=== PATIENT | male | born 1955 | race African-American/Black ===

== ENCOUNTER → 2020-09-12 19:54 | Outpatient (REF) | payer MEDICAID, SELFPAY | LOC: HO.SL 19:54 | PROVIDERS: PCP Hospitalist; Visit Provider Hospitalist | DX: Z13.89 Encounter for screening for other disorder (principal) ==

== ENCOUNTER → 2021-06-21 10:36 | Outpatient (BNVA) | payer MEDICAID, SELFPAY | PROVIDERS: PCP Hospitalist; Visit Provider Hospitalist | DX: J43.2 Centrilobular emphysema (principal); G47.33 Obstructive sleep apnea (adult) (pediatric); G47.34 Idiopathic sleep related nonobstructive alveolar hypoventilation; J84.10 Pulmonary fibrosis, unspecified | CPT/HCPCS: 99212 ==

== ENCOUNTER 2021-08-23 08:37 | Outpatient (REF) | payer MEDICARE, MEDICAID, SELFPAY ==
--- NOTE | 2021-08-23 | PFT_ITS ---
FLOWS: FEV1 112% of predicted at 2.53 L. FVC 103% of predicted at 3.04 L. FEV1/FVC ratio of 0.83. No bronchodilator response except in small to medium airways. LUNG VOLUMES: Total lung capacity 99% of predicted at 5.40 L. Residual volume 126% of predicted at 2.36 L. Slow vital capacity 72% of predicted at 3.05 L. Expiratory reserve volume 72% of predicted at 0.82 L. Diffusion capacity is moderately decreased, diffusion capacity adjusts to being mildly decreased after correction for alveolar ventilation. IMPRESSION: No obstructive or restrictive ventilatory defect. Increased residual volume suggests air trapping. Decreased diffusion capacity suggests emphysema. Alo Cain MD AP/MODL / [id number]
== END 2021-08-23 08:38 | disposition home or self-care (01) ==
LOC: HO.RESP 08:37
PROVIDERS: PCP Hospitalist; Visit Provider Hospitalist
DX: J44.9 Chronic obstructive pulmonary disease, unspecified (principal)
CPT/HCPCS: 94060; 94727; 94729; 99212

== ENCOUNTER → 2021-09-04 10:40 | Outpatient (REF) | payer MEDICARE, MEDICAID, SELFPAY | LOC: HO.SL 10:40 | PROVIDERS: PCP Hospitalist; Visit Provider Hospitalist | DX: G47.33 Obstructive sleep apnea (adult) (pediatric) (principal) | CPT/HCPCS: 95806 ==

== ENCOUNTER 2021-09-13 15:41 | Emergency (ER) | payer MEDICARE, MEDICAID, SELFPAY ==
--- NOTE | ~2021-09-13 | XR_ITS ---
EXAMINATION: XR CHEST CLINICAL INFORMATION: Fever with history of COPD COMPARISON: July 05, 2020 and studies dating back to June 20, 2015 TECHNIQUE: PA view of the chest was obtained. FINDINGS: There are again noted to be regions of groundglass opacity bilaterally most prominent within the right upper lobe and left lower lung. There appears be slight increase in discoid density at the left base compared to previous study which may be related to atelectasis or pneumonitis. Heart normal size. No evidence of pulmonary edema. No pneumothorax or pleural effusion. XR/XR chest 1V IMPRESSION: Chronic interstitial lung disease with question region of superimposed acute disease within the left lung base.
[2021-09-13 15:55] VITALS: BP 115/55; BP 128/60; PULSE 108; PULSE 110; RESP 16; TEMP 37.3; O2SAT 95; BMI 41.5
--- NOTE | 2021-09-13 16:15 | ECG_ITS ---
Test Reason : nausea/vomitting Blood Pressure : / mmHG Vent. Rate : 102 BPM Atrial Rate : 102 BPM P-R Int : 162 ms QRS Dur : 104 ms QT Int : 356 ms P-R-T Axes : 047 020 032 degrees QTc Int : 463 ms Sinus tachycardia Possible Left atrial enlargement Incomplete right bundle branch block Nonspecific T wave abnormality Abnormal ECG T wave amplitude has decreased in Lateral leads Referred By: Marleni Francisco Electronically Signed By:VIANNEY MCCAIN MD
--- NOTE | 2021-09-13 16:19 | ED_ITS ---
HPI - General Adult General Chief complaint: General Medical Stated complaint: Vomiting, Fever Time Seen by Provider: 09/13/21 16:08 Source: patient and EMS Mode of arrival: EMS Limitations: no limitations History of Present Illness HPI narrative: Patient is brought to the emergency room by ambulance from [facility]. 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 Patient states the sensation lasted for about an hour then self resolved. Patient denies chest pain or shortness of breath. According to [facility] staff, they took the patient's temperature, he had a temperature 102 degrees, he was given Tylenol. Patient denies chest pain, no shortness of breath, no diarrhea. At this time, patient states that he feels small to normal. Related Data Home Medications Medication Instructions Recorded Confirmed acetaminophen 325 mg capsule 325 mg PO QID PRN 06/21/21 (Tylenol) ascorbate calcium (vitamin C) 500 500 mg PO DAILY 06/21/21 mg tablet atorvastatin 10 mg tablet 10 mg PO DAILY 06/21/21 bisacodyl 10 mg rectal suppository 10 mg MO DAILY PRN 06/21/21 cholecalciferol (vitamin D3) 25 25 mcg PO DAILY 06/21/21 mcg (1,000 unit) capsule clozapine 100 mg tablet (Clozaril) 100 mg PO TID 06/21/21 clozapine 200 mg tablet 200 mg PO BID 06/21/21 diphenhydramine HCl 25 mg tablet 25 mg PO Q6H PRN 06/21/21 (Benadryl Allergy) furosemide 20 mg tablet 20 mg PO DAILY 06/21/21 lithium carbonate 450 mg 450 mg PO BID 06/21/21 tablet,extended release metformin 1,000 mg tablet 1,000 mg PO BID 06/21/21 metoprolol succinate 100 mg 100 mg PO DAILY 06/21/21 tablet,extended release 24 hr metoprolol succinate 50 mg 50 mg PO DAILY 06/21/21 tablet,extended release 24 hr omeprazole 20 mg capsule,delayed 20 mg PO DAILY 06/21/21 release oxybutynin chloride 5 mg tablet 5 mg PO DAILY 06/21/21 qpxhscxwcvpsh-OX-jzokcghlitc 5 5 ml PO Q4H PRN 06/21/21 mg-15 mg-100 mg/5 mL oral liquid polyvinyl alcohol-povidone 1.4 p OPHTHALMIC (EYE) 06/21/21 %-0.6 % eye drops sennosides 8.6 mg tablet (senna) 8.6 mg PO DAILY 06/21/21 trazodone 100 mg tablet 100 mg PO BEDTIME 06/21/21 fluticasone propionate 50 spray INTRANASAL 08/23/21 mcg/actuation nasal spray,suspension Previous Rx's Medication Instructions Recorded azithromycin 250 mg tablet 250 mg PO DAILY 4 Days #4 tab 09/13/21 Allergies Allergy/AdvReac Type Severity Reaction Status Date / Time divalproex sodium [Depakote] Allergy Severe Rash/Hives Verified 08/23/21 10:14 gabapentin [Neurontin] Allergy Severe Rash/Hives Verified 08/23/21 10:14 haloperidol [From HALDOL] Allergy Severe Rash/Hives Verified 08/23/21 10:14 Haldol Allergy Severe Rash/Hives Uncoded 08/23/21 10:14 Review of Systems Review of Systems: Constitutional : No Weight loss, No Fever the patient's knowledge, No Chills, No Night Sweats, No Fatigue, No Malaise ENT/Mouth : No Hearing loss, No Ear Pain, No Nasal Congestion, No Sinus Pain, No Hoarseness, No sore throat, No Rhinorrhea, No Swallowing Difficulty Eyes: No Eye Pain, No Swelling, No Redness, No Foreign Body, No Discharge, No Vision Changes Cardiovascular : No Chest Pain, No SOB, No Dyspnea on Exertion, No Orthopnea, No Edema, No Palpitations, complaining of lightheadedness Respiratory : No Cough, No Sputum, No Wheezing, No Smoke Exposure, No Dyspnea Gastrointestinal : Complaining of nausea and vomiting, No Diarrhea, No Constipation, No abdominal Pain, No Hematochezia, No Melena Genitourinary : no irregular bleeding, No Dysuria, No Urinary Frequency, No Hematuria, No Urinary Incontinence, No Urgency, No Flank Pain, No Urinary Flow Changes, No Hesitancy Musculoskeletal : No joint pain, No Myalgias, No Joint Swelling Skin : No Skin Lesions, No rash Neuro : No Weakness, No Numbness, No Paresthesias, No Loss of Consciousness, No Dizziness, No Headache Psych : No Anxiety/Panic, No Depression, No SI/HI/AH/VH, No Social Issues, Heme/Lymph: No Bruising, No Bleeding,No Lymphadenopathy Endocrine : No Polyuria, No Polydipsia, No Temperature Intolerance [facility] Past Medical History Medical History COPD (chronic obstructive pulmonary disease) COVID-19 Nocturnal hypoxia BRITT (obstructive sleep apnea) Pulmonary fibrosis Social History Social History (Updated 06/21/21 @ 10:54 by ALTAGRACIA Westbrook) Alcohol intake: never Patient Tobacco Use Status: Current everyday Tobacco user Tobacco use type: Cigarette Cigarette Packs Per Day: 1 Cigarettes Per Day: 5 Use of substances other than those prescribed or required for medical reasons: No Advance Directives: No Advance Directives Information Provided: No Physical Exam Vital Signs: Vital Signs: Last Vital Signs Temp 100.5 F H 09/13/21 19:32 Pulse 111 H 09/13/21 19:32 Resp 16 09/13/21 19:32 BP 117/67 09/13/21 19:32 Pulse Ox 95 09/13/21 19:32 Body Mass Index 41.5 Const: Other: Appearance: Alert. Oriented X3. No acute distress. Eyes: Pupils equal, round and reactive to light. ENT: Pharynx normal. Neck: Normal inspection. Neck supple. No lymph nodes noted. No crepitus CVS: Normal heart rate and rhythm. Pulses normal. Normal S1 and S2 Respiratory: No respiratory distress. Breath sounds normal. No Wheezing. No rales Abdomen: Soft and nontender. No rigidity. No distention. good BS x4 Skin: Skin warm and dry. Normal skin color. Normal skin turgor. Extremities: Bilateral lower chronic venous stasis, nonpitting edema, No Lace rations. No Rash Neuro: Oriented X 3. No motor deficit. No sensory deficit. Moving all extermities. No slurred speech. Course Course Course Narrative: Patient's troponin 1. Is 9.9. It will be repeated at 19:20. Patient remains asymptomatic, no dizziness. Chest x-ray shows question also a region of superimposed acute disease within the left lung base. Patient has no respiratory symptoms, white blood cell count within normal limits. Since the staff at [facility] reports fevers, patient has history of COPD, we will go ahead and treat with oral antibiotic. First dose given in the emergency room, azithromycin. Medical Decision Making Lab Data Result diagrams: 09/13/21 16:24 09/13/21 17:26 Labs: Lab Results 09/13/21 09/13/21 09/13/21 Range/Units 16:24 16:24 16:24 WBC 10.4 (4.8-10.8) X10*3/uL RBC 3.98 L (4.60-5.80) X10*6/uL Hgb 12.5 L (14.0-18.0) g/dl Hct 37.7 L (42-52) % MCV 94.7 (80-98) fL MCH 31.4 (27.0-33.0) pg MCHC 33.2 (31.0-36.0) g/dl RDW 14.6 (11.0-16.0) % Plt Count 185 (160-400) X10*3/uL MPV 9.4 (9.4-12.4) fL Immature Gran % (Auto) 0.6 H (0.0-0.4) % Neut % (Auto) 87.5 H (45-73) % Lymph % (Auto) 7.6 L (20-40) % [place] % (Auto) 4.1 (2-11) % Eos % (Auto) 0.0 (0-4) % Baso % (Auto) 0.2 (0-2) % Lymph # (Auto) 0.8 L (1.2-4.9) X10*3/uL [place] # (Auto) 0.4 (0.1-1.2) X10*3/uL Eos # (Auto) 0.0 (0.0-0.4) X10*3/uL Baso # (Auto) 0.0 (0.0-0.2) X10*3/uL Abs Immat Gran (auto) 0.06 H (0.00-0.03) X10*3/uL Absolute Neuts (auto) 9.1 H (2.0-8.3) X10*3/uL Absolute Nucleated RBC 0.000 (0.0-0.012) X10*3/uL Nucleated RBC % (auto) 0.0 (0.0-0.2) /100WBC PT 13.7 H (9.9-13.0) SEC INR 1.2 H (0.9-1.1) Sodium (135-145) mmol/L Potassium (3.3-5.1) mmol/L Chloride (96-108) mmol/L Carbon Dioxide (22-29) mmol/L Anion Gap (12-20) BUN (9-16) mg/dL Creatinine (0.5-1.4) mg/dL Estim Creat Clear Calc Estimated GFR Random Glucose (60-115) mg/dL Lactic Acid 1.9 (0.5-2.0) mmol/L Calcium (8.4-10.2) mg/dL Total Bilirubin (0.0-1.0) mg/dL Direct Bilirubin (0.0-0.5) mg/dL AST (5-37) U/L ALT (0-40) U/L Alkaline Phosphatase (39-117) U/L Troponin I High Sens (<3.5-35.0) ng/L B-Natriuretic Peptide (<100) pg/mL Total Protein (6.5-8.0) g/dL Albumin (3.5-5.0) g/dL Urine Color Urine Appearance Urine pH (5.0-8.0) Ur Specific [place] (1.005-1.025) Urine Protein (NEG-TRACE) MG/DL Urine Glucose (UA) (NEG) MG/DL Urine Ketones (NEG) MG/DL Urine Blood (NEG) Urine Nitrite (NEG) Ur Leukocyte Esterase (NEG) COVID-19 (MARINE) (Negative) COVID-19 Clin Com 09/13/21 09/13/21 09/13/21 Range/Units 16:24 17:26 17:56 WBC (4.8-10.8) X10*3/uL RBC (4.60-5.80) X10*6/uL Hgb (14.0-18.0) g/dl Hct (42-52) % MCV (80-98) fL MCH (27.0-33.0) pg MCHC (31.0-36.0) g/dl RDW (11.0-16.0) % Plt Count (160-400) X10*3/uL MPV (9.4-12.4) fL Immature Gran % (Auto) (0.0-0.4) % Neut % (Auto) (45-73) % Lymph % (Auto) (20-40) % [place] % (Auto) (2-11) % Eos % (Auto) (0-4) % Baso % (Auto) (0-2) % Lymph # (Auto) (1.2-4.9) X10*3/uL [place] # (Auto) (0.1-1.2) X10*3/uL Eos # (Auto) (0.0-0.4) X10*3/uL Baso # (Auto) (0.0-0.2) X10*3/uL Abs Immat Gran (auto) (0.00-0.03) X10*3/uL Absolute Neuts (auto) (2.0-8.3) X10*3/uL Absolute Nucleated RBC (0.0-0.012) X10*3/uL Nucleated RBC % (auto) (0.0-0.2) /100WBC PT (9.9-13.0) SEC INR (0.9-1.1) Sodium 136 (135-145) mmol/L Potassium 3.9 (3.3-5.1) mmol/L Chloride 101 (96-108) mmol/L Carbon Dioxide 27 (22-29) mmol/L Anion Gap 12 (12-20) BUN 11 (9-16) mg/dL Creatinine 1.36 (0.5-1.4) mg/dL Estim Creat Clear Calc 67.2 Estimated GFR 53 Random Glucose 132 H (60-115) mg/dL Lactic Acid (0.5-2.0) mmol/L Calcium 9.4 (8.4-10.2) mg/dL Total Bilirubin 0.2 (0.0-1.0) mg/dL Direct Bilirubin 0.2 (0.0-0.5) mg/dL AST 26 (5-37) U/L ALT 20 (0-40) U/L Alkaline Phosphatase 91 (39-117) U/L Troponin I High Sens 9.9 (<3.5-35.0) ng/L B-Natriuretic Peptide 14 (<100) pg/mL Total Protein 7.5 (6.5-8.0) g/dL Albumin 4.3 (3.5-5.0) g/dL Urine Color YELLOW Urine Appearance CLEAR Urine pH 6.5 (5.0-8.0) Ur Specific [place] <= 1.005 (1.005-1.025) Urine Protein NEG (NEG-TRACE) MG/DL Urine Glucose (UA) NEG (NEG) MG/DL Urine Ketones NEG (NEG) MG/DL Urine Blood NEG (NEG) Urine Nitrite NEG (NEG) Ur Leukocyte Esterase NEG (NEG) COVID-19 (MARNIE) (Negative) COVID-19 Clin Com 09/13/21 Range/Units 19:42 WBC (4.8-10.8) X10*3/uL RBC (4.60-5.80) X10*6/uL Hgb (14.0-18.0) g/dl Hct (42-52) % MCV (80-98) fL MCH (27.0-33.0) pg MCHC (31.0-36.0) g/dl RDW (11.0-16.0) % Plt Count (160-400) X10*3/uL MPV (9.4-12.4) fL Immature Gran % (Auto) (0.0-0.4) % Neut % (Auto) (45-73) % Lymph % (Auto) (20-40) % [place] % (Auto) (2-11) % Eos % (Auto) (0-4) % Baso % (Auto) (0-2) % Lymph # (Auto) (1.2-4.9) X10*3/uL [place] # (Auto) (0.1-1.2) X10*3/uL Eos # (Auto) (0.0-0.4) X10*3/uL Baso # (Auto) (0.0-0.2) X10*3/uL Abs Immat Gran (auto) (0.00-0.03) X10*3/uL Absolute Neuts (auto) (2.0-8.3) X10*3/uL Absolute Nucleated RBC (0.0-0.012) X10*3/uL Nucleated RBC % (auto) (0.0-0.2) /100WBC PT (9.9-13.0) SEC INR (0.9-1.1) Sodium (135-145) mmol/L Potassium (3.3-5.1) mmol/L Chloride (96-108) mmol/L Carbon Dioxide (22-29) mmol/L Anion Gap (12-20) BUN (9-16) mg/dL Creatinine (0.5-1.4) mg/dL Estim Creat Clear Calc Estimated GFR Random Glucose (60-115) mg/dL Lactic Acid (0.5-2.0) mmol/L Calcium (8.4-10.2) mg/dL Total Bilirubin (0.0-1.0) mg/dL Direct Bilirubin (0.0-0.5) mg/dL AST (5-37) U/L ALT (0-40) U/L Alkaline Phosphatase (39-117) U/L Troponin I High Sens (<3.5-35.0) ng/L B-Natriuretic Peptide (<100) pg/mL Total Protein (6.5-8.0) g/dL Albumin (3.5-5.0) g/dL Urine Color Urine Appearance Urine pH (5.0-8.0) Ur Specific [place] (1.005-1.025) Urine Protein (NEG-TRACE) MG/DL Urine Glucose (UA) (NEG) MG/DL Urine Ketones (NEG) MG/DL Urine Blood (NEG) Urine Nitrite (NEG) Ur Leukocyte Esterase (NEG) COVID-19 (MARNIE) Negative (Negative) COVID-19 Clin Com See Note Discharge Plan Discharge Clinical Impression: Fever, Near syncope Patient Disposition: Home, Self-Care Instructions: Near Syncope (ED) Additional Instructions: Please follow-up with your primary care physician tomorrow. If you have any worsening or new symptoms, please return to the emergency room or call 911 Prescriptions: New azithromycin 250 mg tablet 250 mg PO DAILY 4 Days Qty: 4 RF: 0 No Action oxybutynin chloride 5 mg tablet 5 mg PO DAILY RF: 0 furosemide 20 mg tablet 20 mg PO DAILY RF: 0 metformin 1,000 mg tablet 1,000 mg PO BID RF: 0 trazodone 100 mg tablet 100 mg PO BEDTIME RF: 0 lithium carbonate 450 mg tablet extended release 450 mg PO BID RF: 0 metoprolol succinate 50 mg tablet extended release 24 hr 50 mg PO DAILY RF: 0 atorvastatin 10 mg tablet 10 mg PO DAILY RF: 0 metoprolol succinate 100 mg tablet extended release 24 hr 100 mg PO DAILY RF: 0 acetaminophen [Tylenol] 325 mg capsule 325 mg PO QID PRNRF: 0 ascorbate calcium (vitamin C) 500 mg tablet 500 mg PO DAILY RF: 0 cholecalciferol (vitamin D3) 25 mcg (1,000 unit) capsule 25 mcg PO DAILY RF: 0 omeprazole 20 mg capsule,delayed release(DR/EC) 20 mg PO DAILY RF: 0 nlbuuqvmeemex-HE-flxllaevjxt 5-15-100 mg/5 mL liquid 5 ml PO Q4H PRNRF: 0 sennosides [senna] 8.6 mg tablet 8.6 mg PO DAILY RF: 0 clozapine 200 mg tablet 200 mg PO BID RF: 0 clozapine [Clozaril] 100 mg tablet 100 mg PO TID RF: 0 diphenhydramine HCl [Benadryl Allergy] 25 mg tablet 25 mg PO Q6H PRNRF: 0 bisacodyl 10 mg suppository 10 mg MO DAILY PRNRF: 0 polyvinyl alcohol-povidone 1.4-0.6 % drops ophthalmic (eye) RF: 0 fluticasone propionate 50 mcg/actuation spray,suspension intranasal RF: 0
[2021-09-13 17:02] LABS: MANUAL DIFF FLAG NO
[2021-09-13 17:08] LABS: INTERNATIONAL NORM RATIO 1.2 (0.9-1.1); Prothrombin Time 13.7 SEC (9.9-13.0)
[2021-09-13 17:11] LABS: Basophils Percent Auto 0.2 % (0-2); Hematocrit 37.7 % (42-52); Hemoglobin 12.5 g/dl (14.0-18.0); Imm Gran Abs Auto 0.06 X10*3/uL (0.00-0.03); Imm Gran Pct Auto 0.6 % (0.0-0.4); Lymphocytes Absolute Auto 0.8 X10*3/uL (1.2-4.9); Lymphocytes Percent Auto 7.6 % (20-40); Mean Corpuscular HGB Conc 33.2 g/dl (31.0-36.0); Mean Corpuscular Hemoglobin 31.4 pg (27.0-33.0); Mean Corpuscular Volume 94.7 fL (80-98); Mean Platelet Volume 9.4 fL (9.4-12.4); Monocytes Absolute Auto 0.4 X10*3/uL (0.1-1.2); Monocytes Percent Auto 4.1 % (2-11); Neutrophils Absolute Auto 9.1 X10*3/uL (2.0-8.3); Neutrophils Percent Auto 87.5 % (45-73); Platelet Count 185 X10*3/uL (160-400); Red Blood Count 3.98 X10*6/uL (4.60-5.80); Red Cell Distribution Width 14.6 % (11.0-16.0); White Blood Count 10.4 X10*3/uL (4.8-10.8)
[2021-09-13 17:16] LABS: Lactic Acid 1.9 mmol/L (0.5-2.0)
[2021-09-13 17:26] LABS: B Type Natriuretic Peptide 14 pg/mL (<100); Troponin-I High Sensitivity 9.9 ng/L (<3.5-35.0)
[2021-09-13] MEDS: 0.9 % Sodium Chloride 1,000 ML 999 ML IVCONT (17:33)
[2021-09-13] MEDS: ondansetron HCL 4 MG/2 ML VIAL IVPUSH (17:38)
[2021-09-13 17:55] LABS: Alanine Aminotransferase 20 U/L (0-40); Albumin Level 4.3 g/dL (3.5-5.0); Alkaline Phosphatase 91 U/L (39-117); Anion Gap 12 (12-20); Aspartate Amino Transferase 26 U/L (5-37); Bilirubin Direct 0.2 mg/dL (0.0-0.5); Bilirubin Total 0.2 mg/dL (0.0-1.0); Blood Urea Nitrogen 11 mg/dL (9-16); Calcium 9.4 mg/dL (8.4-10.2); Carbon Dioxide 27 mmol/L (22-29); Chloride 101 mmol/L (96-108); Creatinine Clr Calc Pharmacy 67.2; Estimated Glomerular Filt Rate 53; Glucose Random 132 mg/dL (60-115); Potassium 3.9 mmol/L (3.3-5.1); Sodium 136 mmol/L (135-145); Total Protein 7.5 g/dL (6.5-8.0)
[2021-09-13 18:44] LABS: Appearance Urine CLEAR; Color Urine YELLOW; Glucose Urine UA NEG (NEG); Leukocyte Esterase Urine NEG (NEG); Nitrite Urine NEG (NEG); PH 6.5 (5.0-8.0); Specific Gravity - Urine <= 1.005 (1.005-1.025); Urine Blood NEG (NEG); Urine Ketones NEG (NEG); Urine Protein NEG (NEG-TRACE)
[2021-09-13 19:32] VITALS: BP 117/67; PULSE 111; RESP 16; TEMP 38.1; O2SAT 95
--- NOTE | 2021-09-13 19:45 | PC.NURSE ---
This RN to bedside. Pt aaox4, reports NGUYEN for 20 minutes denies abd pain, n/v. Pt IVF not infusing. L AC PIV placed, repeat trop obtained and sent to lab for processing as well as richter covid swab. Pt fluids now infusing appropriately. Dr Francisco made aware of pt's temp and c/o NGUYEN, per Dr Francisco OK for tylenol. Pt remains seated on stretcher in NAD, breathing with ease on RA, VSS. Pt awaiting lab results and dispo, is agreeable to plan.
[2021-09-13] MEDS: Acetaminophen 325 MG TABLET 650 MG PO (19:48)
[2021-09-13 20:23] LABS: COVID-19 Test Negative (Negative); IDNOW Serial# 9DD0AD1C
[2021-09-13 20:31] LABS: Troponin-I High Sensitivity 8.1 ng/L (<3.5-35.0)
[2021-09-13] MEDS: Azithromycin 500 MG TABLET PO (20:45)
[2021-09-13 20:47] VITALS: BP 115/77; PULSE 111; RESP 16; TEMP 37.8; O2SAT 95
--- NOTE | 2021-09-13 20:55 | PC.NURSE ---
This RN [facility] and gave nurse to nurse report to Vivian who is receiving pt. Vivian informs this RN that pt rec'd his covid booster yesterday and questions that these sx are related to this booster. No additional questions/concerns.
== END 2021-09-13 21:29 | disposition home or self-care (01) ==
PROVIDERS: Emergency Provider Emergency Medicine
DX: R55 Syncope and collapse (principal); R50.9 Fever, unspecified; F17.210 Nicotine dependence, cigarettes, uncomplicated; Z71.6 Tobacco abuse counseling; Z20.822 Contact with and (suspected) exposure to COVID-19; Z79.899 Other long term (current) drug therapy
CPT/HCPCS: 36415; 71045; 80048; 80076; 81003; 83605; 83880; 84484; 85025; 85610; 87040; 87635; 93005; 96361; 96374; 99284; 99285; J2405

== ENCOUNTER → 2021-10-25 10:18 | Outpatient (REF) | payer MEDICARE, MEDICAID, SELFPAY ==
--- NOTE | 2021-10-25 10:30 | CA_ITS ---
Transthoracic Echocardiogram Patient (Last, First, Middle): Jourdan Johnson, Gender: Male Date of : 1955 Age: 66 Procedure Date: 10/25/2021 Procedure Type: Transthoracic Echocardiogram Location: OP Height: 170.18 cm Weight: 73.48 kg BSA: 1.85 m2 Heart Rate: bpm BP: 110 / 70 mmHg [place] Marker: BRENNA/RAHEEM Referring MD: Miles Lamb MD Symptoms: R55 SYNCOPE Study Quality: Fair ECG Rhythm: Sinus Conclusions: - The left ventricular systolic function is normal. The calculated ejection fraction is 60% by biplane method. - No obvious valvular pathology seen on this study. - There is mild dilatation of the sinuses of Valsalva measuring 4.20 cm. Findings Left Ventricle Normal left ventricular cavity size. There is normal left ventricular wall thickness. The left ventricular systolic function is normal. The calculated ejection fraction is 60% by biplane method. There is no evidence of regional wall motion abnormalities. E/E prime ratio is between 8 and 15 consistent with indeterminate filling pressures. Evidence suggests grade I (mild) diastolic dysfunction. Right Ventricle Normal right ventricular cavity size and systolic function. Atria Both atria are normal in size. Aortic Valve There is a normal trileaflet aortic valve. There is no aortic valve stenosis. There is no aortic valve regurgitation. Mitral Valve The mitral valve appears normal. There is trace mitral valve regurgitation. There is no mitral valve stenosis. Pulmonic Valve The pulmonic valve was not well visualized. Tricuspid Valve Normal tricuspid valve structure. There is trace tricuspid valve regurgitation. The pulmonary artery systolic pressure is normal. Great Vessels The asc aorta is normal in size. There is mild dilatation of the sinuses of Valsalva measuring 4.20 cm. Venous The inferior vena cava is normal in size and collapses greater than 50% with inspiration. Pericardium/Pleural There is no evidence of pericardial effusion. Prior Study Comparison No prior study available for comparison. Recommendations, Care & Conclusions No obvious valvular pathology seen on this study. Measurements 2D Linear Measurements IVSd: 1.04 0.6-0.9/0.6-1.0 cm LVIDd: 4.41 3.9-5.3/4.2-5.9 cm LVIDd Index: 2.38 2.4-3.2/2.2-3.1 cm/m2 LVIDs: 3.02 2.0-3.6 cm LVPWd: 0.96 0.7-1.1 cm Ao Root: 4.20 2.1-3.5 cm LA Diam: 3.50 2.7-3.8/3.0-4.0 cm LAIDs Index: 1.89 1.5-2.3 cm/m2 LV Mass: 185.10 67-162/88-224 g LV Mass Index: 100.05 43-95/49-115 g/m2 LVOT Diam: 2.30 3.0+(-)1.3 cm 2D Systolic Function EF 4C: 56.00 >55% EF 2C: 60.00 >55% EF BiP: 59.70 >55% Mitral Valve MV Pk E: 0.84 MV PK A: 0.91 MV Decel Time: 175.00 E/A: 0.90 E'Lateral: 8.70 E'Medial: 6.31 E/E' Med: 13.20 E/E' Lat: 9.60 PHT: 51.00 MVA PHT: 4.31 Decel [place]: 4.77 Aortic Valve AoV Pk Blu: 1.10 AoV Mn Blu: 0.81 AoV VTI: 0.22 AoV Pk Grad: 5.00 Aov Mn Grad: 3.00 COLLEEN Cont.VTI: 3.37 LVOT LVOT Pk Blu: 0.97 LVOT Mn Blu: 0.61 LVOT VTI: 0.18 LVOT Pk Grad: 4.00 LVOT Mn Grad: 2.00 LVOT Diam: 2.30 LVOT Area: 4.15 Diastolic Function MV Pk E: 0.84 MV Pk A: 0.91 E/A: 0.90 E'Medial: 6.31 E/E' Med: 13.20 E' Laterial: 8.70 E/E' Lat: 9.60 Right Ventricle TAPSE (mm): 2.04 TVS' Blu: 9.90 Tricuspid Valve TR Pk Blu: 2.28 TR Pk Grad: 21.00 RA Press: 3.00 RVSP: 24.00 Great Vessels Aorta Ao Root-2D: 4.20 2.0-3.7 cm Sinus of Valsalva: 4.20 2.0-3.5 cm Ao Asc: 2.90 2.1-3.4 cm Updated in Other Vendor System with Status of Final Perry Hobson MD electronically signed on 10/26/2021 11:36:46 AM with status of Final
== END ==
LOC: HO.CARD 10:18
PROVIDERS: Visit Provider Psychiatry & Neurology Neurology
DX: R55 Syncope and collapse (principal)
CPT/HCPCS: 93306

== ENCOUNTER → 2021-11-13 09:56 | Outpatient (BNVA) | payer MEDICAID, SELFPAY | PROVIDERS: PCP Hospitalist; Visit Provider Hospitalist | DX: J43.2 Centrilobular emphysema (principal); G47.33 Obstructive sleep apnea (adult) (pediatric); G47.34 Idiopathic sleep related nonobstructive alveolar hypoventilation; J84.10 Pulmonary fibrosis, unspecified | CPT/HCPCS: 99212 ==

== ENCOUNTER 2021-12-26 08:08 | Day surgery (SDC) | payer MEDICARE, SELFPAY ==
[2021-12-21 09:32] VITALS: BMI 38.5
--- NOTE | 2021-12-21 13:21 | P.CONAN_ITS ---
Documented by User: Lynsey Treviño NP 12/21/21 13:36 HPI - Anesthesia Eval Consult details Narrative: 66yo M for Colonoscopy SNF resident O2 @ [facility] bc couldn't tolerate CPAP PMFSH Active Problems Active Problems: All Active Problems (Updated 12/21/21 @ 09:11 by Seda Ribera RN) Pulmonary fibrosis (Acute) Nocturnal hypoxia (Acute) BRITT (obstructive sleep apnea) (Acute) COPD (chronic obstructive pulmonary disease) (Acute) Past Medical History Medical History CAD (coronary artery disease) Cardiomyopathy COPD (chronic obstructive pulmonary disease) COVID-19 COVID-19 vaccine series completed Diabetes Epilepsy GERD (gastroesophageal reflux disease) HTN (hypertension) Myocardial infarction Nocturnal hypoxia BRITT (obstructive sleep apnea) Pulmonary fibrosis Resides in supervisor long goods care facility Schizo affective schizophrenia Sleep apnea Supraventricular tachycardia Thoracic aortic aneurysm Surgical History Surgical History Surgical history unknown Social History Social History Household Members Other:: resides at [facility] Are you a primary wild animal caretaker to a significant other at home: No Do you presently have visiting nurse or other home services: No Alcohol intake: never Patient Tobacco Use Status: Current everyday Tobacco user Tobacco use type: Cigarette Cigarette Packs Per Day: 5 Cigarettes Per Day: 100.0 Are you DNR?: No Advance Directives: Yes ([facility] staff [facility] has HCP-info to be faxed) Advance Directives Information Provided: Yes (HCP form faxed 12/21/21) Advance Directives on File: Yes Advance Directives Date on File: 12/21/21 Recently lost weight without trying: No Eating poorly because of decreased appetite: No Nutrition Risks: No Nutritional Risk Meds Allergies Allergy/AdvReac Type Severity Reaction Status Date / Time divalproex sodium Allergy Severe Rash/Hives Verified 11/13/21 10:42 [Depakote] gabapentin [Neurontin] Allergy Severe Rash/Hives Verified 11/13/21 10:42 haloperidol [From Allergy Severe Rash/Hives Verified 11/13/21 10:42 HALDOL] Home Medications Medication Instructions Recorded Confirmed Last Taken Type acetaminophen 325 325 mg PO QID 07/29/21 01/28/22 Unknown History mg capsule PRN (Tylenol) ascorbate calcium 500 mg PO DAILY 06/21/21 12/21/21 Unknown History (vitamin C) 500 mg tablet atorvastatin 10 10 mg PO DAILY 06/21/21 12/21/21 Unknown History mg tablet bisacodyl 10 mg 10 mg IA DAILY 06/21/21 12/21/21 Unknown History rectal PRN suppository cholecalciferol 25 mcg PO DAILY 06/21/21 12/21/21 Unknown History (vitamin D3) 25 mcg (1,000 unit) capsule clozapine 100 mg 100 mg PO QAM 06/21/21 12/21/21 Unknown History tablet (Clozaril) clozapine 200 mg 200 mg PO 06/21/21 12/21/21 Unknown History tablet BEDTIME diphenhydramine 25 mg PO Q6H PRN 06/21/21 12/21/21 Unknown History HCl 25 mg tablet (Benadryl Allergy) furosemide 20 mg 20 mg PO DAILY 06/21/21 12/21/21 Unknown History tablet lithium carbonate 450 mg PO BID 06/21/21 12/21/21 Unknown History 450 mg tablet,extended release metformin 1,000 1,000 mg PO BID 06/21/21 12/21/21 Unknown History mg tablet metoprolol 100 mg PO QAM 06/21/21 12/21/21 Unknown History succinate 100 mg tablet,extended release 24 hr metoprolol 50 mg PO BEDTIME 06/21/21 12/21/21 Unknown History succinate 50 mg tablet,extended release 24 hr omeprazole 20 mg 20 mg PO DAILY 06/21/21 12/21/21 Unknown History capsule,delayed release oxybutynin 5 mg PO DAILY 06/21/21 12/21/21 Unknown History chloride 5 mg tablet phenylephrine-DM- 5 ml PO Q4H PRN 06/21/21 12/21/21 Unknown History guaifenesin 5 mg-15 mg-100 mg/5 mL oral liquid polyvinyl drp OPHTHALMIC 06/21/21 Unknown History alcohol-povidone (EYE) 1.4 %-0.6 % eye drops sennosides 8.6 mg 8.6 mg PO DAILY 06/21/21 12/21/21 Unknown History tablet (senna) trazodone 100 mg 100 mg PO 06/21/21 12/21/21 Unknown History tablet BEDTIME fluticasone 2 spray 08/23/21 12/21/21 Unknown History propionate 50 INTRANASAL DAILY mcg/actuation nasal spray,suspension nicotine 10 mg 0 inh INHALATION 11/13/21 Unknown History inhalation cartridge (Nicotrol) Exam Exam Date and Time: December 21, 2021 1321 Height,Weight and Vital Signs: Height 5 ft 7 in Weight 111.584 kg Narrative Narrative: EKG 08/2021 Vent. Rate : 102 BPM ? ? Atrial Rate : 102 BPM ?? P-R Int : 162 ms? QRS Dur : 104 ms ? ? QT Int : 356 ms ? ? ? P-R-T Axes : 047 020 032 degrees ?? QTc Int : 463 ms ? Sinus tachycardia Possible Left atrial enlargement Incomplete right bundle branch block Nonspecific T wave abnormality Abnormal ECG ? T wave amplitude has decreased in Lateral leads ECHO 10/2021 Conclusions: - The left ventricular systolic function is normal.? The ? calculated ejection fraction is 60% by biplane method. ? - No obvious valvular pathology seen on this study.? - There is mild dilatation of the sinuses of Valsalva measuring? 4.20 cm. ? Carotid Duplex 08/2021 Right: <50% stenosis Left: <50% stenosis Assessment and Plan Assessment Anesthesia Assessment: Chart Reviewed Documented by User: Fouzia Marcelo MD 12/26/21 09:54 [facility] Past Medical History Medical History CAD (coronary artery disease) Cardiomyopathy COPD (chronic obstructive pulmonary disease) COVID-19 COVID-19 vaccine series completed Diabetes Epilepsy GERD (gastroesophageal reflux disease) HTN (hypertension) Myocardial infarction Nocturnal hypoxia BRITT (obstructive sleep apnea) Pulmonary fibrosis Resides in supervisor long goods care facility Schizo affective schizophrenia Sleep apnea Supraventricular tachycardia Thoracic aortic aneurysm Functional capacity: independent ambulation Family History Family history of problems with anesthesia: No Surgical History Surgical History Surgical history unknown Social History Social History Household Members Other:: resides at [facility] Are you a primary wild animal caretaker to a significant other at home: No Do you presently have visiting nurse or other home services: No Alcohol intake: never Patient Tobacco Use Status: Current everyday Tobacco user Tobacco use type: Cigarette Cigarette Packs Per Day: 5 Cigarettes Per Day: 100.0 Are you DNR?: No Advance Directives: Yes ([facility] staff states has HCP-info to be faxed) Advance Directives Information Provided: Yes (HCP form faxed 12/21/21) Advance Directives on File: Yes Advance Directives Date on File: 12/21/21 Recently lost weight without trying: No Eating poorly because of decreased appetite: No Nutrition Risks: No Nutritional Risk Meds Allergies Allergy/AdvReac Type Severity Reaction Status Date / Time divalproex sodium Allergy Severe Rash/Hives Verified 11/13/21 10:42 [Depakote] gabapentin [Neurontin] Allergy Severe Rash/Hives Verified 11/13/21 10:42 haloperidol [From Allergy Severe Rash/Hives Verified 11/13/21 10:42 HALDOL] Home Medications Medication Instructions Recorded Confirmed Last Taken Type acetaminophen 325 325 mg PO QID 06/21/21 12/21/21 Unknown History mg capsule PRN (Tylenol) ascorbate calcium 500 mg PO DAILY 06/21/21 12/21/21 Unknown History (vitamin C) 500 mg tablet atorvastatin 10 10 mg PO DAILY 06/21/21 12/21/21 Unknown History mg tablet bisacodyl 10 mg 10 mg IA DAILY 06/21/21 12/21/21 Unknown History rectal PRN suppository cholecalciferol 25 mcg PO DAILY 06/21/21 12/21/21 Unknown History (vitamin D3) 25 mcg (1,000 unit) capsule clozapine 100 mg 100 mg PO QAM 06/21/21 12/21/21 Unknown History tablet (Clozaril) clozapine 200 mg 200 mg PO 06/21/21 12/21/21 Unknown History tablet BEDTIME diphenhydramine 25 mg PO Q6H PRN 06/21/21 12/21/21 Unknown History HCl 25 mg tablet (Benadryl Allergy) furosemide 20 mg 20 mg PO DAILY 06/21/21 12/21/21 Unknown History tablet lithium carbonate 450 mg PO BID 06/21/21 12/21/21 Unknown History 450 mg tablet,extended release metformin 1,000 1,000 mg PO BID 06/21/21 12/21/21 Unknown History mg tablet metoprolol 100 mg PO QAM 06/21/21 12/21/21 Unknown History succinate 100 mg tablet,extended release 24 hr metoprolol 50 mg PO BEDTIME 06/21/21 12/21/21 Unknown History succinate 50 mg tablet,extended release 24 hr omeprazole 20 mg 20 mg PO DAILY 06/21/21 12/21/21 Unknown History capsule,delayed release oxybutynin 5 mg PO DAILY 06/21/21 12/21/21 Unknown History chloride 5 mg tablet phenylephrine-DM- 5 ml PO Q4H PRN 06/21/21 12/21/21 Unknown History guaifenesin 5 mg-15 mg-100 mg/5 mL oral liquid polyvinyl drp OPHTHALMIC 06/21/21 Unknown History alcohol-povidone (EYE) 1.4 %-0.6 % eye drops sennosides 8.6 mg 8.6 mg PO DAILY 06/21/21 12/21/21 Unknown History tablet (senna) trazodone 100 mg 100 mg PO 06/21/21 12/21/21 Unknown History tablet BEDTIME fluticasone 2 spray 08/23/21 12/21/21 Unknown History propionate 50 INTRANASAL DAILY mcg/actuation nasal spray,suspension nicotine 10 mg 0 inh INHALATION 11/13/21 Unknown History inhalation cartridge (Nicotrol) Exam Airway Mallampati Class: II TM Dist: >3cm Neck ROM: Full Heart: RRR Lungs: CTA Assessment and Plan Final Anesthetic Review Family History of Problems with Anesthesia: No NPO: Yes ASA Class: III Final Preanesthetic Review: No Changes in Pt Med Stat, Meds/Allgs Chart Reviewed and Consent Obtained/Reviewed Patient Risk: Intermediate Procedure Risk: Low Anesthetic Plan Anesthetic Plan: MAC: Disposition: Standard PACU and Inp. Admit - IMC
--- NOTE | 2021-12-21 13:21 | HO.ANESPROP2 ---
Documented by User: Lynsey Treviño NP 12/21/21 13:36 HPI - Anesthesia Eval Consult details Narrative: 66yo M for Colonoscopy SNF resident O2 @ [facility] bc couldn't tolerate CPAP PMFSH Active Problems Active Problems: All Active Problems (Updated 12/21/21 @ 09:11 by Seda Ribera RN) Pulmonary fibrosis (Acute) Nocturnal hypoxia (Acute) BRITT (obstructive sleep apnea) (Acute) COPD (chronic obstructive pulmonary disease) (Acute) Past Medical History Medical History CAD (coronary artery disease) Cardiomyopathy COPD (chronic obstructive pulmonary disease) COVID-19 COVID-19 vaccine series completed Diabetes Epilepsy GERD (gastroesophageal reflux disease) HTN (hypertension) Myocardial infarction Nocturnal hypoxia BRITT (obstructive sleep apnea) Pulmonary fibrosis Resides in [facility] care facility Schizo affective schizophrenia Sleep apnea Supraventricular tachycardia Thoracic aortic aneurysm Surgical History Surgical History Surgical history unknown Social History Social History Household Members Other:: resides at [facility] Are you a primary director day care center to a significant other at home: No Do you presently have visiting nurse or other home services: No Alcohol intake: never Patient Tobacco Use Status: Current everyday Tobacco user Tobacco use type: Cigarette Cigarette Packs Per Day: 5 Cigarettes Per Day: 100.0 Are you DNR?: No Advance Directives: Yes ([facility] staff [facility] has HCP-info to be faxed) Advance Directives Information Provided: Yes (HCP form faxed 12/21/21) Advance Directives on File: Yes Advance Directives Date on File: 12/21/21 Recently lost weight without trying: No Eating poorly because of decreased appetite: No Nutrition Risks: No Nutritional Risk Meds Allergies Allergy/AdvReac Type Severity Reaction Status Date / Time divalproex sodium [Depakote] Allergy Severe Rash/Hives Verified 11/13/21 10:42 gabapentin [Neurontin] Allergy Severe Rash/Hives Verified 11/13/21 10:42 haloperidol [From HALDOL] Allergy Severe Rash/Hives Verified 11/13/21 10:42 Home Medications Medication Instructions Recorded Confirmed Last Taken Type acetaminophen 325 mg capsule 325 mg PO QID PRN 06/21/21 12/21/21 Unknown History (Tylenol) ascorbate calcium (vitamin C) 500 500 mg PO DAILY 06/21/21 12/21/21 Unknown History mg tablet atorvastatin 10 mg tablet 10 mg PO DAILY 06/21/21 12/21/21 Unknown History bisacodyl 10 mg rectal suppository 10 mg OK DAILY PRN 06/21/21 12/21/21 Unknown History cholecalciferol (vitamin D3) 25 25 mcg PO DAILY 06/21/21 12/21/21 Unknown History mcg (1,000 unit) capsule clozapine 100 mg tablet (Clozaril) 100 mg PO QAM 06/21/21 12/21/21 Unknown History clozapine 200 mg tablet 200 mg PO BEDTIME 06/21/21 12/21/21 Unknown History diphenhydramine HCl 25 mg tablet 25 mg PO Q6H PRN 06/21/21 12/21/21 Unknown History (Benadryl Allergy) furosemide 20 mg tablet 20 mg PO DAILY 06/21/21 12/21/21 Unknown History lithium carbonate 450 mg 450 mg PO BID 06/21/21 12/21/21 Unknown History tablet,extended release metformin 1,000 mg tablet 1,000 mg PO BID 06/21/21 12/21/21 Unknown History metoprolol succinate 100 mg 100 mg PO QAM 06/21/21 12/21/21 Unknown History tablet,extended release 24 hr metoprolol succinate 50 mg 50 mg PO BEDTIME 06/21/21 12/21/21 Unknown History tablet,extended release 24 hr omeprazole 20 mg capsule,delayed 20 mg PO DAILY 06/21/21 12/21/21 Unknown History release oxybutynin chloride 5 mg tablet 5 mg PO DAILY 06/21/21 12/21/21 Unknown History [id number]-RL-qnzsgogupnk 5 5 ml PO Q4H PRN 06/21/21 12/21/21 Unknown History mg-15 mg-100 mg/5 mL oral liquid polyvinyl alcohol-povidone 1.4 drp OPHTHALMIC (EYE) 06/21/21 Unknown History %-0.6 % eye drops sennosides 8.6 mg tablet (senna) 8.6 mg PO DAILY 06/21/21 12/21/21 Unknown History trazodone 100 mg tablet 100 mg PO BEDTIME 06/21/21 12/21/21 Unknown History fluticasone propionate 50 2 spray INTRANASAL DAILY 08/23/21 12/21/21 Unknown History mcg/actuation nasal spray,suspension nicotine 10 mg inhalation 0 inh INHALATION 11/13/21 Unknown History cartridge (Nicotrol) Exam Exam Date and Time: December 21, 2021 1321 Height,Weight and Vital Signs: Height 5 ft 7 in Weight 111.584 kg Narrative Narrative: EKG 08/2021 Vent. Rate : 102 BPM ? ? Atrial Rate : 102 BPM ?? P-R Int : 162 ms? QRS Dur : 104 ms ? ? QT Int : 356 ms ? ? ? P-R-T Axes : 047 020 032 degrees ?? QTc Int : 463 ms ? Sinus tachycardia Possible Left atrial enlargement Incomplete right bundle branch block Nonspecific T wave abnormality Abnormal ECG ? T wave amplitude has decreased in Lateral leads ECHO 10/2021 Conclusions: - The left ventricular systolic function is normal.? The ? calculated ejection fraction is 60% by biplane method. ? - No obvious valvular pathology seen on this study.? - There is mild dilatation of the sinuses of Valsalva measuring? 4.20 cm. ? Carotid Duplex 08/2021 Right: <50% stenosis Left: <50% stenosis Assessment and Plan Assessment Anesthesia Assessment: Chart Reviewed Documented by User: Fouzia Marcelo MD 12/26/21 09:54 [facility] Past Medical History Medical History CAD (coronary artery disease) Cardiomyopathy COPD (chronic obstructive pulmonary disease) COVID-19 COVID-19 vaccine series completed Diabetes Epilepsy GERD (gastroesophageal reflux disease) HTN (hypertension) Myocardial infarction Nocturnal hypoxia BRITT (obstructive sleep apnea) Pulmonary fibrosis Resides in senior living care facility Schizo affective schizophrenia Sleep apnea Supraventricular tachycardia Thoracic aortic aneurysm Functional capacity: independent ambulation Family History Family history of problems with anesthesia: No Surgical History Surgical History Surgical history unknown Social History Social History Household Members Other:: resides at [facility] Are you a primary director day care center to a significant other at home: No Do you presently have visiting nurse or other home services: No Alcohol intake: never Patient Tobacco Use Status: Current everyday Tobacco user Tobacco use type: Cigarette Cigarette Packs Per Day: 5 Cigarettes Per Day: 100.0 Are you DNR?: No Advance Directives: Yes ([facility] staff states has HCP-info to be faxed) Advance Directives Information Provided: Yes (HCP form faxed 12/21/21) Advance Directives on File: Yes Advance Directives Date on File: 12/21/21 Recently lost weight without trying: No Eating poorly because of decreased appetite: No Nutrition Risks: No Nutritional Risk Meds Allergies Allergy/AdvReac Type Severity Reaction Status Date / Time divalproex sodium [Depakote] Allergy Severe Rash/Hives Verified 11/13/21 10:42 gabapentin [Neurontin] Allergy Severe Rash/Hives Verified 11/13/21 10:42 haloperidol [From HALDOL] Allergy Severe Rash/Hives Verified 11/13/21 10:42 Home Medications Medication Instructions Recorded Confirmed Last Taken Type acetaminophen 325 mg capsule 325 mg PO QID PRN 06/21/21 12/21/21 Unknown History (Tylenol) ascorbate calcium (vitamin C) 500 500 mg PO DAILY 06/21/21 12/21/21 Unknown History mg tablet atorvastatin 10 mg tablet 10 mg PO DAILY 06/21/21 12/21/21 Unknown History bisacodyl 10 mg rectal suppository 10 mg OK DAILY PRN 06/21/21 12/21/21 Unknown History cholecalciferol (vitamin D3) 25 25 mcg PO DAILY 06/21/21 12/21/21 Unknown History mcg (1,000 unit) capsule clozapine 100 mg tablet (Clozaril) 100 mg PO QAM 06/21/21 12/21/21 Unknown History clozapine 200 mg tablet 200 mg PO BEDTIME 06/21/21 12/21/21 Unknown History diphenhydramine HCl 25 mg tablet 25 mg PO Q6H PRN 06/21/21 12/21/21 Unknown History (Benadryl Allergy) furosemide 20 mg tablet 20 mg PO DAILY 06/21/21 12/21/21 Unknown History lithium carbonate 450 mg 450 mg PO BID 06/21/21 12/21/21 Unknown History tablet,extended release metformin 1,000 mg tablet 1,000 mg PO BID 06/21/21 12/21/21 Unknown History metoprolol succinate 100 mg 100 mg PO QAM 06/21/21 12/21/21 Unknown History tablet,extended release 24 hr metoprolol succinate 50 mg 50 mg PO BEDTIME 06/21/21 12/21/21 Unknown History tablet,extended release 24 hr omeprazole 20 mg capsule,delayed 20 mg PO DAILY 06/21/21 12/21/21 Unknown History release oxybutynin chloride 5 mg tablet 5 mg PO DAILY 06/21/21 12/21/21 Unknown History [id number]-[id number] 5 5 ml PO Q4H PRN 06/21/21 12/21/21 Unknown History mg-15 mg-100 mg/5 mL oral liquid polyvinyl alcohol-povidone 1.4 drp OPHTHALMIC (EYE) 06/21/21 Unknown History %-0.6 % eye drops sennosides 8.6 mg tablet (senna) 8.6 mg PO DAILY 06/21/21 12/21/21 Unknown History trazodone 100 mg tablet 100 mg PO BEDTIME 06/21/21 12/21/21 Unknown History fluticasone propionate 50 2 spray INTRANASAL DAILY 08/23/21 12/21/21 Unknown History mcg/actuation nasal spray,suspension nicotine 10 mg inhalation 0 inh INHALATION 11/13/21 Unknown History cartridge (Nicotrol) Exam Airway Mallampati Class: II TM Dist: >3cm Neck ROM: Full Heart: RRR Lungs: CTA Assessment and Plan Final Anesthetic Review Family History of Problems with Anesthesia: No NPO: Yes ASA Class: III Final Preanesthetic Review: No Changes in Pt Med Stat, Meds/Allgs Chart Reviewed and Consent Obtained/Reviewed Patient Risk: Intermediate Procedure Risk: Low Anesthetic Plan Anesthetic Plan: MAC: Disposition: Standard PACU and Inp. Admit - IMC
[2021-12-26 08:51] VITALS: BP 130/87; PULSE 99; RESP 19; TEMP 36.1; O2SAT 100
[2021-12-26 09:09] LABS: Glucose, Whole Blood 92 mg/dL (60-115)
[2021-12-26] MEDS: Lactated Ringers 1,000 ML 50 ML IVCONT (09:14)
[2021-12-26 11:27] VITALS: BP 94/58; PULSE 73; RESP 12; TEMP 36.3; O2SAT 98
--- NOTE | 2021-12-26 11:27 | P.BOP_ITS ---
Brief Operative Note Date of Service: 12/26/21 Pre-op diagnosis: Screening Post-op diagnosis: other (Diverticulosis) Procedure: Colonoscopy to the cecum Surgeon: Mansoor Montero Anesthesia: MAC Was an Cushion Spring Assembler used for this Procedure?: No Estimated blood loss (mL): 0 Pathology: none sent Condition: stable Disposition: PACU
[2021-12-26 11:42] VITALS: BP 97/64; PULSE 80; RESP 16; TEMP 36.9; O2SAT 96
[2021-12-26 11:57] VITALS: BP 114/71; PULSE 78; RESP 16; O2SAT 97
--- NOTE | 2021-12-26 14:34 | OP_ITS ---
SURGEON: Mansoor Montero MD INDICATIONS: The patient presents for evaluation of colorectal cancer screening. Full consent was obtained from the patient's sister, Ros, who is his legal guardian and healthcare proxy. PREOPERATIVE DIAGNOSIS: Colorectal cancer screening. POSTOPERATIVE DIAGNOSIS: PROCEDURE PERFORMED: Colonoscopy to the cecum. ESTIMATED BLOOD LOSS: COMPLICATIONS: ANESTHESIA: Monitored anesthesia care. ASSISTANTS: SPECIMENS: POSTOPERATIVE DIAGNOSES: Colorectal cancer screening, diverticulosis and internal hemorrhoids. DESCRIPTION OF PROCEDURE: The patient was placed in the left lateral decubitus position. The digital rectal exam revealed no abnormalities. The Olympus video pediatric colonoscope was entered into the rectum and advanced to the cecum. Advancement to the cecum was difficult and required abdominal pressure. However, I was able to reach the cecum. Once in the cecum I did identify normal-appearing cecal pouch with appendiceal orifice and a normal-appearing ileocecal valve. There was some residual stool in the cecum, which limited the view somewhat. The scope was then slowly withdrawn assessing all mucosal surfaces carefully. Preparation throughout the colon was fair with some thick areas of stool. This was all irrigated and suctioned away as best as possible. I did not visualize any polyps, colitis, nor angiodysplasia. There was a mild amount of sigmoid diverticulosis. In the rectum, scope was retroflexed visualizing internal hemorrhoids, but no other pathology. The rectal mucosa appeared normal. The scope was straightened and withdrawn from the patient. He tolerated the procedure well and was returned to recovery area in stable condition. IMPRESSION: 1. Diverticulosis. 2. Internal hemorrhoids. PLAN: Given the somewhat limited prep, I would recommend a repeat colonoscopy in 5 years for further screening rather than 10. He will otherwise see me on a p.r.n. basis. INDICATIONS: The patient presents for evaluation of colorectal cancer screening. MD VALENCIA Bagley/LEANNA / [phone]
== END 2021-12-26 12:15 | disposition home or self-care (01) ==
PROVIDERS: Visit Provider Internal Medicine
PROC: 0DJD8ZZ Inspection of Lower Intestinal Tract, Via Natural or Artificial Opening Endoscopic (ICD-10-PCS; CPT 45378; principal; 2021-12-26 09:50)
DX: Z12.11 Encounter for screening for malignant neoplasm of colon (principal); K57.30 Diverticulosis of large intestine without perforation or abscess without bleeding; K64.8 Other hemorrhoids; K21.9 Gastro-esophageal reflux disease without esophagitis; F25.9 Schizoaffective disorder, unspecified; G40.909 Epilepsy, unspecified, not intractable, without status epilepticus; G47.33 Obstructive sleep apnea (adult) (pediatric); I25.10 Atherosclerotic heart disease of native coronary artery without angina pectoris; I25.2 Old myocardial infarction; I10 Essential (primary) hypertension; E11.9 Type 2 diabetes mellitus without complications; Z79.84 Long term (current) use of oral hypoglycemic drugs; Z79.899 Other long term (current) drug therapy; F17.210 Nicotine dependence, cigarettes, uncomplicated
CPT/HCPCS: G0121; 82947

== ENCOUNTER → 2022-05-13 09:46 | Outpatient (BNVA) | payer MEDICARE, SELFPAY | PROVIDERS: PCP Hospitalist; Visit Provider Hospitalist | DX: J44.9 Chronic obstructive pulmonary disease, unspecified (principal); G47.33 Obstructive sleep apnea (adult) (pediatric); G47.34 Idiopathic sleep related nonobstructive alveolar hypoventilation; J43.2 Centrilobular emphysema; J84.10 Pulmonary fibrosis, unspecified | CPT/HCPCS: 99212 ==

== ENCOUNTER 2022-08-13 09:20 | Outpatient (REF) | payer MEDICARE, SELFPAY ==
--- NOTE | ~2022-08-13 | XR_ITS ---
EXAMINATION: XR CHEST CLINICAL INFORMATION: J84.10 - Pulmonary fibrosis, unspecified COMPARISON: Chest radiographs 09/13/2021, 07/05/2020 TECHNIQUE: 2 views of the chest were obtained. FINDINGS: There is again coarsening of the interstitial markings, involvement greater right upper lobe as before. There is no superimposed lobar segmental airspace solid lesion or definite groundglass opacity. No pleural reaction or effusion. The heart is normal in size. Vascularity normal. There is a cardiac loop monitor or a Micra pacemaker overlying the left thorax. The hilar and mediastinal contours and bony structures are stable. XR/XR chest 2V IMPRESSION: Coarsening interstitial markings, distribution and severity similar to 09/13/2021.
== END 2022-08-13 09:21 | disposition home or self-care (01) ==
LOC: HO.XRAY 09:20
PROVIDERS: PCP Hospitalist; Visit Provider Hospitalist
DX: J84.10 Pulmonary fibrosis, unspecified (principal); J43.2 Centrilobular emphysema; G47.33 Obstructive sleep apnea (adult) (pediatric); F17.210 Nicotine dependence, cigarettes, uncomplicated
CPT/HCPCS: 71046; 94618; 99212

== ENCOUNTER 2022-08-25 01:50 | Emergency (ER) | payer MEDICARE, MEDICAID, SELFPAY ==
--- NOTE | ~2022-08-25 | CT_ITS ---
EXAMINATION: CT HEAD WITHOUT CONTRAST CLINICAL INFORMATION: Lethargy COMPARISON: None TECHNIQUE: Contiguous axial imaging was performed from the skull base to vertex without intravenous administration of contrast. This CT examination was performed using dose optimization techniques as appropriate, variously including the following: *Automated exposure control *Adjustment of mA and/or kV according to patient size (this includes techniques or standardized protocols for targeted exams where dose is matched to indication/reason for exam; i.e. extremities or head) *Use of iterative reconstruction technique DLP: 1105 mGy-cm FINDINGS: There is no evidence of acute intracranial hemorrhage or territorial infarction. No abnormal mass effect or midline shift is seen. Davidson to white matter differentiation is well preserved. No extra-axial fluid collections are identified. No hydrocephalus. No significant volume loss. Patchy periventricular and deep white matter hypoattenuation is consistent with mild small vessel ischemic changes. No acute osseous or soft tissue abnormality. The mastoid air cells and visualized portions of the paranasal sinuses are well aerated. CT/CT head/brain wo IV con IMPRESSION: No acute intracranial pathology.
[2022-08-25 02:05] VITALS: BP 145/73; PULSE 110; TEMP 36.9; O2SAT 93
[2022-08-25 02:09] VITALS: BP 135/82; PULSE 78; O2SAT 97; BMI 35.0
--- NOTE | 2022-08-25 04:11 | ED_ITS ---
HPI - General Adult General Chief complaint: General Medical Stated complaint: increase lethargy Time Seen by Provider: 08/25/22 04:10 Source: patient and EMS Mode of arrival: EMS History of Present Illness HPI narrative: 67-year-old male comes in from care [facility] with concerns for possible lithium toxicity. Patient had a fall last night without loss of consciousness and staff says he has been very somnolent. On my investigation patient responds well knows where he is and denies any current discomfort, shortness of breath. Related Data Home Medications Medication Instructions Recorded Confirmed acetaminophen 325 mg capsule 325 mg PO QID PRN Pain 06/21/21 12/21/21 (Tylenol) ascorbate calcium (vitamin C) 500 500 mg PO DAILY 06/21/21 12/21/21 mg tablet atorvastatin 10 mg tablet 10 mg PO DAILY 06/21/21 12/21/21 bisacodyl 10 mg rectal suppository 10 mg WI DAILY PRN Constipation 06/21/21 12/21/21 cholecalciferol (vitamin D3) 25 25 mcg PO DAILY 06/21/21 12/21/21 mcg (1,000 unit) capsule clozapine 100 mg tablet (Clozaril) 100 mg PO QAM 06/21/21 12/21/21 clozapine 200 mg tablet 200 mg PO BEDTIME 06/21/21 12/21/21 diphenhydramine HCl 25 mg tablet 25 mg PO Q6H PRN Insomnia 06/21/21 12/21/21 (Benadryl Allergy) furosemide 20 mg tablet 20 mg PO DAILY 06/21/21 12/21/21 lithium carbonate 450 mg 450 mg PO BID 06/21/21 12/21/21 tablet,extended release metformin 1,000 mg tablet 1,000 mg PO BID 06/21/21 12/21/21 metoprolol succinate 100 mg 100 mg PO QAM 06/21/21 12/21/21 tablet,extended release 24 hr metoprolol succinate 50 mg 50 mg PO BEDTIME 06/21/21 12/21/21 tablet,extended release 24 hr omeprazole 20 mg capsule,delayed 20 mg PO DAILY 06/21/21 12/21/21 release oxybutynin chloride 5 mg tablet 5 mg PO DAILY 06/21/21 12/21/21 ppisigjrzylqz-ZY-pwzckafbeuf 5 5 ml PO Q4H PRN Cough 06/21/21 12/21/21 mg-15 mg-100 mg/5 mL oral liquid polyvinyl alcohol-povidone 1.4 drp ophthalmic (eye) 06/21/21 %-0.6 % eye drops sennosides 8.6 mg tablet (senna) 8.6 mg PO DAILY 06/21/21 12/21/21 trazodone 100 mg tablet 100 mg PO BEDTIME 06/21/21 12/21/21 fluticasone propionate 50 2 spray intranasal DAILY 08/23/21 12/21/21 mcg/actuation nasal spray,suspension nicotine 10 mg inhalation 0 inh inhalation 11/13/21 cartridge (Nicotrol) aluminum-mag hydroxide-simethicone 5 ml PO Q3H PRN 08/13/22 200 mg-200 mg-20 mg/5 mL oral susp multivitamin 1 tab PO DAILY 08/13/22 Allergies Allergy/AdvReac Type Severity Reaction Status Date / Time divalproex sodium [Depakote] Allergy Severe Rash/Hives Verified 08/13/22 10:09 gabapentin [Neurontin] Allergy Severe Rash/Hives Verified 08/13/22 10:09 haloperidol [From HALDOL] Allergy Severe Rash/Hives Verified 08/13/22 10:09 Review of Systems Review of Systems: Pertinent positives and negatives as stated in HPI 10 point review of systems is otherwise negative. ON LICENSE OF [facility] Past Medical History Source: nursing notes reviewed Medical History CAD (coronary artery disease) Cardiomyopathy COPD (chronic obstructive pulmonary disease) COVID-19 COVID-19 vaccine series completed Diabetes Epilepsy GERD (gastroesophageal reflux disease) HTN (hypertension) Myocardial infarction Nocturnal hypoxia BRITT (obstructive sleep apnea) Pulmonary fibrosis Resides in residential care facility Schizo affective schizophrenia Sleep apnea Supraventricular tachycardia Thoracic aortic aneurysm Surgical History Surgical history unknown Social History Social History Household Members Other:: resides at [facility] Are you a primary personal care attendant to a significant other at home: No Do you presently have visiting nurse or other home services: No Alcohol intake: never Patient Tobacco Use Status: Never used Tobacco Tobacco use type: Cigarette Cigarette Packs Per Day: 5 Cigarettes Per Day: 100.0 Use of substances other than those prescribed or required for medical reasons: No Advance Directives: Yes Advance Directives on File: Yes Advance Directives Date on File: 12/21/21 Physical Exam ED Vital Signs: Vital Signs - 24 hr 08/25/22 02:05 08/25/22 06:19 08/25/22 07:48 Temperature 98.5 F 97.5 F Pulse Rate 110 H 108 H 97 Respiratory Rate 18 20 Blood Pressure 145/73 H 123/75 110/67 Pulse Oximetry 93 94 96 Oxygen Delivery Method Room Air Room Air Room Air BMI result Body Mass Index 35.0 VITAL SIGNS: Reviewed. GENERAL: Well developed, well nourished, in no acute distress. HEAD: Normocephalic/atraumatic EYES: PERRLA, EOMI EARS: Ext canals without abnormality OROPHARYNX: no oral lesions noted, posterior pharynx clear LUNGS: Normal breath sounds. No adventitious sounds or accessory muscle use. SpO2<94> CARDIOVASCULAR: Regular rate and rhythm without noted murmurs, no JVD or lower extremity edema. ABDOMEN: Soft, non-tender, non-distended with bowel sounds. MUSCULOSKELETAL: No tenderness, deformities, or effusions noted on gross inspection. EXTREMITIES: No cyanosis, clubbing or edema. SKIN: Inspection of the skin reveals no rashes NEUROLOGIC: Alert and oriented x 4. Strength and sensation to light touch were grossly intact x 4. Course Course Course Narrative: 67-year-old male with history and clinical presentation consistent with TBI and on review of all investigations there are no acute findings to better explain patient's somnolence. CT of the head is without acute abnormality. Patient transported back to the facility in stable condition. Medical Decision Making Lab Data Result diagrams: 08/25/22 04:22 08/25/22 04:22 Labs: Lab Results 08/25/22 08/25/22 08/25/22 Range/Units 04:22 04:22 04:22 WBC 5.7 (4.8-10.8) X10*3/uL RBC 3.74 L (4.60-5.80) X10*6/uL Hgb 11.7 L (14.0-18.0) g/dl Hct 35.3 L (42.0-52.0) % MCV 94.4 (80.0-98.0) fL MCH 31.3 (27.0-33.0) pg MCHC 33.1 (31.0-36.0) g/dl RDW 14.8 (11.0-16.0) % Plt Count 145 L (160-400) X10*3/uL MPV 8.9 L (9.4-12.4) fL Immature Gran % (Auto) 0.5 H (0.0-0.4) % Neut % (Auto) 57.6 (45-73) % Lymph % (Auto) 28.1 (20-40) % [place] % (Auto) 13.4 H (2-11) % Eos % (Auto) 0.0 (0-4) % Baso % (Auto) 0.4 (0-2) % Lymph # (Auto) 1.6 (1.2-4.9) X10*3/uL [place] # (Auto) 0.8 (0.1-1.2) X10*3/uL Eos # (Auto) 0.0 (0.0-0.4) X10*3/uL Baso # (Auto) 0.0 (0.0-0.2) X10*3/uL Abs Immat Gran (auto) 0.03 (0.00-0.03) X10*3/uL Absolute Neuts (auto) 3.3 (2.0-8.3) x10*3/uL Absolute Nucleated RBC 0.000 (0.0-0.012) X10*3/uL Nucleated RBC % (auto) 0.0 (0.0-0.2) /100WBC VBG pH (7.32-7.43) VBG pCO2 mmHg VBG pO2 mmHg VBG HCO3 (22-26) mmol/L VBG O2 Saturation % VBG Base Excess mmol/L Sodium 136 (135-145) mmol/L Potassium 3.7 (3.3-5.1) mmol/L Chloride 100 (96-108) mmol/L Carbon Dioxide 26 (22-29) mmol/L Anion Gap 14 (12-20) BUN 13 (9-16) mg/dL Creatinine 1.10 (0.5-1.4) mg/dL Estim Creat Clear Calc 75.0 Estimated GFR > 60 POC Glucose (60-115) mg/dL Random Glucose 138 H (60-115) mg/dL Lactic Acid (0.5-2.0) mmol/L Calcium 9.0 (8.4-10.2) mg/dL Total Bilirubin 0.3 (0.0-1.0) mg/dL Direct Bilirubin < 0.2 (0.0-0.5) mg/dL AST 33 (5-37) U/L ALT 22 (0-40) U/L Alkaline Phosphatase 67 D (39-117) U/L B-Natriuretic Peptide (<100) pg/mL Total Protein 6.6 (6.5-8.0) g/dL Albumin 3.7 (3.5-5.0) g/dL Urine Color Urine Appearance Urine pH (5.0-9.0) Ur Specific Aubrey (1.005-1.025) Urine Protein (Neg-Trace) mg/dL Urine Glucose (UA) (Negative) mg/dL Urine Ketones (Negative) mg/dL Urine Blood (Negative) Urine Nitrite (Negative) Ur Leukocyte Esterase (Negative) Sunman (0.60-1.20) mmol/L COVID-19 (MARNIE) Negative (Negative) COVID-19 Clin Com See Note 08/25/22 08/25/22 08/25/22 Range/Units 04:22 04:22 04:22 WBC (4.8-10.8) X10*3/uL RBC (4.60-5.80) X10*6/uL Hgb (14.0-18.0) g/dl Hct (42.0-52.0) % MCV (80.0-98.0) fL MCH (27.0-33.0) pg MCHC (31.0-36.0) g/dl RDW (11.0-16.0) % Plt Count (160-400) X10*3/uL MPV (9.4-12.4) fL Immature Gran % (Auto) (0.0-0.4) % Neut % (Auto) (45-73) % Lymph % (Auto) (20-40) % [place] % (Auto) (2-11) % Eos % (Auto) (0-4) % Baso % (Auto) (0-2) % Lymph # (Auto) (1.2-4.9) X10*3/uL [place] # (Auto) (0.1-1.2) X10*3/uL Eos # (Auto) (0.0-0.4) X10*3/uL Baso # (Auto) (0.0-0.2) X10*3/uL Abs Immat Gran (auto) (0.00-0.03) X10*3/uL Absolute Neuts (auto) (2.0-8.3) x10*3/uL Absolute Nucleated RBC (0.0-0.012) X10*3/uL Nucleated RBC % (auto) (0.0-0.2) /100WBC VBG pH (7.32-7.43) VBG pCO2 mmHg VBG pO2 mmHg VBG HCO3 (22-26) mmol/L VBG O2 Saturation % VBG Base Excess mmol/L Sodium (135-145) mmol/L Potassium (3.3-5.1) mmol/L Chloride (96-108) mmol/L Carbon Dioxide (22-29) mmol/L Anion Gap (12-20) BUN (9-16) mg/dL Creatinine (0.5-1.4) mg/dL Estim Creat Clear Calc Estimated GFR POC Glucose (60-115) mg/dL Random Glucose (60-115) mg/dL Lactic Acid (0.5-2.0) mmol/L Calcium (8.4-10.2) mg/dL Total Bilirubin (0.0-1.0) mg/dL Direct Bilirubin (0.0-0.5) mg/dL AST (5-37) U/L ALT (0-40) U/L Alkaline Phosphatase (39-117) U/L B-Natriuretic Peptide < 10 (<100) pg/mL Total Protein (6.5-8.0) g/dL Albumin (3.5-5.0) g/dL Urine Color Yellow Urine Appearance Clear Urine pH 6.5 (5.0-9.0) Ur Specific Aubrey <= 1.005 (1.005-1.025) Urine Protein Negative (Neg-Trace) mg/dL Urine Glucose (UA) Negative (Negative) mg/dL Urine Ketones Negative (Negative) mg/dL Urine Blood Negative (Negative) Urine Nitrite Negative (Negative) Ur Leukocyte Esterase Negative (Negative) Sunman 0.74 (0.60-1.20) mmol/L COVID-19 (MARNIE) (Negative) COVID-19 Clin Com 08/25/22 08/25/22 08/25/22 Range/Units 04:30 04:35 05:13 WBC (4.8-10.8) X10*3/uL RBC (4.60-5.80) X10*6/uL Hgb (14.0-18.0) g/dl Hct (42.0-52.0) % MCV (80.0-98.0) fL MCH (27.0-33.0) pg MCHC (31.0-36.0) g/dl RDW (11.0-16.0) % Plt Count (160-400) X10*3/uL MPV (9.4-12.4) fL Immature Gran % (Auto) (0.0-0.4) % Neut % (Auto) (45-73) % Lymph % (Auto) (20-40) % [place] % (Auto) (2-11) % Eos % (Auto) (0-4) % Baso % (Auto) (0-2) % Lymph # (Auto) (1.2-4.9) X10*3/uL [place] # (Auto) (0.1-1.2) X10*3/uL Eos # (Auto) (0.0-0.4) X10*3/uL Baso # (Auto) (0.0-0.2) X10*3/uL Abs Immat Gran (auto) (0.00-0.03) X10*3/uL Absolute Neuts (auto) (2.0-8.3) x10*3/uL Absolute Nucleated RBC (0.0-0.012) X10*3/uL Nucleated RBC % (auto) (0.0-0.2) /100WBC VBG pH 7.44 H (7.32-7.43) VBG pCO2 37 mmHg VBG pO2 67 mmHg VBG HCO3 25 (22-26) mmol/L VBG O2 Saturation 91.0 % VBG Base Excess 2.0 mmol/L Sodium (135-145) mmol/L Potassium (3.3-5.1) mmol/L Chloride (96-108) mmol/L Carbon Dioxide (22-29) mmol/L Anion Gap (12-20) BUN (9-16) mg/dL Creatinine (0.5-1.4) mg/dL Estim Creat Clear Calc Estimated GFR POC Glucose 136 H (60-115) mg/dL Random Glucose (60-115) mg/dL Lactic Acid 2.1 H* (0.5-2.0) mmol/L Calcium (8.4-10.2) mg/dL Total Bilirubin (0.0-1.0) mg/dL Direct Bilirubin (0.0-0.5) mg/dL AST (5-37) U/L ALT (0-40) U/L Alkaline Phosphatase (39-117) U/L B-Natriuretic Peptide (<100) pg/mL Total Protein (6.5-8.0) g/dL Albumin (3.5-5.0) g/dL Urine Color Urine Appearance Urine pH (5.0-9.0) Ur Specific Aubrey (1.005-1.025) Urine Protein (Neg-Trace) mg/dL Urine Glucose (UA) (Negative) mg/dL Urine Ketones (Negative) mg/dL Urine Blood (Negative) Urine Nitrite (Negative) Ur Leukocyte Esterase (Negative) Sunman (0.60-1.20) mmol/L COVID-19 (MARNIE) (Negative) COVID-19 Clin Com 08/25/22 Range/Units 07:28 WBC (4.8-10.8) X10*3/uL RBC (4.60-5.80) X10*6/uL Hgb (14.0-18.0) g/dl Hct (42.0-52.0) % MCV (80.0-98.0) fL MCH (27.0-33.0) pg MCHC (31.0-36.0) g/dl RDW (11.0-16.0) % Plt Count (160-400) X10*3/uL MPV (9.4-12.4) fL Immature Gran % (Auto) (0.0-0.4) % Neut % (Auto) (45-73) % Lymph % (Auto) (20-40) % [place] % (Auto) (2-11) % Eos % (Auto) (0-4) % Baso % (Auto) (0-2) % Lymph # (Auto) (1.2-4.9) X10*3/uL [place] # (Auto) (0.1-1.2) X10*3/uL Eos # (Auto) (0.0-0.4) X10*3/uL Baso # (Auto) (0.0-0.2) X10*3/uL Abs Immat Gran (auto) (0.00-0.03) X10*3/uL Absolute Neuts (auto) (2.0-8.3) x10*3/uL Absolute Nucleated RBC (0.0-0.012) X10*3/uL Nucleated RBC % (auto) (0.0-0.2) /100WBC VBG pH (7.32-7.43) VBG pCO2 mmHg VBG pO2 mmHg VBG HCO3 (22-26) mmol/L VBG O2 Saturation % VBG Base Excess mmol/L Sodium (135-145) mmol/L Potassium (3.3-5.1) mmol/L Chloride (96-108) mmol/L Carbon Dioxide (22-29) mmol/L Anion Gap (12-20) BUN (9-16) mg/dL Creatinine (0.5-1.4) mg/dL Estim Creat Clear Calc Estimated GFR POC Glucose 138 H (60-115) mg/dL Random Glucose (60-115) mg/dL Lactic Acid (0.5-2.0) mmol/L Calcium (8.4-10.2) mg/dL Total Bilirubin (0.0-1.0) mg/dL Direct Bilirubin (0.0-0.5) mg/dL AST (5-37) U/L ALT (0-40) U/L Alkaline Phosphatase (39-117) U/L B-Natriuretic Peptide (<100) pg/mL Total Protein (6.5-8.0) g/dL Albumin (3.5-5.0) g/dL Urine Color Urine Appearance Urine pH (5.0-9.0) Ur Specific Aubrey (1.005-1.025) Urine Protein (Neg-Trace) mg/dL Urine Glucose (UA) (Negative) mg/dL Urine Ketones (Negative) mg/dL Urine Blood (Negative) Urine Nitrite (Negative) Ur Leukocyte Esterase (Negative) Sunman (0.60-1.20) mmol/L COVID-19 (MARNIE) (Negative) COVID-19 Clin Com Discharge Plan Discharge Clinical Impression: BRITT (obstructive sleep apnea), Somnolence Patient Disposition: [facility] Instructions: Sleep Apnea (DC) Additional Instructions: 1. Resume all home medications. Return to the ER for worsening symptoms. Prescriptions: No Action oxybutynin chloride 5 mg tablet 5 mg PO DAILY furosemide 20 mg tablet 20 mg PO DAILY metformin 1,000 mg tablet 1,000 mg PO BID trazodone 100 mg tablet 100 mg PO BEDTIME lithium carbonate 450 mg tablet extended release 450 mg PO BID metoprolol succinate 50 mg tablet extended release 24 hr 50 mg PO BEDTIME atorvastatin 10 mg tablet 10 mg PO DAILY metoprolol succinate 100 mg tablet extended release 24 hr 100 mg PO QAM acetaminophen [Tylenol] 325 mg capsule 325 mg PO QID PRN (Reason: Pain) ascorbate calcium (vitamin C) 500 mg tablet 500 mg PO DAILY cholecalciferol (vitamin D3) 25 mcg (1,000 unit) capsule 25 mcg PO DAILY omeprazole 20 mg capsule,delayed release(DR/EC) 20 mg PO DAILY uswhouxhzgsny-XF-qxbtsapqibc 5-15-100 mg/5 mL liquid 5 ml PO Q4H PRN (Reason: Cough) sennosides [senna] 8.6 mg tablet 8.6 mg PO DAILY clozapine 200 mg tablet 200 mg PO BEDTIME clozapine [Clozaril] 100 mg tablet 100 mg PO QAM diphenhydramine HCl [Benadryl Allergy] 25 mg tablet 25 mg PO Q6H PRN (Reason: Insomnia) bisacodyl 10 mg suppository 10 mg WI DAILY PRN (Reason: Constipation) polyvinyl alcohol-povidone 1.4-0.6 % drops ophthalmic (eye) fluticasone propionate 50 mcg/actuation spray,suspension 2 spray intranasal DAILY Nicotrol 10 mg cartridge 0 inh inhalation multivitamin Tablet 1 tab PO DAILY alum-mag hydroxide-simeth 200-200-20 mg/5 mL suspension 5 ml PO Q3H PRN
[2022-08-25 04:27] LABS: MANUAL DIFF FLAG NO
[2022-08-25 04:28] LABS: Basophils Percent Auto 0.4 % (0-2); Hematocrit 35.3 % (42.0-52.0); Hemoglobin 11.7 g/dl (14.0-18.0); Imm Gran Abs Auto 0.03 X10*3/uL (0.00-0.03); Imm Gran Pct Auto 0.5 % (0.0-0.4); Lymphocytes Absolute Auto 1.6 X10*3/uL (1.2-4.9); Lymphocytes Percent Auto 28.1 % (20-40); Mean Corpuscular HGB Conc 33.1 g/dl (31.0-36.0); Mean Corpuscular Hemoglobin 31.3 pg (27.0-33.0); Mean Corpuscular Volume 94.4 fL (80.0-98.0); Mean Platelet Volume 8.9 fL (9.4-12.4); Monocytes Absolute Auto 0.8 X10*3/uL (0.1-1.2); Monocytes Percent Auto 13.4 % (2-11); Neutrophils Absolute Auto 3.3 x10*3/uL (2.0-8.3); Neutrophils Percent Auto 57.6 % (45-73); Platelet Count 145 X10*3/uL (160-400); Red Blood Count 3.74 X10*6/uL (4.60-5.80); Red Cell Distribution Width 14.8 % (11.0-16.0); White Blood Count 5.7 X10*3/uL (4.8-10.8)
[2022-08-25 04:29] LABS: Appearance Urine Clear; Color Urine Yellow; Glucose Urine UA Negative (Negative); Leukocyte Esterase Urine Negative (Negative); Nitrite Urine Negative (Negative); PH 6.5 (5.0-9.0); Specific Gravity - Urine <= 1.005 (1.005-1.025); Urine Blood Negative (Negative); Urine Ketones Negative (Negative); Urine Protein Negative (Neg-Trace)
[2022-08-25 04:39] LABS: Venous Blood Gas Refer to POC result
[2022-08-25 04:41] LABS: VBG HCO3 25 mmol/L (22-26); VBG pCO2 37 mmHg; VBG pH 7.44 (7.32-7.43); VBG pO2 67 mmHg
[2022-08-25 04:45] LABS: COVID-19 Test Negative (Negative); IDNOW Serial# 16C4AD1C
[2022-08-25 04:52] LABS: Lithium 0.74 mmol/L (0.60-1.20)
[2022-08-25 04:57] LABS: B Type Natriuretic Peptide < 10 pg/mL (<100)
[2022-08-25 05:00] LABS: Alanine Aminotransferase 22 U/L (0-40); Albumin Level 3.7 g/dL (3.5-5.0); Alkaline Phosphatase 67 U/L (39-117); Anion Gap 14 (12-20); Aspartate Amino Transferase 33 U/L (5-37); Bilirubin Direct < 0.2 mg/dL (0.0-0.5); Bilirubin Total 0.3 mg/dL (0.0-1.0); Blood Urea Nitrogen 13 mg/dL (9-16); Carbon Dioxide 26 mmol/L (22-29); Chloride 100 mmol/L (96-108); Estimated Glomerular Filt Rate > 60; Glucose Random 138 mg/dL (60-115); Potassium 3.7 mmol/L (3.3-5.1); Sodium 136 mmol/L (135-145); Total Protein 6.6 g/dL (6.5-8.0)
[2022-08-25 05:00] LABS: Lactic Acid 2.1 mmol/L (0.5-2.0)
[2022-08-25 05:19] LABS: Glucose, Whole Blood 136 mg/dL (60-115)
--- NOTE | 2022-08-25 05:49 | PC.NURSE ---
Doctor ordered an IV and fluids on the pt. Pt refused the IV but is drinking water PO. MD aware and no further interventions needed other than PO fluids.
[2022-08-25 06:19] VITALS: BP 123/75; PULSE 108; RESP 18; O2SAT 94
[2022-08-25 06:34] LABS: Reflex Lactate? Lactic Acid Added
[2022-08-25 07:32] LABS: Glucose, Whole Blood 138 mg/dL (60-115)
[2022-08-25 07:48] VITALS: BP 110/67; PULSE 97; RESP 20; TEMP 36.4; O2SAT 96
--- NOTE | 2022-08-25 09:34 | PC.NURSE ---
attempted to draw blood on patient but patient stated he already had his blood drawn 4 times and did not want anymore blood taken RN is aware
--- NOTE | 2022-08-25 09:48 | PC.NURSE ---
pt refusing repeat lab draw for lactic acid 2hr follow up. multiple attempts made to discuss with pt to allow blood draw. pt continues to refuse. aware. plan for d/c back to [facility]
== END 2022-08-25 10:05 | disposition skilled nursing facility (03) ==
PROVIDERS: Emergency Provider Student in an Organized Health Care Education/Training Program; PCP Hospitalist
DX: G47.33 Obstructive sleep apnea (adult) (pediatric) (principal); R53.83 Other fatigue; R40.0 Somnolence; R51.9 Headache, unspecified; R06.02 Shortness of breath; Z20.822 Contact with and (suspected) exposure to COVID-19; Z79.899 Other long term (current) drug therapy
CPT/HCPCS: 36415; 70450; 80048; 80076; 80178; 81003; 82803; 82947; 83605; 83880; 85025; 87040; 87635; 99284

== ENCOUNTER 2022-09-05 09:36 | Outpatient (REF) | payer MEDICARE, SELFPAY ==
--- NOTE | 2022-09-05 11:15 | PFT_ITS ---
INDICATION: SPIROMETRY: FEV1 to FVC of 85% with an FEV1 of 2.4 L, which is 107% predicted, FVC of 2.84 L which is 96% predicted. No significant response to bronchodilators noted. Maximum voluntary ventilation 58% predicted. LUNG VOLUMES: Total lung capacity 86% predicted. DIFFUSION CAPACITY: DLCO 60% predicted. COMPARISON: PFTs in 2020. INTERPRETATION: No obstructive nor restrictive ventilatory defects identified. No significant response to bronchodilators noted. There is a moderate decrease in maximum voluntary ventilation. Lung volumes are within normal limits. The patient does have a moderate diffusion impairment. When compared to 2020, there is a trend decrease in the FVC, trend decrease in the FEV1, trend decrease in the total lung capacity, and a significant improvement in diffusion capacity. Clinical correlation warranted. Wesley Aguilar MD MR/MODL / [id number]
== END 2022-09-05 09:37 | disposition home or self-care (01) ==
LOC: HO.RESP 09:36
PROVIDERS: PCP Hospitalist; Visit Provider Hospitalist
DX: J43.2 Centrilobular emphysema (principal)
CPT/HCPCS: 94060; 94727; 94729

== ENCOUNTER → 2022-10-02 09:16 | Outpatient (BNVA) | payer MEDICARE, SELFPAY | PROVIDERS: PCP Hospitalist; Visit Provider Hospitalist | DX: G47.33 Obstructive sleep apnea (adult) (pediatric) (principal); J43.2 Centrilobular emphysema; G47.34 Idiopathic sleep related nonobstructive alveolar hypoventilation; J84.10 Pulmonary fibrosis, unspecified; F17.210 Nicotine dependence, cigarettes, uncomplicated | CPT/HCPCS: 99212 ==

== ENCOUNTER 2022-12-13 14:39 | Outpatient (REF) | payer MEDICARE, SELFPAY ==
--- NOTE | ~2022-12-13 | CT_ITS ---
EXAMINATION: CT CHEST SCREENING CLINICAL INFORMATION: Nicotine dependence. Former smoker. COMPARISON: None. TECHNIQUE: Multidetector volumetric CT imaging of the chest is performed without contrast using low dose technique. Additional 2D coronal and sagittal reformatted images and axial 3D maximum intensity projection (MIP) images are generated on the CT workstation. This CT examination was performed using dose optimization techniques as appropriate, variously including the following: *Automated exposure control *Adjustment of mA and/or kV according to patient size (this includes techniques or standardized protocols for targeted exams where dose is matched to indication/reason for exam; i.e. extremities or head) *Use of iterative reconstruction technique DLP: 795 mGy-cm FINDINGS: LUNGS: There is paraseptal and centrilobular emphysema with prominent interstitial thickening and mild honeycombing appearance in the right upper lobe and both lower lobes. MEDIASTINUM: The thyroid lobes are symmetric and normal. The central trachea and bronchi are widely patent. Heart size and the great vessels are normal caliber. There is no pericardial effusion. No abnormal size mediastinal or hilar lymph nodes seen. CORONARY ARTERY CALCIFICATION: There is trace coronary artery calcifications present. PLEURA: There is no pleural effusion. No pleural mass or thickening. AXILLA: There are small shotty axillary lymph nodes seen. The chest wall is unremarkable. UPPER ABDOMEN: Visualized liver, spleen and pancreas is unremarkable. The gallbladder is contracted. OSSEOUS STRUCTURES: Unremarkable. CT/CT lung screening IMPRESSION: There is centrilobular and paraseptal emphysema with honeycombing in right upper and lower lobes likely chronic interstitial lung changes. No pulmonary nodules, mass or consolidation seen. No abnormal size mediastinal or hilar lymph nodes. ASSESSMENT: Lung-RADS category 2: Benign. RECOMMENDATION: Low-dose annual CT chest.
== END 2022-12-13 14:40 | disposition home or self-care (01) ==
LOC: HO.CT 14:39
PROVIDERS: PCP Hospitalist; Visit Provider Physician Assistant Medical
DX: Z12.2 Encounter for screening for malignant neoplasm of respiratory organs (principal); F17.210 Nicotine dependence, cigarettes, uncomplicated
CPT/HCPCS: 71271; G0296

== ENCOUNTER → 2023-04-03 14:05 | Outpatient (BNVA) | payer MEDICARE, SELFPAY | PROVIDERS: PCP Hospitalist; Visit Provider Hospitalist | DX: J43.2 Centrilobular emphysema (principal); J84.10 Pulmonary fibrosis, unspecified; G47.33 Obstructive sleep apnea (adult) (pediatric); G47.34 Idiopathic sleep related nonobstructive alveolar hypoventilation; F17.210 Nicotine dependence, cigarettes, uncomplicated | CPT/HCPCS: 99212 ==

== ENCOUNTER 2023-09-17 11:03 | Outpatient (REF) | payer MEDICARE, SELFPAY ==
--- NOTE | ~2023-09-17 | XR_ITS ---
EXAMINATION: XR CHEST CLINICAL INFORMATION: Bronchiectasis. COMPARISON: CT chest dated 12/13/2022; chest radiographs dated 08/13/2022. TECHNIQUE: Frontal and lateral views of the chest were obtained. FINDINGS: The heart, great vessels, pulmonary vasculature and mediastinum are stable. Again, there is increase in interstitial markings, left greater than right. There is bronchial wall thickening and bronchiectasis. No new superimposed infiltrate, effusion or pneumothorax is seen. There is no acute osseous abnormality. There is no acute osseous abnormalities. A monitoring analyst device is again seen. XR/XR chest 2V IMPRESSION: Stable abnormal examination, with findings suggesting chronic interstitial lung disease, chronic bronchitis and bronchiectasis. No new superimposed infiltrate or congestive heart failure is seen.
== END 2023-09-17 11:04 | disposition home or self-care (01) ==
LOC: HO.XRAY 11:03
PROVIDERS: PCP Hospitalist; Visit Provider Hospitalist
DX: J47.9 Bronchiectasis, uncomplicated (principal); J44.9 Chronic obstructive pulmonary disease, unspecified; J84.10 Pulmonary fibrosis, unspecified
CPT/HCPCS: 71046

== ENCOUNTER 2023-09-30 10:42 | Outpatient (AMB) | payer MEDICARE, SELFPAY ==
--- NOTE | 2023-09-30 10:43 | A.OFFVIS_ITS ---
Intake Vital Signs 09/30/23 10:44 Height 5 ft 7 in Weight 234 lb BMI 36.6 BP 110/66 Blood Pressure Location Lt brachial Position Sitting Respiration 12 Pulse 107 H Pulse Source Pulse Oximeter Pulse Oximetry (%) 93 Oxygen Delivery Method Room Air Intake Visit Reasons: britt/copd Allergies divalproex sodium [Depakote] Allergy (Severe, Verified 09/30/23 10:46) Rash/Hives gabapentin [Neurontin] Allergy (Severe, Verified 09/30/23 10:46) Rash/Hives haloperidol [From HALDOL] Allergy (Severe, Verified 09/30/23 10:46) Rash/Hives Medication List - Last Reconciled 09/30/23 by Karine Ornelas LPN acetaminophen (Tylenol) 325 mg PO QID PRN alum-mag hydroxide-simeth 200-200-20 mg/5 mL 5 mL PO Q3H PRN ascorbate calcium (vitamin C) 500 mg PO DAILY atorvastatin 10 mg PO DAILY bisacodyl 10 mg MN DAILY PRN cholecalciferol (vitamin D3) 25 mcg PO DAILY clozapine 200 mg PO BEDTIME clozapine (Clozaril) 100 mg PO QAM diphenhydramine HCl (Benadryl Allergy) 25 mg PO Q6H PRN fluticasone propionate 50 mcg/actuation 2 sprays intranasal DAILY furosemide 20 mg PO DAILY lithium carbonate ER 450 mg PO BID lithium carbonate ER 300 mg PO BID metformin 1,000 mg PO BID metoprolol succinate ER 100 mg PO QAM metoprolol succinate ER 50 mg PO BEDTIME multivitamin 1 tab PO DAILY nicotine (Nicotrol) 0 inhalations inhalation omeprazole 20 mg PO DAILY oxybutynin chloride 5 mg PO DAILY idsmemcwinxbz-ZD-urnvrbvkbyk 5-15-100 mg/5 mL 5 mL PO Q4H PRN polyvinyl alcohol-povidone 1.4-0.6 % drps ophthalmic (eye) sennosides (senna) 8.6 mg PO DAILY trazodone 100 mg PO BEDTIME HPI HPI Comments History of Present Illness Details The patient is a 68-year-old gentleman with a significant history of schizophrenia and bipolar disorder in addition to that had carries a history atrial fibrillation and aortic aneurysm. He was diagnosed with sleep apnea several years ago with a sleep study done at [place]. We did review it demonstrating moderate to severe obstructive sleep apnea with some degree of central apneas as well. Mainly REM related sleep disorder. He was seen by sleep medicine in he was placed on CPAP. The machine was adjusted several times in the masks were changed several times but the patient could not tolerated because it seemed to worsen his delusional states at nighttime. The family is with him the will be concerned if we consider repeating the evaluation as he had such a bad reaction to it. The patient also carries a diagnosis COPD and also some degree of interstitial lung disease. He had a CT scan of the chest back in 2014 demonstrating blebs and emphysematous changes as well as some minimal reticulonodular changes consistent with some degree of interstitial lung disease. More recently in October 2019 he had an x-ray that demonstrated no acute disease which is reassuring no obvious evidence of any progression of any interstitial lung disease. The patient continues smoking. We talked about to smoking habits. He had been on nebulized therapy per subsequently stopped specially likely because is cardiac history. At this point the family is looking for guidance from a pulmonary standpoint. ? 04/03/2023 The patient is here for a pulm onary follow up visit. The patient is doing well. The patient is using the oxygen at night at 2L via nasal cannula. The therapy has been effective and beneficial. Denies any shortness of breath at rest. Mild dyspnea on exertion. He does have an albuterol inhaler and tends to use it at night with good results. We will consider adding a longer acting inhaler for the next visit. We did review his last CT chest from 11/2022. RADS 2. He does have emphysema and pulmonary fibrosis. He is motivated in quiting smoking. Will start a nicotene patch and can also use nicorette gum as needed. 09/30/2023 the patient is here for pulmon emilia follow-up visit. He is complaining of worsening dyspnea on exertion also complaining worsening cough congested in nature. But he does not want to quit smoking. He smoking about 4 cigarettes a day. He also stopped using the oxygen at nighttime. Will go ahead and perform an overnight oximetry to make sure that he does not needed. If he still requires the based on the oximetry then will go ahead and we initiate the oxygen for him. In addition to that that will treated for a bout of bronchitis to see if there is any relief from the chest congestion but he knows the cigarettes are also contributing to that. We also looked at his CT scan that he had back in November 2023 with the combination of emphysema and pulmonary fibrosis. Will plan to repeat the CT scan and the PFTs sometime in November and if he has evidence of progression will consider Ofev as the potential agent to minimize th e degree of fibrosis. 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 Supraventricular tachycardia Cardiomyopathy CAD (coronary artery disease) HTN (hypertension) GERD (gastroesophageal reflux disease) Diabetes Epilepsy Schizo affective schizophrenia Pulmonary fibrosis Nocturnal hypoxia BRITT (obstructive sleep apnea) (~2017) COPD (chronic obstructive pulmonary disease) Surgical History (Updated 12/10/22 @ 12:37 by Kae Love PA-C) History of colonoscopy Social History (Updated 12/13/22 @ 14:39 by Kae Love PA-C) Household Members Other:: resides at [facility] Are you a primary care technician to a significant other at home: No Do you presently have visiting nurse or other home services: No Alcohol intake: never Patient Tobacco Use Status: Never used Tobacco Tobacco use type: Cigarette Cigarette Packs Per Day: 0.5 Years Smoked: (onset 16yo, 1/2ppd x 51yrs, 25pyh) Advance Directives Date on File: 12/21/21 Review of Systems Const Denies night sweats ENT Denies change in voice, Denies lip swelling, Denies mouth pain, Reports nasal congestion, Reports nasal discharge and Denies tongue swelling Card Denies chest pain, Reports leg edema and Reports dyspnea on exertion Resp Reports chest congestion, Reports cough and Reports dyspnea on exertion GI Denies abdominal pain Musc Denies no additional complaints Neuro Denies Neuro-related abnormal movements Psych Denies no additional complaints Ernesto/Lymph Denies easy bleeding and Denies lymphadenopathy Aller/Immun Denies lip swelling and Denies tongue swelling Physical Exam Vital Signs: Last Vital Signs Pulse 107 H 09/30/23 10:44 Resp 12 09/30/23 10:44 BP 110/66 09/30/23 10:44 Pulse Ox 93 09/30/23 10:44 Oxygen Delivery Method Room Air 09/30/23 10:44 BMI result Body Mass Index 36.6 Const General: alert Neck Neck: Yes normal visual inspection, Yes full ROM and Yes no lymphadenopathy Chest Chest palpation & inspection: normal inspection of the chest Resp Effort & Inspection: Actively coughing Quality: productive Auscultation: crackles on the right at the base and diminished lung sounds Cardio Rate: regular rate Rhythm: regular rhythm Heart sounds: S1 normal heart sound present and S2 normal heart sound present GI Palpation (GI): Soft to palpation and nontender Auscultation: normal bowel sounds Skin General skin exam: rashes and/or lesions noted Extrem General: Yes edema Assessment & Plan Assessment & Plan (1) COPD (chronic obstructive pulmonary disease): Code(s): J44.9 - Chronic obstructive pulmonary disease, unspecified Qualifiers: COPD type: emphysema Emphysema type: centrilobular Qualified Code(s): J43.2 - Centrilobular emphysema (2) Pulmonary fibrosis: Code(s): J84.10 - Pulmonary fibrosis, unspecified (3) Smoking: Code(s): F17.200 - Nicotine dependence, unspecified, uncomplicated (4) BRITT (obstructive sleep apnea): Onset Date: ~2016 Comment: (moderate BRITT - dx sleep test 10/08/2017 - on supplemental O2 -2L) Code(s): G47.33 - Obstructive sleep apnea (adult) (pediatric) (5) Nocturnal hypoxia: Code(s): G47.34 - Idiopathic sleep related nonobstructive alveolar hypoventilation Plan Short-acting beta agonist as needed consider LABA/LAMA repeat overnight oximetry start Doxycycline x 10 days start low dose prednisone 20mg x 5 days Diuresis as tolerated Tobacco cessation, the patient is not interested in cutting down LDCT 11/2023 PFTs Follow-up in 3-4 months Orders: Orders PFT pulmonary function test 2 Months J84.10 - Pulmonary fibrosis, unspecified CT chest wo IV con 2 Months J84.10 - Pulmonary fibrosis, unspecified Overnight Pulse Oximetry Today J44.9 - Chronic obstructive pulmonary disease, unspecified Coding Level of Care Code Est Pt Level 4 (32456) Diagnoses Centrilobular emphysema J43.2 COPD type: emphysema Emphysema type: centrilobular Pulmonary fibrosis J84.10 Smoking F17.200 BRITT (obstructive sleep apnea) G47.33 Nocturnal hypoxia G47.34 Time Spent (min) 17
[2023-09-30 10:44] VITALS: BP 110/66; PULSE 107; RESP 12; O2SAT 93; BMI 36.6
== END 2023-09-30 11:09 | disposition home or self-care (01) ==
PROVIDERS: PCP Hospitalist; Visit Provider Hospitalist
DX: J43.2 Centrilobular emphysema (principal); J84.10 Pulmonary fibrosis, unspecified; F17.200 Nicotine dependence, unspecified, uncomplicated; G47.33 Obstructive sleep apnea (adult) (pediatric); G47.34 Idiopathic sleep related nonobstructive alveolar hypoventilation
CPT/HCPCS: 99214

== ENCOUNTER → 2023-09-30 10:42 | Outpatient (BNVA) | payer MEDICARE, SELFPAY | PROVIDERS: Visit Provider Hospitalist | DX: J84.10 Pulmonary fibrosis, unspecified (principal); J43.2 Centrilobular emphysema; J44.9 Chronic obstructive pulmonary disease, unspecified; G47.33 Obstructive sleep apnea (adult) (pediatric); G47.34 Idiopathic sleep related nonobstructive alveolar hypoventilation; F17.210 Nicotine dependence, cigarettes, uncomplicated | CPT/HCPCS: 99212 ==

== ENCOUNTER 2023-12-05 09:42 | Outpatient (REF) | payer MEDICARE, MEDICAID, SELFPAY ==
--- NOTE | 2023-12-05 10:46 | PFT_ITS ---
Indication: COPD Spirometry [FEV1 to FVC 77%; FEV1 2.45 L which is 112% predicted; FVC 3.17 L which is 111% predicted. Was a significant response to bronchodilators noted. Maximum voluntary ventilation 70% predicted] Lung Volumes [Lung volumes could not be measured due to the patient's inability to perform the maneuvers] Diffusion Capacity [DLCO 38% predicted] Comparisons [none] Interpretation [No obstructive ventilatory defects. There was a significant response to bronchodilators noted. There is also mild decrease new maximum voluntary ventilation which could be secondary to deconditioning. Lung volumes could not be achieved due to the patient's inability to perform the maneuvers. The patient does have a severe decrease in the diffusing capacity. However, it was below ATS standards in it partially corrects when corrected for the alveolar volume. Clinical correlation warranted.] MTDD
== END 2023-12-05 09:43 | disposition home or self-care (01) ==
LOC: HO.RESP 09:42
PROVIDERS: PCP Hospitalist; Visit Provider Hospitalist
DX: J84.10 Pulmonary fibrosis, unspecified (principal)
CPT/HCPCS: 94010; 94727; 94729

== ENCOUNTER → 2023-12-05 10:46 | Outpatient (BNV) | payer MEDICARE, SELFPAY | PROVIDERS: PCP Hospitalist; Visit Provider Hospitalist | DX: J84.10 Pulmonary fibrosis, unspecified (principal) | CPT/HCPCS: 94060; 94729 ==

== ENCOUNTER 2023-12-18 09:52 | Outpatient (REF) | payer MEDICARE, MEDICAID, SELFPAY ==
--- NOTE | ~2023-12-18 | CT_ITS ---
EXAMINATION: CT CHEST WITHOUT CONTRAST CLINICAL INFORMATION: Pulmonary fibrosis COMPARISON: 12/13/2022 TECHNIQUE: Multidetector volumetric CT imaging of the chest was done. Axial MIP volume rendering provided. Sagittal and coronal reformatted images were obtained. This CT examination was performed using dose optimization techniques as appropriate, variously including the following: *Automated exposure control *Adjustment of mA and/or kV according to patient size (this includes techniques or standardized protocols for targeted exams where dose is matched to indication/reason for exam; i.e. extremities or head) *Use of iterative reconstruction technique DLP: 228.00 mGy-cm FINDINGS: CHARGE MANAGER: Unremarkable LUNGS: There is no significant interval change in appearance of paraseptal and centrilobular emphysema and interstitial thickening, with honeycombing in the subpleural region in the right lower lobe and more extensive in the right upper lobe, but less prominent in the left lower lobe and left upper lobe. Central airways are patent there are no lung nodules. MEDIASTINUM: There is no mediastinal or hilar lymphadenopathy seen. Thyroid gland is unremarkable. Aorta is not dilated. There is no pericardial effusion. CORONARY ARTERY CALCIFICATION: Coronary artery calcifications present. PLEURA: There is no pleural effusion. No pleural mass or thickening. AXILLA: No lymphadenopathy. UPPER ABDOMEN: Unremarkable. OSSEOUS STRUCTURES: Unremarkable. CT/CT chest wo IV con IMPRESSION: No significant interval change in appearance of interstitial lung disease with honeycombing and emphysema. Fleischner guidelines were followed.
== END 2023-12-18 09:53 | disposition home or self-care (01) ==
LOC: HO.CT 09:52
PROVIDERS: PCP Hospitalist; Visit Provider Hospitalist
DX: J84.10 Pulmonary fibrosis, unspecified (principal)
CPT/HCPCS: 71250

== ENCOUNTER 2023-12-29 14:17 | Outpatient (AMB) | payer MEDICARE, SELFPAY ==
--- NOTE | 2023-12-29 14:40 | A.OFFVIS_ITS ---
Intake Vital Signs 12/29/23 14:42 Height 5 ft 7 in Weight 233 lb 14.567 oz BMI 36.6 Pulse 90 Pulse Source Pulse Oximeter Pulse Oximetry (%) 91 L Oxygen Delivery Method Room Air Intake Visit Reasons: BRITT/COPD Information Technology Security Analyst Required: No Allergies divalproex sodium [Depakote] Allergy (Severe, Verified 12/29/23 14:44) Rash/Hives gabapentin [Neurontin] Allergy (Severe, Verified 12/29/23 14:44) Rash/Hives haloperidol [From HALDOL] Allergy (Severe, Verified 12/29/23 14:44) Rash/Hives HPI HPI Comments History of Present Illness Details The patient is a 68-year-old gentleman with a significant history of schizophrenia and bipolar disorder in addition to that had carries a history atrial fibrillation and aortic aneurysm. He was diagnosed with sleep apnea several years ago with a sleep study done at [place]. We did review it demo nstrating moderate to severe obstructive sleep apnea with some degree of central apneas as well. Mainly REM related sleep disorder. He was seen by sleep medicine in he was placed on CPAP. The machine was adjusted several times in the masks were changed several times but the patient could not tolerated because it seemed to worsen his delusional states at nighttime. The family is with him the will be concerned if we consider repeating the evaluation as he had such a bad reaction to it. The patient also carries a diagnosis COPD and also some degree of interstitial lung disease. He had a CT scan of the chest back in 2014 demonstrating blebs and emphysematous changes as well as some minimal reticulonodular changes consistent with some degree of interstitial lung disease. More recently in October 2019 he had an x-ray that demonstrated no acute disease which is reassuring no obvious evidence of any progression of any interstitial lung disease. The patient continues smoking. We talked about to smoking habits. He had been on nebulized therapy per subsequently stopped specially likely because is cardiac history. At this point the family is looking for guidance from a pulmonary standpoint. ? 04/03/2023 The patient is here for a pulm onary follow up visit. The patient is doing well. The patient is using the oxygen at night at 2L via nasal cannula. The therapy has been effective and beneficial. Denies any shortness of breath at rest. Mild dyspnea on exertion. He does have an albuterol inhaler and tends to use it at night with good results. We will consider adding a longer acting inhaler for the next visit. We did review his last CT chest from 11/2022. RADS 2. He does have emphysema and pulmonary fibrosis. He is motivated in quiting smoking. Will start a nicotene patch and can also use nicorette gum as needed. 09/30/2023 the patient is here for pulmon emilia follow-up visit. He is complaining of worsening dyspnea on exertion also complaining worsening cough congested in nature. But he does not want to quit smoking. He smoking about 4 cigarettes a day. He also stopped using the oxygen at nighttime. Will go ahead and perform an overnight oximetry to make sure that he does not needed. If he still requires the based on the oximetry then will go ahead and we initiate the oxygen for him. In addition to that that will treated for a bout of bronchitis to see if there is any relief from the chest congestion but he knows the cigarettes are also contributing to that. We also looked at his CT scan that he had back in November 2023 with the combination of emphysema and pulmonary fibrosis. Will plan to repeat the CT scan and the PFTs sometime in November and if he has evidence of progression will consider Ofev as the potential agent to minimize the degree of fibrosis. 12/29/2023 the patient is here for a pulmonary follow-up visit. He is describing worsening dyspnea on exertion. he does feel well when sitting or resting. Unfortunately continues to smoke cigarettes. The patient has a rescue inhaler but he does not require. He has not on maintenance inhalers. We did review his recent PFTs from November 2023 which actually demonstrated that he has not obstructed on spirometry. Although his diffusing capacity is down significantly. The patient also had a CT scan of the chest demonstrating extensive emphysema and also the evidence of interstitial lung disease. Although it does not appear to be worsened when compared to previous. Because of his symptoms we went ahead and did a 6 minute walk test. The patient did desaturate down to 88%. He was visibly dyspneic having to stop because of the shortness of breath and also burning sensation of the lower extremities. The patient also became tachycardic to about 115. after minute of resting he was not able to continue walking and then we sat down. He was placed on 2 L nasal cannula he did a lot better maintaining a pulse ox of 94% with activity which is reassuring. The patient needs to start oxygen with activity and sleep. In addition to that he understands that he can not smoke cigarettes while on the oxygen. He understands this can be catastrophic. I did give a pamphlet to his family to see about referral to a tobacco cessation program. This he may benefit from. His spirometry did not demonstrate any evidence of any obstruction so therefore hold off on maintenance inhalers. Regarding tachycardia and the burning sensation lower extremities he may indeed have a component of peripheral vascular disease and also should consider further evaluation for coronary artery disease. 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 Supraventricular tachycardia Cardiomyopathy CAD (coronary artery disease) HTN (hypertension) GERD (gastroesophageal reflux disease) Diabetes Epilepsy Schizo affective schizophrenia Pulmonary fibrosis Nocturnal hypoxia BRITT (obstructive sleep apnea) (~2017) COPD (chronic obstructive pulmonary disease) Surgical History (Updated 12/10/22 @ 12:37 by Kae Love PA-C) History of colonoscopy Social History (Updated 12/13/22 @ 14:39 by Kae Love PA-C) Household Members Other:: resides at [facility] Are you a primary early breastfeeding care specialist to a significant other at home: No Do you presently have visiting nurse or other home services: No Alcohol intake: never Patient Tobacco Use Status: Never used Tobacco Tobacco use type: Cigarette Cigarette Packs Per Day: 0.5 Years Smoked: (onset 16yo, 1/2ppd x 51yrs, 25pyh) Advance Directives Date on File: 12/21/21 Review of Systems Const Denies night sweats ENT Denies change in voice, Denies lip swelling, Denies mouth pain, Reports nasal congestion, Reports nasal discharge and Denies tongue swelling Card Denies chest pain, Denies chest pain with activity, Reports leg edema and Reports dyspnea on exertion Resp Reports chest congestion, Reports cough and Reports dyspnea on exertion GI Denies abdominal pain Musc Denies no additional complaints Neuro Denies Neuro-related abnormal movements and Reports paresthesias Psych Denies no additional complaints Ernesto/Lymph Denies easy bleeding and Denies lymphadenopathy Aller/Immun Denies lip swelling and Denies tongue swelling Physical Exam Vital Signs: Last Vital Signs Pulse 90 12/29/23 14:42 Pulse Ox 91 L 12/29/23 14:42 Oxygen Delivery Method Room Air 12/29/23 14:42 BMI result Body Mass Index 36.6 Const General: alert Neck Neck: Yes normal visual inspection, Yes full ROM and Yes no lymphadenopathy Chest Chest palpation & inspection: normal inspection of the chest Resp Effort & Inspection: Actively coughing Quality: productive Auscultation: crackles on the right at the base and diminished lung sounds Cardio Rate: regular rate Rhythm: regular rhythm Heart sounds: S1 normal heart sound present and S2 normal heart sound present GI Palpation (GI): Soft to palpation and nontender Auscultation: normal bowel sounds Skin General skin exam: rashes and/or lesions noted Extrem General: Yes edema Office Procedures 6 Minute Walk Time:: 18:51 SPO2 % at rest: 94 Pulse at rest: 89 SPO2 % during excercise: 88 Pulse during excercise: 115 Distance in yards walked: 200 John Score: 10 Supplemental Oxygen: the patient desaturated with activity to 88%. Also tachycardic and significantly dyspneic. He was placed on 2 L nasal cannula with activity pox 94% [id number] - 6 Minute Walk Results Reviewed Results Reviewed: [address] [address] [address] Scan Report Signed Patient: Jourdan Johnson MR#: [id number] : 1955 Acct:[id number] Age/Sex: 68 / M ADM Date: 12/18/23 Loc: HO.CT Attending Dr: Wesley Aguilar MD Ordering Physician: Wesley Aguilar MD Date of Service: 12/18/23 Procedure(s): CT chest wo IV con Accession Number(s): [id number] cc: Wesley Aguilar MD; Elvis Bedoya DO~ EXAMINATION: CT CHEST WITHOUT CONTRAST CLINICAL INFORMATION: Pulmonary fibrosis COMPARISON: 12/13/2022 TECHNIQUE: Multidetector volumetric CT imaging of the chest was done. Axial MIP volume rendering provided. Sagittal and coronal reformatted images were obtained. This CT examination was performed using dose optimization techniques as appropriate, variously including the following: *Automated exposure control *Adjustment of mA and/or kV according to patient size (this includes techniques or standardized protocols for targeted exams where dose is matched to indication/reason for exam; i.e. 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 Central airways are patent there are no lung nodules. MEDIASTINUM: There is no mediastinal or hilar lymphadenopathy seen. Thyroid gland is unremarkable. Aorta is not dilated. There is no pericardial effusion. CORONARY ARTERY CALCIFICATION: Coronary artery calcifications present. PLEURA: There is no pleural effusion. No pleural mass or thickening. AXILLA: No lymphadenopathy. UPPER ABDOMEN: Unremarkable. OSSEOUS STRUCTURES: Unremarkable. CT/CT chest wo IV con IMPRESSION: No significant interval change in appearance of interstitial lung disease with honeycombing and emphysema. Fleischner guidelines were followed. Dictated By: Kellen Macario MD Signed By: <Electronically signed by Kellen Macario MD in [place]> 12/19/23 1057 DD/ 1039 TD/TT: Sas Developer Analyst: Assessment & Plan Assessment & Plan (1) COPD (chronic obstructive pulmonary disease): Code(s): J44.9 - Chronic obstructive pulmonary disease, unspecified Qualifiers: COPD type: emphysema Emphysema type: centrilobular Qualified Code(s): J43.2 - Centrilobular emphysema (2) Pulmonary fibrosis: Code(s): J84.10 - Pulmonary fibrosis, unspecified (3) Smoking: Code(s): F17.200 - Nicotine dependence, unspecified, uncomplicated (4) BRITT (obstructive sleep apnea): Onset Date: ~2016 Comment: (moderate BRITT - dx sleep test 10/08/2017 - on supplemental O2 -2L) Code(s): G47.33 - Obstructive sleep apnea (adult) (pediatric) (5) Nocturnal hypoxia: Code(s): G47.34 - Idiopathic sleep related nonobstructive alveolar hypoventilation Plan Short-acting beta agonist as needed start Oxygen 2L/min with activity and with sleep Tobacco cessation, the patient needs to quit specially now on O2. Recommend smoking cessation program LDCT 11/2024 Not obstructed on PFTs, therefore,will hold off on maintenace inhaler DINESH as needed Follow-up in 4 months Coding Level of Care Code Est Pt Level 4 (41807) Diagnoses Centrilobular emphysema J43.2 COPD type: emphysema Emphysema type: centrilobular Pulmonary fibrosis J84.10 Smoking F17.200 BRITT (obstructive sleep apnea) G47.33 Nocturnal hypoxia G47.34 CPT Codes Coding ([id number]) Time Spent (min) 18
[2023-12-29 14:42] VITALS: PULSE 90; O2SAT 91; BMI 36.6
[2023-12-29 18:51] VITALS: PULSE 89; O2SAT 94
== END 2023-12-29 15:13 | disposition home or self-care (01) ==
PROVIDERS: PCP Hospitalist; Visit Provider Hospitalist
DX: J43.2 Centrilobular emphysema (principal); J84.10 Pulmonary fibrosis, unspecified; F17.200 Nicotine dependence, unspecified, uncomplicated; G47.33 Obstructive sleep apnea (adult) (pediatric); G47.34 Idiopathic sleep related nonobstructive alveolar hypoventilation
CPT/HCPCS: 94618; 99214

== ENCOUNTER → 2023-12-29 14:17 | Outpatient (BNVA) | payer MEDICARE, MEDICAID, SELFPAY | PROVIDERS: PCP Hospitalist; Visit Provider Hospitalist | DX: J43.2 Centrilobular emphysema (principal); J84.10 Pulmonary fibrosis, unspecified; G47.33 Obstructive sleep apnea (adult) (pediatric); G47.34 Idiopathic sleep related nonobstructive alveolar hypoventilation; F17.210 Nicotine dependence, cigarettes, uncomplicated | CPT/HCPCS: 94618; 99212 ==

== ENCOUNTER 2024-06-10 14:06 | Outpatient (AMB) | payer MEDICARE, MEDICAID, SELFPAY ==
--- NOTE | 2024-06-10 14:07 | MHC.OFFVIS ---
Vital Signs 06/10/24 14:15 Height 5 ft 7 in Weight 245 lb BMI 38.4 BP 104/60 Blood Pressure Location Lt brachial Position Sitting Pulse 91 Pulse Source Doppler Pulse Oximetry (%) 97 Oxygen Delivery Method Room Air Intake Visit Reasons: Pulmonary Fibrosis Allergies divalproex sodium [Depakote] Allergy (Severe, Verified 06/10/24 14:19) Rash/Hives gabapentin [Neurontin] Allergy (Severe, Verified 06/10/24 14:19) Rash/Hives haloperidol [From HALDOL] Allergy (Severe, Verified 06/10/24 14:19) Rash/Hives HPI Comments Details: The patient is a 69-year-old gentleman with a significant history of schizophrenia and bipolar disorder in addition to that had carries a history atrial fibrillation and aortic aneurysm. He was diagnosed with sleep apnea several years ago with a sleep study done at [place]. We did review it demonstrating moderate to severe obstructive sleep apnea with some degree of central apneas as well. Mainly REM related sleep disorder. He was seen by sleep medicine in he was placed on CPAP. The machine was adjusted several times in the masks were changed several times but the patient could not tolerated because it seemed to worsen his delusional states at nighttime. The family is with him the will be concerned if we consider repeating the evaluation as he had such a bad reaction to it. The patient also carries a diagnosis COPD and also some degree of interstitial lung disease. He had a CT scan of the chest back in 2014 demonstrating blebs and emphysematous changes as well as some minimal reticulonodular changes consistent with some degree of interstitial lung disease. More recently in October 2019 he had an x-ray that demonstrated no acute disease which is reassuring no obvious evidence of any progression of any interstitial lung disease. The patient continues smoking. We talked about to smoking habits. He had been on nebulized therapy per subsequently stopped specially likely because is cardiac history. At this point the family is looking for guidance from a pulmonary standpoint. ? 04/03/2023 The patient is here for a pulmonary follow up visit. The patient is doing well. The patient is using the oxygen at night at 2L via nasal cannula. The therapy has been effective and beneficial. Denies any shortness of breath at rest. Mild dyspnea on exertion. He does have an albuterol inhaler and tends to use it at night with good results. We will consider adding a longer acting inhaler for the next visit. We did review his last CT chest from 11/2022. RADS 2. He does have emphysema and pulmonary fibrosis. He is motivated in quiting smoking. Will start a nicotene patch and can also use nicorette gum as needed. 09/30/2023 the patient is here for pulmonary follow-up visit. He is complaining of worsening dyspnea on exertion also complaining worsening cough congested in nature. But he does not want to quit smoking. He smoking about 4 cigarettes a day. He also stopped using the oxygen at nighttime. Will go ahead and perform an overnight oximetry to make sure that he does not needed. If he still requires the based on the oximetry then will go ahead and we initiate the oxygen for him. In addition to that that will treated for a bout of bronchitis to see if there is any relief from the chest congestion but he knows the cigarettes are also contributing to that. We also looked at his CT scan that he had back in November 2023 with the combination of emphysema and pulmonary fibrosis. Will plan to repeat the CT scan and the PFTs sometime in November and if he has evidence of progression will consider Ofev as the potential agent to minimize the degree of fibrosis. 12/29/2023 the patient is here for a pulmonary follow-up visit. He is describing worsening dyspnea on exertion. he does feel well when sitting or resting. Unfortunately continues to smoke cigarettes. The patient has a rescue inhaler but he does not require. He has not on maintenance inhalers. We did review his recent PFTs from November 2023 which actually demonstrated that he has not obstructed on spirometry. Although his diffusing capacity is down significantly. The patient also had a CT scan of the chest demonstrating extensive emphysema and also the evidence of interstitial lung disease. Although it does not appear to be worsened when compared to previous. Because of his symptoms we went ahead and did a 6 minute walk test. The patient did desaturate down to 88%. He was visibly dyspneic having to stop because of the shortness of breath and also burning sensation of the lower extremities. The patient also became tachycardic to about 115. after minute of resting he was not able to continue walking and then we sat down. He was placed on 2 L nasal cannula he did a lot better maintaining a pulse ox of 94% with activity which is reassuring. The patient needs to start oxygen with activity and sleep. In addition to that he understands that he can not smoke cigarettes while on the oxygen. He understands this can be catastrophic. I did give a pamphlet to his family to see about referral to a tobacco cessation program. This he may benefit from. His spirometry did not demonstrate any evidence of any obstruction so therefore hold off on maintenance inhalers. Regarding tachycardia and the burning sensation lower extremities he may indeed have a component of peripheral vascular disease and also should consider further evaluation for coronary artery disease. 06/10/2024 the patient is here for a pulmonary follow-up visit. Overall he is doing well. He states that his breathing has gotten better. Unfortunately still smoking cigarettes. He is going to look into alternative treatments such as hypnosis. I did give the patient and also the knee so information about that. Unfortunately, he probably will have to pay [id number] since the care home where he resides does not offer that. The patient has been using the oxygen at nighttime with good effect. The family's wondering about a portable oxygen concentrator more of the building. We did do a 6 minute walk test today the patient does not qualify for oxygen with activity which is reassuring and also demonstrating some improvement. His last CT scan was back in 12/13/2023 which we personally reviewed demonstrating a combination of emphysema in the upper lung zones and pulmonary fibrosis in the lower lung zones. Patient understands that he continues to smoke the baby progression of disease. [facility] Medical History (Updated 06/10/24 @ 21:51 by Wesley Aguilar MD) Combined pulmonary fibrosis and emphysema (CPFE) Nicotine dependence, cigarettes, uncomplicated History of non-ST elevation myocardial infarction (NSTEMI) Thoracic aortic aneurysm Resides in senior living care facility Supraventricular tachycardia Cardiomyopathy CAD (coronary artery disease) HTN (hypertension) GERD (gastroesophageal reflux disease) Diabetes Epilepsy Schizo affective schizophrenia Pulmonary fibrosis Nocturnal hypoxia BRITT (obstructive sleep apnea) (~2017) COPD (chronic obstructive pulmonary disease) Surgical History (Updated 12/10/22 @ 12:37 by Kae Love PA-C) History of colonoscopy Social History (Updated 12/13/22 @ 14:39 by Kae Love PA-C) Household Members Other:: resides at [facility] Are you a primary care management coordinator to a significant other at home: No Do you presently have visiting nurse or other home services: No Alcohol intake: never Patient Tobacco Use Status: Never used Tobacco Tobacco use type: Cigarette Cigarette Packs Per Day: 0.5 Years Smoked: (onset 16yo, 1/2ppd x 51yrs, 25pyh) Advance Directives Date on File: 12/21/21 Review of Systems Const Denies night sweats ENT Denies change in voice, Denies lip swelling, Denies mouth pain, Reports nasal congestion, Reports nasal discharge and Denies tongue swelling Card Denies chest pain, Denies chest pain with activity, Reports leg edema and Reports dyspnea on exertion Resp Reports chest congestion, Reports cough and Reports dyspnea on exertion GI Denies abdominal pain Musc Denies no additional complaints Neuro Denies Neuro-related abnormal movements and Reports paresthesias Psych Denies no additional complaints Ernesto/Lymph Denies easy bleeding and Denies lymphadenopathy Aller/Immun Denies lip swelling and Denies tongue swelling Physical Exam Vital Signs: Last Vital Signs Pulse 91 06/10/24 14:15 BP 104/60 06/10/24 14:15 Pulse Ox 97 06/10/24 14:15 Oxygen Delivery Method Room Air 06/10/24 14:15 BMI result Body Mass Index 38.4 Const General: alert Neck Neck: Yes normal visual inspection, Yes full ROM and Yes no lymphadenopathy Chest Chest palpation & inspection: normal inspection of the chest Resp Effort & Inspection: Actively coughing Quality: productive Auscultation: crackles on the right at the base and diminished lung sounds Cardio Rate: regular rate Rhythm: regular rhythm Heart sounds: S1 normal heart sound present and S2 normal heart sound present GI Palpation (GI): Soft to palpation and nontender Auscultation: normal bowel sounds Skin General skin exam: rashes and/or lesions noted Extrem General: Yes edema Office Procedures 6 Minute Walk Time:: 14:45 SPO2 % at rest: 97 Pulse at rest: 87 SPO2 % during excercise: 94 Pulse during excercise: 110 SPO2 % after excercise: 97 Pulse after excercise: 104 Distance in yards walked: 350 John Score: 4 Performance Observations:: Patient walked unassisted on level ground at moderate pace. Patient maintained O2 saturation of 94% or greater with a pulse rate of 110 or less for the entirety of the walk. Denies respiratory distress. Patient did not require the use of supplemental oxygen. [id number] - 6 Minute Walk Assessment & Plan Assessment & Plan (1) COPD (chronic obstructive pulmonary disease): Code(s): J44.9 - Chronic obstructive pulmonary disease, unspecified Category: Medical Qualifiers: COPD type: emphysema Emphysema type: centrilobular Qualified Code(s): J43.2 - Centrilobular emphysema (2) Pulmonary fibrosis: Code(s): J84.10 - Pulmonary fibrosis, unspecified Category: Medical (3) Smoking: Code(s): F17.200 - Nicotine dependence, unspecified, uncomplicated Category: Medical (4) BRITT (obstructive sleep apnea): Onset Date: ~2016 Comment: (moderate BRITT - dx sleep test 10/08/2017 - on supplemental O2 -2L) Code(s): G47.33 - Obstructive sleep apnea (adult) (pediatric) Category: Medical (5) Nocturnal hypoxia: Code(s): G47.34 - Idiopathic sleep related nonobstructive alveolar hypoventilation Category: Medical (6) Combined pulmonary fibrosis and emphysema (CPFE): Code(s): J43.9 - Emphysema, unspecified; J84.10 - Pulmonary fibrosis, unspecified Category: Medical (7) Nicotine dependence, cigarettes, uncomplicated: Comment: (current smoker) Code(s): F17.210 - Nicotine dependence, cigarettes, uncomplicated Category: Medical Plan Short-acting beta agonist as needed stop Oxygen 2L/min with activity continue oxygen 2L/min with sleep Tobacco cessation, the patient needs to quit specially now on O2. Recommend smoking cessation program. Will consider hypnosis LDCT 11/2024 Not obstructed on PFTs, therefore,will hold off on maintenace inhaler DINESH as needed Follow-up in 6 months Orders: Orders AMB 6 minute walk Today J43.2 - Centrilobular emphysema Coding Level of Care Code Est Pt Level 4 (76987) Diagnoses Centrilobular emphysema J43.2 COPD type: emphysema Emphysema type: centrilobular Pulmonary fibrosis J84.10 Smoking F17.200 BRITT (obstructive sleep apnea) G47.33 Nocturnal hypoxia G47.34 Combined pulmonary fibrosis and emphysema (CPFE) J43.9; J84.10 Nicotine dependence, cigarettes, uncomplicated F17.210 CPT Codes Coding ([id number]) Time Spent (min) 17
[2024-06-10 14:15] VITALS: BP 104/60; PULSE 91; O2SAT 97; BMI 38.4
[2024-06-10 14:58] VITALS: PULSE 87; O2SAT 97
== END 2024-06-10 15:47 | disposition home or self-care (01) ==
PROVIDERS: PCP Hospitalist; Visit Provider Hospitalist
DX: J43.2 Centrilobular emphysema (principal); J84.10 Pulmonary fibrosis, unspecified; F17.200 Nicotine dependence, unspecified, uncomplicated; G47.33 Obstructive sleep apnea (adult) (pediatric); G47.34 Idiopathic sleep related nonobstructive alveolar hypoventilation; J43.9 Emphysema, unspecified; F17.210 Nicotine dependence, cigarettes, uncomplicated
CPT/HCPCS: 94618; 99214

== ENCOUNTER → 2024-06-10 14:06 | Outpatient (BNVA) | payer MEDICARE, MEDICAID, SELFPAY | PROVIDERS: PCP Hospitalist; Visit Provider Hospitalist | DX: J84.10 Pulmonary fibrosis, unspecified (principal); J44.9 Chronic obstructive pulmonary disease, unspecified; J43.9 Emphysema, unspecified; G47.33 Obstructive sleep apnea (adult) (pediatric); G47.34 Idiopathic sleep related nonobstructive alveolar hypoventilation; F17.210 Nicotine dependence, cigarettes, uncomplicated; Z99.81 Dependence on supplemental oxygen | CPT/HCPCS: 94618; 99212 ==

== ENCOUNTER 2024-06-29 14:31 | Outpatient (AMB) | payer MEDICARE, MEDICAID, SELFPAY ==
[2024-06-29 14:47] VITALS: PULSE 79; O2SAT 95; BMI 19.7
--- NOTE | 2024-06-29 14:47 | A.OFFVIS_ITS ---
Vital Signs 06/29/24 14:47 Height 5 ft 7 in Weight 126 lb BMI 19.7 Pulse 79 Pulse Source Pulse Oximeter Pulse Oximetry (%) 95 Oxygen Delivery Method Room Air Intake Visit Reasons: pulmonary fibrosis Allergies divalproex sodium [Depakote] Allergy (Severe, Verified 06/29/24 14:47) Rash/Hives gabapentin [Neurontin] Allergy (Severe, Verified 06/29/24 14:47) Rash/Hives haloperidol [From HALDOL] Allergy (Severe, Verified 06/29/24 14:47) Rash/Hives HPI Comments Details: The patient is a 69-year-old gentleman with a significant history of schizophrenia and bipolar disorder in addition to that had carries a history atrial fibrillation and aortic aneurysm. He was diagnosed with sleep apnea several years ago with a sleep study done at [place]. We did review it demonstrating moderate to severe obstructive sleep apnea with some degree of central apneas as well. Mainly REM related sleep disorder. He was seen by sleep medicine in he was placed on CPAP. The machine was adjusted several times in the masks were changed several times but the patient could not tolerated because it seemed to worsen his delusional states at nighttime. The family is with him the will be concerned if we consider repeating the evaluation as he had such a bad reaction to it. The patient also carries a diagnosis COPD and also some degree of interstitial lung disease. He had a CT scan of the chest back in 2014 demonstrating blebs and emphysematous changes as well as some minimal reticulonodular changes consistent with some degree of interstitial lung disease. More recently in October 2019 he had an x-ray that demonstrated no acute disease which is reassuring no obvious evidence of any progression of any interstitial lung disease. The patient continues smoking. We talked about to smoking habits. He had been on nebulized therapy per subsequently stopped specially likely because is cardiac history. At this point the family is looking for guidance from a pulmonary standpoint. ? 04/03/2023 The patient is here for a pulmonary follow up visit. The patient is doing well. The patient is using the oxygen at night at 2L via nasal cannula. The therapy has been effective and beneficial. Denies any shortness of breath at rest. Mild dyspnea on exertion. He does have an albuterol inhaler and tends to use it at night with good results. We will consider adding a longer acting inhaler for the next visit. We did review his last CT chest from 11/2022. RADS 2. He does have emphysema and pulmonary fibrosis. He is motivated in quiting smoking. Will start a nicotene patch and can also use nicorette gum as needed. 09/30/2023 the patient is here for pulmonary follow-up visit. He is complaining of worsening dyspnea on exertion also complaining worsening cough congested in nature. But he does not want to quit smoking. He smoking about 4 cigarettes a day. He also stopped using the oxygen at nighttime. Will go ahead and perform an overnight oximetry to make sure that he does not needed. If he still requires the based on the oximetry then will go ahead and we initiate the oxygen for him. In addition to that that will treated for a bout of bronchitis to see if there is any relief from the chest congestion but he knows the cigarettes are also contributing to that. We also looked at his CT scan that he had back in November 2023 with the combination of emphysema and pulmonary fibrosis. Will plan to repeat the CT scan and the PFTs sometime in November and if he has evidence of progression will consider Ofev as the potential agent to minimize the degree of fibrosis. 12/29/2023 the patient is here for a pulmonary follow-up visit. He is describing worsening dyspnea on exertion. he does feel well when sitting or resting. Unfortunately continues to smoke cigarettes. The patient has a rescue inhaler but he does not require. He has not on maintenance inhalers. We did review his recent PFTs from November 2023 which actually demonstrated that he has not obstructed on spirometry. Although his diffusing capacity is down significantly. The patient also had a CT scan of the chest demonstrating extensive emphysema and also the evidence of interstitial lung disease. Although it does not appear to be worsened when compared to previous. Because of his symptoms we went ahead and did a 6 minute walk test. The patient did desaturate down to 88%. He was visibly dyspneic having to stop because of the shortness of breath and also burning sensation of the lower extremities. The patient also became tachycardic to about 115. after minute of resting he was not able to continue walking and then we sat down. He was placed on 2 L nasal cannula he did a lot better maintaining a pulse ox of 94% with activity which is reassuring. The patient needs to start oxygen with activity and sleep. In addition to that he understands that he can not smoke cigarettes while on the oxygen. He understands this can be catastrophic. I did give a pamphlet to his family to see about referral to a tobacco cessation program. This he may benefit from. His spirometry did not demonstrate any evidence of any obstruction so therefore hold off on maintenance inhalers. Regarding tachycardia and the burning sensation lower extremities he may indeed have a component of peripheral vascular disease and also should consider further evaluation for coronary artery disease. 06/10/2024 the patient is here for a pulmonary follow-up visit. Overall he is doing well. He states that his breathing has gotten better. Unfortunately still smoking cigarettes. He is going to look into alternative treatments such as hypnosis. I did give the patient and also the knee so information about that. Unfortunately, he probably will have to pay [id number] since [facility] not offer [facility]. The patient has been using the oxygen at nighttime with good effect. The family's wondering about a portable oxygen concentrator more of the building. We did do a 6 minute walk test today the patient does not qualify for oxygen with activity which is reassuring and also demonstrating some improvement. His last CT scan was back in 12/13/2023 which we personally reviewed demonstrating a combination of emphysema in the upper lung zones and pulmonary fibrosis in the lower lung zones. Patient understands that he continues to smoke the baby progression of disease. 06/29/2024 the patient is here for a pulmonary follow-up visit. The patient is doing well. He still struggling with smoking. We again talked about smoking cessation. He does not want to try Nicorette gum. He is going to try regular gum. Will try smoking less of a cigarette at a time. He has been smoking 4 cigarettes a day because us all the time that he gets smoke outside. I am hopeful that he can cut down to 3 cigarettes a day. He is also going to be looking hypnosis with the help of his knees. The patient has been using the oxygen with sleep. At this point does not need the oxygen with activity. The patient also been having significant lower extremity edema. He is not taking any diuretics which will be something reasonable for him to consider. From a pulmonary standpoint the last time he had a CT scan was back in 12/13/2023 demonstrating the pulmonary fibrosis pulmonary nodules and emphysema. Will plan to repeat the CT scan in November now follow-up after that. If he has any issues prior to that he will call for an earlier assessment. [facility] Medical History (Updated 06/29/24 @ 20:56 by Wesley Aguilar MD) Lower extremity edema Combined pulmonary fibrosis and emphysema (CPFE) Nicotine dependence, cigarettes, uncomplicated History of non-ST elevation myocardial infarction (NSTEMI) Thoracic aortic aneurysm Resides in long-term care facility Supraventricular tachycardia Cardiomyopathy CAD (coronary artery disease) HTN (hypertension) GERD (gastroesophageal reflux disease) Diabetes Epilepsy Schizo affective schizophrenia Pulmonary fibrosis Nocturnal hypoxia BRITT (obstructive sleep apnea) (~2017) COPD (chronic obstructive pulmonary disease) Surgical History (Updated 12/10/22 @ 12:37 by Kae Love PA-C) History of colonoscopy Social History (Updated 12/13/22 @ 14:39 by Kae Love PA-C) Household Members Other:: resides at [facility] Are you a primary reservoir caretaker to a significant other at home: No Do you presently have visiting nurse or other home services: No Alcohol intake: never Patient Tobacco Use Status: Never used Tobacco Tobacco use type: Cigarette Cigarette Packs Per Day: 0.5 Years Smoked: (onset 16yo, 1/2ppd x 51yrs, 25pyh) Advance Directives Date on File: 12/21/21 Review of Systems Const Denies night sweats ENT Denies change in voice, Denies lip swelling, Denies mouth pain, Reports nasal congestion, Reports nasal discharge and Denies tongue swelling Card Denies chest pain, Denies chest pain with activity, Reports leg edema and Reports dyspnea on exertion Resp Reports chest congestion, Reports cough and Reports dyspnea on exertion GI Denies abdominal pain Musc Denies no additional complaints Neuro Denies Neuro-related abnormal movements and Reports paresthesias Psych Denies no additional complaints Ernesto/Lymph Denies easy bleeding and Denies lymphadenopathy Aller/Immun Denies lip swelling and Denies tongue swelling Physical Exam Vital Signs: Last Vital Signs Pulse 79 06/29/24 14:47 Pulse Ox 95 06/29/24 14:47 Oxygen Delivery Method Room Air 06/29/24 14:47 BMI result Body Mass Index 19.7 Const General: alert Neck Neck: Yes normal visual inspection, Yes full ROM and Yes no lymphadenopathy Chest Chest palpation & inspection: normal inspection of the chest Resp Effort & Inspection: Actively coughing Quality: productive Auscultation: crackles on the right at the base and diminished lung sounds Cardio Rate: regular rate Rhythm: regular rhythm Heart sounds: S1 normal heart sound present and S2 normal heart sound present GI Palpation (GI): Soft to palpation and nontender Auscultation: normal bowel sounds Skin General skin exam: rashes and/or lesions noted Extrem General: Yes edema Assessment & Plan Assessment & Plan (1) COPD (chronic obstructive pulmonary disease): Code(s): J44.9 - Chronic obstructive pulmonary disease, unspecified Category: Medical Qualifiers: COPD type: emphysema Emphysema type: centrilobular Qualified Code(s): J43.2 - Centrilobular emphysema (2) Pulmonary fibrosis: Code(s): J84.10 - Pulmonary fibrosis, unspecified Category: Medical (3) Smoking: Code(s): F17.200 - Nicotine dependence, unspecified, uncomplicated Category: Medical (4) BRITT (obstructive sleep apnea): Onset Date: ~2016 Comment: (moderate BRITT - dx sleep test 10/08/2017 - on supplemental O2 -2L) Code(s): G47.33 - Obstructive sleep apnea (adult) (pediatric) Category: Medical (5) Nocturnal hypoxia: Code(s): G47.34 - Idiopathic sleep related nonobstructive alveolar hypoventilation Category: Medical (6) Combined pulmonary fibrosis and emphysema (CPFE): Code(s): J43.9 - Emphysema, unspecified; J84.10 - Pulmonary fibrosis, unspecified Category: Medical (7) Nicotine dependence, cigarettes, uncomplicated: Comment: (current smoker) Code(s): F17.210 - Nicotine dependence, cigarettes, uncomplicated Category: Medical (8) Lower extremity edema: Code(s): R60.0 - Localized edema Category: Medical Plan Short-acting beta agonist as needed stopped Oxygen 2L/min with activity continue oxygen 2L/min with sleep Tobacco cessation, the patient needs to quit specially now on O2. Recommend smoking cessation program. Will consider hypnosis LDCT 11/2024 Not obstructed on PFTs, therefore,will hold off on maintenace inhaler DINESH as needed Follow-up in 6 months Coding Level of Care Code Est Pt Level 4 (25006) Complex EM visit Add On G2211 Diagnoses Centrilobular emphysema J43.2 COPD type: emphysema Emphysema type: centrilobular Pulmonary fibrosis J84.10 Smoking F17.200 BRITT (obstructive sleep apnea) G47.33 Nocturnal hypoxia G47.34 Combined pulmonary fibrosis and emphysema (CPFE) J43.9; J84.10 Nicotine dependence, cigarettes, uncomplicated F17.210 Lower extremity edema R60.0 Time Spent (min) 16
== END 2024-06-29 14:58 | disposition home or self-care (01) ==
PROVIDERS: PCP Hospitalist; Visit Provider Hospitalist
DX: J43.2 Centrilobular emphysema (principal); J84.10 Pulmonary fibrosis, unspecified; F17.200 Nicotine dependence, unspecified, uncomplicated; G47.33 Obstructive sleep apnea (adult) (pediatric); G47.34 Idiopathic sleep related nonobstructive alveolar hypoventilation; J43.9 Emphysema, unspecified; F17.210 Nicotine dependence, cigarettes, uncomplicated; R60.0 Localized edema
CPT/HCPCS: 99214; G2211

== ENCOUNTER → 2024-06-29 14:31 | Outpatient (BNVA) | payer MEDICARE, MEDICAID, SELFPAY | PROVIDERS: PCP Hospitalist; Visit Provider Hospitalist | DX: J84.10 Pulmonary fibrosis, unspecified (principal); J43.2 Centrilobular emphysema; G47.30 Sleep apnea, unspecified; G47.33 Obstructive sleep apnea (adult) (pediatric); G47.34 Idiopathic sleep related nonobstructive alveolar hypoventilation; J43.9 Emphysema, unspecified; R60.0 Localized edema; F17.210 Nicotine dependence, cigarettes, uncomplicated; Z71.6 Tobacco abuse counseling; Z99.89 Dependence on other enabling machines and devices | CPT/HCPCS: 99212 ==

== ENCOUNTER 2024-12-14 13:44 | Outpatient (AMB) | payer MEDICARE, MEDICAID, SELFPAY ==
--- NOTE | 2024-12-14 13:48 | A.OFFVIS_ITS ---
Vital Signs 12/14/24 13:49 Height 5 ft 7 in Weight 239 lb 3.225 oz BMI 37.5 BP 106/58 L Blood Pressure Location Rt brachial Position Sitting Pulse 83 Pulse Source Pulse Oximeter Pulse Oximetry (%) 97 Oxygen Delivery Method Room Air Intake Visit Reasons: BRITT/COPD Allergies divalproex sodium [Depakote] Allergy (Severe, Verified 12/14/24 13:57) Rash/Hives gabapentin [Neurontin] Allergy (Severe, Verified 12/14/24 13:57) Rash/Hives haloperidol [From HALDOL] Allergy (Severe, Verified 12/14/24 13:57) Rash/Hives HPI Comments Details: The patient is a 69-year-old gentleman with a significant history of schizophrenia and bipolar disorder in addition to that had carries a history atrial fibrillation and aortic aneurysm. He was diagnosed with sleep apnea several years ago with a sleep study done at [facility]. We did review it demonstrating moderate to severe obstructive sleep apnea with some degree of central apneas as well. Mainly REM related sleep disorder. He was seen by sleep medicine in he was placed on CPAP. The machine was adjusted several times in the masks were changed several times but the patient could not tolerated because it seemed to worsen his delusional states at nighttime. The family is with him the will be concerned if we consider repeating the evaluation as he had such a bad reaction to it. The patient also carries a diagnosis COPD and also some degree of interstitial lung disease. He had a CT scan of the chest back in 2014 demonstrating blebs and emphysematous changes as well as some minimal reticulonodular changes consistent with some degree of interstitial lung disease. More recently in October 2019 he had an x-ray that demonstrated no acute disease which is reassuring no obvious evidence of any progression of any interstitial lung disease. The patient continues smoking. We talked about to smoking habits. He had been on nebulized therapy per subsequently stopped specially likely because is cardiac history. At this point the family is looking for guidance from a pulmonary standpoint. ? 04/03/2023 The patient is here for a pulmonary follow up visit. The patient is doing well. The patient is using the oxygen at night at 2L via nasal cannula. The therapy has been effective and beneficial. Denies any shortness of breath at rest. Mild dyspnea on exertion. He does have an albuterol inhaler and tends to use it at night with good results. We will consider adding a longer acting inhaler for the next visit. We did review his last CT chest from 11/2022. RADS 2. He does have emphysema and pulmonary fibrosis. He is motivated in quiting smoking. Will start a nicotene patch and can also use nicorette gum as needed. 09/30/2023 the patient is here for pulmonary follow-up visit. He is complaining of worsening dyspnea on exertion also complaining worsening cough congested in nature. But he does not want to quit smoking. He smoking about 4 cigarettes a day. He also stopped using the oxygen at nighttime. Will go ahead and perform an overnight oximetry to make sure that he does not needed. If he still requires the based on the oximetry then will go ahead and we initiate the oxygen for him. In addition to that that will treated for a bout of bronchitis to see if there is any relief from the chest congestion but he knows the cigarettes are also contributing to that. We also looked at his CT scan that he had back in November 2023 with the combination of emphysema and pulmonary fibrosis. Will plan to repeat the CT scan and the PFTs sometime in November and if he has evidence of progression will consider Ofev as the potential agent to minimize the degree of fibrosis. 12/29/2023 the patient is here for a pulmonary follow-up visit. He is describing worsening dyspnea on exertion. he does feel well when sitting or resting. Unfortunately continues to smoke cigarettes. The patient has a rescue inhaler but he does not require. He has not on maintenance inhalers. We did review his recent PFTs from November 2023 which actually demonstrated that he has not obstructed on spirometry. Although his diffusing capacity is down significantly. The patient also had a CT scan of the chest demonstrating extensive emphysema and also the evidence of interstitial lung disease. Although it does not appear to be worsened when compared to previous. Because of his symptoms we went ahead and did a 6 minute walk test. The patient did desaturate down to 88%. He was visibly dyspneic having to stop because of the shortness of breath and also burning sensation of the lower extremities. The patient also became tachycardic to about 115. after minute of resting he was not able to continue walking and then we sat down. He was placed on 2 L nasal cannula he did a lot better maintaining a pulse ox of 94% with activity which is reassuring. The patient needs to start oxygen with activity and sleep. In addition to that he understands that he can not smoke cigarettes while on the oxygen. He understands this can be catastrophic. I did give a pamphlet to his family to see about referral to a tobacco cessation program. This he may benefit from. His spirometry did not demonstrate any evidence of any obstruction so therefore hold off on maintenance inhalers. Regarding tachycardia and the burning sensation lower extremities he may indeed have a component of peripheral vascular disease and also should consider further evaluation for coronary artery disease. 06/10/2024 the patient is here for a pulmonary follow-up visit. Overall he is doing well. He states that his breathing has gotten better. Unfortunately still smoking cigarettes. He is going to look into alternative treatments such as hypnosis. I did give the patient and also the knee so information about that. Unfortunately, he probably will have to pay [id number] since the custodial where he resides does not offer that. The patient has been using the oxygen at nighttime with good effect. The family's wondering about a portable oxygen concentrator more of the building. We did do a 6 minute walk test today the patient does not qualify for oxygen with activity which is reassuring and also demonstrating some improvement. His last CT scan was back in 12/13/2023 which we personally reviewed demonstrating a combination of emphysema in the upper lung zones and pulmonary fibrosis in the lower lung zones. Patient understands that he continues to smoke the baby progression of disease. 06/29/2024 the patient is here for a pulmonary follow-up visit. The patient is doing well. He still struggling with smoking. We again talked about smoking cessation. He does not want to try Nicorette gum. He is going to try regular gum. Will try smoking less of a cigarette at a time. He has been smoking 4 cigarettes a day because us all the time that he gets smoke outside. I am hopeful that he can cut down to 3 cigarettes a day. He is also going to be looking hypnosis with the help of his knees. The patient has been using the oxygen with sleep. At this point does not need the oxygen with activity. The patient also been having significant lower extremity edema. He is not taking any diuretics which will be something reasonable for him to consider. From a pulmonary standpoint the last time he had a CT scan was back in 12/13/2023 demonstrating the pulmonary fibrosis pulmonary nodules and emphysema. Will plan to repeat the CT scan in November now follow-up after that. If he has any issues prior to that he will call for an earlier assessment. 12/14/2024 the patient is here for a pulmonary follow-up visit. He still struggling with smoking. We did talk about the Nicorette compensating 1. The patient needs to quit. He understands that his respiratory status will continue getting worse. In the meantime he is using the oxygen to sleep with and this is affecting beneficial. He has a rescue inhaler that typically does not use. The patient did not have a CT scan of the chest yet. He should be scheduled in the coming days. Once he has his CT scan I can review it and let his family know about the results. He does have underlying pulmonary fibrosis and also significant emphysema. Will follow-up in 6 months. If the patient has any issues prior to that he will call for an assessment. [facility] Medical History (Updated 09/27/24 @ 13:54 by Kae Love PA-C) Lower extremity edema Combined pulmonary fibrosis and emphysema (CPFE) Nicotine dependence, cigarettes, uncomplicated History of non-ST elevation myocardial infarction (NSTEMI) Thoracic aortic aneurysm Resides in long term acute care registered nurse care facility Supraventricular tachycardia Cardiomyopathy CAD (coronary artery disease) HTN (hypertension) GERD (gastroesophageal reflux disease) Diabetes Epilepsy Schizo affective schizophrenia Pulmonary fibrosis Nocturnal hypoxia BRITT (obstructive sleep apnea) (~2017) COPD (chronic obstructive pulmonary disease) Surgical History (Updated 12/10/22 @ 12:37 by Kae Love PA-C) History of colonoscopy Social History Household Members Other:: resides at [facility] Are you a primary aged or disabled carer to a significant other at home: No Do you presently have visiting nurse or other home services: No Alcohol intake: never Patient Tobacco Use Status: Never used Tobacco Tobacco use type: Cigarette Cigarette Packs Per Day: 0.5 Years Smoked: (onset 16yo, 1/2ppd x 51yrs, 25pyh) Advance Directives Date on File: 12/21/21 Review of Systems Const Denies night sweats ENT Denies change in voice, Denies lip swelling, Denies mouth pain, Reports nasal congestion, Reports nasal discharge and Denies tongue swelling Card Denies chest pain, Denies chest pain with activity, Reports leg edema and Reports dyspnea on exertion Resp Reports chest congestion, Reports cough and Reports dyspnea on exertion GI Denies abdominal pain Musc Denies no additional complaints Neuro Denies Neuro-related abnormal movements and Reports paresthesias Psych Denies no additional complaints Ernesto/Lymph Denies easy bleeding and Denies lymphadenopathy Aller/Immun Denies lip swelling and Denies tongue swelling Physical Exam Vital Signs: Last Vital Signs Pulse 83 12/14/24 13:49 BP 106/58 L 12/14/24 13:49 Pulse Ox 97 12/14/24 13:49 Oxygen Delivery Method Room Air 12/14/24 13:49 BMI result Body Mass Index 37.5 Const General: alert Neck Neck: Yes normal visual inspection, Yes full ROM and Yes no lymphadenopathy Chest Chest palpation & inspection: normal inspection of the chest Resp Effort & Inspection: normal respiratory effort Auscultation: crackles on the right at the base and diminished lung sounds Cardio Rate: regular rate Rhythm: regular rhythm Heart sounds: S1 normal heart sound present and S2 normal heart sound present GI Palpation (GI): Soft to palpation and nontender Auscultation: normal bowel sounds Skin General skin exam: rashes and/or lesions noted Extrem General: Yes edema Assessment & Plan Assessment & Plan (1) COPD (chronic obstructive pulmonary disease): Code(s): J44.9 - Chronic obstructive pulmonary disease, unspecified Category: Medical Qualifiers: COPD type: emphysema Emphysema type: centrilobular Qualified Code(s): J43.2 - Centrilobular emphysema (2) Pulmonary fibrosis: Code(s): J84.10 - Pulmonary fibrosis, unspecified Category: Medical (3) Smoking: Code(s): F17.200 - Nicotine dependence, unspecified, uncomplicated Category: Social Hx (4) BRITT (obstructive sleep apnea): Onset Date: ~2016 Comment: (moderate BRITT - dx sleep test 10/08/2017 - on supplemental O2 -2L) Code(s): G47.33 - Obstructive sleep apnea (adult) (pediatric) Category: Medical (5) Nocturnal hypoxia: Code(s): G47.34 - Idiopathic sleep related nonobstructive alveolar hypoventilation Category: Medical (6) Combined pulmonary fibrosis and emphysema (CPFE): Code(s): J43.9 - Emphysema, unspecified; J84.10 - Pulmonary fibrosis, unspecified Category: Medical (7) Nicotine dependence, cigarettes, uncomplicated: Comment: (current smoker - onset 16 for 53 years at 1/2ppd - 26pyh) Code(s): F17.210 - Nicotine dependence, cigarettes, uncomplicated Category: Medical (8) Lower extremity edema: Code(s): R60.0 - Localized edema Category: Medical Plan Short-acting beta agonist as needed continue oxygen 2L/min with sleep Tobacco cessation, the patient needs to quit specially now on O2. Recommend smoking cessation program. Will consider hypnosis LDCT 11/2024 Not obstructed on PFTs, therefore,will hold off on maintenace inhaler DINESH as needed Follow-up in 6 months Coding Level of Care Code Est Pt Level 4 (23104) Complex EM visit Add On G2211 Diagnoses Centrilobular emphysema J43.2 COPD type: emphysema Emphysema type: centrilobular Pulmonary fibrosis J84.10 Smoking F17.200 BRITT (obstructive sleep apnea) G47.33 Nocturnal hypoxia G47.34 Combined pulmonary fibrosis and emphysema (CPFE) J43.9; J84.10 Nicotine dependence, cigarettes, uncomplicated F17.210 Lower extremity edema R60.0 Time Spent (min) 16
[2024-12-14 13:49] VITALS: BP 106/58; PULSE 83; O2SAT 97; BMI 37.5
== END 2024-12-14 14:17 | disposition home or self-care (01) ==
PROVIDERS: PCP Hospitalist; Visit Provider Hospitalist
DX: J43.2 Centrilobular emphysema (principal); J84.10 Pulmonary fibrosis, unspecified; F17.200 Nicotine dependence, unspecified, uncomplicated; G47.33 Obstructive sleep apnea (adult) (pediatric); G47.34 Idiopathic sleep related nonobstructive alveolar hypoventilation; J43.9 Emphysema, unspecified; F17.210 Nicotine dependence, cigarettes, uncomplicated; R60.0 Localized edema
CPT/HCPCS: 99214; G2211

== ENCOUNTER → 2024-12-14 13:44 | Outpatient (BNVA) | payer MEDICARE, MEDICAID, SELFPAY | PROVIDERS: PCP Hospitalist; Visit Provider Hospitalist | DX: J43.2 Centrilobular emphysema (principal); J84.10 Pulmonary fibrosis, unspecified; J43.9 Emphysema, unspecified; G47.33 Obstructive sleep apnea (adult) (pediatric); G47.34 Idiopathic sleep related nonobstructive alveolar hypoventilation; F17.210 Nicotine dependence, cigarettes, uncomplicated; R60.0 Localized edema | CPT/HCPCS: 99212 ==

== ENCOUNTER 2025-01-12 10:16 | Outpatient (REF) | payer MEDICARE, MEDICAID, SELFPAY ==
--- NOTE | ~2025-01-12 | CT_ITS ---
CLINICAL HISTORY: F17.210 - Nicotine dependence, cigarettes, uncomplicated CT lung cancer screening (LDCT) Comparison: None Technique: Axial CT images of the chest using low-dose technique. Referring provider counseled the patient on shared decision-making for LDCT screening. Additional counseling was provided on smoking cessation. Effective radiation dose total: DLP 55.1 mGycm, CTDIvol 1.6 mGy. Findings: Lung: The trachea and central bronchi are patent. Apical predominant paraseptal emphysema with basilar changes of fibrosis. Diffuse bronchiectasis. No dense consolidation or effusion. No discrete pulmonary nodules. Coronary artery calcifications: Mild Nonaneurysmal aorta. Main pulmonary artery is dilated up to 4.6 cm. No chest wall lesions, axillary adenopathy or discrete thyroid nodules. Thyroid is not well seen. Limited upper abdomen: Unremarkable Other: No acute osseous findings. Impression: Apical emphysema with basilar fibrosis and diffuse bronchiectasis. No discrete pulmonary nodules. Lung rads category 1S Dilated pulmonary artery concerning for pulmonary hypertension. Category 1: Normal; continue annual screening Category 2: Benign appearance or behavior, continue annual screening Category 3: Probably benign, [address] recommended Category 4A: Suspicious, [address] recommended; may consider PET/CT Category 4B: Suspicious, Additional diagnostics and/or tissue sampling recommended Category 4X: Suspicious, Additional diagnostics and/or tissue sampling recommended Category 0: Recalls (incomplete screen due to Incomplete coverage, Noise, Respiratory motion, Expiration, Obscured by acute abnormality) This document has been electronically signed by: Toya Guy MD on 01/13/2025 08:40:23
--- OUTSIDE RECORDS SUMMARY | 2025-01-12 10:52 | XMS_ITS | Encounter Summary ---
Author Organization [facility] Address [address] [place] [address] Care Team Providers Care Ticket Seller Name Role Phone Elvis Bedoya MD Primary Care Provider Encounter Details Date Type Department Care Team (Late st Contact Info) Description 11/23/2024 Lab Requisition [facility] - Main Lab [address] [facility] [place] [address] Elvis Bedoya MD [address] [place] [address] Dr [address] [place], [place] Other detention (current) drug therapy Social History Tobacco Use Types Packs/Day Years Used Date Smoking Tobacco: Every Day Smokeless Tobacco: Never Alcohol Use Standard Drinks/Week Comments Not Currently 0 (1 standard drink = 0.6 oz pur e alcohol) Sex and Gender Information Value Date Recorded Sex Assigned at Not on file Legal Sex Male 3:25 PM EDT Gender Identity Not on file Sexual Orientation Not on file documented as of this encounter Plan of Treatment Not on file documented as of this encounter Procedures Procedure Name Priority Date/Time Associated Diagnosis Comments CBC WITH AUTO DIFFERENTIAL Routine 11/23/2024 6:45 AM EST Other detention (current) drug therapy LAVENDER - EDTA Routine 11/23/2024 6:45 AM EST Other superintendent container terminal (current) drug therapy CBC AND DIFFERENTIAL Routine 11/23/2024 6:45 AM EST Other superintendent container terminal (current) drug therapy THYROID STIMULATING HORMONE Routine 11/23/2024 6:45 AM EST Other superintendent container terminal (current) drug therapy HEMOGLOBIN A1C Routine 11/23/2024 6:45 AM EST Other detention (current) drug therapy documented in this encounter Results * Lavender tube (11/23/2024 6:45 AM EST) Extra Tube Hold for add-ons. 11/23/2024 9:01 AM EST [facility] Comment:Auto resulted. Blood Venous blood specimen / Unknown 11/23/2024 6:45 AM EST 11/23/2024 7:31 AM EST us Elvis Bedoya MD LAB BLOOD ORDERABLES Final Resul t [facility] [address] [place] [address], [place] [phone] * (ABNORMAL) CBC auto differential (11/23/2024 6:45 AM EST) Pathologist [facility] WBC 8.9 4.8 - 10.8 K/mcL LAB HEMETOLOGY METHOD 11/23/2024 8:15 AM [facility] RBC 3.60(L) 4.50 - 5.50 M/mcL LAB HEMETOLOGY METHOD 11/23/2024 8:15 AM [facility] Hemoglobin 11.3(L) 13.5 - 17.5 g/dL LAB HEMETOLOGY METHOD 11/23/2024 8:15 AM [facility] Hematocrit 35.3(L) 42.0 - 54.0 % LAB HEMETOLOGY METHOD 11/23/2024 8:15 AM [facility] MCV 98.1(H) 79.0 - 98.0 FL LAB HEMETOLOGY METHOD 11/23/2024 8:15 AM [facility] MCH 31.4 27.0 - 32.0 pcg LAB HEMETOLOGY METHOD 11/23/2024 8:15 AM [facility] MCHC 32.0 32.0 - 37.0 g/dL LAB HEMETOLOGY METHOD 11/23/2024 8:15 AM [facility] RDW 15.0 11.0 - 15.0 % LAB HEMETOLOGY METHOD 11/23/2024 8:15 AM [facility] Platelets 192 130 - 400 K/mcL LAB HEMETOLOGY METHOD 11/23/2024 8:15 AM [facility] MPV 9.6 7.0 - 11.0 FL LAB HEMETOLOGY METHOD 11/23/2024 8:15 AM [facility] NRBC 0.0 <1.0 % LAB HEMETOLOGY METHOD 11/23/2024 8:15 AM [facility] NRBC Absolute 0.00 <0.10 [facility] LAB HEMETOLOGY METHOD 11/23/2024 8:15 AM [facility] Neutrophils Relative 55.1 % LAB HEMETOLOGY METHOD 11/23/2024 8:15 AM [facility] Lymphocytes Relative 33.4 % LAB HEMETOLOGY METHOD 11/23/2024 8:15 AM [facility] Monocytes Relative 10.6 % LAB HEMETOLOGY METHOD 11/23/2024 8:15 AM [facility] Eosinophils Relative 0.0 % LAB HEMETOLOGY METHOD 11/23/2024 8:15 AM [facility] Basophils Relative 0.2 % LAB HEMETOLOGY METHOD 11/23/2024 8:15 AM [facility] Immature Granulocytes Relative 0.7 % LAB HEMETOLOGY METHOD 11/23/2024 8:15 AM [facility] Neutrophils Absolute 4.88 1.50 - 7.00 K/mcL LAB HEMETOLOGY METHOD 11/23/2024 8:15 AM EST [facility] Lymphocytes Absolute 2.96 1.00 - 5.00 [facility] LAB HEMETOLOGY METHOD 11/23/2024 8:15 AM EST [facility] Monocytes Absolute 0.94 0.20 - 1.00 K/[facility] LAB HEMETOLOGY METHOD 11/23/2024 8:15 AM EST [facility] Eosinophils Absolute 0.00 0.00 - 0.50 K/[facility] LAB HEMETOLOGY METHOD 11/23/2024 8:15 AM EST [facility] Basophils Absolute 0.02 0.00 - 0.20 K/[facility] LAB HEMETOLOGY METHOD 11/23/2024 8:15 AM EST [facility] Immature Granulocytes Absolute 0.06(H) 0.00 - 0.03 K/[facility] LAB HEMETOLOGY METHOD 11/23/2024 8:15 AM EST [facility] Blood Venous blood specimen / Unknown 11/23/2024 6:45 AM EST 11/23/2024 7:31 AM EST us Elvis Bedoya MD LAB BLOOD ORDERABLES Final Resul t Performing Organization Address City/[facility]/ZIP Co de Phone Number [facility] [address] [place] [address], [place] [phone] * Thyroid stimulating hormone (11/23/2024 6:45 AM EST) TSH 1.70 0.40 - 4.00 mcIU/mL LAB CHEMISTRY METHOD 11/23/2024 8:45 AM EST [facility] Blood Venous blood specimen / Unknown 11/23/2024 6:45 AM EST 11/23/2024 7:31 AM EST us Elvis Bedoya MD LAB BLOOD ORDERABLES Final Resul t [facility] [address] [place] [address], [place] [phone] * Hemoglobin A1c (11/23/2024 6:45 AM EST) Hemoglobin A1C 6.4 <6.5 % LAB CHEMISTRY METHOD 11/23/2024 1:44 PM EST [facility] Mean Bld Glu Estim. 137 mg/dL LAB CHEMISTRY METHOD 11/23/2024 1:44 PM EST [facility] Blood Venous blood specimen / Unknown 11/23/2024 6:45 AM EST 11/23/2024 7:31 AM EST us Elvis Bedoya MD LAB BLOOD ORDERABLES Final Resul t [facility] [address] [place] [address], [place] [phone] documented in this encounter Visit Diagnoses Diagnosis Other superintendent container terminal (current) drug therapy documented in this encounter Care Teams Ticket Seller Relationship Specialty Start Date End Date Elvis Bedoya MD [address] [place] [address] Dr [address] [place] PCP - General Internal Medicine 11/26/24 documented as of this encounter
--- OUTSIDE RECORDS SUMMARY | 2025-01-12 10:52 | XMS_ITS | Encounter Summary ---
Author Organization [facility] Address [address] [place] [id number] Care Team Providers Care Field Care Coordinator Name Role Phone Elvis Bedoya MD Primary Care Provider [phone] Encounter Details Date Type Department Care Team (Late st Contact Info) Description 10/29/2024 Lab Requisition [facility] - Main Lab [address] [place] [address] Elvis Bedoya MD [address] [place] [address] Dr [address] [place], [place] Altered mental status, unspecified Social History Tobacco Use Types Packs/Day Years [...] Procedure Name Priority Date/Time Associated Diagnosis Comments CULTURE URINE Routine 10/29/2024 4:30 PM EST Altered mental status, unspecified documented in this encounter Results * Culture urine (10/29/2024 4:30 PM EST) Culture, Urine <10,000 CFU/mL gram positive cocci, insignificant count, no further workup 10/30/2024 12:44 PM EST [facility] Urine Urine specimen obtained by clean catch procedure / Unknown 10/29/2024 4:30 PM EST 10/29/2024 7:27 PM EST us Elvis Bedoya MD LAB MICROBIOLOGY - GENERAL ORDER AMY Final Result [facility] [address] [place] [address], documented in this encounter Visit Diagnoses Diagnosis Altered mental status, unspecified documented in this encounter Care Teams Field Care Coordinator Relationship Specialty Start Date End Date Elvis Bedoya MD [address] [place] [address] Dr [address] [place] PCP - General Internal Medicine 11/26/24 documented as of this encounter
--- OUTSIDE RECORDS SUMMARY | 2025-01-12 10:52 | XMS_ITS | Encounter Summary ---
Author Organization [facility] Address [address] [place] [address] Care Team Providers Care Gas Truck Driver Name Role Phone Elvis Bedoya MD Primary Care Provider [phone] Reason for Visit * Reason Onset Date Comments Procedure 12/07/2024 ILR Removal 2. .25 Encounter Details Date Type Department Care Team (Late st Contact Info) Description 12/07/2024 Telephone [facility] [address] [facility] [address] [place] [phone] Julio Cole MD [address] [facility] [address] [place], [place] [id number] Procedure (ILR Removal 2..25) Social History Tobacco Use Types Packs/Day Years [...] on file documented as of this encounter Progress Notes * Suzanna Fonseca - 12/14/2024 11:40 AM ESTAddended by: SUZANNA FONSECA on: 12/14/2024 11:40 AM Modules accepted: Orders * Suzanna Fonseca - 12/14/2024 10:46 AM EST Spoke with patients facility maintenance supervisor Natali about procedure. Scheduled on 01.13.[address] Cole at [facility] at 1130am Natali requested packet faxed to facility [phone] Packet mailed to patient includes instructions with medications, follow-up, lab orders, pre/post procedural care, my direct number and pamphlet for procedure Confirmed address on file Arrival time 10am Bloodwork to be done JOSE D at any lab of choice (Labs are not fasting) - ATTACHED TO PACKET Medication instructions are to hold: LASIX and METFORMIN morning of procedure You can take all your regular morning medications with some water These instructions are given verbal and written and understood Patient aware if they do NOT follow these instructions or show up to procedure they will have to berescheduled to next available which could take up to 6 to 10 weeks. Patient will have to be fasting from midnight night before procedure. Patient made aware that they will need to make arrangements for transportation to procedure and upon discharge at the hospital - no ride will means they will cancel procedure Patient is to report to [facility] through [facility] - 1st floor Patient Desk Information Patient agreed to all instructions and date, time and location above via phone Booking sheet and confirmation received. documented in this encounter Plan of Treatment Scheduled Orders Name Type Priority Associated Diagnoses Orde r Schedule CBC and differential Lab Routine Status post placement of implantable loop recorder A-fib ([facility]) 1 Occurrences starting 12/14/2024 until 12/14/2025 Basic metabolic panel Lab Routine Status post placement of implantable loop recorder 1 Occurrences starting 12/14/2024 until 12/14/2025 Prothrombin time with INR Lab Routine Status post placement of implantable loop recorder A-fib ([facility]) 1 Occurrences starting 12/14/2024 until 12/14/2025 documented as of this encounter Visit Diagnoses Diagnosis Status post placement of implantable loop recorder- Primary A-fib ([facility]) Atrial fibrillation documented in this encounter Care Teams Gas Truck Driver Relationship Specialty Start Date End Date Elvis Bedoya MD [address] [place] [address] [address] PCP - General Internal Medicine 11/26/24 documented as of this encounter
--- OUTSIDE RECORDS SUMMARY | 2025-01-12 10:52 | XMS_ITS | Encounter Summary ---
Author Organization [facility] Address [address] [place] [address] Care Team Providers Care Onboarding Specialist Name Role Phone Elvis Bedoya MD Primary Care Provider [phone] Encounter Details Date Type Department Care Team (Late st Contact Info) Description 10/11/2024 Lab Requisition [facility] - Main Lab [address] [facility] [place] [address] Elvis Bedoya MD [address] [place] [address] [address] [place], [place] Pure hypercholesterolemia , unspecified Social History Tobacco Use Types Packs/Day [...] Procedure Name Priority Date/Time Associated Diagnosis Comments LIPID PANEL WITH REFLEX TO DIRECT LDL Routine 10/11/2024 7:18 AM EST Pure hypercholesterolemi a, unspecified CBC WITH AUTO DIFFERENTIAL Routine 10/11/2024 7:18 AM EST Pure hypercholesterolemi a, unspecified CBC AND DIFFERENTIAL Routine 10/11/2024 7:18 AM EST Pure hypercholesterolemi a, unspecified documented in this encounter Results * (ABNORMAL) CBC auto differential (10/11/2024 7:18 AM EST) [facility] WBC 7.6 4.8 - 10.8 K/mcL LAB HEMETOLOGY METHOD 10/11/2024 8:13 AM [facility] RBC 4.00(L) 4.50 - 5.50 M/mcL LAB HEMETOLOGY METHOD 10/11/2024 8:13 AM [facility] Hemoglobin 12.5(L) 13.5 - 17.5 g/dL LAB HEMETOLOGY METHOD 10/11/2024 8:13 AM [facility] Hematocrit 40.3(L) 42.0 - 54.0 % LAB HEMETOLOGY METHOD 10/11/2024 8:13 AM [facility] MCV 100.2(H) 79.0 - 98.0 FL LAB HEMETOLOGY METHOD 10/11/2024 8:13 AM [facility] MCH 31.1 27.0 - 32.0 pcg LAB HEMETOLOGY METHOD 10/11/2024 8:13 AM [facility] MCHC 31.0(L) 32.0 - 37.0 g/dL LAB HEMETOLOGY METHOD 10/11/2024 8:13 AM [facility] RDW 15.4(H) 11.0 - 15.0 % LAB HEMETOLOGY METHOD 10/11/2024 8:13 AM [facility] Platelets 237 130 - 400 K/mcL LAB HEMETOLOGY METHOD 10/11/2024 8:13 AM [facility] MPV 9.3 7.0 - 11.0 FL LAB HEMETOLOGY METHOD 10/11/2024 8:13 AM [facility] NRBC 0.0 <1.0 % LAB HEMETOLOGY METHOD 10/11/2024 8:13 AM [facility] NRBC Absolute 0.00 <0.10 K/mcL LAB HEMETOLOGY METHOD 10/11/2024 8:13 AM [facility] Neutrophils Relative 53.1 % LAB HEMETOLOGY METHOD 10/11/2024 8:13 AM [facility] Lymphocytes Relative 36.0 % LAB HEMETOLOGY METHOD 10/11/2024 8:13 AM [facility] Monocytes Relative 9.6 % LAB HEMETOLOGY METHOD 10/11/2024 8:13 AM [facility] Eosinophils Relative 0.1 % LAB HEMETOLOGY METHOD 10/11/2024 8:13 AM [facility] Basophils Relative 0.5 % LAB HEMETOLOGY METHOD 10/11/2024 8:13 AM [facility] Immature Granulocytes Relative 0.7 % LAB HEMETOLOGY METHOD 10/11/2024 8:13 AM [facility] Neutrophils Absolute 4.03 1.50 - 7.00 K/mcL LAB HEMETOLOGY METHOD 10/11/2024 8:13 AM [facility] Lymphocytes Absolute 2.73 1.00 - 5.00 K/mcL LAB HEMETOLOGY METHOD 10/11/2024 8:13 AM [facility] Monocytes Absolute 0.73 0.20 - 1.00 K/mcL LAB HEMETOLOGY METHOD 10/11/2024 8:13 AM [facility] Eosinophils Absolute 0.01 0.00 - 0.50 K/mcL LAB HEMETOLOGY METHOD 10/11/2024 8:13 AM [facility] Basophils Absolute 0.04 0.00 - 0.20 K/mcL LAB HEMETOLOGY METHOD 10/11/2024 8:13 AM [facility] Immature Granulocytes Absolute 0.05(H) 0.00 - 0.03 K/mcL LAB HEMETOLOGY METHOD 10/11/2024 8:13 AM [facility] Blood Venous blood specimen / Unknown 10/11/2024 7:18 AM EST 10/11/2024 7:58 AM EST us Elvis Bedoya MD LAB BLOOD ORDERABLES Final Resul t Performing Organization Address [facility]/ZIP Co de Phone Number [facility] [address] [place] [address], [place] [phone] * Lipid panel with reflex to direct LDL (10/11/2024 7:18 AM EST) Cholesterol 138 0 - 200 mg/dL LAB CHEMISTRY METHOD 10/11/2024 9:01 AM [facility] Triglycerides 137 0 - 150 mg/dL LAB CHEMISTRY METHOD 10/11/2024 9:01 AM [facility] HDL 42 >=40 mg/dL LAB CHEMISTRY METHOD 10/11/2024 9:01 AM [facility] LDL Calculated 69 0 - 100 mg/dL LAB CHEMISTRY METHOD 10/11/2024 9:01 AM [facility] VLDL Cholesterol Raheem 27.4 mg/dL LAB CHEMISTRY METHOD 10/11/2024 9:01 AM [facility] Non HDL Chol. (LDL+VLDL) 96 <145 mg/dL LAB CHEMISTRY METHOD 10/11/2024 9:01 AM [facility] Chol/HDL Ratio 3.3 0.0 - 4.4 LAB CHEMISTRY METHOD 10/11/2024 9:01 AM [facility] Blood Venous blood specimen / Unknown 10/11/2024 7:18 AM EST 10/11/2024 7:58 AM EST us Elvis Bedoya MD LAB BLOOD ORDERABLES Final Resul t Performing Organization Address [facility]/ZIP Co de Phone Number [facility] [address] [place] [address], [place] [phone] documented in this encounter Visit Diagnoses Diagnosis Pure hypercholesterolemia, unspecified documented in this encounter Care Teams Onboarding Specialist Relationship Specialty Start Date End Date Elvis Bedoya MD [address] [place] [address] [address] [place] PCP - General Internal Medicine 11/26/24 documented as of this encounter
--- OUTSIDE RECORDS SUMMARY | 2025-01-12 10:52 | XMS_ITS | Patient Health Record ---
Author Organization [facility] Address [address] [place] [address] Care Team Providers Care Bobj Developer Name Role Phone Elvis Bedoya Primary Care Provider Mansoor Garcia [phone] ALLERGIES Allergen (clinical drug ingredient) Drug/Non Drug Allergy documented on EMR Reaction Allergy Type Onset Date Status gabapentin Neurontin Unknown Drug Allergy Active REASON FOR REFERRAL No Information MEDICATIONS Medication SIG (Take, Route, Frequency, Duration) Notes Start Date End Date Status metFORMIN HCl 1000 MG 1 tablet with a me al Orally Once a day for 30 day(s) Active [place] Carbonate ER 450 MG 1 tablet at bedtime Orally Once a day for 30 day(s) Active Tylenol 325 MG 1 tablet as needed O rally every 4 hrs Active Fluticasone Propionate 50 MCG/ACT 1 spray in each nostril Nasally Once a day for 30 day(s) Active traZODone HCl 100 MG 1 tablet at bedtime Orally Once a day for 30 day(s) Active Fleet Enema 7-19 GM/118ML as directed Rectal Active Vitamin D3 25 MCG (1000 UT) 1 capsule Orally Once a day for 30 day(s) Active Lipitor 10 MG 1 tablet Orally Once a day for 30 day(s) Active Vitamin C 500 MG as directed Orally Active Furosemide 20 MG 1 tablet Orally Once a day for 30 day(s) Active oxyBUTYnin Chloride 5 MG 1 tablet Orally Twice a day for 30 day(s) Active Bisacodyl 10 MG 1 suppository as nee ded Rectal Once a day for 30 day(s) Active Omeprazole 20 MG 1 capsule 30 minutes before morning meal Orally Once a day for 30 day(s) Active Benadryl 25 MG 1 capsule at bedtime as needed Orally Once a day for 30 day(s) Active Toprol XL 100 MG 1 tablet Orally Once a day for 30 day(s) Active Doxycycline Hyclate 100 MG 1 capsule Ora lly Once a day for 10 day(s) Active Senna - as directed Orally A ctive cloZAPine 200 MG 1 tablet Orally Once a day for 30 day(s) Active Mylanta 200-200-20 MG as directed Orally Active IMMUNIZATIONS Vaccine Route Administration Date Status Comme nts Influenza Unknown 10/03/2021 Administered SOCIAL HISTORY Tobacco Use: Social History Observation Description Date Details (start date - stop date) Current Smoker NA - NA Sex Assigned At : Social History Observation Description Sex Assigned At Unknown Tobacco Use/Smoking Question Answer Notes Patient is a current smoker How many cigarettes a day do you smoke? 5 or les s Alcohol Screen Question Answer Notes Did you have a drink containing alcohol in the p ast year? No Points 0 Interpretation Negative PROBLEMS Problem Type ICD Code Onset Dates Problem Status W/U Status Risk SNOMED Code Notes Problem Encounter for screening for malignant neoplasm of colon (Z12.11) Active confirmed 750297286 Problem Preprocedural examination (Z01.818) Active confirmed 548140486429085 Problem Diverticulosis of colon (K57.30) Active confirmed Diverticulosi s of colon (554431091) PLAN OF TREATMENT Future Test Test Name Order Date COLONOSCOPY 11/28/2021 Insurance Providers Payer Name Payer Address Payer Phone Subscriber Number Group Number Insured Name Patient Relationship to Insured Coverage Start Date Coverage End Date MEDICARE OF [place] [address] [place] [address] [id number] EDILBERTO LOPEZ Self - patient is the insured [address] [address] [id number] EDILBERTO LOPEZ Self - patient is the insured MEDICAL (GENERAL) HISTORY Medical History History ICD Code Schizoaffective disorder Epilepsy NIDDM GERD without esophagitis Hypertension Obstruction sleep apnea-uses CPAP CAD with previous DC Cardiomyopathy Supraventricular tachycardia Bronchiectasis Surgical History Surgery Date(Month/Year)
--- OUTSIDE RECORDS SUMMARY | 2025-01-12 10:52 | XMS_ITS | Clinical Summary ---
Author Organization [address] [place] [address] [place] [phone] Phone Care Team Providers Care Daycare Director Name Role Phone Elvis Bedoya MD Primary Care Provider [phone] Allergies Active Allergy Reactions Criticality Noted Date Comments Divalproex Sodium 08/14/2021 Haloperidol 08/14/2021 Medications multivitamin with minerals (Multiple Vitamin-Mineral s) tablet Take by mouth daily. Active traZODone (DESYREL) 50 mg tablet Take 1 Tablet by mouth at bedtime. Active ascorbic acid (VITAMIN C) 500 mg tablet Take 1 Tablet by mouth every morning. Active lithium 300 mg tablet Take 1 Tablet by mouth 2 times daily. Active cloZAPine (CLOZARIL) 100 mg tablet Take 100 mg by mouth daily. Active cloZAPine (CLOZARIL) 200 mg tablet 2 Tablets every evening. Active furosemide (LASIX) 20 mg tablet 2 Tablets daily. 8 Active atorvastatin (LIPITOR) 10 mg tablet daily. Active omeprazole (PriLOSEC) [address] capsule 1 capsule daily. Active oxyBUTYnin (DITROPAN) 5 mg tablet 1 tablet daily. Acti ve sennosides 8.6 mg capsule as needed. Active acetaminophen (TYLENOL) 325 mg capsule as needed. Active ascorbic acid, vitamin C, 500 mg capsule daily. Active cholecalciferol (VITAMIN D-3) 25 mcg (1,000 unit) capsule Take by mouth. A ctive fluticasone propionate (FLONASE) 50 mcg/actuation nasal spray 2 Sprays by Each Nare route as needed. Active metFORMIN (GLUCOPHAGE) 1,000 mg tablet Take 1,000 mg by mouth 2 times daily (with meals). Active metoprolol succinate (TOPROL-XL) 50 mg 24 hr tablet Take 1 tablet (50 mg total) by mouth 1 (one) time each day. Do not crush or chew. Active albuterol HFA (PROAIR HFA ; PROVENTIL HFA ; VENTOLIN HFA) 90 mcg/actuation inhaler Inhale 2 puffs by mouth every 6 (six) hours if needed for wheezing. Active albuterol 2.5 mg /3 mL (0.083 %) nebulizer solution Take 3 mL (2.5 mg total) by nebulization every 6 (six) hours if needed for wheezing. Active Active Problems Problem Noted Date Diagnosed Date Status post placement of implantable loop record er 11/29/2024 Venous (peripheral) insufficiency 08/16/2024 Overview (10/01/2024): Last Assessment & Plan: Centrally euvolemic but does have some peripheral edema-a longstanding issue, unfortunately he does not tolerate compression socks or stockings or elevation of legs while supine. Would continue his current dose of furosemide 40 mg daily, avoidance of high sodium foods, and regular aerobic exercise as he is doing. Paroxysmal atrial tachycardia 08/16/2024 Overview (10/01/2024): - Has had about 3 episodes of asymptomatic paroxysmal atrial tachycardia - Most recent 1 from April 2020 24-27 beats of A. tach Last Assessment & Plan: No progressive burden-has had 3 episodes since his ILR was placed in 2020. Due to ongoing lightheadedness as detailed below, we are trialing decreasing his metoprolol succinate to 50 mg daily. Hypertension 03/26/2022 Overview (10/01/2024): Last Assessment & Plan: 110/70, well-controlled. Continue current regimen. Hyperlipidemia 03/26/2022 Overview (10/01/2024): Last Assessment & Plan: Last lipid panel from November 2021, total cholesterol 122, triglycerides 164, HDL 36, LDL 54. Continue statin therapy. Due for repeat lipid panel which can be arranged by PCP when he gets his next routine laboratories to check lithium and clozapine levels. Syncope 08/14/2021 Overview (10/01/2024): - 2 episodes - Status post remote ILR placement in September 2021 - Most recent ILR check from 06/27/2024 showed no arrhythmias or alerts - In retrospect, may have been orthostatic in nature - Started having episodes of postural lightheadedness at his facility where he resides including a few mechanical falls while ambulating-his psychiatrist decreased his metoprolol from 100 mg daily to 50 mg daily around February or March 2024 which has helped immensely Last Assessment & Plan: Postural lightheadedness symptoms have recurred and seem to have responded well to a decrease in his metoprolol dose. He has not however had a compensatory increase in atrial tachycardia as a result which is reassuring. For now, would continue lower dose of metoprolol succinate 50 mg daily. Continue adequate oral hydration and regular aerobic exercise with focus on core and leg strengthening. At this point, not certain that we have to keep following his device but it is still functioning and we continue to get remotes. That said, when the battery dies, there is no indication to replace it. And it is probably more trouble to remove the device than just leave it in. Thoracic aortic aneurysm without rupture 021 Overview (10/01/2024): -Most recent echocardiogram in March 2024 showed normal biventricular size and systolic function, normal left ventricular regional wall motion with an ejection fraction of 55 to 60%, normal left ventricular diastolic function most likely, no hemodynamically significant valve disease, dilated aortic root at 4.3 cm with normal ascending aorta at 2.9 cm-findings are unchanged from 04/22/2023 echo Last Assessment & Plan: Has had a remarkably stable dimensions. At this point, I do not feel strongly about yearly surveillance-can probably space out surveillance imaging to every 3 years or so or with change in symptoms. Coronary artery disease without angina pectoris 07/03/2021 Overview (10/01/2024): - Non-ST elevation NE in 2013 in the midst of cocaine use - It does not look like any specific intervention was performed Last Assessment & Plan: Continue medical management, no anginal symptoms, encouraged his excellent exercise routine; he is on low-dose atorvastatin-I suspect he is not able to tolerate higher doses, continue this. He is not on a baby aspirin which is interesting. I will try to find out and investigate why this is the case. See below regarding metoprolol. Right ventricular dysfunction 07/03/2021 Overview (10/01/2024): Last Assessment & Plan: In the past his echo in July 2020 did demonstrate that the right ventricle was enlarged with reduced function. On exam today I do not find any signs of right heart failure. Interesting of the echo that was noted in February 2021 she had the RV chamber size and function were normal. We will reviewed this myself. Encounters Date Type Department Care Team Description 12/16/2024 Lab Requisition [facility] [address] [place] [phone] Elvis Bedoya MD Presence of other cardiac implants and grafts; Unspecified atrial fibrillation (CMS/HCC); Supraventricular tachycardia, unspecified (CMS/HCC); Encounter for other preprocedural examination 12/08/2024 Lab Requisition [facility] [address] [place] [phone] Elvis Bedoya MD Vitamin D deficiency, unspecified 12/07/2024 Telephone [facility] [address] [place] [address] Julio Cole MD Procedure (ILR Removal 2.20.25) 11/29/2024 2:40 PM EST Consult [facility] [address] [place] [phone] Sarita Estrada PA Paroxysmal atrial tachycardia (CMS/HCC) (Primary Dx); Status post placement of implantable loop recorder; Primary hypertension 11/23/2024 Lab Requisition [facility] [address] [place] [phone] Elvis Bedoya MD 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 11/05/2024 Telephone [facility] [address] [place] [address] Zoraida Curtis MD Fall 11/04/2024 Lab Requisition [facility] Lab [address] [place] [address] Elvis Bedoya MD Schizoaffective disorder, unspecified (CMS/HCC) 11/01/2024 Telephone [facility] [address] [place] [address] Julio Cole MD 10/29/2024 4:25 PM EST Ancillary Procedure [facility] [address] [place] [address] 10/29/2024 Lab Requisition [facility] Lab [address] [place] [address] Elvis Bedoya MD Altered mental status, unspecified 10/29/2024 Lab Requisition [facility] Lab [address] [place] [phone] Elvis Bedoya MD Other halfway (current) drug therapy; Schizoaffective disorder, unspecified (CMS/HCC) from Last 3 Months Family History Medical History Relation Name Comments Heart attack Mother Relation Name Status Comments Mother Social History Tobacco Use Types Packs/Day Years Used Date Smoking Tobacco: Every Day Smokeless Tobacco: Never Alcohol Use Standard Drinks/Week Comments Not Currently 0 (1 standard drink = 0.6 oz pur e alcohol) Sex and Gender Information Value Date Recorded Sex Assigned at Not on file Legal Sex Male 3:25 PM EDT Gender Identity Not on file Sexual Orientation Not on file Obstetrics History Last Filed Vital Signs Vital Sign Reading Time Taken Comments Blood Pressure 120/72 11/29/2024 2:14 PM EST Pulse 93 11/29/2024 2:14 PM EST Temperature - - Respiratory Rate - - Oxygen Saturation - - Inhaled Oxygen Concentration - - Weight 112 kg (246 lb) 11/29/2024 2:14 PM EST Height 170.2 cm (5' 7 ) 11/29/2024 2:14 PM EST Body Mass Index 38.53 11/29/2024 2:14 PM EST Plan of Treatment Health Maintenance Due Date Last Done Comments DTaP,Tdap,and Td Vaccines (1 - Tdap) 1975 Zoster Vaccines (1 of 2) 2006 RSV Immunization Patients 60+ Years Old (1 - Risk 60-74 years 1-dose series) 2016 Pneumococcal Vaccine: 50+ Years (2 of 2 - PCV) 11/11/2020 11/11/2019 Abdominal Aortic Aneurysm (AAA) Screen 11/02/2022 Colorectal Cancer Screening: Colonoscopy 11/02/2022 Depression Screening 11/02/2022 Falls Risk Assessment 11/02/2022 Hepatitis C Screening 11/02/2022 Medicare Annual Wellness Visit 11/02/2022 Social Influencers of Health Screening 11/02/2022 COVID-19 Vaccine ( season) 2024 08/22/2022, 04/23/2022, 09/12/2021, Additional history exists Influenza Vaccine (#1) 2024 3, 10/03/2021, 09/06/2021 Hypertension/CHF/CAD Annual BMP Blood Test 12/16/2025 12/16/2024, 10/29/2024 Cholesterol Screening (Lipid Panel) 10/11/2029 10/11/2024 HIB Vaccines Aged Out No longer eligi ble based on patient's age to complete this topic HPV Vaccines Aged Out No longer eligi ble based on patient's age to complete this topic Hepatitis A Vaccines Aged Out No long er eligible based on patient's age to complete this topic Hepatitis B Vaccines Aged Out No long er eligible based on patient's age to complete this topic IPV Vaccines Aged Out No longer eligi ble based on patient's age to complete this topic MMR Vaccines Aged Out No longer eligi ble based on patient's age to complete this topic Meningococcal ACWY Vaccine Aged Out N o longer eligible based on patient's age to complete this topic Meningococcal B Vacine Aged Out No lo nger eligible based on patient's age to complete this topic RSV Immunization Patients Under 20 months Aged Out No longer eligible based on patient's age to complete this topic Varicella Vaccines Aged Out No longer eligible based on patient's age to complete this topic Medical Devices Implanted Type Area Field Scout Device Identifier Shelf Expiration Date Model / Serial / Lot Bsci-Crm [id number] Implanted:02/2021 (Quantity not on file) Cardiac Loop Recorder [employer] MGMT [id number] / [id number] / Procedures Procedure Name Priority Date/Time Associated Diagnosis Comments EXTERNAL CLINICAL LAB Routine 12/16/2024 9:15 AM EST CBC WITH AUTO DIFFERENTIAL Routine 12/16/2024 6:13 AM EST Unspecified atrial fibrillation (CMS/HCC) Supraventricular tachycardia, unspecified (CMS/HCC) Encounter for other preprocedural examination Presence of other cardiac implants and grafts BASIC METABOLIC PANEL Routine 12/16/2024 6:13 AM EST Unspecified atrial fibrillation (CMS/HCC) Supraventricular tachycardia, unspecified (CMS/HCC) Encounter for other preprocedural examination Presence of other cardiac implants and grafts PROTHROMBIN TIME WITH INR Routine 12/16/2024 6:13 AM EST Unspecified atrial fibrillation (CMS/HCC) Supraventricular tachycardia, unspecified (CMS/HCC) Encounter for other preprocedural examination Presence of other cardiac implants and grafts CBC AND DIFFERENTIAL Routine 12/16/2024 6:13 AM EST Unspecified atrial fibrillation (CMS/HCC) Supraventricular tachycardia, unspecified (CMS/HCC) Encounter for other preprocedural examination Presence of other cardiac implants and grafts VITAMIN D 25 HYDROXY Routine 12/08/2024 6:20 AM EST Vitamin D deficiency, unspecified ECG 12-LEAD Routine 11/29/2024 3:05 PM EST Paroxysmal atrial tachycardia (CMS/HCC) LAVENDER - EDTA Routine 11/23/2024 6:45 AM EST 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 CBC WITH AUTO DIFFERENTIAL Routine 11/23/2024 6:45 AM EST Other halfway (current) drug therapy THYROID STIMULATING HORMONE Routine 11/23/2024 6:45 AM EST Other halfway (current) drug therapy HEMOGLOBIN A1C Routine 11/23/2024 6:45 AM EST Other halfway (current) drug therapy CBC AND DIFFERENTIAL Routine 11/23/2024 6:45 AM EST 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 CLOZAPINE Routine 11/04/2024 5:15 AM EST Schizoaffective disorder, unspecified (CMS/HCC) CULTURE URINE Routine 10/29/2024 4:30 PM EST Altered mental status, unspecified CARDIAC DEVICE CHECK- REMOTE- MURJ Routine 10/29/2024 4:22 PM EST CLOZAPINE Routine 10/29/2024 5:21 AM EST Schizoaffective disorder, unspecified (CMS/HCC) Other halfway (current) drug therapy THYROID STIMULATING HORMONE Routine 10/29/2024 5:21 AM EST Schizoaffective disorder, unspecified (CMS/HCC) Other halfway (current) drug therapy LITHIUM LEVEL Routine 10/29/2024 5:21 AM EST Schizoaffective disorder, unspecified (CMS/HCC) Other halfway (current) drug therapy COMPREHENSIVE METABOLIC PANEL Routine 10/29/2024 5:21 AM EST Schizoaffective disorder, unspecified (CMS/HCC) Other halfway (current) drug therapy COMPLETE BLOOD COUNT Routine 10/29/2024 5:21 AM EST Schizoaffective disorder, unspecified (CMS/HCC) 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 WBC 8.1 4.8 - 10.8 K/mcL LAB HEMETOLOGY METHOD 12/16/2024 7:06 AM [facility] RBC 3.60(L) 4.50 - 5.50 M/mcL LAB HEMETOLOGY METHOD 12/16/2024 7:06 AM [facility] Hemoglobin 11.3(L) 13.5 - 17.5 g/dL LAB HEMETOLOGY METHOD 12/16/2024 7:06 AM [facility] Hematocrit 35.2(L) 42.0 - 54.0 % LAB HEMETOLOGY METHOD 12/16/2024 7:06 AM [facility] MCV 98.3(H) 79.0 - 98.0 FL LAB HEMETOLOGY METHOD 12/16/2024 7:06 AM [facility] MCH 31.6 27.0 - 32.0 pcg LAB HEMETOLOGY METHOD 12/16/2024 7:06 AM [facility] MCHC 32.1 32.0 - 37.0 g/dL LAB HEMETOLOGY METHOD 12/16/2024 7:06 AM [facility] RDW 14.9 11.0 - 15.0 % LAB HEMETOLOGY METHOD 12/16/2024 7:06 AM [facility] Platelets 218 130 - 400 K/mcL LAB HEMETOLOGY METHOD 12/16/2024 7:06 AM [facility] MPV 9.2 7.0 - 11.0 FL LAB HEMETOLOGY METHOD 12/16/2024 7:06 AM [facility] NRBC 0.0 <1.0 % LAB HEMETOLOGY METHOD 12/16/2024 7:06 AM [facility] NRBC Absolute 0.00 <0.10 K/mcL LAB HEMETOLOGY METHOD 12/16/2024 7:06 AM [facility] Neutrophils Relative 52.7 % LAB HEMETOLOGY METHOD 12/16/2024 7:06 AM [facility] Lymphocytes Relative 37.8 % LAB HEMETOLOGY METHOD 12/16/2024 7:06 AM [facility] Monocytes Relative 8.5 % LAB HEMETOLOGY METHOD 12/16/2024 7:06 AM [facility] Eosinophils Relative 0.1 % LAB HEMETOLOGY METHOD 12/16/2024 7:06 AM [facility] Basophils Relative 0.4 % LAB HEMETOLOGY METHOD 12/16/2024 7:06 AM [facility] Immature Granulocytes Relative 0.5 % LAB HEMETOLOGY METHOD 12/16/2024 7:06 AM [facility] Neutrophils Absolute 4.26 1.50 - 7.00 K/mcL LAB HEMETOLOGY METHOD 12/16/2024 7:06 AM [facility] Lymphocytes Absolute 3.06 1.00 - 5.00 K/mcL LAB HEMETOLOGY METHOD 12/16/2024 7:06 AM [facility] Monocytes Absolute 0.69 0.20 - 1.00 K/mcL LAB HEMETOLOGY METHOD 12/16/2024 7:06 AM [facility] Eosinophils Absolute 0.01 0.00 - 0.50 K/mcL LAB HEMETOLOGY METHOD 12/16/2024 7:06 AM [facility] Basophils Absolute 0.03 0.00 - 0.20 K/mcL LAB HEMETOLOGY METHOD 12/16/2024 7:06 AM [facility] Immature Granulocytes Absolute 0.04(H) 0.00 - 0.03 K/mcL LAB HEMETOLOGY METHOD 12/16/2024 7:06 AM EST [facility] Blood Venous blood specimen / Unknown 12/16/2024 6:13 AM EST 12/16/2024 7:01 AM EST us Elvis Bedoya MD LAB BLOOD ORDERABLES Final Resul t Performing Organization Address [facility]/ZIP Co de Phone Number [facility] [address] [place] [address], [place] [phone] * Prothrombin time with INR (12/16/2024 6:13 AM EST) [facility] Protime 11.3 10.6 - 13.9 sec LAB COAGULATION METHOD 12/16/2024 8:18 AM [facility] INR 0.9 LAB COAGULATION METHOD 12/16/2024 8:18 AM [facility] Blood Venous blood specimen / Unknown 12/16/2024 6:13 AM EST 12/16/2024 7:01 AM EST us Elvis Bedoya MD LAB BLOOD ORDERABLES Final Resul t Performing Organization Address [facility] de Phone Number [facility] [address] [place] [address], [place] [phone] * Basic metabolic panel (12/16/2024 6:13 AM EST) Pathologist [facility] Sodium 137 133 - 145 mmol/L LAB CHEMISTRY METHOD 12/16/2024 8:51 AM EST [facility] Potassium 4.3 3.5 - 5.5 mmol/L LAB CHEMISTRY METHOD 12/16/2024 8:51 AM EST [facility] Chloride 104 96 - 110 mmol/L LAB CHEMISTRY METHOD 12/16/2024 8:51 AM EST [facility] CO2 29 21 - 32 mmol/L LAB CHEMISTRY METHOD 12/16/2024 8:51 AM [facility] Anion Gap 4 3 - 11 LAB CHEMISTRY METHOD 12/16/2024 8:51 AM [facility] Glucose 99 70 - 100 mg/dL LAB CHEMISTRY METHOD 12/16/2024 8:51 AM [facility] BUN 11 5 - 25 mg/dL LAB CHEMISTRY METHOD 12/16/2024 8:51 AM [facility] Creatinine 1.27 0.70 - 1.30 mg/dL LAB CHEMISTRY METHOD 12/16/2024 8:51 AM [facility] eGFR 62 >=60 mL/min/1. 73m2 LAB CHEMISTRY METHOD 12/16/2024 8:51 AM [facility] Comment:Calculation based on the??Chronic Kidney Disease Epidemiology Collaboration (CKD-EPI) equation refit??without adjustment for race. BUN/Creatinine Ratio 8.7 LAB CHEMISTRY METHOD 12/16/2024 8:51 AM [facility] Calcium 8.6 8.5 - 10.5 mg/dL LAB CHEMISTRY METHOD 12/16/2024 8:51 AM [facility] Blood Venous blood specimen / Unknown 12/16/2024 6:13 AM EST 12/16/2024 7:01 AM EST Elvis Bedoya MD LAB BLOOD ORDERABLES Final Resul t [facility] [address] [place] [address], * Vitamin D 25 hydroxy (12/08/2024 6:20 AM EST) Vit D, 25-Hydroxy 43.4 30.0 - 80.0 ng/mL LAB CHEMISTRY METHOD 12/08/2024 8:24 AM [facility] Blood Venous blood specimen / Unknown 12/08/2024 6:20 AM EST 12/08/2024 7:27 AM EST us Elvis Bedoya MD LAB BLOOD ORDERABLES Final Resul t Performing Organization Address City/[facility]/ZIP Co de Phone Number [facility] [address] [place] [address], [place] [phone] * ECG 12 lead (11/29/2024 3:05 PM EST) Ventricular Rate ECG 93 BPM [facility] Atrial Rate 93 BPM [facility] P-R Interval 160 ms [facility] QRS Duration 102 ms G[facility] Q-T Interval 382 ms GEMUSE QTc 474 ms GEMUSE P Wave [place] 64 degrees GEMUSE R [place] -38 degrees GEMUSE T [place] 72 degrees GEMUSE ECG Interpretation Normal sinus rhythm Left axis deviation Abnormal ECG No previous ECGs available Confirmed by Demetrio TROTTER JOHN ([id number]) on 11/30/2024 8:20:06 AM [facility] 11/29/2024 2:10 PM EST 11/30/2024 8:20 AM EST us Sarita LERMA ECG ORDERABLES Edited Result - Final Performing Organization Address [facility] de Phone Number [facility] * Lavender tube (11/23/2024 6:45 AM EST) Extra Tube Hold for add-ons. 11/23/2024 9:01 AM EST [facility] Comment:Auto resulted. Blood Venous blood specimen / Unknown 11/23/2024 6:45 AM EST 11/23/2024 7:31 AM EST us Elvis Bedoya MD LAB BLOOD ORDERABLES Final Resul t Performing Organization Address [facility] Co de Phone Number [facility] [address] [place] [address], [place] [phone] * Thyroid stimulating hormone (11/23/2024 6:45 AM EST) Only the most recent of2 resultswithin the time period is included. TSH 1.70 0.40 - 4.00 mcIU/mL LAB CHEMISTRY METHOD 11/23/2024 8:45 AM EST [facility] Blood Venous blood specimen / Unknown 11/23/2024 6:45 AM EST 11/23/2024 7:31 AM EST us Elvis Bedoya MD LAB BLOOD ORDERABLES Final Resul t Performing Organization Address [facility] Co de Phone Number [facility] [address] [place] [address], [place] [phone] * Hemoglobin A1c (11/23/2024 6:45 AM EST) Hemoglobin A1C 6.4 <6.5 % LAB CHEMISTRY METHOD 11/23/2024 1:44 PM EST [facility] Mean Bld Glu Estim. 137 mg/dL LAB CHEMISTRY METHOD 11/23/2024 1:44 PM EST [facility] Blood Venous blood specimen / Unknown 11/23/2024 6:45 AM EST 11/23/2024 7:31 AM EST us Elvis Bedoya MD LAB BLOOD ORDERABLES Final Resul t Performing Organization Address [facility] Co de Phone Number [facility] [address] [place] [address], [place] [phone] * Clozapine (11/04/2024 5:15 AM EST) Only the most recent of2 resultswithin the time period is included. Clozapine 467 200 - 700 ng/mL 11/06/2024 2:43 PM EST [facility] Comment:Clozapine (Clozaril) toxic level: >1000 ng/mL Norclozapine 340 200 - 700 ng/mL 11/06/2024 2:43 PM EST [facility] Comment: For Refractory Schizophrenia, at least 350 ng/mL of Clozapine should be achieved to evaluate efficacy. After response is achieved, reduce dose to minimum level needed to maintain remission. Seizure activity may occur with Clozapine levels over 600 ng/mL, but is unusual below 1000 ng/mL. The biological activity of Clozapine metabolites is not fully known. Typically, Norclozapine concentrations are similar to those of the parent Clozapine (+/- 50%). If applicable, any drug confirmation testing reported here was developed and the performance characteristics determined by [facility]. This confirmation testing has not been cleared or approved by the FDA. The laboratory is regulated under CLIA as qualified to perform high-complexity testing. This test is used for patient testing purposes. It should not be regarded as investigational or for research. Test performed at [facility], [address] , [place], [place] [address] ? [phone] Marianne Aldrich MD, PhD - Bulk Driver Blood Venous blood specimen / Unknown 11/04/2024 5:15 AM EST 11/04/2024 5:51 AM EST us Elvis Bedoya MD LAB BLOOD ORDERABLES Final Resul t Performing Organization Address [facility]/ZIP Co de Phone Number [facility] [address] [place] [address] * Culture urine (10/29/2024 4:30 PM EST) Culture, Urine <10,000 CFU/mL gram positive cocci, insignificant count, no further workup 10/30/2024 12:44 PM EST [facility] Urine Urine specimen obtained by clean catch procedure / Unknown 10/29/2024 4:30 PM EST 10/29/2024 7:27 PM EST us Elvis Bedoya MD LAB MICROBIOLOGY - GENERAL ORDER AMY Final Result Performing Organization Address City/[facility]/ZIP Co de Phone Number [facility] [address] [place] [address], [place] [phone] * Cardiac device check - Remote- MURJ (10/29/2024 4:22 PM EST) Date Time Interrogation Session [id number] CV DEVICE CHECK Type Interrogation Session Remote Device Initiated CV DEVICE CHECK Implantable Pulse Generator Field Scout BSX CV DEVICE CHECK Implantable Pulse Generator Type ILR CV DEVICE CHECK Implantable Pulse Generator Model [id number] CV DEVICE CHECK Implantable Pulse Generator Serial Number [id number] CV DEVICE CHECK Implantable Pulse Generator Implant Date [id number] CV DEVICE CHECK Battery Status End of Service CV DEVICE CHECK Date of Service 2024-11-18 CV DEVICE CHECK Anatomical Region Laterality Modality Device Interroga tion 10/29/2024 12:1 5 AM EST Impressions 10/29/2024 4:18 PM EST Low Battery Indicator * Low battery condition met and device replacement indicator triggered * Current battery status: EOS, patient is no longer being monitored due to battery indicator @ EOS. * Patient is scheduled for removal talk 11/29/2024 with MARIA GUADALUPE Dalton Narrative Procedure Note Mag Kelley NP - 10/29/2024 IMPRESSION: Low Battery Indicator * Low battery condition met and device replacement indicator triggered * Current battery status: EOS, patient is no longer being monitored due tobattery indicator @ EOS. * Patient is scheduled for removal talk 11/29/2024 with MARIA GUADALUPE Dalton Mga Kelley NP CV IMPLANTABLE CARDIAC DEVIC E PROCEDURES Final Result * (ABNORMAL) Complete blood count (10/29/2024 5:21 AM EST) WBC 6.8 4.8 - 10.8 K/mcL LAB HEMETOLOGY METHOD 10/29/2024 7:00 AM EST [facility] RBC 3.50(L) 4.50 - 5.50 M/mcL LAB HEMETOLOGY METHOD 10/29/2024 7:00 AM [facility] Hemoglobin 11.1(L) 13.5 - 17.5 g/dL LAB HEMETOLOGY METHOD 10/29/2024 7:00 AM [facility] Hematocrit 33.5(L) 42.0 - 54.0 % LAB HEMETOLOGY METHOD 10/29/2024 7:00 AM [facility] MCV 96.8 79.0 - 98.0 FL LAB HEMETOLOGY METHOD 10/29/2024 7:00 AM [facility] MCH 32.1(H) 27.0 - 32.0 pcg LAB HEMETOLOGY METHOD 10/29/2024 7:00 AM [facility] MCHC 33.1 32.0 - 37.0 g/dL LAB HEMETOLOGY METHOD 10/29/2024 7:00 AM [facility] RDW 15.3(H) 11.0 - 15.0 % LAB HEMETOLOGY METHOD 10/29/2024 7:00 AM [facility] Platelets 158 130 - 400 K/mcL LAB HEMETOLOGY METHOD 10/29/2024 7:00 AM [facility] MPV 9.8 7.0 - 11.0 FL LAB HEMETOLOGY METHOD 10/29/2024 7:00 AM [facility] NRBC 0.0 <1.0 % LAB HEMETOLOGY METHOD 10/29/2024 7:00 AM [facility] NRBC Absolute 0.00 <0.10 K/mcL LAB HEMETOLOGY METHOD 10/29/2024 7:00 AM [facility] Blood Venous blood specimen / Unknown 10/29/2024 5:21 AM EST 10/29/2024 6:10 AM EST us Elvis Bedoya MD LAB BLOOD ORDERABLES Final Resul t [facility] [address] [place] [address], * [place] level (10/29/2024 5:21 AM EST) [place] Level 0.6 0.6 - 1.2 mEq/L LAB CHEMISTRY METHOD 10/29/2024 8:56 AM [facility] Blood Venous blood specimen / Unknown 10/29/2024 5:21 AM EST 10/29/2024 6:10 AM EST us Elvis Bedoya MD LAB BLOOD ORDERABLES Final Resul t [facility] [address] [place] [address], [place] [phone] * (ABNORMAL) Comprehensive metabolic panel (10/29/2024 5:21 AM EST) Pathologist [facility] Sodium 136 133 - 145 mmol/L LAB CHEMISTRY METHOD 10/29/2024 8:52 AM [facility] Potassium 3.3(L) 3.5 - 5.5 mmol/L LAB CHEMISTRY METHOD 10/29/2024 8:52 AM [facility] Chloride 103 96 - 110 mmol/L LAB CHEMISTRY METHOD 10/29/2024 8:52 AM [facility] CO2 25 21 - 32 mmol/L LAB CHEMISTRY METHOD 10/29/2024 8:52 AM [facility] Anion Gap 8 3 - 11 LAB CHEMISTRY METHOD 10/29/2024 8:52 AM [facility] Glucose 122(H) 70 - 100 mg/dL LAB CHEMISTRY METHOD 10/29/2024 8:52 AM [facility] BUN 16 5 - 25 mg/dL LAB CHEMISTRY METHOD 10/29/2024 8:52 AM [facility] Creatinine 1.36(H) 0.70 - 1.30 mg/dL LAB CHEMISTRY METHOD 10/29/2024 8:52 AM [facility] eGFR 57(L) >=60 mL/min/1. 73m2 LAB CHEMISTRY METHOD 10/29/2024 8:52 AM [facility] Comment:Calculation based on the??Chronic Kidney Disease Epidemiology Collaboration (CKD-EPI) equation refit??without adjustment for race. BUN/Creatinine Ratio 11.8 LAB CHEMISTRY METHOD 10/29/2024 8:52 AM [facility] Calcium 8.9 8.5 - 10.5 mg/dL LAB CHEMISTRY METHOD 10/29/2024 8:52 AM [facility] AST (SGOT) 66(H) 10 - 42 unit/L LAB CHEMISTRY METHOD 10/29/2024 8:52 AM [facility] ALT (SGPT) 35 10 - 60 unit/L LAB CHEMISTRY METHOD 10/29/2024 8:52 AM [facility] Alkaline Phosphatase 95 42 - 121 unit/L LAB CHEMISTRY METHOD 10/29/2024 8:52 AM [facility] Total Protein 6.5 6.0 - 8.0 g/dL LAB CHEMISTRY METHOD 10/29/2024 8:52 AM [facility] Albumin 3.1(L) 3.2 - 5.0 g/dL LAB CHEMISTRY METHOD 10/29/2024 8:52 AM [facility] Total Bilirubin 0.4 0.0 - 1.4 mg/dL LAB CHEMISTRY METHOD 10/29/2024 8:52 AM [facility] Blood Venous blood specimen / Unknown 10/29/2024 5:21 AM EST 10/29/2024 6:10 AM EST us Elvis Bedoya MD LAB BLOOD ORDERABLES Final Resul t [facility] [address] [place] [address], * Lipid panel with reflex to direct LDL (10/11/2024 7:18 AM EST) Cholesterol 138 0 - 200 mg/dL LAB CHEMISTRY METHOD 10/11/2024 9:01 AM [facility] Triglycerides 137 0 - 150 mg/dL LAB CHEMISTRY METHOD 10/11/2024 9:01 AM EST [facility] HDL 42 >=40 mg/dL LAB CHEMISTRY METHOD 10/11/2024 9:01 AM [facility] LDL Calculated 69 0 - 100 mg/dL LAB CHEMISTRY METHOD 10/11/2024 9:01 AM [facility] VLDL Cholesterol Raheem 27.4 mg/dL LAB CHEMISTRY METHOD 10/11/2024 9:01 AM [facility] Non HDL Chol. (LDL+VLDL) 96 <145 mg/dL LAB CHEMISTRY METHOD 10/11/2024 9:01 AM [facility] Chol/HDL Ratio 3.3 0.0 - 4.4 LAB CHEMISTRY METHOD 10/11/2024 9:01 AM [facility] Blood Venous blood specimen / Unknown 10/11/2024 7:18 AM EST 10/11/2024 7:58 AM EST us Elvis Bedoya MD LAB BLOOD ORDERABLES Final Resul t [facility] [address] [place] [address], from Last 3 Months or Most Recently Relevant to Health Maintenance Insurance MEDICARE MEDICAID - [place] Care Teams Daycare Director Relationship Specialty Start Date End Date Elvis Bedoya MD [address] [place] [address] Dr [address] [place], [place] PCP - General Internal Medicine 11/26/24
--- OUTSIDE RECORDS SUMMARY | 2025-01-12 10:52 | XMS_ITS | Encounter Summary ---
Author Organization [facility] Address [address] [place] [address] Care Team Providers Care Expansion Envelope Maker Hand Name Role Phone Elvis Bedoya MD Primary Care Provider [phone] Encounter Details Date Type Department Care Team (Late st Contact Info) Description 12/08/2024 Lab Requisition [facility] - Main Lab [address] [place] [address] Elvis Bedoya MD [address] [place] [address] Dr [address] [place], [place] Vitamin D deficiency, unspecified Social History Tobacco Use Types Packs/Day [...] Procedure Name Priority Date/Time Associated Diagnosis Comments VITAMIN D 25 HYDROXY Routine 12/08/2024 6:20 AM EST Vitamin D deficiency, unspecified documented in this encounter Results * Vitamin D 25 hydroxy (12/08/2024 6:20 AM EST) Vit D, 25-Hydroxy 43.4 30.0 - 80.0 ng/mL LAB CHEMISTRY METHOD 12/08/2024 8:24 AM EST [facility] Blood Venous blood specimen / Unknown 12/08/2024 6:20 AM EST 12/08/2024 7:27 AM EST us Elvis Bedoya MD LAB BLOOD ORDERABLES Final Resul t [facility] [address] [place] [address], documented in this encounter Visit Diagnoses Diagnosis Vitamin D deficiency, unspecified documented in this encounter Care Teams Expansion Envelope Maker Hand Relationship Specialty Start Date End Date Elvis Bedoya MD [address] [place] [address] Dr [address] [place] PCP - General Internal Medicine 11/26/24 documented as of this encounter
--- OUTSIDE RECORDS SUMMARY | 2025-01-12 10:52 | XMS_ITS | Encounter Summary ---
Author Organization [facility] Address [address] [place] [address] Care Team Providers Care Associate Art Director Name Role Phone Elvis Bedoya MD Primary Care Provider [phone] Encounter Details Date Type Department Care Team (Late st Contact Info) Description 10/29/2024 Lab Requisition [facility] - Main Lab [address] [facility] [place] [address] Elvis Bedoya MD [address] [place] [address] Dr [address] [place], [place] Other retirement (current) drug therapy; Schizoaffective disorder, unspecified (CMS/HCC) Social History Tobacco Use Types Packs/Day Years [...] Procedure Name Priority Date/Time Associated Diagnosis Comments CLOZAPINE Routine 10/29/2024 5:21 AM EST Schizoaffective disorder, unspecified (CMS/HCC) Other intermodal dispatcher (current) drug therapy COMPLETE BLOOD COUNT Routine 10/29/2024 5:21 AM EST Schizoaffective disorder, unspecified (CMS/HCC) Other retirement (current) drug therapy THYROID STIMULATING HORMONE Routine 10/29/2024 5:21 AM EST Schizoaffective disorder, unspecified (CMS/HCC) Other intermodal dispatcher (current) drug therapy LITHIUM LEVEL Routine 10/29/2024 5:21 AM EST Schizoaffective disorder, unspecified (CMS/HCC) Other intermodal dispatcher (current) drug therapy COMPREHENSIVE METABOLIC PANEL Routine 10/29/2024 5:21 AM EST Schizoaffective disorder, unspecified (CMS/HCC) Other retirement (current) drug therapy documented in this encounter Results * (ABNORMAL) Clozapine (10/29/2024 5:21 AM EST) Clozapine 1609(HH) 200 - 700 ng/mL 11/01/2024 7:14 AM EST [facility] Comment:Clozapine (Clozaril) toxic level: >1000 ng/mL Norclozapine 731(H) 200 - 700 ng/mL 11/01/2024 7:14 AM EST [facility] Comment: For Refractory Schizophrenia, at least [...] developed and the performance characteristics determined by [facility]. This confirmation testing has not been cleared or approved by the FDA. The laboratory is regulated under CLIA as qualified to perform high-complexity testing. This test is used for patient testing purposes. It should not be regarded as investigational or for research. Test performed at [facility], [address], [place], [place] ??[address] ? [phone] Marianne Aldrich MD, PhD - Nursing Care Attendant Blood Venous blood specimen / Unknown 10/29/2024 5:21 AM EST 10/29/2024 6:10 AM EST us Elvis Bedoya MD LAB BLOOD ORDERABLES Final [place] [place] [address] * Thyroid stimulating hormone (10/29/2024 5:21 AM EST) TSH 0.77 0.40 - 4.00 mcIU/mL LAB CHEMISTRY METHOD 10/29/2024 8:56 AM EST [facility] Blood Venous blood specimen / Unknown 10/29/2024 5:21 AM EST 10/29/2024 6:10 AM EST us Elvis Bedoya MD LAB BLOOD ORDERABLES Final Resul t Performing Organization Address [facility] Co de Phone Number [facility] [address] [place] [address], [place] [phone] * [place] level (10/29/2024 5:21 AM EST) [place] Level 0.6 0.6 - 1.2 mEq/L LAB CHEMISTRY METHOD 10/29/2024 8:56 AM EST [facility] Blood Venous blood specimen / Unknown 10/29/2024 5:21 AM EST 10/29/2024 6:10 AM EST us Elvis Bedoya MD LAB BLOOD ORDERABLES Final Resul t Performing Organization Address [facility] Co de Phone Number [facility] [address] [place] [address], [place] [phone] * (ABNORMAL) Comprehensive metabolic panel (10/29/2024 5:21 AM EST) Sodium 136 133 - 145 mmol/L LAB CHEMISTRY METHOD 10/29/2024 8:52 AM EST [facility] Potassium 3.3(L) 3.5 - 5.5 mmol/L LAB CHEMISTRY METHOD 10/29/2024 8:52 AM [facility] Chloride 103 96 - 110 mmol/L LAB CHEMISTRY METHOD 10/29/2024 8:52 AM [facility] CO2 25 21 - 32 mmol/L LAB CHEMISTRY METHOD 10/29/2024 8:52 AM [facility] Anion Gap 8 3 - 11 LAB CHEMISTRY METHOD 10/29/2024 8:52 AM [facility] Glucose 122(H) 70 - 100 mg/dL LAB CHEMISTRY METHOD 10/29/2024 8:52 AM [facility] BUN 16 5 - 25 mg/dL LAB CHEMISTRY METHOD 10/29/2024 8:52 AM [facility] Creatinine 1.36(H) 0.70 - 1.30 mg/dL LAB CHEMISTRY METHOD 10/29/2024 8:52 AM [facility] eGFR 57(L) >=60 mL/min/1. 73m2 LAB CHEMISTRY METHOD 10/29/2024 8:52 AM [facility] Comment:Calculation based on the??Chronic Kidney Disease Epidemiology Collaboration (CKD-EPI) equation refit??without adjustment for race. BUN/Creatinine Ratio 11.8 LAB CHEMISTRY METHOD 10/29/2024 8:52 AM [facility] Calcium 8.9 8.5 - 10.5 mg/dL LAB CHEMISTRY METHOD 10/29/2024 8:52 AM [facility] AST (SGOT) 66(H) 10 - 42 unit/L LAB CHEMISTRY METHOD 10/29/2024 8:52 AM [facility] ALT (SGPT) 35 10 - 60 unit/L LAB CHEMISTRY METHOD 10/29/2024 8:52 AM [facility] Alkaline Phosphatase 95 42 - 121 unit/L LAB CHEMISTRY METHOD 10/29/2024 8:52 AM [facility] Total Protein 6.5 6.0 - 8.0 g/dL LAB CHEMISTRY METHOD 10/29/2024 8:52 AM [facility] Albumin 3.1(L) 3.2 - 5.0 g/dL LAB CHEMISTRY METHOD 10/29/2024 8:52 AM [facility] Total Bilirubin 0.4 0.0 - 1.4 mg/dL LAB CHEMISTRY METHOD 10/29/2024 8:52 AM [facility] Blood Venous blood specimen / Unknown 10/29/2024 5:21 AM EST 10/29/2024 6:10 AM EST us Elvis Bedoya MD LAB BLOOD ORDERABLES Final Resul t [facility] [address] [place] [address], [place] [phone] * (ABNORMAL) Complete blood count (10/29/2024 5:21 AM EST) WBC 6.8 4.8 - 10.8 K/mcL LAB HEMETOLOGY METHOD 10/29/2024 7:00 AM [facility] RBC 3.50(L) 4.50 - 5.50 M/mcL LAB HEMETOLOGY METHOD 10/29/2024 7:00 AM [facility] Hemoglobin 11.1(L) 13.5 - 17.5 g/dL LAB HEMETOLOGY METHOD 10/29/2024 7:00 AM [facility] Hematocrit 33.5(L) 42.0 - 54.0 % LAB HEMETOLOGY METHOD 10/29/2024 7:00 AM [facility] MCV 96.8 79.0 - 98.0 FL LAB HEMETOLOGY METHOD 10/29/2024 7:00 AM [facility] MCH 32.1(H) 27.0 - 32.0 pcg LAB HEMETOLOGY METHOD 10/29/2024 7:00 AM [facility] MCHC 33.1 32.0 - 37.0 g/dL LAB HEMETOLOGY METHOD 10/29/2024 7:00 AM [facility] RDW 15.3(H) 11.0 - 15.0 % LAB HEMETOLOGY METHOD 10/29/2024 7:00 AM [facility] Platelets 158 130 - 400 K/mcL LAB HEMETOLOGY METHOD 10/29/2024 7:00 AM [facility] MPV 9.8 7.0 - 11.0 FL LAB HEMETOLOGY METHOD 10/29/2024 7:00 AM [facility] NRBC 0.0 <1.0 % LAB HEMETOLOGY METHOD 10/29/2024 7:00 AM [facility] NRBC Absolute 0.00 <0.10 K/mcL LAB HEMETOLOGY METHOD 10/29/2024 7:00 AM [facility] Blood Venous blood specimen / Unknown 10/29/2024 5:21 AM EST 10/29/2024 6:10 AM EST us Elvis Bedoya MD LAB BLOOD ORDERABLES Final Resul t [facility] [address] [place] [address], documented in this encounter Visit Diagnoses Diagnosis Other intermodal dispatcher (current) drug therapy Schizoaffective disorder, unspecified (CMS/HCC) documented in this encounter Care Teams Associate Art Director Relationship Specialty Start Date End Date Elvis Bedoya MD [address] [place] [address] Dr [address] [facility] [place] PCP - General Internal Medicine 11/26/24 documented as of this encounter
--- OUTSIDE RECORDS SUMMARY | 2025-01-12 10:52 | XMS_ITS | Encounter Summary ---
Author Organization [facility] Address [address] [place] [address] Care Team Providers Care Safety Officer Name Role Phone Elvis Bedoya MD Primary Care Provider [phone] Encounter Details Date Type Department Care Team (Latest Contact Info) Description 11/04/[address] [facility] - Main Lab [address] [facility] [place] [address] Elvis Bedoya MD [address] [place] [address] [address] [place], [place] Schizoaffective disorder, unspecified (CMS/HCC) Social History Tobacco [...] Priority Date/Time Associated Diagnosis Comments CLOZAPINE Routine 11/04/2024 5:15 AM EST Schizoaffective disorder, unspecified (CMS/HCC) documented in this encounter Results * Clozapine (11/04/2024 5:15 AM EST) Clozapine 467 200 - 700 ng/mL 11/06/2024 2:43 PM EST [facility] Comment:Clozapine (Clozaril) toxic level: >1000 ng/mL Norclozapine 340 200 - 700 ng/mL 11/06/2024 2:43 PM EST [facility] Comment: For Refractory Schizophrenia, at least [...] developed and the performance characteristics determined by [facility]. This confirmation testing has not been cleared or approved by the FDA. The laboratory is regulated under CLIA as qualified to perform high-complexity testing. This test is used for patient testing purposes. It should not be regarded as investigational or for research. Test performed at [facility], [address] , [place], [place] ??[address] ? [phone] Marianne Aldrich MD, PhD - Manager Bridge Blood Venous blood specimen / Unknown 11/04/2024 5:15 AM EST 11/04/2024 5:51 AM EST us Elvis Bedoya MD LAB BLOOD ORDERABLES Final Resul t [facility] [address] [place] [address] documented in this encounter Visit Diagnoses Diagnosis Schizoaffective disorder, unspecified (CMS/HCC) documented in this encounter Care Teams Safety Officer Relationship Specialty Start Date End Date Elvis Bedoya MD [address] [place] [address] Dr [address] [place] PCP - General Internal Medicine 11/26/24 documented as of this encounter
--- OUTSIDE RECORDS SUMMARY | 2025-01-12 10:52 | XMS_ITS | Encounter Summary ---
Author Organization [facility] Address [address] [place] [address] Care Team Providers Care Brazing Machine Feeder Name Role Phone Elvis Bedoya MD Primary Care Provider Encounter Details Date Type Department Care Team (Late st Contact Info) Description 12/16/2024 Lab Requisition [facility] - Main Lab [address] [facility] [place] [address] Elvis Bedoya MD [address] [place] [address] Dr [address] [place], [place] Presence of other cardiac implants and grafts; Unspecified atrial fibrillation (CMS/HCC); Supraventricular tachycardia, unspecified (CMS/HCC); Encounter for other preprocedural examination Social History Tobacco Use Types Packs/Day Years [...] Diagnosis Comments CBC WITH AUTO DIFFERENTIAL Routine 12/16/2024 6:13 [...] Presence of other cardiac implants and grafts documented in this encounter Results * (ABNORMAL) CBC auto differential (12/16/2024 6:13 AM EST) WBC 8.1 4.8 - 10.8 K/mcL LAB HEMETOLOGY METHOD 12/16/2024 7:06 AM [facility] RBC 3.60(L) 4.50 - 5.50 M/mcL LAB HEMETOLOGY METHOD 12/16/2024 7:06 AM [facility] Hemoglobin 11.3(L) 13.5 - 17.5 g/dL LAB HEMETOLOGY METHOD 12/16/2024 7:06 AM [facility] Hematocrit 35.2(L) 42.0 - 54.0 % LAB HEMETOLOGY METHOD 12/16/2024 7:06 AM [facility] MCV 98.3(H) 79.0 - 98.0 FL LAB HEMETOLOGY METHOD 12/16/2024 7:06 AM [facility] MCH 31.6 27.0 - 32.0 pcg LAB HEMETOLOGY METHOD 12/16/2024 7:06 AM [facility] MCHC 32.1 32.0 - 37.0 g/dL LAB HEMETOLOGY METHOD 12/16/2024 7:06 AM [facility] RDW 14.9 11.0 - 15.0 % LAB HEMETOLOGY METHOD 12/16/2024 7:06 AM [facility] Platelets 218 130 - 400 K/mcL LAB HEMETOLOGY METHOD 12/16/2024 7:06 AM [facility] MPV 9.2 7.0 - 11.0 FL LAB HEMETOLOGY METHOD 12/16/2024 7:06 AM [facility] NRBC 0.0 <1.0 % LAB HEMETOLOGY METHOD 12/16/2024 7:06 AM [facility] NRBC Absolute 0.00 <0.10 K/mcL LAB HEMETOLOGY METHOD 12/16/2024 7:06 AM [facility] Neutrophils Relative 52.7 % LAB HEMETOLOGY METHOD 12/16/2024 7:06 AM [facility] Lymphocytes Relative 37.8 % LAB HEMETOLOGY METHOD 12/16/2024 7:06 AM [facility] Monocytes Relative 8.5 % LAB HEMETOLOGY METHOD 12/16/2024 7:06 AM [facility] Eosinophils Relative 0.1 % LAB HEMETOLOGY METHOD 12/16/2024 7:06 AM [facility] Basophils Relative 0.4 % LAB HEMETOLOGY METHOD 12/16/2024 7:06 AM [facility] Immature Granulocytes Relative 0.5 % LAB HEMETOLOGY METHOD 12/16/2024 7:06 AM [facility] Neutrophils Absolute 4.26 1.50 - 7.00 K/mcL LAB HEMETOLOGY METHOD 12/16/2024 7:06 AM [facility] Lymphocytes Absolute 3.06 1.00 - 5.00 K/mcL LAB HEMETOLOGY METHOD 12/16/2024 7:06 AM [facility] Monocytes Absolute 0.69 0.20 - 1.00 K/mcL LAB HEMETOLOGY METHOD 12/16/2024 7:06 AM EST [facility] Eosinophils Absolute 0.01 0.00 - 0.50 K/[facility] LAB HEMETOLOGY METHOD 12/16/2024 7:06 AM EST [facility] Basophils Absolute 0.03 0.00 - 0.20 K/[facility] LAB HEMETOLOGY METHOD 12/16/2024 7:06 AM EST [facility] Immature Granulocytes Absolute 0.04(H) 0.00 - 0.03 K/[facility] LAB HEMETOLOGY METHOD 12/16/2024 7:06 AM [facility] Blood Venous blood specimen / Unknown 12/16/2024 6:13 AM EST 12/16/2024 7:01 AM EST Elvis Bedoya MD LAB BLOOD ORDERABLES Final Resul t [facility] [address] [place] [address], [place] [phone] * Basic metabolic panel (12/16/2024 6:13 AM EST) Sodium 137 133 - 145 mmol/L LAB CHEMISTRY METHOD 12/16/2024 8:51 AM [facility] Potassium 4.3 3.5 - 5.5 mmol/L LAB CHEMISTRY METHOD 12/16/2024 8:51 AM [facility] Chloride 104 96 - 110 mmol/L LAB CHEMISTRY METHOD 12/16/2024 8:51 AM [facility] CO2 29 21 - 32 mmol/L LAB CHEMISTRY METHOD 12/16/2024 8:51 AM [facility] Anion Gap 4 3 - 11 LAB CHEMISTRY METHOD 12/16/2024 8:51 AM [facility] Glucose 99 70 - 100 mg/dL LAB CHEMISTRY METHOD 12/16/2024 8:51 AM EST [facility] BUN 11 5 - 25 mg/dL LAB CHEMISTRY METHOD 12/16/2024 8:51 AM [facility] Creatinine 1.27 0.70 - 1.30 mg/dL LAB CHEMISTRY METHOD 12/16/2024 8:51 AM [facility] eGFR 62 >=60 mL/min/1. 73m2 LAB CHEMISTRY METHOD 12/16/2024 8:51 AM [facility] Comment:Calculation based on the??Chronic Kidney Disease Epidemiology Collaboration (CKD-EPI) equation refit??without adjustment for race. BUN/Creatinine Ratio 8.7 LAB CHEMISTRY METHOD 12/16/2024 8:51 AM [facility] Calcium 8.6 8.5 - 10.5 mg/dL LAB CHEMISTRY METHOD 12/16/2024 8:51 AM [facility] Blood Venous blood specimen / Unknown 12/16/2024 6:13 AM EST 12/16/2024 7:01 AM EST us Elvis Bedoya MD LAB BLOOD ORDERABLES Final Resul t [facility] [address] [place] [address], [place] [phone] * Prothrombin time with INR (12/16/2024 6:13 AM EST) Protime 11.3 10.6 - 13.9 sec LAB COAGULATION METHOD 12/16/2024 8:18 AM EST [facility] INR 0.9 LAB COAGULATION METHOD 12/16/2024 8:18 AM [facility] Blood Venous blood specimen / Unknown 12/16/2024 6:13 AM EST 12/16/2024 7:01 AM EST us Elvis Bedoya MD LAB BLOOD ORDERABLES Final [facility] t [facility] [address] [place] [address], documented in this encounter Visit Diagnoses Diagnosis Presence of other cardiac implants and grafts Unspecified atrial fibrillation (CMS/HCC) Supraventricular tachycardia, unspecified (CMS/HCC) Encounter for other preprocedural examination documented in this encounter Care Teams Brazing Machine Feeder Relationship Specialty Start Date End Date Elvis Bedoya MD [address] [place] [address] Dr [address] [place], [place] PCP - General Internal Medicine 11/26/24 documented as of this encounter
== END 2025-01-12 10:17 | disposition home or self-care (01) ==
LOC: HO.CT 10:16
PROVIDERS: Visit Provider Physician Assistant Medical
DX: Z12.2 Encounter for screening for malignant neoplasm of respiratory organs (principal); F17.210 Nicotine dependence, cigarettes, uncomplicated
CPT/HCPCS: 71271

== ENCOUNTER → 2025-01-12 10:18 | Outpatient (BNV) | payer MEDICARE, MEDICAID, SELFPAY | PROVIDERS: Visit Provider Radiology Diagnostic Radiology | DX: F17.210 Nicotine dependence, cigarettes, uncomplicated (principal) | CPT/HCPCS: 71271 ==

== ENCOUNTER 2025-06-14 13:49 | Outpatient (AMB) | payer MEDICARE, MEDICAID, SELFPAY ==
[2025-06-14 13:52] VITALS: BP 114/66; PULSE 95; O2SAT 96; BMI 36.1
--- NOTE | 2025-06-14 13:52 | A.OFFVIS_ITS ---
Vital Signs 06/14/25 13:52 Height 5 ft 7 in Weight 230 lb 6.129 oz BMI 36.1 BP 114/66 Blood Pressure Location Lt brachial Position Sitting Pulse 95 Pulse Source Pulse Oximeter Pulse Oximetry (%) 96 Oxygen Delivery Method Room Air Intake Visit Reasons: BRITT/COPD Virtual Reality Specialist Required: No Allergies divalproex sodium (Depakote) Allergy (Severe, Verified 06/14/25 13:55) Rash/Hives gabapentin (Neurontin) Allergy (Severe, Verified 06/14/25 13:55) Rash/Hives haloperidol (From HALDOL) Allergy (Severe, Verified 06/14/25 13:55) Rash/Hives HPI Comments Details: The patient is a 70-year-old gentleman with a significant history of schizophrenia and bipolar disorder in addition to that had carries a history atrial fibrillation and aortic aneurysm. He was diagnosed with sleep apnea several years ago with a sleep study done at [place]. We did review it demonstrating moderate to severe obstructive sleep apnea with some degree of central apneas as well. Mainly REM related sleep disorder. He was seen by sleep medicine in he was placed on CPAP. The machine was adjusted several times in the masks were changed several times but the patient could not tolerated because it seemed to worsen his delusional states at nighttime. The family is with him the will be concerned if we consider repeating the evaluation as he had such a bad reaction to it. The patient also carries a diagnosis COPD and also some degree of interstitial lung disease. He had a CT scan of the chest back in 2014 demonstrating blebs and emphysematous changes as well as some minimal reticulonodular changes consistent with some degree of interstitial lung disease. More recently in October 2019 he had an x-ray that demonstrated no acute disease which is reassuring no obvious evidence of any progression of any interstitial lung disease. The patient continues smoking. We talked about to smoking habits. He had been on nebulized therapy per subsequently stopped specially likely because is cardiac history. At this point the family is looking for guidance from a pulmonary standpoint. ? 04/03/2023 The patient is here for a pulmonary follow up visit. The patient is doing well. The patient is using the oxygen at night at 2L via nasal cannula. The therapy has been effective and beneficial. Denies any shortness of breath at rest. Mild dyspnea on exertion. He does have an albuterol inhaler and tends to use it at night with good results. We will consider adding a longer acting inhaler for the next visit. We did review his last CT chest from 11/2022. RADS 2. He does have emphysema and pulmonary fibrosis. He is motivated in quiting smoking. Will start a nicotene patch and can also use nicorette gum as needed. 09/30/2023 the patient is here for pulmonary follow-up visit. He is complaining of worsening dyspnea on exertion also complaining worsening cough congested in nature. But he does not want to quit smoking. He smoking about 4 cigarettes a day. He also stopped using the oxygen at nighttime. Will go ahead and perform an overnight oximetry to make sure that he does not needed. If he still requires the based on the oximetry then will go ahead and we initiate the oxygen for him. In addition to that that will treated for a bout of bronchitis to see if there is any relief from the chest congestion but he knows the cigarettes are also contributing to that. We also looked at his CT scan that he had back in November 2023 with the combination of emphysema and pulmonary fibrosis. Will plan to repeat the CT scan and the PFTs sometime in November and if he has evidence of progression will consider Ofev as the potential agent to minimize the degree of fibrosis. 12/29/2023 the patient is here for a pulmonary follow-up visit. He is describing worsening dyspnea on exertion. he does feel well when sitting or resting. Unfortunately continues to smoke cigarettes. The patient has a rescue inhaler but he does not require. He has not on maintenance inhalers. We did review his recent PFTs from November 2023 which actually demonstrated that he has not obstructed on spirometry. Although his diffusing capacity is down significantly. The patient also had a CT scan of the chest demonstrating extensive emphysema and also the evidence of interstitial lung disease. Although it does not appear to be worsened when compared to previous. Because of his symptoms we went ahead and did a 6 minute walk test. The patient did desaturate down to 88%. He was visibly dyspneic having to stop because of the shortness of breath and also burning sensation of the lower extremities. The patient also became tachycardic to about 115. after minute of resting he was not able to continue walking and then we sat down. He was placed on 2 L nasal cannula he did a lot better maintaining a pulse ox of 94% with activity which is reassuring. The patient needs to start oxygen with activity and sleep. In addition to that he understands that he can not smoke cigarettes while on the oxygen. He understands this can be catastrophic. I did give a pamphlet to his family to see about referral to a tobacco cessation program. This he may benefit from. His spirometry did not demonstrate any evidence of any obstruction so therefore hold off on maintenance inhalers. Regarding tachycardia and the burning sensation lower extremities he may indeed have a component of peripheral vascular disease and also should consider further evaluation for coronary artery disease. 06/10/2024 the patient is here for a pulmonary follow-up visit. Overall he is doing well. He states that his breathing has gotten better. Unfortunately still smoking cigarettes. He is going to look into alternative treatments such as hypnosis. I did give the patient and also the knee so information about that. Unfortunately, he probably will have to pay [id number] since the longterm where he resides does not offer that. The patient has been using the oxygen at nighttime with good effect. The family's wondering about a portable oxygen concentrator more of the building. We did do a 6 minute walk test today the patient does not qualify for oxygen with activity which is reassuring and also demonstrating some improvement. His last CT scan was back in 12/13/2023 which we personally reviewed demonstrating a combination of emphysema in the upper lung zones and pulmonary fibrosis in the lower lung zones. Patient understands that he continues to smoke the baby progression of disease. 06/29/2024 the patient is here for a pulmonary follow-up visit. The patient is doing well. He still struggling with smoking. We again talked about smoking cessation. He does not want to try Nicorette gum. He is going to try regular gum. Will try smoking less of a cigarette at a time. He has been smoking 4 cigarettes a day because us all the time that he gets smoke outside. I am hopeful that he can cut down to 3 cigarettes a day. He is also going to be looking hypnosis with the help of his knees. The patient has been using the oxygen with sleep. At this point does not need the oxygen with activity. The patient also been having significant lower extremity edema. He is not taking any diuretics which will be something reasonable for him to consider. From a pulmonary standpoint the last time he had a CT scan was back in 12/13/2023 demonstrating the pulmonary fibrosis pulmonary nodules and emphysema. Will plan to repeat the CT scan in November now follow-up after that. If he has any issues prior to that he will call for an earlier assessment. 12/14/2024 the patient is here for a pulmonary follow-up visit. He still struggling with smoking. We did talk about the Nicorette compensating 1. The patient needs to quit. He understands that his respiratory status will continue getting worse. In the meantime he is using the oxygen to sleep with and this is affecting beneficial. He has a rescue inhaler that typically does not use. The patient did not have a CT scan of the chest yet. He should be scheduled in the coming days. Once he has his CT scan I can review it and let his family know about the results. He does have underlying pulmonary fibrosis and also significant emphysema. Will follow-up in 6 months. If the patient has any issues prior to that he will call for an assessment. 06/14/2025 the patient is here for a pulmonary follow-up visit. Overall he is doing about the same. Still having some dyspnea on exertion. The patient is very active though. He continues to smoke cigarettes. Still not quite understanding the gravity of his pulmonary condition. He did have a CT scan of the chest that was repeated back in December 2024 through the lung cancer screening program. I did review with the patient and also his knees. The patient does appear to have some progression of the pulmonary fibrosis in addition to the emphysema. Is definitely progressed when compared to 2022 although slow progression is still there. We did look at his pulmonary function studies he had back in 2023. It was hard for him to do but his DLCO was down to 38% predicted. Will go ahead and try to repeat the PFTs again. During the visit we did go for brief walking oximetry. The patient initially started tachycardic with a heart rate 115. His pulse ox steadily started to going down from 95% down to 87%. Once he said down he stayed around 88% for about a minute before status slowly increasing. Therefore, the patient does need oxygen supplementation with activity. Ideally a portable oxygen concentrator 2 L pulse will be more effective for better portability specially with his unsteady gait. The patient also she continue 2 L of oxygen per minute while sleeping. Will plan to follow-up in the fall with pulmonary function studies. Although is may be hard for him to do. I did briefly speak to the family about Ted although I do not think this is a good medicine specially since he already suffers from diarrhea. REPLACED BY [facility] Medical History (Updated 09/27/24 @ 13:54 by Kae Love PA-C) Lower extremity edema Combined pulmonary fibrosis and emphysema (CPFE) Nicotine dependence, cigarettes, uncomplicated History of non-ST elevation myocardial infarction (NSTEMI) Thoracic aortic aneurysm Resides in [facility] care facility Supraventricular tachycardia Cardiomyopathy CAD (coronary artery disease) HTN (hypertension) GERD (gastroesophageal reflux disease) Diabetes Epilepsy Schizo affective schizophrenia Pulmonary fibrosis Nocturnal hypoxia BRITT (obstructive sleep apnea) (~2017) COPD (chronic obstructive pulmonary disease) Surgical History (Updated 12/10/22 @ 12:37 by Kae Love PA-C) History of colonoscopy Social History Household Members Other:: resides at [facility] Are you a primary social worker palliative care to a significant other at home: No Do you presently have visiting nurse or other home services: No Alcohol intake: never Patient Tobacco Use Status: Never used Tobacco Tobacco use type: Cigarette Cigarette Packs Per Day: 0.5 Years Smoked: (onset 16yo, 1/2ppd x 51yrs, 25pyh) Advance Directives Date on File: 12/21/21 Review of Systems Const Denies night sweats ENT Denies change in voice, Denies lip swelling, Denies mouth pain, Reports nasal congestion, Reports nasal discharge and Denies tongue swelling Card Denies chest pain, Denies chest pain with activity, Reports leg edema and Reports dyspnea on exertion Resp Reports chest congestion, Reports cough and Reports dyspnea on exertion GI Denies abdominal pain Musc Denies no additional complaints Neuro Denies Neuro-related abnormal movements and Reports paresthesias Psych Denies no additional complaints Ernesto/Lymph Denies easy bleeding and Denies lymphadenopathy Aller/Immun Denies lip swelling and Denies tongue swelling Physical Exam Vital Signs: Last Vital Signs Pulse 95 06/14/25 13:52 BP 114/66 06/14/25 13:52 Pulse Ox 96 06/14/25 13:52 Oxygen Delivery Method Room Air 06/14/25 13:52 BMI result Body Mass Index 36.1 Const General: alert Neck Neck: Yes normal visual inspection, Yes full ROM and Yes no lymphadenopathy Chest Chest palpation & inspection: normal inspection of the chest Resp Effort & Inspection: normal respiratory effort Auscultation: crackles on the right at the base and diminished lung sounds Cardio Rate: regular rate Rhythm: regular rhythm Heart sounds: S1 normal heart sound present and S2 normal heart sound present GI Palpation (GI): Soft to palpation and nontender Auscultation: normal bowel sounds Skin General skin exam: rashes and/or lesions noted Extrem General: Yes edema Office Procedures 6 Minute Walk Time:: 20:15 SPO2 % at rest: 94 Pulse at rest: 98 SPO2 % during excercise: 87 Pulse during excercise: 120 Distance in yards walked: 300 John Score: 4 Supplemental Oxygen: desaturated to 87% with activity, placed on 2L/pulse improving pox 93% with activity 16795 - 6 Minute Walk Assessment & Plan Assessment & Plan (1) COPD (chronic obstructive pulmonary disease): Code(s): J44.9 - Chronic obstructive pulmonary disease, unspecified Category: Medical Qualifiers: COPD type: emphysema Emphysema type: centrilobular Qualified Code(s): J43.2 - Centrilobular emphysema (2) Pulmonary fibrosis: Code(s): J84.10 - Pulmonary fibrosis, unspecified Category: Medical (3) Smoking: Code(s): F17.200 - Nicotine dependence, unspecified, uncomplicated Category: Social Hx (4) BRITT (obstructive sleep apnea): Onset Date: ~2016 Comment: (moderate BRITT - dx sleep test 10/08/2017 - on supplemental O2 -2L) Code(s): G47.33 - Obstructive sleep apnea (adult) (pediatric) Category: Medical (5) Nocturnal hypoxia: Code(s): G47.34 - Idiopathic sleep related nonobstructive alveolar hypoventilation Category: Medical (6) Combined pulmonary fibrosis and emphysema (CPFE): Code(s): J43.9 - Emphysema, unspecified; J84.10 - Pulmonary fibrosis, unspecified Category: Medical (7) Nicotine dependence, cigarettes, uncomplicated: Comment: (current smoker - onset 16 for 53 years at 1/2ppd - 26pyh) Code(s): F17.210 - Nicotine dependence, cigarettes, uncomplicated Category: Medical Plan Short-acting beta agonist as needed start oxygen 2l/pulse with activity and continue oxygen 2L/min with sleep Tobacco cessation, the patient needs to quit specially now on O2. Recommend smoking cessation program. LDCT 12/2025 PFTs DINESH as needed Follow-up in 6 months with PFTs Orders: Orders PFT pulmonary function test 4 Months J43.9 - Emphysema, unspecified, J84.10 - Pulmonary fibrosis, unspecified Coding Level of Care Code Est Pt Level 4 (83132) Complex EM visit Add On G2211 Diagnoses Centrilobular emphysema J43.2 COPD type: emphysema Emphysema type: centrilobular Pulmonary fibrosis J84.10 Smoking F17.200 BRITT (obstructive sleep apnea) G47.33 Nocturnal hypoxia G47.34 Combined pulmonary fibrosis and emphysema (CPFE) J43.9; J84.10 Nicotine dependence, cigarettes, uncomplicated F17.210 CPT Codes Coding ([id number]) Time Spent (min) 18
--- OUTSIDE RECORDS SUMMARY | 2025-06-14 15:02 | XMS_ITS | Encounter Summary ---
Author Organization [facility] Address [address] [place] [address] Care Team Providers Care Office Agent Name Role Phone Elvis Bedoya MD Primary Care Provider [phone] Encounter Details Date Type Department Care Team (Late st Contact Info) Description 04/04/2025 Lab Requisition [facility] - Main Lab [address] [facility] [place] [address] Elvis Bedoya MD [address] [place] [address] [address] [place], [place] Pure hypercholesterolemia , unspecified; Other extermination supervisor (current) drug therapy Social History Tobacco Use [...] PANEL WITH REFLEX TO DIRECT LDL Routine 04/04/2025 6:26 AM EDT Pure hypercholesterolemi a, unspecified Other fdc (current) drug therapy CBC WITH AUTO DIFFERENTIAL Routine 04/04/2025 6:26 AM EDT Pure hypercholesterolemi a, unspecified Other extermination supervisor (current) drug therapy CBC AND DIFFERENTIAL Routine 04/04/2025 6:26 AM EDT Pure hypercholesterolemi a, unspecified Other extermination supervisor (current) drug therapy documented in this encounter Results * (ABNORMAL) CBC auto differential (04/04/2025 6:26 AM EDT) [facility] WBC 12.2(H) 4.8 - 10.8 K/mcL LAB HEMETOLOGY METHOD 04/04/2025 7:28 AM [facility] RBC 3.60(L) 4.50 - 5.50 M/mcL LAB HEMETOLOGY METHOD 04/04/2025 7:28 AM [facility] Hemoglobin 11.4(L) 13.5 - 17.5 g/dL LAB HEMETOLOGY METHOD 04/04/2025 7:28 AM [facility] Hematocrit 35.7(L) 42.0 - 54.0 % LAB HEMETOLOGY METHOD 04/04/2025 7:28 AM [facility] MCV 98.6(H) 79.0 - 98.0 FL LAB HEMETOLOGY METHOD 04/04/2025 7:28 AM [facility] MCH 31.5 27.0 - 32.0 pcg LAB HEMETOLOGY METHOD 04/04/2025 7:28 AM [facility] MCHC 31.9(L) 32.0 - 37.0 g/dL LAB HEMETOLOGY METHOD 04/04/2025 7:28 AM [facility] RDW 15.4(H) 11.0 - 15.0 % LAB HEMETOLOGY METHOD 04/04/2025 7:28 AM [facility] Platelets 231 130 - 400 K/mcL LAB HEMETOLOGY METHOD 04/04/2025 7:28 AM [facility] MPV 9.4 7.0 - 11.0 FL LAB HEMETOLOGY METHOD 04/04/2025 7:28 AM [facility] NRBC 0.0 <1.0 % LAB HEMETOLOGY METHOD 04/04/2025 7:28 AM [facility] NRBC Absolute 0.00 <0.10 K/mcL LAB HEMETOLOGY METHOD 04/04/2025 7:28 AM [facility] Neutrophils Relative 64.7 % LAB HEMETOLOGY METHOD 04/04/2025 7:28 AM [facility] Lymphocytes Relative 25.2 % LAB HEMETOLOGY METHOD 04/04/2025 7:28 AM [facility] Monocytes Relative 9.3 % LAB HEMETOLOGY METHOD 04/04/2025 7:28 AM [facility] Eosinophils Relative 0.2 % LAB HEMETOLOGY METHOD 04/04/2025 7:28 AM [facility] Basophils Relative 0.2 % LAB HEMETOLOGY METHOD 04/04/2025 7:28 AM [facility] Immature Granulocytes Relative 0.4 % LAB HEMETOLOGY METHOD 04/04/2025 7:28 AM [facility] Neutrophils Absolute 7.89(H) 1.50 - 7.00 K/mcL LAB HEMETOLOGY METHOD 04/04/2025 7:28 AM [facility] Lymphocytes Absolute 3.07 1.00 - 5.00 K/mcL LAB HEMETOLOGY METHOD 04/04/2025 7:28 AM [facility] Monocytes Absolute 1.14(H) 0.20 - 1.00 K/mcL LAB HEMETOLOGY METHOD 04/04/2025 7:28 AM [facility] Eosinophils Absolute 0.02 0.00 - 0.50 K/mcL LAB HEMETOLOGY METHOD 04/04/2025 7:28 AM [facility] Basophils Absolute 0.03 0.00 - 0.20 K/mcL LAB HEMETOLOGY METHOD 04/04/2025 7:28 AM EDT [facility] Immature Granulocytes Absolute 0.05(H) 0.00 - 0.03 K/mcL LAB HEMETOLOGY METHOD 04/04/2025 7:28 AM EDT [facility] Blood Venous blood specimen / Unknown 04/04/2025 6:26 AM EDT 04/04/2025 7:16 AM EDT us Elvis Bedoya MD LAB BLOOD ORDERABLES Final Resul t [facility] [address] [place] [address], [place] [phone] * Lipid panel with reflex to direct LDL (04/04/2025 6:26 AM EDT) Cholesterol 121 0 - 200 mg/dL LAB CHEMISTRY METHOD 04/04/2025 8:15 AM [facility] Triglycerides 117 0 - 150 mg/dL LAB CHEMISTRY METHOD 04/04/2025 8:15 AM [facility] HDL 40 >=40 mg/dL LAB CHEMISTRY METHOD 04/04/2025 8:15 AM [facility] LDL Calculated 58 0 - 100 mg/dL LAB CHEMISTRY METHOD 04/04/2025 8:15 AM [facility] VLDL Cholesterol Raheem 23.4 mg/dL LAB CHEMISTRY METHOD 04/04/2025 8:15 AM [facility] Non HDL Chol. (LDL+VLDL) 81 <145 mg/dL LAB CHEMISTRY METHOD 04/04/2025 8:15 AM [facility] Chol/HDL Ratio 3.0 0.0 - 4.4 LAB CHEMISTRY METHOD 04/04/2025 8:15 AM [facility] Blood Venous blood specimen / Unknown 04/04/2025 6:26 AM EDT 04/04/2025 7:16 AM EDT us Elvis Bedoya MD LAB BLOOD ORDERABLES Final Resul t [facility] [address] [place] [address], documented in this encounter Visit Diagnoses Diagnosis Pure hypercholesterolemia, unspecified Other extermination supervisor (current) drug therapy documented in this encounter Care Teams Office Agent Relationship Specialty Start Date End Date Elvis Bedoya MD [address] [place] [address] Dr [address] [place], [place] PCP - General Internal Medicine 11/26/24 documented as of this encounter
[2025-06-14 20:13] VITALS: PULSE 98; O2SAT 94
== END 2025-06-14 14:31 | disposition home or self-care (01) ==
LOC: HO.HPS 13:49
PROVIDERS: PCP Hospitalist; Visit Provider Hospitalist
DX: J43.2 Centrilobular emphysema (principal); J84.10 Pulmonary fibrosis, unspecified; F17.200 Nicotine dependence, unspecified, uncomplicated; G47.33 Obstructive sleep apnea (adult) (pediatric); G47.34 Idiopathic sleep related nonobstructive alveolar hypoventilation; J43.9 Emphysema, unspecified; F17.210 Nicotine dependence, cigarettes, uncomplicated
CPT/HCPCS: 94618; 99214; G2211

== ENCOUNTER → 2025-06-14 13:49 | Outpatient (BNVA) | payer MEDICARE, MEDICAID, SELFPAY | PROVIDERS: PCP Hospitalist; Visit Provider Hospitalist | DX: J43.2 Centrilobular emphysema (principal); J84.10 Pulmonary fibrosis, unspecified; F17.200 Nicotine dependence, unspecified, uncomplicated; G47.33 Obstructive sleep apnea (adult) (pediatric); G47.34 Idiopathic sleep related nonobstructive alveolar hypoventilation; J43.9 Emphysema, unspecified | CPT/HCPCS: 94618; 99212 ==

== ENCOUNTER 2025-08-21 18:45 | Inpatient (IN) | payer MEDICARE, MEDICAID, SELFPAY ==
[2025-08-21] VITALS (13 sets, daily range): BP systolic 85–149; BP diastolic 42–70; PULSE 94–133; RESP 22–30; TEMP 36.8–39.4; O2SAT 92–100; BMI 31.2
--- NOTE | ~2025-08-21 | MR_ITS ---
CLINICAL HISTORY: encephalopathy MR of the brain without contrast Comparison: CT/REG/SR - CT HEAD/BRAIN WO IV CON - 08/21/25 22:[address]/SR - CT HEAD WITHOUT IV CONTRAST - 08/25/22 05:49 EDT Findings: No acute infarction, hemorrhage, mass-effect or herniation. No hydrocephalus. Cavum septum pellucidum et vergae, a normal variant. Increased signal intensity is seen in the deep and periventricular white matter on the T2/FLAIR sequences, which most likely represents the sequela of chronic small vessel ischemic disease. No extra-axial fluid collection or mass. Unremarkable sella. Intact flow voids. Normal orbits. Mucosal thickening in the paranasal sinuses. Fluid signal in the mastoid air cells. Unremarkable osseous structures. Impression: No acute infarction or other acute intracranial findings. Sinusitis. Fluid signal in the mastoid air cells bilaterally could be secondary to effusions or mastoiditis. This document has been electronically signed by: Kenzie Cabello MD on 08/24/2025 18:56:39
--- NOTE | ~2025-08-21 | XR_ITS ---
CLINICAL HISTORY: fever, tachypneic 1 view chest x-ray Comparison: CT/SR - CT LUNG SCREENING - 01/12/25 10:21 EST DX/SR - XR CHEST 2 VIEWS - 09/17/23 11:21 EDT Findings: Chronic fibrotic changes. Patchy airspace opacities in the right mid and bilateral lower lungs may be atelectasis or pneumonia. No large effusion or pneumothorax. Heart size is normal. No acute fracture. IMPRESSION: Patchy airspace opacities in the right mid and bilateral lower lungs, possibly representing atelectasis or pneumonia. This document has been electronically signed by: Latrice Glover MD on 08/21/2025 20:02:00
--- NOTE | ~2025-08-21 | CT_ITS ---
CLINICAL HISTORY: Altered mental status, rule out stroke, bleed CT head without contrast Comparison: CT/SR - CT HEAD WITHOUT IV CONTRAST - 08/25/22 05:49 EDT Findings: No intra-axial mass, midline shift, hydrocephalus, or acute hemorrhage. No significant atrophy-like change or white matter disease. Intracranial atherosclerosis. There is no sinus or mastoid fluid. The orbits are unremarkable. No skull fracture. IMPRESSION: 1. No acute intracranial findings. This document has been electronically signed by: Latrice Glover MD on 08/22/2025 00:23:25
--- NOTE | ~2025-08-21 | CT_ITS ---
CLINICAL HISTORY: Fever, altered mental status, rule out PE, pneumon CT angiography chest with contrast. 3D Postprocessing. Comparison: CR - XR CHEST 1V - 08/21/25 19:[address]/SR - CT LUNG SCREENING - 01/12/25 10:21 EST Findings: No pulmonary embolus to the lobar level. More distal branches are not adequately assessed due to motion artifact. The heart is normal size. RV/LV ratio is normal. The thoracic aorta is normal caliber. Visualized thyroid gland is within normal limits. Enlarged subcarinal lymph node, likely reactive. Chronic fibrotic changes. Superimposed peribronchial opacities in the right lower lobe concerning for pneumonia. No pleural effusion or pneumothorax. No acute findings in the visualized upper abdomen. No acute fractures. IMPRESSION: 1. No pulmonary embolus to the lobar level. 2. Right lower lobe peribronchial opacities concerning for pneumonia. This document has been electronically signed by: Latrice Glover MD on 08/22/2025 00:30:58
--- NOTE | ~2025-08-21 | XR_ITS ---
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 There is decrease in diffuse consolidation. Previously noted endotracheal tube is not identified. The exam is otherwise unchanged. IMPRESSION: 1. Improved appearance of the chest. This document has been electronically signed by: Brice Carter MD on 09/11/2025 08:52:58
--- NOTE | ~2025-08-21 | XR_ITS ---
CLINICAL HISTORY: intubation Chest Radiographs, AP Comparison: CT/REG/SR - CT ANGIO CHEST PE PROTOCOL - 08/21/25 22:54 EDT CR - XR CHEST 1V - 08/21/25 19:33 EDT Findings: The endotracheal tube terminates 5.5 cm above the misty. The enteric tube terminates in the upper abdomen 5.0 cm beyond the gastroesophageal junction. No cardiomegaly. Normal mediastinal contours. No pneumothorax. Moderate to severe amount of bilateral patchy opacity, greatest in the left mid and upper lung zones, increased. No pleural effusion. Normal upper abdomen. No acute fracture. Impression: Properly positioned endotracheal and enteric tubes. Increase in bilateral opacity likely indicating multifocal pneumonia. This document has been electronically signed by: Kenzie Cabello MD on 08/23/2025 21:55:25
--- NOTE | ~2025-08-21 | XR_ITS ---
CLINICAL HISTORY: BRYAN CHEST X-RAY FRONTAL VIEW COMPARISON: 08/23/2025. FINDINGS: A single frontal view of the chest was performed. An endotracheal tube is noted with tip in the trachea, at the level of the upper chest. This tube can be advanced approximately 3 cm. Enteric tube is noted coursing into the stomach. The side port of the tube is at the level of the lower esophagus. This tube can be advanced approximately 6 cm. Cardiac size is within normal limits. Previously noted bilateral infiltrates appear overall improved since the prior study. Atelectasis versus infiltrate is again noted in the right lower lung. Nonspecific interstitial prominence is noted bilaterally. No pleural effusion or pneumothorax. IMPRESSION: 1. Endotracheal tube tip is noted in the trachea, at the level of the upper chest. This can be advanced approximately 3 cm. 2. Enteric tube is noted coursing into the stomach. The side port of this tube is located at the level of the lower esophagus. This can be advanced approximately 6 cm. 3. Improved bilateral infiltrates. Atelectasis versus infiltrate is again noted in the right lower lung. This document has been electronically signed by: Asim Freeman M.D. on 08/29/2025 01:14:16
--- NOTE | ~2025-08-21 | XR_ITS ---
EXAMINATION: XR CHEST CLINICAL INFORMATION: NGT Placement COMPARISON: 08/21/2025 CT angiography chest 08/13/2025. TECHNIQUE: AP view of the chest was obtained. FINDINGS: NG tube is present, tip and sidehole are in the stomach, well-positioned. The cardiac, hilar, and mediastinal contours are normal. There are both interstitial and alveolar opacities throughout both lungs, most confluent in the bilateral lung bases. There is evidence of subpleural honeycombing in the periphery of both lungs, right greater than left. The overall appearance is similar to the prior exam with worsening of airspace opacities in the inferior lungs. No definite effusions. No perceptible pneumothorax. No focal osseous or soft tissue abnormality. XR/XR chest 1V IMPRESSION: 1. Interstitial and alveolar opacities throughout both lungs, with patchy confluent opacities in the bilateral right greater than left lung bases. Findings have mildly worsened since 08/21/2025 exam. 2. Well-positioned NG tube. Electronically signed by: Ezra Muhammad MD 08/22/2025 10:26 AM EDT
--- NOTE | 2025-08-21 19:27 | ED.AMS ---
HPI - Altered Mental Status General Chief Complaint: Altered Mental Status Stated Complaint: SNF diff breathing 88% RA, OD? narcan 4mg, 93%2L Time Seen by Provider: 08/21/25 19:27 Source: EMS Mode of arrival: EMS Limitations: no limitations History of Present Illness ED Provider: Dr. Toan Joshua HPI narrative: 70-year-old male with a history of schizoaffective disorder, diabetes, GERD, hypertension, dysphagia, SVT, COPD, coronary artery disease, cardiomyopathy, seizures, who was sent to the emergency department from his halfway facility ([facility]) for sudden onset of dyspnea and lethargy. Paramedics reported that the patient was altered, shaking, tachypneic and had O2 saturations of 92% on 2 L via nasal cannula. Paramedics reported that the staff did give the patient has nighttime medications which included trazodone. On presentation the patient is altered, his tongue is sticking out and he is drooling, he does not respond to verbal or painful stimuli, that has pupils were pinpoint. His rectal temperature was a 103 degrees F. BP 140/64, heart rate 133, respiratory rate 40. Related Data Home Medications ?Medication ?Instructions ?Recorded ?Confirmed acetaminophen 325 mg capsule 325 mg PO QID PRN Pain 06/21/21 09/30/23 (Tylenol) ascorbate calcium (vitamin C) 500 500 mg PO DAILY 06/21/21 09/30/23 mg tablet atorvastatin 10 mg tablet 10 mg PO DAILY 06/21/21 09/30/23 bisacodyl 10 mg rectal suppository 10 mg HI DAILY PRN Constipation 06/21/21 09/30/23 cholecalciferol (vitamin D3) 25 25 mcg PO DAILY 06/21/21 09/30/23 mcg (1,000 unit) capsule clozapine 100 mg tablet (Clozaril) 100 mg PO QAM 06/21/21 09/30/23 furosemide 20 mg tablet 20 mg PO DAILY 06/21/21 09/30/23 metformin 1,000 mg tablet 1,000 mg PO BID 06/21/21 09/30/23 metoprolol succinate 50 mg 50 mg PO BEDTIME 06/21/21 09/30/23 tablet,extended release 24 hr omeprazole 20 mg capsule,delayed 20 mg PO DAILY 07/29/21 11/07/23 release oxybutynin chloride 5 mg tablet 5 mg PO DAILY 06/21/21 09/30/23 sennosides 8.6 mg tablet (senna) 8.6 mg PO DAILY 06/21/21 09/30/23 aluminum-mag hydroxide-simethicone 5 ml PO Q3H PRN 08/13/22 09/30/23 200 mg-200 mg-20 mg/5 mL oral susp multivitamin 1 tab PO DAILY 08/13/22 09/30/23 lithium carbonate 300 mg 300 mg PO BID 04/03/23 09/30/23 tablet,extended release trazodone 50 mg tablet 50 mg PO BEDTIME 12/29/23 Allergies Allergy/AdvReac Type Severity Reaction Status Date / Time divalproex sodium (Depakote) Allergy Severe Rash/Hives Unverified 08/21/25 19:01 gabapentin (Neurontin) Allergy Severe Rash/Hives Unverified 08/21/25 19:01 haloperidol (From HALDOL) Allergy Severe Rash/Hives Unverified 08/21/25 19:01 Review of Systems Review of Systems: Yes Unobtainable due to mental condition [facility] Past Medical History Medical History (Updated 08/21/25 @ 22:45 by Toan Joshua MD) Lower extremity edema Combined pulmonary fibrosis and emphysema (CPFE) Nicotine dependence, cigarettes, uncomplicated History of non-ST elevation myocardial infarction (NSTEMI) Thoracic aortic aneurysm Resides in half-way care facility Supraventricular tachycardia Cardiomyopathy CAD (coronary artery disease) HTN (hypertension) GERD (gastroesophageal reflux disease) Diabetes Epilepsy Schizo affective schizophrenia Pulmonary fibrosis Nocturnal hypoxia BRITT (obstructive sleep apnea) (~2017) COPD (chronic obstructive pulmonary disease) Surgical History (Updated 12/10/22 @ 12:37 by Kae Love PA-C) History of colonoscopy Social History Social History Household Members Other:: resides at [facility] Are you a primary healthcare administrator to a significant other at home: No Do you presently have visiting nurse or other home services: No Alcohol intake: never Patient Tobacco Use Status: Never used Tobacco Tobacco use type: Cigarette Cigarette Packs Per Day: 0.5 Years Smoked: (onset 16yo, 1/2ppd x 51yrs, 25pyh) Advance Directives: Yes Advance Directives on File: Yes Advance Directives Date on File: 12/21/21 Physical Exam ED Vital Signs: Vital Signs - 24 hr 08/21/25 19:00 08/21/25 19:09 08/21/25 21:42 Temperature 103 F H 98.4 F Pulse Rate 133 H 104 H Respiratory Rate 30 H 22 H Blood Pressure 140/64 H 107/52 L Pulse Oximetry 92 93 Oxygen Delivery Method Nasal Cannula Nasal Cannula Oxygen Flow Rate 2 08/21/25 21:54 08/21/25 22:12 08/21/25 22:19 Temperature 98.2 F Pulse Rate 106 H 96 94 Respiratory Rate 24 H Blood Pressure 100/61 90/43 L 86/42 L Pulse Oximetry 100 Oxygen Delivery Method Nasal Cannula Oxygen Flow Rate 2 BMI result Body Mass Index 31.2 Exam: General: Elderly male, lethargic, tongue his sticking out in his mouth and he is drooling, not responding to verbal or painful stimuli Head: Normocephalic, atraumatic EENT: Pupils pinpoint, sclera and conjunctiva are normal, mouth with no erythema or exudates Lung: breath sounds symmetric, diffuse rhonchi no wheezing Heart: tachycardic with a regular rhythm normal S1, S2 no murmurs or rubs Abdomen: soft, obese, non-tender, nondistended, normal bowel sounds Extremities: no deformities, no spontaneous movement Medications Administered Generic Name Dose Route Start Last Admin Trade Name Freq PRN Reason Stop Dose Admin Lactated Ringer's 1,000 mls @ 999 mls/hr 08/21/25 21:59 08/21/25 22:02 Lr IV 08/21/25 22:59 999 mls/hr .Q1H1M STA Administration Discontinued Medications Generic Name Dose Route Start Last Admin Trade Name Freq PRN Reason Stop Dose Admin Acetaminophen 1,000 mg in 100 mls @ 400 mls/hr 08/21/25 19:19 08/21/25 19:56 Ofirmev IV 08/21/25 19:33 Infused ONCE ONE Infusion Piperacillin Sod/Tazobactam 100 mls @ 200 mls/hr 08/21/25 19:28 08/21/25 21:00 Sod 4.5 gm/ Sodium Chloride IV 08/21/25 19:57 Infused ONCE ONE Infusion Lactated Ringer's 2,328 mls @ 2,328 mls/hr 08/21/25 19:30 08/21/25 21:40 Lr IV 08/21/25 20:29 Infused .Q1H ONE Infusion Medical Decision Making Medical Decision Making [facility] Narrative: 70-year-old male with a history of schizoaffective disorder, diabetes, GERD, hypertension, dysphagia, SVT, COPD, coronary artery disease, cardiomyopathy, seizures, who was sent to the emergency department from his halfway facility ([facility]) for sudden onset of dyspnea and lethargy. Paramedics reported that the patient was altered, shaking, tachypneic and had O2 saturations of 92% on 2 L via nasal cannula. Paramedics reported that the staff did give the patient has nighttime medications which included trazodone. On presentation the patient is altered, his tongue is sticking out and he is drooling, he does not respond to verbal or painful stimuli, that has pupils were pinpoint. His rectal temperature was a 103 degrees F. BP 140/64, heart rate 133, respiratory rate 40. Patient was lethargic, tongue was sticking out in his mouth and he was drooling, not responding to painful or verbal stimuli. Heart exam revealed tachycardia with a regular rhythm. Neurologic exam no spontaneous movement. 18:51 Differential diagnosis: ?Includes but is not limited to sepsis, pneumonia, urinary tract infection, dehydration, volume depletion, anemia, electrolyte abnormalities Course: 18:51 The patient is obese with a BMI of 31.2 therefore I ordered lactated ringer 30 cc/kilogram bolus based on his ideal body weight. Patient was also ordered to get Zosyn 4.5 g IV. I ordered a temperature sensing Teresa catheter so that we can follow the patient's fluid in, fluid out and temperature. Patient's fever was treated with Tylenol 1000 mg IV. 20:55 My interpretation patient's laboratory evaluation is as follows: WBC elevated 13,900 with 81.5 neutrophils, 9.8 lymphocytes no bands. VBG revealed a pH of 7.39, pCO2 of 41, bicarb of 25-this has normal. CMP revealed an elevated glucose of 151 otherwise unremarkable. Lactic acid was normal at 1.8. Chest x-ray is concerning for patchy infiltrates bilaterally suggesting aspiration pneumonia. 21:13 The paperwork from [facility] states the patient is a full code. I did call the primary contact, Katina Mathias and left a message on her voicemail to discuss the critical nature of her uncles condition. 21:49 I discuss the patient's presentation with the covering hospitalist, Dr. Bellamy and the patient will be admitted to the hospitalist service for further treatment. Dr. Bellamy requested CT scan of the head and chest to further evaluate the patient's symptoms. 22:42 Patient completed his fluid bolus and developed hypotension. I ordered a another L of lactated Ringer's with no improvement of his blood pressure. Patient was started on Levophed as per protocol. I discuss admission with the covering budget specialist, Dr. Lane and the patient will be admitted to the ICU for further management. Lab Data 08/21/25 19:25 08/21/25 19:25 Labs: Lab Results 08/21/25 08/21/25 Range/Units 19:25 19:32 WBC 13.9 H (4.8-10.8) X10*3/uL RBC 3.88 L (4.60-5.80) X10*6/uL Hgb 12.3 L (14.0-18.0) g/dl Hct 37.0 L (42.0-52.0) % MCV 95.4 (80.0-98.0) fL MCH 31.7 (27.0-33.0) pg MCHC 33.2 (31.0-36.0) g/dl RDW 15.1 (11.0-16.0) % Plt Count 184 D (160-400) X10*3/uL MPV 8.6 L (9.4-12.4) fL Immature Gran % (Auto) 0.5 H (0.0-0.4) % Neut % (Auto) 81.5 H (45-73) % Lymph % (Auto) 9.8 L (20-40) % [place] % (Auto) 8.0 (2-11) % Eos % (Auto) 0.0 (0-4) % Baso % (Auto) 0.2 (0-2) % Lymph # (Auto) 1.4 (1.2-4.9) X10*3/uL [place] # (Auto) 1.1 (0.1-1.2) X10*3/uL Eos # (Auto) 0.0 (0.0-0.4) X10*3/uL Baso # (Auto) 0.0 (0.0-0.2) X10*3/uL Abs Immat Gran (auto) 0.07 H (0.00-0.03) X10*3/uL Absolute Neuts (auto) 11.3 H (2.0-8.3) x10*3/uL Absolute Nucleated RBC 0.000 (0.0-0.012) X10*3/uL Nucleated RBC % (auto) 0.0 (0.0-0.2) /100WBC VBG pH 7.39 (7.32-7.43) VBG pCO2 41 mmHg VBG pO2 32 mmHg VBG HCO3 25 (22-26) mmol/L VBG O2 Saturation 44.0 % VBG Base Excess 0.4 mmol/L Sodium 138 (135-145) mmol/L Potassium 3.5 (3.3-5.1) mmol/L Chloride 102 (96-108) mmol/L Carbon Dioxide 28 (22-29) mmol/L Anion Gap 12 (12-20) BUN 11 (9-16) mg/dL Creatinine 1.38 (0.5-1.4) mg/dL Estim Creat Clear Calc 63.1 Estimated GFR 51 Random Glucose 151 H (60-115) mg/dL Lactic Acid 1.8 (0.5-2.0) mmol/L Calcium 9.4 (8.4-10.2) mg/dL Magnesium 1.9 (1.6-2.6) mg/dL Total Bilirubin 0.4 (0.0-1.0) mg/dL Direct Bilirubin 0.2 (0.0-0.5) mg/dL AST 32 (5-37) U/L ALT 10 (0-40) U/L Alkaline Phosphatase 108 (39-117) U/L Troponin I High Sens 31.4 (<3.5-35.0) ng/L NT-Pro-B Natriuret Pep 133.7 (<300) pg/mL Total Protein 7.8 (6.5-8.0) g/dL Albumin 4.1 (3.5-5.0) g/dL Urine Color Yellow Urine Appearance Clear Urine pH 7.5 (5.0-9.0) Ur Specific [place] 1.010 (1.005-1.025) Urine Protein 30 (1+) H (Neg-Trace) mg/dL Urine Glucose (UA) Negative (Negative) mg/dL Urine Ketones Negative (Negative) mg/dL Urine Blood Negative (Negative) Urine Nitrite Negative (Negative) Ur Leukocyte Esterase Negative (Negative) Urine RBC 0-2 (0-2) /HPF Urine WBC 0-5 (0-5) /HPF Ur Squamous Epith Cells 0-2 (0-2) /HPF Urine Bacteria None Seen (None Seen) Hyaline Casts 0-2 (0-2) /LPF COVID-19 (MARNIE) Negative (Negative) COVID-19 Clin Com See Note Influenza Type A (DARRIN) Negative (Negative) Influenza Type B (DARRIN) Negative (Negative) Influenza A & B Note See Note Radiology Impression Discussion of test interpretation with radiology: I have reviewed the radiologist's reading. Radiologist Impression: 1 view chest x-ray Comparison: CT/SR - CT LUNG SCREENING - 01/12/25 10:21 EST DX/SR - XR CHEST 2 VIEWS - 09/17/23 11:21 EDT Findings: Chronic fibrotic changes. Patchy airspace opacities in the right mid and bilateral lower lungs may be atelectasis or pneumonia. No large effusion or pneumothorax. Heart size is normal. No acute fracture. IMPRESSION: Patchy airspace opacities in the right mid and bilateral lower lungs, possibly representing atelectasis or pneumonia. This document has been electronically signed by: Latrice Glover MD on 08/21/2025 20:02:00 Critical Care Time Critical Care Time Critical Care Time: Yes Total Critical Care Time: 80 Attestation: Critical Care: The patient was critically ill with a high probability of imminent or life threatening deterioration. I spent greater than 30 minutes of discontinuous time evaluating the patient,delivering critical care at the bedside, discussing and evaluating pertinent data with consultants. Critical care time does not include time spent performing separately billable procedures or teaching. Total time spent performing critical care was 80 minutes. Discharge Plan Discharge Clinical Impression: Aspiration pneumonia, Acute alteration in mental status, Fever, Acute hypotension Print Language: Chinese
[2025-08-21 19:34] LABS: MANUAL DIFF FLAG NO
[2025-08-21 19:37] LABS: VBG HCO3 25 mmol/L (22-26); VBG O2 % Saturation 44.0 %
[2025-08-21 19:37] LABS: Hematocrit 37.0 % (42.0-52.0); Hemoglobin 12.3 g/dl (14.0-18.0); Imm Gran Abs Auto 0.07 X10*3/uL (0.00-0.03); Imm Gran Pct Auto 0.5 % (0.0-0.4); Lymphocytes Absolute Auto 1.4 X10*3/uL (1.2-4.9); Mean Corpuscular HGB Conc 33.2 g/dl (31.0-36.0); Mean Corpuscular Hemoglobin 31.7 pg (27.0-33.0); Mean Corpuscular Volume 95.4 fL (80.0-98.0); NRBC Abs Auto 0.000 X10*3/uL (0.0-0.012); NRBC Pct Auto 0.0 /100WBC (0.0-0.2); Platelet Count 184 X10*3/uL (160-400); Red Blood Count 3.88 X10*6/uL (4.60-5.80); White Blood Count 13.9 X10*3/uL (4.8-10.8)
[2025-08-21 19:38] LABS: Appearance Urine Clear; Glucose Urine UA Negative (Negative); PH 7.5 (5.0-9.0); Specific Gravity - Urine 1.010 (1.005-1.025); UMIC TRIGGER UACC YES
[2025-08-21 19:39] LABS: Venous Blood Gas Refer to POC result
--- NOTE | 2025-08-21 19:41 | ECG_ITS ---
Test Reason : dyspnea Blood Pressure : */* mmHG Vent. Rate : 124 BPM Atrial Rate : 124 BPM P-R Int : 156 ms QRS Dur : 108 ms QT Int : 314 ms P-R-T Axes : 52 -46 82 degrees QTcB Int : 451 ms Sinus tachycardia Possible Left atrial enlargement Left axis deviation Incomplete right bundle branch block Abnormal ECG When compared with ECG of 13-Sep-2021 17:09, QRS axis Shifted left Nonspecific T wave abnormality no longer evident in Inferior leads Referred By: Toan Joshua Electronically Signed By: Leoncio Bowen
--- OUTSIDE RECORDS SUMMARY | 2025-08-21 19:48 | XMS_ITS | Patient Health Record ---
Author Organization [facility] Address [address] [place] [address] Care Team Providers Care Bootmaker Name Role Phone Elvis Bedoya Primary Care Provider Mansoor Garcia [phone] Allergies Allergen (clinical drug ingredient) Drug/Non Drug Allergy documented on EMR Reaction Allergy Type Onset Date Status gabapentin Neurontin Unknown Drug Allergy Active Reason For Referral No Information Medications Medication SIG (Take, Route, Frequency, Duration) Notes Start Date End Date Status metFORMIN HCl 1000 MG 1 tablet with a me al Orally Once a day for 30 day(s) Active [place] Carbonate ER 450 MG 1 tablet at [...] Mylanta 200-200-20 MG as directed Orally Active Immunizations Vaccine Route Administration Date Status Comme nts Influenza Unknown 10/03/2021 Administered Social History Tobacco Use: Social History Observation Description Date Details (start date - stop date) Current Smoker NA - NA Tobacco Use/Smoking Question Answer Notes Patient is a current smoker How many cigarettes a day do you smoke? 5 or les s Alcohol Screen Question Answer Notes Did you have a drink containing alcohol in the p ast year? No Points 0 Interpretation Negative Section Notes: Smoker; previous substance a buse; he denies any alcohol; Problems Problem Type SNOMED Code ICD Code Onset Dates Problem Status W/U Status Risk Notes Problem 386228905 Encounter for screening for malignant neoplasm of colon (Z12.11) Active confirmed Problem 696035244149882 Preprocedural examination (Z01.818) Active confirmed Problem Diverticulosis of colon (680287296) Diverticulosis of colon (K57.30) Active confirmed Plan Of Treatment Future Test Test Name Order Date COLONOSCOPY 11/28/2021 Insurance Providers Payer Name Payer Address Payer Phone Subscriber Number Group Number Insured Name Patient Relationship to Insured Coverage Start Date Coverage End Date MEDICARE OF [place] [address] [place] [address] [id number] EDILBERTO LOPEZ Self - patient is the insured [address] [address] [id number] EDILBERTO LOPEZ Self - patient is the insured Medical (General) History Medical History History ICD Code Schizoaffective disorder Epilepsy NIDDM GERD without esophagitis Hypertension Obstruction sleep apnea-uses CPAP CAD with previous [place] Cardiomyopathy Supraventricular tachycardia Bronchiectasis Surgical History Surgery Date(Month/Year)
[2025-08-21 19:53] LABS: Alanine Aminotransferase 10 U/L (0-40); Albumin Level 4.1 g/dL (3.5-5.0); Alkaline Phosphatase 108 U/L (39-117); Anion Gap 12 (12-20); Aspartate Amino Transferase 32 U/L (5-37); Blood Urea Nitrogen 11 mg/dL (9-16); Calcium 9.4 mg/dL (8.4-10.2); Carbon Dioxide 28 mmol/L (22-29); Chloride 102 mmol/L (96-108); Creatinine Clr Calc Pharmacy 63.1; Estimated Glomerular Filt Rate 51; Magnesium 1.9 mg/dL (1.6-2.6); Potassium 3.5 mmol/L (3.3-5.1); Sodium 138 mmol/L (135-145); Total Protein 7.8 g/dL (6.5-8.0)
[2025-08-21 20:00] LABS: NT Pro B Type Natriuretic Pept 133.7 pg/mL (<300); Troponin-I High Sensitivity 31.4 ng/L (<3.5-35.0)
--- NOTE | 2025-08-21 20:16 | PC.NURSE ---
mumbles slightly to name, does not open eyes to painful stimuli, VSS, started moving arms and legs occasionally, unable to follow commands. MD Joshua [id number] at bedside
[2025-08-21 20:31] LABS: COVID-19 Test Negative (Negative); IDNOW Serial# 58CA691E
[2025-08-21 20:32] LABS: IDNOW Serial# 55D5AD1C; Influenza B2 Negative (Negative)
--- NOTE | 2025-08-21 21:34 | PC.NURSE ---
now opens eyes to command, closes them after a few seconds, unable to track on commandm, shuffles around in bed, moderate level of secretions requiring suctioning, occasional moist cough
--- NOTE | 2025-08-21 22:00 | PC.NURSE ---
when boosting patient with other RN, pt placed into [place]berg positino and suddenly awoke and pushed self up in bed with feet, now back asleep snoring, mild secretions to suction at this minute, SPO2 96% on 2L NC. BP 100/60, notified, another liter ordered
[2025-08-21] MEDS: Lactated Ringers 1,000 ML 999 ML IV (22:02)
--- NOTE | 2025-08-21 22:21 | PC.NURSE ---
aware, not responding to sternal rub
[2025-08-21] MEDS: iohexoL 350 MG/ML 100 ML INFUS..BTL 65 ML IV (23:13)
--- NOTE | 2025-08-21 23:15 | PM.CCHP ---
History of Present Illness Date of Service: 08/21/25 Attending physician on admission: Alo Cain Chief Complaint: AMS The patient is a 70-year-old male with a history of schizoaffective disorder, COPD,? sleep apnea, diabetes, GERD, hypertension, dysphagia, coronary artery disease, cardiomyopathy, seizures, who presented to the emergency department via EMS from his nursing home facility ([facility])? with? lethargy and? dyspnea. Paramedics reported that the patient was altered, shaking, tachypneic and had O2 saturations of 88% on room air.? Paramedics reported that the staff did give the patient has nighttime medications which included trazodone.? ?On arrival to the emergency department patient was drooling, responsive only to painful stimuli, febrile to 103, tachypneic to 30s,? tachycardic to 130s,? satting 92% on 2 L? nasal cannula,? initially normotensive but later hypotensive to systolic of 80s.? ?Laboratory data significant for? WBC 13.9? with bandemia IMAGING: Chest x-ray is concerning for patchy infiltrates bilaterally suggesting aspiration pneumonia. ED COURSE:? ?Patient received 30 mL/kg fluid bolus,? and an additional 1 L bolus for a total of approx 3.3L bolus, acetaminophen 1 g and Zosyn 4.5 g.? Despite fluid resuscitation patient requiring initiation of vasopressor support.? Review of Systems Review of Systems: Yes Unobtainable due to mental condition PMFSH Past Medical History Medical History Lower extremity edema Combined pulmonary fibrosis and emphysema (CPFE) Nicotine dependence, cigarettes, uncomplicated History of non-ST elevation myocardial infarction (NSTEMI) Thoracic aortic aneurysm Resides in halfway care facility Supraventricular tachycardia Cardiomyopathy CAD (coronary artery disease) HTN (hypertension) GERD (gastroesophageal reflux disease) Diabetes Epilepsy Schizo affective schizophrenia Pulmonary fibrosis Nocturnal hypoxia BRITT (obstructive sleep apnea) (~2017) COPD (chronic obstructive pulmonary disease) Surgical History Surgical History History of colonoscopy Social History Social History Household Members: Other Household Members Other:: resides at [facility] Housing: Jail Housing Other:: [facility] Are you a primary healthcare social worker to a significant other at home: No Do you presently have visiting nurse or other home services: No Unable to assess alcohol history related to: Unable to respond Alcohol intake: never Patient Tobacco Use Status: Never used Tobacco Tobacco use type: Cigarette Cigarette Packs Per Day: 0.5 Years Smoked: (onset 16yo, 1/2ppd x 51yrs, 25pyh) Use of substances other than those prescribed or required for medical reasons: Unable to respond Currently Displaying Signs/Symptoms of Drug Intoxication Withdrawal: No Advance Directives: Yes Advance Directives on File: Yes Advance Directives Date on File: 12/21/21 Do you have a plan to hurt others: No Plan Recently lost weight without trying: Unsure Poor oral hygiene: Yes Meds Allergies Allergy/AdvReac Type Severity Reaction Status Date / Time divalproex sodium (Depakote) Allergy Severe Rash/Hives Unverified 08/21/25 19:01 gabapentin (Neurontin) Allergy Severe Rash/Hives Unverified 08/21/25 19:01 haloperidol (From HALDOL) Allergy Severe Rash/Hives Unverified 08/21/25 19:01 Active Medications: Current Medications Heparin Sodium (Porcine) (Heparin Sodium,Porcine 5,000 Unit/Ml Vial) 5,000 unit SUBCUT Q8H SHAINA Norepinephrine Bitartrate (Levophed) 8 mg in 250 mls @ 0 mls/hr IVCONT .Q0M SHAINA; Protocol Last Titration: 08/21/25 22:48 Dose: 0.05 mcg/kg/min, 9.8 mls/hr Home Medications ?Medication ?Instructions ?Recorded ?Confirmed ?Last Taken ?Type ascorbate calcium (vitamin C) 500 500 mg PO DAILY 06/21/21 09/30/23 Unknown History mg tablet atorvastatin 10 mg tablet 10 mg PO DAILY 06/21/21 09/30/23 Unknown History bisacodyl 10 mg rectal suppository [address] DAILY PRN Constipation 06/21/21 09/30/23 Unknown History cholecalciferol (vitamin D3) 25 25 mcg PO DAILY 06/21/21 09/30/23 Unknown History mcg (1,000 unit) capsule clozapine 100 mg tablet (Clozaril) 100 mg PO QAM 06/21/21 09/30/23 Unknown History furosemide 20 mg tablet 20 mg PO DAILY 06/21/21 09/30/23 Unknown History metformin 1,000 mg tablet 1,000 mg PO BID 06/21/21 09/30/23 Unknown History metoprolol succinate 50 mg 50 mg PO BEDTIME 06/21/21 09/30/23 Unknown History tablet,extended release 24 hr omeprazole 20 mg capsule,delayed 20 mg PO DAILY 06/21/21 09/30/23 Unknown History release oxybutynin chloride 5 mg tablet 5 mg PO DAILY 06/21/21 09/30/23 Unknown History sennosides 8.6 mg tablet (senna) 8.6 mg PO DAILY 06/21/21 09/30/23 Unknown History aluminum-mag hydroxide-simethicone 5 ml PO Q3H PRN 08/13/22 09/30/23 Unknown History 200 mg-200 mg-20 mg/5 mL oral susp multivitamin 1 tab PO DAILY 08/13/22 09/30/23 Unknown History lithium carbonate 300 mg 300 mg PO BID 04/03/23 09/30/23 Unknown History tablet,extended release trazodone 50 mg tablet 50 mg PO BEDTIME 12/29/23 Unknown History acetaminophen 325 mg tablet 650 mg PO Q6H PRN temp>100/mild 08/22/25 08/22/25 Unknown History pain miconazole nitrate 2 % topical 1 appl topical BID 08/22/25 08/22/25 Unknown History powder Physical Exam Exam: Exam: SEPSIS FOCUS EXAM PERFORMED AT?2240 ?General:? Alert oriented x self. Follows simple commands ?HEENT:? Head is normocephalic, atraumatic, pupils equal round reactive to light accommodation bilaterally.? Extraocular movements appear intact.? Buccal mucosa is moist , Neck is supple lymphadenopathy. ?Cardiac:? Sinus rhythm. Clear S1-S2, no murmurs rubs or gallops. ?Pulmonary:? Diffuse crackles at bases. ?Abdomen:? ?Abdomen soft, non-tender, non-distended. Normal bowel sounds. No pulsatile mass. No hepatosplenomegaly. ?Musculoskeletal:? Moving all 4 extremities upon request a major joints, there is no crepitus or tenderness.? The strength is 5/5 bilaterally and throughout all 4 extremities.? Gait not assessed at this point. ?Neurologic:? cranial nerves 2-12 are grossly intact.? No focal deficits noted.Motor strength as above.?? ?Skin:? Bilateral lower extremities extremely dry skin. Bilateral lower extremity with nonpitting edema. Old ulcers. Vascular:? 2+ pulses upper and lower extremities distally.? Vital Signs: Vital Signs: Last Vital Signs Temp 98.2 F 08/21/25 22:19 Pulse 95 08/21/25 22:48 Resp 24 H 08/21/25 22:19 BP 99/54 L 08/21/25 22:48 Pulse Ox 100 08/21/25 22:19 O2 Del Method Nasal Cannula 08/21/25 22:19 O2 Flow Rate 2 08/21/25 22:19 Oxygen Flow Rate 2 08/21/25 19:00 BMI result Body Mass Index 31.2 Results Labs 08/22/25 04:57 08/22/25 04:57 Labs: Laboratory Results - last 24 hr 08/21/25 08/21/25 19:25 19:32 MCV 95.4 MCH 31.7 MCHC 33.2 RDW 15.1 Plt Count 184 D MPV 8.6 L Immature Gran % (Auto) 0.5 H Neut % (Auto) 81.5 H Lymph % (Auto) 9.8 L [place] % (Auto) 8.0 Eos % (Auto) 0.0 Baso % (Auto) 0.2 Lymph # (Auto) 1.4 [place] # (Auto) 1.1 Eos # (Auto) 0.0 Baso # (Auto) 0.0 Abs Immat Gran (auto) 0.07 H Absolute Neuts (auto) 11.3 H Absolute Nucleated RBC 0.000 Nucleated RBC % (auto) 0.0 VBG pH 7.39 VBG pCO2 41 VBG pO2 32 VBG HCO3 25 VBG O2 Saturation 44.0 VBG Base Excess 0.4 Anion Gap 12 Estim Creat Clear Calc 63.1 Estimated GFR 51 Random Glucose 151 H Lactic Acid 1.8 Calcium 9.4 Magnesium 1.9 Total Bilirubin 0.4 Direct Bilirubin 0.2 AST 32 ALT 10 Alkaline Phosphatase 108 Troponin I High Sens 31.4 NT-Pro-B Natriuret Pep 133.7 Total Protein 7.8 Albumin 4.1 Urine Color Yellow Urine Appearance Clear Urine pH 7.5 Ur Specific [place] 1.010 Urine Protein 30 (1+) H Urine Glucose (UA) Negative Urine Ketones Negative Urine Blood Negative Urine Nitrite Negative Ur Leukocyte Esterase Negative Urine RBC 0-2 Urine WBC 0-5 Ur Squamous Epith Cells 0-2 Urine Bacteria None Seen Hyaline Casts 0-2 COVID-19 (MARNIE) Negative COVID-19 Clin Com See Note Influenza Type A (DARRIN) Negative Influenza Type B (DARRIN) Negative Influenza A & B Note See Note Assessment and Plan (1) Septic shock: Status: Acute (2) Acute hypoxic respiratory failure: Status: Acute (3) Aspiration pneumonia: Status: Acute (4) Encephalopathy: Status: Acute (5) VALEREI (acute kidney injury): Status: Acute Plan 70-year-old male from [facility] with a history of schizoaffective disorder, COPD,? sleep apnea, diabetes, GERD, hypertension, dysphagia, SVT, coronary artery disease, cardiomyopathy, seizures Admitted to ICU with septic shock from aspiration pneumonia? ? Neuro:?? ?Encephalopathy:? due to sepsis,? patient? mentation is improving after fluid resuscitation.? Hold sedatives at this time ?Underlying seizure disorder:? on lithium.? Patient is NPO? until speech evaluation.? Resume when able to take p.o. Meds? Cardiac:?? ?Septic shock:? despite lactate being normal,? patient is requiring vasopressor support,? white count elevated with bandemia.? Chest x-ray consistent for aspiration pneumonia,? this is likely the source.? Continue antibiotics.? Wean off vasopressor as tolerated Underlying history of hypertension/ CAD/? cardiomyopathy:? we will hold? metoprolol, Lasix Pulmonary:? ?Acute hypoxic respiratory failure-? Patient with? history of dysphagia? an schizoaffective disorder with multiple sedative medications.? Aspiration pneumonia likely cause of acute hypoxic respiratory failure.? Treated with Zosyn in the emergency department.? We will treat with Unasyn.? Wean off supplemental oxygenation as tolerated.? Underlying history of COPD,? keep 02 sat 88-92%? Renal:?VALERIE- nonoliguric? likely from hypoperfusion.? Received appropriate fluid resuscitation in the emergency department.? Continue to trend renal indices and urine output.? Endo:? ?Underlying history of diabetes:? we will keep him patient NPO until speech eval.? Q.6 POCs? ? GI:? ? no acute issues ID:?? ?Septic shock from aspiration pneumonia:? Blood cultures and sputum cultures pending. ? Received Zosyn in the emergency department.? We will switch to Unasyn.? Continue to follow blood cultures resolved Heme/Onc:? No acute issues. Psych:? No acute issues. Miscellaneous:? no acute issues prophylaxis:? ? subQ heparin CODE STATUS: Full code confirmed with facility paperwork ?Critical care time:? X 60 minutes of critical care time ?Case discussed with attending Dr Cain?
--- NOTE | 2025-08-21 23:30 | PC.NURSE ---
report was called to Sarita RICHARDSON and also given at bedside on arrival to ICU
[2025-08-22] VITALS (33 sets, daily range): BP systolic 92–160; BP diastolic 48–83; PULSE 79–134; RESP 15–33; TEMP 36.8–37.9; O2SAT 88–97; BMI 31.3; BMI 30.8
[2025-08-22 00:25] LABS: Glucose, Whole Blood 129 mg/dL (60-115)
--- NOTE | 2025-08-22 02:42 | HO.SKINPHOTO ---
Location: Medial chin Category: Abrasion Stage: Length: 0.5 Width: 0.5 Depth: cm
[2025-08-22 05:05] LABS: VBG HCO3 29 mmol/L (22-26); VBG O2 % Saturation 63.0 %
[2025-08-22 05:14] LABS: Hematocrit 32.5 % (42.0-52.0); Hemoglobin 10.7 g/dl (14.0-18.0); Imm Gran Abs Auto 0.15 X10*3/uL (0.00-0.03); Imm Gran Pct Auto 0.9 % (0.0-0.4); Lymphocytes Absolute Auto 1.5 X10*3/uL (1.2-4.9); MANUAL DIFF FLAG SCAN; Mean Corpuscular HGB Conc 32.9 g/dl (31.0-36.0); Mean Corpuscular Hemoglobin 31.9 pg (27.0-33.0); Mean Corpuscular Volume 97.0 fL (80.0-98.0); NRBC Abs Auto 0.000 X10*3/uL (0.0-0.012); NRBC Pct Auto 0.0 /100WBC (0.0-0.2); Platelet Count 155 X10*3/uL (160-400); Red Blood Count 3.35 X10*6/uL (4.60-5.80); SCAN SMEAR FLAG 1; White Blood Count 17.0 X10*3/uL (4.8-10.8)
[2025-08-22 05:22] LABS: Venous Blood Gas Refer to POC result
[2025-08-22 05:33] LABS: Albumin Level 3.1 g/dL (3.5-5.0); Anion Gap 12 (12-20); Blood Urea Nitrogen 11 mg/dL (9-16); Calcium 8.7 mg/dL (8.4-10.2); Carbon Dioxide 24 mmol/L (22-29); Chloride 111 mmol/L (96-108); Creatinine Clr Calc Pharmacy 75.9; Estimated Glomerular Filt Rate > 60; Magnesium 2.0 mg/dL (1.6-2.6); Potassium 3.6 mmol/L (3.3-5.1); Sodium 143 mmol/L (135-145)
--- NOTE | 2025-08-22 06:33 | PC.NURSE ---
Patient arrived to the unit at 2335. Patient oriented to self, opens eyes to voice intermittently, follows commands when wakeful. Sinus rhythm/tachycardia on telemetry. Levophed gtt titrated to MAP goal >65.
[2025-08-22] MEDS: Albumin Human 25 % 100 ML IV ×3 (08:08→20:05)
[2025-08-22] MEDS: Potassium Phosphate/NS 15 MMOL/250 ML PLAST..BAG 62.5 MMOL IV ×2 (08:11→21:38)
--- NOTE | 2025-08-22 08:43 | P.PNCC_ITS ---
Subjective Subjective Date of Service: 08/22/25 Interval History: Still remains very drowsy but arousable Off Levophed support since this morning Critical Care Time (minutes): 35 Physical Exam 2 Vital Signs: Vital Signs: Last Vital Signs Temp 100.0 F 08/22/25 07:56 Pulse 98 08/22/25 08:07 Resp 16 08/22/25 07:56 BP 105/53 L 08/22/25 08:07 Pulse Ox 92 08/22/25 07:56 O2 Del Method Nasal Cannula 08/22/25 07:56 O2 Flow Rate 2 08/22/25 07:56 Oxygen Flow Rate 2.5 08/22/25 00:01 BMI result Body Mass Index 30.8 General: Not in acute distress, lying unresponsive in the bed Nutritional Appearance: well nourished and overweight Eyes: appearance normal, both eyes and all related structures; Alignment and Position: alignment normal and position normal Neck: No lymphadenopathy, no thyromegaly Resp: bilateral air entry equal, occasional added sounds present Cardio: Regular rate, regular rhythm; Heart sounds: S1 normal heart sound present and S2 normal heart sound present GI: soft, nontender, no guarding, no hepatosplenomegaly : bladder normal to inspection, bladder normal to palpation, no renal angle tenderness Skin: no rashes or lesions noted and elasticity normal Neuro: Very drowsy and stuporous, but wakes but can not hold attention. Protecting airways. Objective Data Labs 08/22/25 04:57 08/22/25 04:57 Labs: Laboratory Results - last 24 hr 08/21/25 08/21/25 08/22/25 19:25 19:32 00:22 WBC 13.9 H RBC 3.88 L Hgb 12.3 L Hct 37.0 L MCV 95.4 MCH 31.7 MCHC 33.2 RDW 15.1 Plt Count 184 D MPV 8.6 L Immature Gran % (Auto) 0.5 H Neut % (Auto) 81.5 H Lymph % (Auto) 9.8 L [place] % (Auto) 8.0 Eos % (Auto) 0.0 Baso % (Auto) 0.2 Lymph # (Auto) 1.4 [place] # (Auto) 1.1 Eos # (Auto) 0.0 Baso # (Auto) 0.0 Abs Immat Gran (auto) 0.07 H Absolute Neuts (auto) 11.3 H Absolute Nucleated RBC 0.000 Nucleated RBC % (auto) 0.0 Smear Tech's Comments VBG pH 7.39 VBG pCO2 41 VBG pO2 32 VBG HCO3 25 VBG O2 Saturation 44.0 VBG Base Excess 0.4 Sodium 138 Potassium 3.5 Chloride 102 Carbon Dioxide 28 Anion Gap 12 BUN 11 Creatinine 1.38 Estim Creat Clear Calc 63.1 Estimated GFR 51 POC Glucose 129 H Random Glucose 151 H Lactic Acid 1.8 Calcium 9.4 Phosphorus Magnesium 1.9 Total Bilirubin 0.4 Direct Bilirubin 0.2 AST 32 ALT 10 Alkaline Phosphatase 108 Troponin I High Sens 31.4 NT-Pro-B Natriuret Pep 133.7 Total Protein 7.8 Albumin 4.1 Urine Color Yellow Urine Appearance Clear Urine pH 7.5 Ur Specific [place] 1.010 Urine Protein 30 (1+) H Urine Glucose (UA) Negative Urine Ketones Negative Urine Blood Negative Urine Nitrite Negative Ur Leukocyte Esterase Negative Urine RBC 0-2 Urine WBC 0-5 Ur Squamous Epith Cells 0-2 Urine Bacteria None Seen Hyaline Casts 0-2 COVID-19 (MARNIE) Negative COVID-19 Clin Com See Note Influenza Type A (DARRIN) Negative Influenza Type B (DARRIN) Negative Influenza A & B Note See Note 08/22/25 08/22/25 04:57 04:59 WBC 17.0 H RBC 3.35 L Hgb 10.7 L Hct 32.5 L MCV 97.0 MCH 31.9 MCHC 32.9 RDW 15.2 Plt Count 155 L MPV 9.4 Immature Gran % (Auto) 0.9 H Neut % (Auto) 81.0 H Lymph % (Auto) 8.8 L [place] % (Auto) 9.1 Eos % (Auto) 0.0 Baso % (Auto) 0.2 Lymph # (Auto) 1.5 [place] # (Auto) 1.6 H Eos # (Auto) 0.0 Baso # (Auto) 0.0 Abs Immat Gran (auto) 0.15 H Absolute Neuts (auto) 13.7 H Absolute Nucleated RBC 0.000 Nucleated RBC % (auto) 0.0 Smear Tech's Comments VERIFIED VBG pH 7.43 VBG pCO2 44 VBG pO2 36 VBG HCO3 29 H VBG O2 Saturation 63.0 VBG Base Excess 4.8 Sodium 143 Potassium 3.6 Chloride 111 H Carbon Dioxide 24 Anion Gap 12 BUN 11 Creatinine 1.14 Estim Creat Clear Calc 75.9 Estimated GFR > 60 POC Glucose Random Glucose 122 H Lactic Acid Calcium 8.7 D Phosphorus 2.4 L Magnesium 2.0 Total Bilirubin Direct Bilirubin AST ALT Alkaline Phosphatase Troponin I High Sens NT-Pro-B Natriuret Pep Total Protein Albumin 3.1 L Urine Color Urine Appearance Urine pH Ur Specific [place] Urine Protein Urine Glucose (UA) Urine Ketones Urine Blood Urine Nitrite Ur Leukocyte Esterase Urine RBC Urine WBC Ur Squamous Epith Cells Urine Bacteria Hyaline Casts COVID-19 (MARNIE) COVID-19 Clin Com Influenza Type A (DARRIN) Influenza Type B (DARRIN) Influenza A & B Note Progress Note: A&P Assessment and plan (1) Acute hypotension: Status: Acute (2) VALERIE (acute kidney injury): Status: Acute (3) Septic shock: Status: Acute (4) Acute alteration in mental status: Status: Acute (5) Encephalopathy: Status: Acute (6) COPD (chronic obstructive pulmonary disease): Status: Acute Plan 70-year-old male with PMH of schizoaffective disorder, seizures, COPD, CADand cardiomyopathy, COPD,? sleep apnea, diabetes, GERD, hypertension, dysphagia living in half-way facility ([facility]) admitted on the night of 08/21/2025 due to altered sensorium leading to aspiration pneumonia and shock thought to be secondary to polypharmacy. Neuro: Acute encephalopathy possibly due to toxic metabolic encephalopathy from medications CT head did not show any acute intracranial changes Continue lithium 300 mg b.i.d., lithium levels normal We will consult Psychiatry; on clozapine 400mg at night and trazadone at night at the facility Close neurological status monitoring in the ICU every hour Cardiac: Septic Shock: Possibly secondary to aspiration pneumonia Off Levophed support since this morning Respiratory: Acute hypoxemic respiratory failure due to aspiration pneumonia Saturation stable on nasal cannula oxygen GI: We will keep him NPO due to risk for aspiration will try to place a NG tube for medication Renal: Acute hypophosphatemia: Possibly due to poor oral intake, we will replace as per protocol Heme: Chronic anemia, closely monitor H&H, transfuse for hemoglobin less than 7 grams/deciliter Drop in hemoglobin is dilation Endocrine: Blood sugars under control Sliding scale insulin as needed Infectious disease: Pending pancultures On Unasyn for aspiration pneumonia Musculoskeletal: Decubitus ulcer prevention protocol Lines: Peripheral will take out Teresa Prophylaxis: Lovenox Quality Stroke Does the patient have a stroke diagnosis?: No VTE Prior VTE?: No VTE Risk Level:: Medical - moderate - high VTE Device Contraindication: N/A - Device Ordered VTE Drug Contraindication: N/A - Med Ordered
--- NOTE | 2025-08-22 09:09 | PHA.MEDREC ---
Pharmacy Consult ? Medication Reconciliation Pharmacy has completed the medication reconciliation.Med rec complete, used list from [facility], Called to confirm last administration of clozaril 08/21/25 at 2100
--- NOTE | 2025-08-22 09:55 | MHC.CM.PN ---
IMM DELIVERED TO HCP HAI AGUILLON PT IS LETHARGIC. WHITE COPY TO BE SENT WITH PT ON DC. 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 CM WILL CONTINUE TO FOLLOW.
[2025-08-22 11:33] LABS: Glucose, Whole Blood 94 mg/dL (60-115)
--- NOTE | 2025-08-22 15:07 | P.CNPS_ITS ---
History of Present Illness Date of Service: 08/22/25 Chief Complaint: Septic Shock Requesting physician: Bethel Hahn Discussed with referring provider: Yes Sources of Information: patient interviewed and chart reviewed HPI Narrative: Pt is a 70 yo male with hx of schizoaffective disorder, seizures, COPD, CAD and cardiomyopathy, COPD,? sleep apnea, diabetes, GERD, hypertension, dysphagia living in jail facility ([facility]) admitted for aspiration pneumonia thought possible due to sedation from medication. Psychiatry consulted for medication management to mitigate sedation. Pt awake and alert...he was vaguely aware of reason for admission which quality analyst/technical writer explained and patient understood. He denied that he gets overly sedated at bedtime, saying he has insomnia... Regarding his use of clozapine, Patient says he thinks it is for his schizophrenia... He denies AH saying not in a long time but wants to remain on Clozaril and says do not change my meds... i'll jai. [facility] Medical History (Updated 08/24/25 @ 10:26 by Alex Wen MD) Lower extremity edema Combined pulmonary fibrosis and emphysema (CPFE) Nicotine dependence, cigarettes, uncomplicated History of non-ST elevation myocardial infarction (NSTEMI) Thoracic aortic aneurysm Resides in [facility] care facility Supraventricular tachycardia Cardiomyopathy CAD (coronary artery disease) HTN (hypertension) GERD (gastroesophageal reflux disease) Diabetes Epilepsy Schizo affective schizophrenia Pulmonary fibrosis Nocturnal hypoxia BRITT (obstructive sleep apnea) (~2017) COPD (chronic obstructive pulmonary disease) Surgical History History of colonoscopy Diagnostics Vital Signs (24Hr): Vital Signs - 24 hr 08/21/25 19:00 08/21/25 19:09 08/21/25 21:42 Temperature 103 F H 98.4 F Pulse Rate 133 H 104 H Respiratory Rate 30 H 22 H Blood Pressure 140/64 H 107/52 L Pulse Oximetry 92 93 Oxygen Delivery Method Nasal Cannula Nasal Cannula Oxygen Flow Rate 2 08/21/25 21:54 08/21/25 22:12 08/21/25 22:19 Temperature 98.2 F Pulse Rate 106 H 96 94 Respiratory Rate 24 H Blood Pressure 100/61 90/43 L 86/42 L Pulse Oximetry 100 Oxygen Delivery Method Nasal Cannula Oxygen Flow Rate 2 08/21/25 22:32 08/21/25 22:37 08/21/25 22:43 Temperature Pulse Rate 96 96 96 Respiratory Rate Blood Pressure 85/45 L 95/53 L 102/55 L Pulse Oximetry Oxygen Delivery Method Oxygen Flow Rate 08/21/25 22:48 08/21/25 23:00 08/21/25 23:15 Temperature Pulse Rate 95 94 97 Respiratory Rate Blood Pressure 99/54 L 113/61 130/61 Pulse Oximetry Oxygen Delivery Method Oxygen Flow Rate 08/22/25 00:00 08/22/25 00:01 08/22/25 01:00 Temperature 99.0 F 98.4 F Pulse Rate 98 94 Respiratory Rate 17 16 Blood Pressure 118/66 115/62 Pulse Oximetry 93 94 95 Oxygen Delivery Method Nasal Cannula Nasal Cannula Nasal Cannula Oxygen Flow Rate 2.5 2.5 08/22/25 02:00 08/22/25 02:37 08/22/25 03:00 Temperature 99.9 F 100.2 F Pulse Rate 108 H 105 H 102 H Respiratory Rate 23 H 19 Blood Pressure 115/70 115/70 108/52 L Pulse Oximetry 96 95 Oxygen Delivery Method Nasal Cannula Nasal Cannula Oxygen Flow Rate 2.5 2.5 08/22/25 04:00 08/22/25 05:00 08/22/25 06:00 Temperature 100.2 F 100.2 F 100.2 F Pulse Rate 100 96 96 Respiratory Rate 16 20 18 Blood Pressure 99/53 L 102/48 L 102/48 L Pulse Oximetry 95 96 96 Oxygen Delivery Method Nasal Cannula Nasal Cannula Nasal Cannula Oxygen Flow Rate 2.5 2.5 2.5 08/22/25 07:00 08/22/25 07:45 08/22/25 07:56 Temperature 99.9 F 100.0 F Pulse Rate 96 98 94 Respiratory Rate 15 16 Blood Pressure 98/79 111/56 L 106/52 L Pulse Oximetry 97 92 Oxygen Delivery Method Nasal Cannula Nasal Cannula Oxygen Flow Rate 2.5 2 08/22/25 08:07 08/22/25 08:50 08/22/25 09:50 Temperature 99.7 F 99.5 F Pulse Rate 98 97 99 Respiratory Rate 18 19 Blood Pressure 105/53 L 92/55 L 115/61 Pulse Oximetry 92 93 Oxygen Delivery Method Nasal Cannula Nasal Cannula Oxygen Flow Rate 2 1 08/22/25 10:53 08/22/25 11:51 08/22/25 13:00 Temperature 99.5 F 99.7 F 99.5 F Pulse Rate 99 99 104 H Respiratory Rate 16 16 24 H Blood Pressure 114/62 105/55 L 120/62 Pulse Oximetry 93 93 92 Oxygen Delivery Method Nasal Cannula Nasal Cannula Nasal Cannula Oxygen Flow Rate 1.5 1.5 0.5 08/22/25 13:53 08/22/25 14:19 08/22/25 14:55 Temperature 99.7 F Pulse Rate 113 H 79 108 H Respiratory Rate 28 H 22 H Blood Pressure 117/65 143/83 H Pulse Oximetry 90 L 94 Oxygen Delivery Method Nasal Cannula Nasal Cannula Oxygen Flow Rate 0.5 0.5 BMI result Body Mass Index 30.8 Labs 08/24/25 04:50 08/24/25 04:50 Labs: Laboratory Results - last 48 hr 08/21/25 08/21/25 08/22/25 19:25 19:32 00:22 WBC 13.9 H RBC 3.88 L Hgb 12.3 L Hct 37.0 L MCV 95.4 MCH 31.7 MCHC 33.2 RDW 15.1 Plt Count 184 D MPV 8.6 L Immature Gran % (Auto) 0.5 H Neut % (Auto) 81.5 H Lymph % (Auto) 9.8 L [place] % (Auto) 8.0 Eos % (Auto) 0.0 Baso % (Auto) 0.2 Lymph # (Auto) 1.4 [place] # (Auto) 1.1 Eos # (Auto) 0.0 Baso # (Auto) 0.0 Abs Immat Gran (auto) 0.07 H Absolute Neuts (auto) 11.3 H Absolute Nucleated RBC 0.000 Nucleated RBC % (auto) 0.0 Smear Tech's Comments VBG pH 7.39 VBG pCO2 41 VBG pO2 32 VBG HCO3 25 VBG O2 Saturation 44.0 VBG Base Excess 0.4 Sodium 138 Potassium 3.5 Chloride 102 Carbon Dioxide 28 Anion Gap 12 BUN 11 Creatinine 1.38 Estim Creat Clear Calc 63.1 Estimated GFR 51 POC Glucose 129 H Random Glucose 151 H Lactic Acid 1.8 Calcium 9.4 Phosphorus Magnesium 1.9 Total Bilirubin 0.4 Direct Bilirubin 0.2 AST 32 ALT 10 Alkaline Phosphatase 108 Troponin I High Sens 31.4 NT-Pro-B Natriuret Pep 133.7 Total Protein 7.8 Albumin 4.1 Urine Color Yellow Urine Appearance Clear Urine pH 7.5 Ur Specific [place] 1.010 Urine Protein 30 (1+) H Urine Glucose (UA) Negative Urine Ketones Negative Urine Blood Negative Urine Nitrite Negative Ur Leukocyte Esterase Negative Urine RBC 0-2 Urine WBC 0-5 Ur Squamous Epith Cells 0-2 Urine Bacteria None Seen Hyaline Casts 0-2 COVID-19 (MARNIE) Negative COVID-19 Clin Com See Note Influenza Type A (DARRIN) Negative Influenza Type B (DARRIN) Negative Influenza A & B Note See Note 08/22/25 08/22/25 08/22/25 04:57 04:59 11:29 WBC 17.0 H RBC 3.35 L Hgb 10.7 L Hct 32.5 L MCV 97.0 MCH 31.9 MCHC 32.9 RDW 15.2 Plt Count 155 L MPV 9.4 Immature Gran % (Auto) 0.9 H Neut % (Auto) 81.0 H Lymph % (Auto) 8.8 L [place] % (Auto) 9.1 Eos % (Auto) 0.0 Baso % (Auto) 0.2 Lymph # (Auto) 1.5 [place] # (Auto) 1.6 H Eos # (Auto) 0.0 Baso # (Auto) 0.0 Abs Immat Gran (auto) 0.15 H Absolute Neuts (auto) 13.7 H Absolute Nucleated RBC 0.000 Nucleated RBC % (auto) 0.0 Smear Tech's Comments VERIFIED VBG pH 7.43 VBG pCO2 44 VBG pO2 36 VBG HCO3 29 H VBG O2 Saturation 63.0 VBG Base Excess 4.8 Sodium 143 Potassium 3.6 Chloride 111 H Carbon Dioxide 24 Anion Gap 12 BUN 11 Creatinine 1.14 Estim Creat Clear Calc 75.9 Estimated GFR > 60 POC Glucose 94 Random Glucose 122 H Lactic Acid Calcium 8.7 D Phosphorus 2.4 L Magnesium 2.0 Total Bilirubin Direct Bilirubin AST ALT Alkaline Phosphatase Troponin I High Sens NT-Pro-B Natriuret Pep Total Protein Albumin 3.1 L Urine Color Urine Appearance Urine pH Ur Specific [place] Urine Protein Urine Glucose (UA) Urine Ketones Urine Blood Urine Nitrite Ur Leukocyte Esterase Urine RBC Urine WBC Ur Squamous Epith Cells Urine Bacteria Hyaline Casts COVID-19 (MARNIE) COVID-19 Clin Com Influenza Type A (DARRIN) Influenza Type B (DARRIN) Influenza A & B Note Imaging Radiology Impressions: ITS Impressions Chest X-Ray 08/22/25 10:02 IMPRESSION: 1. Interstitial and alveolar opacities throughout both lungs, with patchy confluent opacities in the bilateral right greater than left lung bases. Findings have mildly worsened since 08/21/2025 exam. 2. Well-positioned NG tube. Electronically signed by: Ezra Muhammad MD 08/22/2025 10:26 AM EDT RP Mental Status Exam Mental Status Exam Narrative: Pt is alert and oriented; behavior is cooperative, polite and calm; patient is not in distress; dressed in hospital attire, lying in hospital bed; mood is described as ok and affect congruent; eye contact appropriate; Speech is normal rate, volume and prosody and not pressured; thought process is goal directed; Thought content is on tx; no expressions of delusional ideations; Denies AVH. Patients insight and judgment appear adequate. Medications Medications Current Medications Enoxaparin Sodium (Enoxaparin Sodium 40 Mg/0.4 Ml Syringe) 40 mg SUBCUT Q24H [facility] Last Admin: 08/22/25 10:06 Dose: 40 mg Norepinephrine Bitartrate (Levophed) 8 mg in 250 mls @ 0 mls/hr IVCONT .Q0M SHAINA; Protocol Last Titration: 08/22/25 14:19 Dose: Infused Ampicillin Sodium/Sulbactam (Sodium 3 gm/ Sodium Chloride) 100 mls @ 200 mls/hr IV Q6H [facility] Last Infusion: 08/22/25 11:57 Dose: Infused Albumin Human (Kedbumin 25 %) 100 mls @ 100 mls/hr IV Q6H [facility] Stop: 08/23/25 02:59 Last Admin: 08/22/25 14:32 Dose: 100 mls/hr [place] Carbonate ([place] Carbonate 300 Mg Capsule) 300 mg PO BID SHAINA Last Admin: 08/22/25 10:34 Dose: 300 mg Allergies Allergies Allergy/AdvReac Type Severity Reaction Status Date / Time divalproex sodium (Depakote) Allergy Severe Rash/Hives Unverified 08/21/25 19:01 gabapentin (Neurontin) Allergy Severe Rash/Hives Unverified 08/21/25 19:01 haloperidol (From HALDOL) Allergy Severe Rash/Hives Unverified 08/21/25 19:01 Assessment & Plan Assessment & Plan (1) Aspiration pneumonia: Status: Acute Code(s): J69.0 - Pneumonitis due to inhalation of food and vomit (2) Schizo affective schizophrenia: Status: Acute Code(s): F25.9 - Schizoaffective disorder, unspecified Plan HPI: Pt is a 70 yo male with hx of schizoaffective disorder, seizures, COPD, CAD and cardiomyopathy, COPD,? sleep apnea, diabetes, GERD, hypertension, dysphagia living in jail facility ([facility]) admitted for aspiration pneumonia thought possible due to sedation from medication. Psychiatry consulted for medication management to mitigate sedation. Pt awake and alert...he was vaguely aware of reason for admission which quality analyst/technical writer explained and patient understood. He denied that he gets overly sedated at bedtime, saying he has insomnia... Regarding his use of clozapine, Patient says he thinks it is for his schizophrenia... He denies AH saying not in a long time but wants to remain on Clozaril and says do not change my meds... i'll jai. Impression: If patient is on clozapine likely it is the only antipsychotic that has worked for him. For that reason it is very likely that patient would significantly decompensate without it. Clozapine means risk profile does include sedation, hyper secretion and aspiration pneumonia. Patient is on clozapine 400 mg q.h.s.. Oil Well Pumper recommends dividing up the dose into t.i.d. dosing to limit its sedating effects at bedtime decreasing any possible hypersalivation at bedtime. Adding glycopyrrolate to bedtime can also help mitigate risks of hypersalivation/aspiration pneumonia. That said, Patient does complain of insomnia, and dividing up clozapine dose will quite possibly exacerbate this issue for him. Plan: 1. break-up clozapine dosing Clozapine 100 mg daily Clozapine 100 mg at noon Clozapine 200 mg q.h.s. 2. Consider adding glycopyrrolate q.h.s. to lessen risk of Sialorrhea Total time managing care of this patient today ____ minutes. Patient educated on: diagnosis, medication risk/benefits and medical condition Informed Consent: understands and further education needed
--- NOTE | 2025-08-22 15:43 | MHC.SL.SWA ---
Speech Pathologist Impression: Dysphagia unspecified Risk of Aspiration Due to: Hx of dysphagia Hx of aspiration PNA Reduced cognition Dysphasia Diet Status: Recc NPO with ice chips for oral hydration. Pt has NG tube for short term nutrition. Pt to be re-evaluated tomorrow. Liquid Consistency and Strategies for Safe Swallow: Liquid Intake Recommendation: NPO Liquid Intake Strategies: Solid Food Consistency: Dietary Recommendations: NPO Additional Modifications to Solid Foods: Oral Medication Intake: NPO Please contact the pharmacy regarding appropriate crushable or liquid drug formulations that are available whenever modified delivery is recommended. Compensatory Strategies and Precautions to be Taken for Safe Swallow: Supervision While Eating and Drinking for Safe Swallow: PO with NET APPLICATION ARCHITECT Foods to Avoid: Swallowing Recommended Treatments: Recommendation for Speech: Inpatient Speech Therapy Comment: Pt requesting water. Pt voicing wet/gurgly in absence of PO. Trials of ice chips only presented d/t severity of pharyngeal dysphagia. Pt unable to clear mucous with reflexive or volitional swallow. Pt unable to understand restrictions, NG tube in place for nutrition. Pt requesting to 'go home for the cook out'. RN consulted, pt failed nursing swallow screen but did not understand reason for NPO status. NET APPLICATION ARCHITECT attempted to explain to pt that he has aspiration PNA but pt denied illness. MD consulted. Recc NPO with ice chips permitted pending repeat swallow evaluation tomorrow. Frequency/Duration: Daily M-F Date Range for Service Req: Timeline to reassess: Dining Room Cashier Clinican/Clinical Fellow: No Supervisory Statement: I have reviewed and agree with the student/clinical fellow's documentation: N/A Speech Language Pathologist: Kathya Nunn M.S., [facility]-NET APPLICATION ARCHITECT
[2025-08-22] MEDS: Nystatin Oral Susp 500,000 UNIT/5 ML ORAL.SUSP 200000 UNIT BUCCAL ×2 (18:03→20:07)
[2025-08-22 19:09] LABS: Glucose, Whole Blood 95 mg/dL (60-115)
[2025-08-22 20:54] LABS: Hematocrit 33.4 % (42.0-52.0); Hemoglobin 10.7 g/dl (14.0-18.0)
[2025-08-22 21:07] LABS: Alanine Aminotransferase 10 U/L (0-40); Albumin Level 4.0 g/dL (3.5-5.0); Alkaline Phosphatase 85 U/L (39-117); Anion Gap 15 (12-20); Aspartate Amino Transferase 28 U/L (5-37); Blood Urea Nitrogen 10 mg/dL (9-16); Calcium 9.3 mg/dL (8.4-10.2); Carbon Dioxide 25 mmol/L (22-29); Chloride 114 mmol/L (96-108); Creatinine Clr Calc Pharmacy 72.1; Estimated Glomerular Filt Rate > 60; Potassium 3.4 mmol/L (3.3-5.1); Sodium 151 mmol/L (135-145); Total Protein 7.0 g/dL (6.5-8.0)
[2025-08-22 21:27] LABS: VBG HCO3 26 mmol/L (22-26); VBG O2 % Saturation 82.0 %
[2025-08-22 21:38] LABS: Venous Blood Gas Refer to POC result
[2025-08-22 23:41] LABS: Glucose, Whole Blood 114 mg/dL (60-115)
[2025-08-23] VITALS (33 sets, daily range): BP systolic 98–148; BP diastolic 50–75; PULSE 102–140; RESP 13–41; TEMP 36.6–38.6; O2SAT 86–99; BMI 32.0
[2025-08-23] MEDS: Acetaminophen Oral Liquid 650 MG/20.3 ML SOLUTION 975 MG PO (01:28)
[2025-08-23] MEDS: Albumin Human 25 % 100 ML IV (02:36)
--- NOTE | 2025-08-23 04:38 | HE.ICUCC ---
ICU Critical Care Nursing Note Patient admitted to ICU for Vasopressor support ICU Day #:2 Neuro: Patient A/O x2 ,disoriented to time/ intermittently non compliant with care. Cardiac:Sinus tach on telemetry Resp: LS coarse/rhonchorous GI/: urinating in urinal /continent/unknown last BM Endocrine: patient diabetic POC WNL Integumentary/Musculoskeletal: small abrasion on chin/ bilateral lower extremities dry/scaley skin/ on bedrest Psychosocial (family etc.):patient from [facility] facility/niece HCP Central Lines: Peripheral IV's 18Lac/20Rac
[2025-08-23 05:58] LABS: MANUAL DIFF FLAG NO
[2025-08-23 06:17] LABS: Alanine Aminotransferase 9 U/L (0-40); Albumin Level 4.1 g/dL (3.5-5.0); Alkaline Phosphatase 77 U/L (39-117); Anion Gap 14 (12-20); Aspartate Amino Transferase 30 U/L (5-37); Blood Urea Nitrogen 9 mg/dL (9-16); Calcium 8.9 mg/dL (8.4-10.2); Carbon Dioxide 24 mmol/L (22-29); Chloride 117 mmol/L (96-108); Creatinine Clr Calc Pharmacy 74.0; Estimated Glomerular Filt Rate > 60; Magnesium 2.2 mg/dL (1.6-2.6); Potassium 3.6 mmol/L (3.3-5.1); Sodium 151 mmol/L (135-145); Total Protein 6.9 g/dL (6.5-8.0)
[2025-08-23 06:33] LABS: Hematocrit 31.0 % (42.0-52.0); Hemoglobin 9.8 g/dl (14.0-18.0); Imm Gran Abs Auto 0.08 X10*3/uL (0.00-0.03); Imm Gran Pct Auto 0.7 % (0.0-0.4); Lymphocytes Absolute Auto 1.5 X10*3/uL (1.2-4.9); Mean Corpuscular HGB Conc 31.6 g/dl (31.0-36.0); Mean Corpuscular Hemoglobin 31.3 pg (27.0-33.0); Mean Corpuscular Volume 99.0 fL (80.0-98.0); NRBC Abs Auto 0.020 X10*3/uL (0.0-0.012); NRBC Pct Auto 0.2 /100WBC (0.0-0.2); Platelet Count 140 X10*3/uL (160-400); Red Blood Count 3.13 X10*6/uL (4.60-5.80); White Blood Count 12.1 X10*3/uL (4.8-10.8)
[2025-08-23] MEDS: Furosemide 20 MG/2 ML VIAL IVPUSH (07:19)
[2025-08-23] MEDS: 0.9 % Sodium Chloride Flush 3 ML SYRINGE IVFLUSH ×3 (07:19→23:28)
--- NOTE | 2025-08-23 08:00 | PC.RT ---
Pt desat to 78% on oxymask. Pt agitated in bed. RT and RN boosted pt inbed and placed on NRB 15L. Pt recovered into the high 90's. Titrated back to oxy mask.
--- NOTE | 2025-08-23 08:39 | P.PNCC_ITS ---
Subjective Subjective Date of Service: 08/23/25 Interval History: off Levophed since yesterday morning active aspiration, agitation present Critical Care Time (minutes): 35 Physical Exam 2 Vital Signs: Vital Signs: Last Vital Signs Temp 98.1 F 08/23/25 07:58 Pulse 131 H 08/23/25 07:58 Resp 32 H 08/23/25 07:58 BP 148/73 H 08/23/25 07:58 Pulse Ox 94 08/23/25 07:58 O2 Del Method Non-Rebreather Ma sk 08/23/25 07:58 O2 Flow Rate 15 08/23/25 07:58 Oxygen Flow Rate 2.5 08/22/25 00:01 BMI result Body Mass Index 32.0 General: elderly male in mild acute distress, confused Nutritional Appearance: well nourished and overweight Eyes: appearance normal, both eyes and all related structures; Alignment and Position: alignment normal and position normal Neck: No lymphadenopathy, no thyromegaly Resp: bilateral air entry equal, crackles heard in both lung bases Cardio: Regular rate, regular rhythm; Heart sounds: S1 normal heart sound present and S2 normal heart sound present GI: soft, nontender, no guarding, no hepatosplenomegaly : bladder normal to inspection, bladder normal to palpation, no renal angle tenderness Skin: no rashes or lesions noted and elasticity normal Neuro: no focal deficits,moves all extremities Objective Data Labs 08/23/25 04:53 08/23/25 04:53 Labs: Laboratory Results - last 24 hr 08/22/25 08/22/25 08/22/25 11:29 19:06 20:46 WBC RBC Hgb 10.7 L Hct 33.4 L MCV MCH MCHC RDW Plt Count MPV Immature Gran % (Auto) Neut % (Auto) Lymph % (Auto) [place] % (Auto) Eos % (Auto) Baso % (Auto) Lymph # (Auto) [place] # (Auto) Eos # (Auto) Baso # (Auto) Abs Immat Gran (auto) Absolute Neuts (auto) Absolute Nucleated RBC Nucleated RBC % (auto) VBG pH VBG pCO2 VBG pO2 VBG HCO3 VBG O2 Saturation VBG Base Excess Sodium 151 H Potassium 3.4 Chloride 114 H Carbon Dioxide 25 Anion Gap 15 BUN 10 Creatinine 1.20 Estim Creat Clear Calc 72.1 Estimated GFR > 60 POC Glucose 94 95 Random Glucose 108 Lactic Acid Calcium 9.3 D Phosphorus Magnesium Total Bilirubin 0.5 AST 28 ALT 10 Alkaline Phosphatase 85 Total Protein 7.0 Albumin 4.0 08/22/25 08/22/25 08/22/25 21:17 21:23 23:37 WBC RBC Hgb Hct MCV MCH MCHC RDW Plt Count MPV Immature Gran % (Auto) Neut % (Auto) Lymph % (Auto) [place] % (Auto) Eos % (Auto) Baso % (Auto) Lymph # (Auto) [place] # (Auto) Eos # (Auto) Baso # (Auto) Abs Immat Gran (auto) Absolute Neuts (auto) Absolute Nucleated RBC Nucleated RBC % (auto) VBG pH 7.45 H VBG pCO2 37 VBG pO2 54 VBG HCO3 26 VBG O2 Saturation 82.0 VBG Base Excess 2.9 Sodium Potassium Chloride Carbon Dioxide Anion Gap BUN Creatinine Estim Creat Clear Calc Estimated GFR POC Glucose 114 Random Glucose Lactic Acid 1.2 Calcium Phosphorus Magnesium Total Bilirubin AST ALT Alkaline Phosphatase Total Protein Albumin 08/23/25 04:53 WBC 12.1 H RBC 3.13 L Hgb 9.8 L Hct 31.0 L MCV 99.0 H MCH 31.3 MCHC 31.6 RDW 15.5 Plt Count 140 L MPV 10.7 Immature Gran % (Auto) 0.7 H Neut % (Auto) 81.2 H Lymph % (Auto) 12.7 L [place] % (Auto) 5.2 Eos % (Auto) 0.0 Baso % (Auto) 0.2 Lymph # (Auto) 1.5 [place] # (Auto) 0.6 Eos # (Auto) 0.0 Baso # (Auto) 0.0 Abs Immat Gran (auto) 0.08 H Absolute Neuts (auto) 9.8 H Absolute Nucleated RBC 0.020 H Nucleated RBC % (auto) 0.2 VBG pH VBG pCO2 VBG pO2 VBG HCO3 VBG O2 Saturation VBG Base Excess Sodium 151 H Potassium 3.6 Chloride 117 H Carbon Dioxide 24 Anion Gap 14 BUN 9 Creatinine 1.19 Estim Creat Clear Calc 74.0 Estimated GFR > 60 POC Glucose Random Glucose 113 Lactic Acid Calcium 8.9 Phosphorus 3.7 Magnesium 2.2 Total Bilirubin 0.6 AST 30 ALT 9 Alkaline Phosphatase 77 Total Protein 6.9 Albumin 4.1 Microbiology Microbiology Results: Microbiology 08/21/25 20:09 Blood - Venous Blood Culture - Preliminary No growth after 24 hours. 08/21/25 19:25 Blood - Venous Blood Culture - Preliminary No growth after 24 hours. Progress Note: A&P Assessment and plan (1) Acute hypotension: Status: Acute (2) VALERIE (acute kidney injury): Status: Acute (3) Septic shock: Status: Acute (4) Encephalopathy: Status: Acute (5) Aspiration pneumonia: Status: Acute Plan 70-year-old male with PMH of schizoaffective disorder, seizures, COPD, CADand cardiomyopathy, COPD,? sleep apnea, diabetes, GERD, hypertension, dysphagia living in detention facility ([facility]) admitted on the night of 08/21/2025 due to altered sensorium leading to aspiration pneumonia and shock thought to be secondary to polypharmacy. Neuro: Acute encephalopathy possibly due to toxic metabolic encephalopathy from medications, improving more episodes of agitation than drowsiness now. CT head did not show any acute intracranial changes Continue lithium 300 mg b.i.d., lithium levels normal, clozapine dose changed to 100mg in AM and 200 at night by psych. Haldol did not help agitation but dilaudid did. Cardiac: Septic Shock: Possibly secondary to aspiration pneumonia Off Levophed support since yesterday morning Respiratory: Acute hypoxemic respiratory failure due to aspiration pneumonia increasing oxygen requirement due to active aspiration, increased to oxymask to nonrebreather now. GI: on a NG tube for medication Renal: Acute hypernatremia: Possibly due to poor oral intake will start on D5W at 75cc/hr Heme: Chronic anemia, closely monitor H&H, transfuse for hemoglobin less than 7 grams/deciliter Drop in hemoglobin is dilation Endocrine: Blood sugars under control Sliding scale insulin as needed Infectious disease: Pending pancultures On Unasyn for aspiration pneumonia Musculoskeletal: Decubitus ulcer prevention protocol Lines: Peripheral Prophylaxis: Lovenox Quality Stroke Does the patient have a stroke diagnosis?: No VTE Prior VTE?: No VTE Risk Level:: Medical - moderate - high VTE Device Contraindication: N/A - Device Ordered VTE Drug Contraindication: N/A - Med Ordered
--- NOTE | 2025-08-23 09:51 | MHC.SLORD ---
Speech Language Pathology Order Status: Per RN, patient not appropriate for re-assessment of swallow today, notably having difficulty managing secretions. LEAK DETECTOR will continue to follow, re-assess swallow when indicated/appropriate.
[2025-08-23 11:55] LABS: Glucose, Whole Blood 135 mg/dL (60-115)
[2025-08-23] MEDS: Etomidate 20 MG/10 ML VIAL IVPUSH (16:59)
--- NOTE | 2025-08-23 17:05 | PC.RT ---
This RT was leaving another pt room and saw this pt SATs 58% on monitor. Upon quick arrival into pt room, pt had NRB over face but cord had become disconnected. Pt family states he was moving a lot . RT reapplied mask at 15L. Pt SATs slowly increased back to low 90's. RN and MD called into room. Decision to intubate pt was made. Pt was control intubated by MD on first attempt w/ 7.5 ETT 24cm @lips. ETT confirmed w/ colormetric and quantitative CO2, bilateral chest rise, and X-Ray. Pt was placed on mechanical ventilation as documented and kaleigh settings well. Will continue to monitor pt.
--- NOTE | 2025-08-23 17:25 | W.PM.CCHP ---
Procedures Date of Service Date of Service: 08/23/25 Intubation Consent for Procedure: Emergent-no informed consent obtained Time out performed: Yes Sedative: etomidate Mg given: 20 Paralytic: succinylcholine Mg given: 100 Laryngoscope: fiber optic video scope ET tube size: 7.5 ET tube uncuffed: Yes Tube secured depth (cm): 22 Tube secured location: lips Tube placement confirmation: visualized tube passing through cords, equal breath sounds bilaterally and no breath sounds over epigastrium Patient tolerated procedure: no complications
[2025-08-23 17:45] LABS: ABG HCO3 21 mmol/L (22-26); ABG O2 % Saturation 95.0 %
[2025-08-23 18:15] LABS: Glucose, Whole Blood 144 mg/dL (60-115)
[2025-08-23] MEDS: fentaNYL citrate/NS 1,000 MCG/100 ML PLAST..BAG 2.5 MCG IVCONT (19:00)
--- NOTE | 2025-08-23 19:17 | PC.NURSE ---
Assumed care at 0700. Upon initial assessment, pt restless with labored breathing, RR in mid 30s. HR 110-130. Pt restless; o2 sats decrease as agitation/restlessness increases. O2 titrated to keep sat between 88% and 92%. Pt consistently restless.? At approx 1630, pt desatted down to 58, RT at bedside with ambu bag. Md made aware. MD held discussion with family regarding possible intubation. Pt subsequently intubated without incident at 1700. RT and MD at bedside. Pt has 7.5 ET tube, 24 cm at the lip. Sedative drips started. BPs remain stable and WNL. Pt repositioned q2hr as tolerated. Fall & safety precautions in place. Camera in room for pt safety. See MAR and assessments for further details.
[2025-08-23 20:53] LABS: ABG Refer to POC result
[2025-08-23] MEDS: Nystatin Oral Susp 500,000 UNIT/5 ML ORAL.SUSP 200000 UNIT BUCCAL (21:43)
[2025-08-23 23:46] LABS: Glucose, Whole Blood 136 mg/dL (60-115)
[2025-08-24] VITALS (34 sets, daily range): BP systolic 92–192; BP diastolic 48–63; PULSE 98–115; RESP 15–29; TEMP 35–37.3; O2SAT 89–97; BMI 32.0
--- NOTE | 2025-08-24 00:51 | PC.NURSE ---
Addendum entered by Jim Ivory RN 08/24/25 03:17: 3AM BLADDER SCANNED 451ML..PROVIDER AWARE..LEYVA CATHETER INSERTED PER PROVIDER WITH 440ML YELLOW URINE OBTAINED ON INSERTION Original Note: CARE ASSUMED 7PM..REMAINS INTUBATED/VCV VENT SUPPORT.....AC 16/TV 390/ FIO2 WEANED FROM 90% TO 60%/PEEP 8CM...SAO2 STABLE...SEDATED WITH PROPOFOL AND FENTANYL DRIPS PER JAN..SUCTIONED SMALL/MODERATE LOOSE MOFFETT SECRETIONS VIA ETT..NG-TUBE CLAMPED..SMALL AMOUNT BILIOUS ASPIRATE OBTAINED..PER SHIFT REPORT NO RECENT VOID...BLADDER SCANNED 7PM FOR 831ML..PROVIDER AWARE..STRAIGHT CATH'D PER PROVIDER FOR 800ML MIGUELINA-YELLOW URINE 7:30 PM...12AM NO FURTHER VOID..BLADDER SCANNED 317ML..TO TREND PER PROVIDER..MONITOR S.TACH HR 110'S..PROVIDER AWARE
[2025-08-24 04:55] LABS: VBG HCO3 31 mmol/L (22-26); VBG O2 % Saturation 90.0 %
[2025-08-24 05:08] LABS: MANUAL DIFF FLAG NO
[2025-08-24 05:11] LABS: Hematocrit 30.1 % (42.0-52.0); Hemoglobin 9.3 g/dl (14.0-18.0); Imm Gran Abs Auto 0.12 X10*3/uL (0.00-0.03); Imm Gran Pct Auto 1.1 % (0.0-0.4); Lymphocytes Absolute Auto 1.2 X10*3/uL (1.2-4.9); Mean Corpuscular HGB Conc 30.9 g/dl (31.0-36.0); Mean Corpuscular Hemoglobin 31.3 pg (27.0-33.0); Mean Corpuscular Volume 101.3 fL (80.0-98.0); NRBC Abs Auto 0.000 X10*3/uL (0.0-0.012); NRBC Pct Auto 0.0 /100WBC (0.0-0.2); Platelet Count 148 X10*3/uL (160-400); Red Blood Count 2.97 X10*6/uL (4.60-5.80); White Blood Count 11.0 X10*3/uL (4.8-10.8)
[2025-08-24 05:32] LABS: Alanine Aminotransferase 6 U/L (0-40); Albumin Level 3.5 g/dL (3.5-5.0); Alkaline Phosphatase 89 U/L (39-117); Anion Gap 11 (12-20); Aspartate Amino Transferase 27 U/L (5-37); Blood Urea Nitrogen 11 mg/dL (9-16); Calcium 8.6 mg/dL (8.4-10.2); Carbon Dioxide 27 mmol/L (22-29); Chloride 115 mmol/L (96-108); Creatinine Clr Calc Pharmacy 61.1; Estimated Glomerular Filt Rate 49; Magnesium 2.1 mg/dL (1.6-2.6); Potassium 3.4 mmol/L (3.3-5.1); Sodium 150 mmol/L (135-145); Total Protein 6.6 g/dL (6.5-8.0)
[2025-08-24 05:33] LABS: Venous Blood Gas Refer to POC result
[2025-08-24] MEDS: 0.9 % Sodium Chloride Flush 3 ML SYRINGE IVFLUSH (07:23)
[2025-08-24] MEDS: Chlorhexidine Gluc Oral Rinse 15 ML MOUTHWASH BUCCAL ×3 (08:08→21:18)
[2025-08-24] MEDS: Nystatin Oral Susp 500,000 UNIT/5 ML ORAL.SUSP 200000 UNIT BUCCAL ×3 (08:08→21:17)
--- NOTE | 2025-08-24 08:24 | P.PNCC_ITS ---
Subjective Subjective Date of Service: 08/24/25 Interval History: Had to be intubated last evening due to episodes of hypoxia and severe dyspnea and respiratory rates in the 40s Currently on propofol and fentanyl for analgesia and sedation Critical Care Time (minutes): 35 Physical Exam 2 Vital Signs: Vital Signs: Last Vital Signs Temp 97.2 F 08/24/25 07:58 Pulse 107 H 08/24/25 07:58 Resp 25 H 08/24/25 07:58 BP 96/53 L 08/24/25 07:58 Pulse Ox 90 L 08/24/25 07:58 O2 Del Method Trach Collar 08/24/25 07:00 O2 Flow Rate 12 08/23/25 16:00 FiO2 60 08/24/25 07:58 Oxygen Flow Rate 2.5 08/22/25 00:01 BMI result Body Mass Index 32.0 General: In severe acute distress, ill appearing and tired appearing Nutritional Appearance: well nourished and overweight Eyes: appearance normal, both eyes and all related structures; Alignment and Position: alignment normal and position normal Neck: No lymphadenopathy, no thyromegaly Resp: bilateral air entry equal, bilateral crackles heard Cardio: Regular rate, regular rhythm; Heart sounds: S1 normal heart sound present and S2 normal heart sound present GI: soft, nontender, no guarding, no hepatosplenomegaly : bladder normal to inspection, bladder normal to palpation, no renal angle tenderness Skin: no rashes or lesions noted and elasticity normal Neuro: Sedated, no focal deficit Objective Data Labs 08/24/25 04:50 08/24/25 04:50 Labs: Laboratory Results - last 24 hr 08/23/25 08/23/25 08/23/25 11:52 17:41 17:56 WBC RBC Hgb Hct MCV MCH MCHC RDW Plt Count MPV Immature Gran % (Auto) Neut % (Auto) Lymph % (Auto) [place] % (Auto) Eos % (Auto) Baso % (Auto) Lymph # (Auto) [place] # (Auto) Eos # (Auto) Baso # (Auto) Abs Immat Gran (auto) Absolute Neuts (auto) Absolute Nucleated RBC Nucleated RBC % (auto) O2 Saturation 95.0 ABG pH at Pt Temp 7.32 L ABG pCO2 at Pt Temp 41 ABG pO2 at Pt Temp 84 ABG HCO3 21 L ABG Base Excess (Actual) -4.1 VBG pH VBG pCO2 VBG pO2 VBG HCO3 VBG O2 Saturation VBG Base Excess Sodium Potassium Chloride Carbon Dioxide Anion Gap BUN Creatinine Estim Creat Clear Calc Estimated GFR POC Glucose 135 H 144 H Random Glucose Calcium Phosphorus Magnesium Total Bilirubin AST ALT Alkaline Phosphatase Total Protein Albumin 08/23/25 08/24/25 08/24/25 23:41 04:50 04:52 WBC 11.0 H RBC 2.97 L Hgb 9.3 L Hct 30.1 L MCV 101.3 H MCH 31.3 MCHC 30.9 L RDW 16.0 Plt Count 148 L MPV 9.6 Immature Gran % (Auto) 1.1 H Neut % (Auto) 83.1 H Lymph % (Auto) 10.6 L [place] % (Auto) 4.8 Eos % (Auto) 0.1 Baso % (Auto) 0.3 Lymph # (Auto) 1.2 [place] # (Auto) 0.5 Eos # (Auto) 0.0 Baso # (Auto) 0.0 Abs Immat Gran (auto) 0.12 H Absolute Neuts (auto) 9.1 H Absolute Nucleated RBC 0.000 Nucleated RBC % (auto) 0.0 O2 Saturation ABG pH at Pt Temp ABG pCO2 at Pt Temp ABG pO2 at Pt Temp ABG HCO3 ABG Base Excess (Actual) VBG pH 7.34 VBG pCO2 57 VBG pO2 63 VBG HCO3 31 H VBG O2 Saturation 90.0 VBG Base Excess 4.5 Sodium 150 H Potassium 3.4 Chloride 115 H Carbon Dioxide 27 Anion Gap 11 L BUN 11 Creatinine 1.44 H Estim Creat Clear Calc 61.1 Estimated GFR 49 POC Glucose 136 H Random Glucose 145 H Calcium 8.6 Phosphorus 3.6 Magnesium 2.1 Total Bilirubin 0.4 AST 27 ALT 6 Alkaline Phosphatase 89 Total Protein 6.6 Albumin 3.5 Microbiology Microbiology Results: Microbiology 08/21/25 20:09 Blood - Venous Blood Culture - Preliminary No growth after 48 hours. 08/21/25 19:25 Blood - Venous Blood Culture - Preliminary No growth after 48 hours. Progress Note: A&P Assessment and plan (1) VALERIE (acute kidney injury): Status: Acute (2) Encephalopathy: Status: Acute (3) Acute hypoxic respiratory failure: Status: Acute (4) Acute kidney failure: Status: Acute Plan 70-year-old male with PMH of schizoaffective disorder, seizures, COPD, CADand cardiomyopathy, COPD,? sleep apnea, diabetes, GERD, hypertension, dysphagia living in longterm facility ([facility]) admitted on the night of 08/21/2025 due to altered sensorium leading to aspiration pneumonia and shock thought to be secondary to polypharmacy. Neuro: Acute encephalopathy possibly due to toxic metabolic encephalopathy from medications On propofol for sedation, fentanyl for analgesia CT head did not show any acute intracranial changes; will get MRI of brain Continue lithium 300 mg b.i.d., lithium levels normal, clozapine dose changed to 100mg in AM and 200 at night by psych. Cardiac: Septic Shock: Possibly secondary to aspiration pneumonia Off Levophed support si Respiratory: Acute hypoxemic respiratory failure due to aspiration pneumonia Intubated yesterday for hypoxia and tachypnea Currently on ventilator support, ventilator management bundle PRVC mode, FiO2 down from 100% to 35%, peep 8, tidal volume 390, rate 20 Addendum elevation, chlorhexidine oral care, daily spontaneous breathing trials, daily awakening trials GI: on a NG tube for medication We will start on tube feeds Renal: Acute hypernatremia: sodium 150 Continue D5W at 75cc/hr We will add free water flushes Acute kidney injury: Possibly secondary to hemodynamic changes and hypotension Creatinine increased to 1.4 Closely monitor I's and Os Avoid nephrotoxic medications Heme: Chronic anemia, closely monitor H&H, transfuse for hemoglobin less than 7 grams/deciliter Drop in hemoglobin is dilation Endocrine: Blood sugars under control Sliding scale insulin as needed Infectious disease: Pending pancultures Antibiotics escalated to Zosyn Musculoskeletal: Decubitus ulcer prevention protocol Lines: Peripheral Prophylaxis: Lovenox critical care tume is about 40 mins on vent management, sedation management, close hemodynamic monitoring; has multiple organ failure including VALERIE, encephalopathy, respiratory failure Quality Stroke Does the patient have a stroke diagnosis?: No VTE Prior VTE?: No VTE Risk Level:: Medical - moderate - high VTE Device Contraindication: N/A - Device Ordered VTE Drug Contraindication: N/A - Med Ordered
[2025-08-24] MEDS: fentaNYL citrate/NS 1,000 MCG/100 ML PLAST..BAG 5 MCG IVCONT (09:38)
--- NOTE | 2025-08-24 10:48 | MHC.CLN ---
PT IS INTUBATED AND SEDATED CURRENTLY NPO DISCUSSED AT ROUNDS WITH MD-PLAN TO START TF WITH INCREASED WATER FLUSHES REVIEWED LABS NOTED SERUM NA 150 RECOMMEND GLUCERNA 1.2 @ MAX GOAL RATE 50ML/HR WITH 300ML FREE WATER FLUSHES Q 4 HRS TO PROVIDE 1440KCALS (2118KCALS WITH SEDATION; 23KCALS/KG), 72G PROTEIN (.8G/KG), 2766ML TOTAL WATER FROM FORMULA AND FLUSHES (30ML/KG) MONITOR TOLERANCE AND LYTES SEE FULL ASSESSMENT
--- NOTE | 2025-08-24 11:17 | MHC.SLORD ---
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 RN and MD consulted.
[2025-08-24 13:08] LABS: Glucose, Whole Blood 128 mg/dL (60-115)
[2025-08-24 18:02] LABS: Glucose, Whole Blood 115 mg/dL (60-115)
--- NOTE | 2025-08-24 18:11 | PC.NURSE ---
Addendum entered by Cecil Gomez RN 08/24/25 18:13: prop had to be replaced due to previous prop being used mainly for priming the IV tubing for MRI. Original Note: MRI uneventful. TF started upon returning to unit. family updated over the phone.
[2025-08-25] VITALS (36 sets, daily range): BP systolic 103–134; BP diastolic 51–73; PULSE 110–128; RESP 16–28; TEMP 34.8–38; O2SAT 89–96; BMI 31.5
[2025-08-25 00:05] LABS: Glucose, Whole Blood 147 mg/dL (60-115)
[2025-08-25] MEDS: 0.9 % Sodium Chloride Flush 3 ML SYRINGE IVFLUSH ×3 (00:54→15:47)
[2025-08-25 05:51] LABS: VBG HCO3 29 mmol/L (22-26); VBG O2 % Saturation 90.0 %
[2025-08-25 06:09] LABS: Glucose, Whole Blood 143 mg/dL (60-115)
[2025-08-25 06:10] LABS: MANUAL DIFF FLAG NO
[2025-08-25 06:11] LABS: Hematocrit 31.6 % (42.0-52.0); Hemoglobin 9.7 g/dl (14.0-18.0); Imm Gran Abs Auto 0.16 X10*3/uL (0.00-0.03); Imm Gran Pct Auto 2.2 % (0.0-0.4); Lymphocytes Absolute Auto 0.9 X10*3/uL (1.2-4.9); Mean Corpuscular HGB Conc 30.7 g/dl (31.0-36.0); Mean Corpuscular Hemoglobin 31.0 pg (27.0-33.0); Mean Corpuscular Volume 101.0 fL (80.0-98.0); NRBC Abs Auto 0.000 X10*3/uL (0.0-0.012); NRBC Pct Auto 0.0 /100WBC (0.0-0.2); Platelet Count 153 X10*3/uL (160-400); Red Blood Count 3.13 X10*6/uL (4.60-5.80); White Blood Count 7.4 X10*3/uL (4.8-10.8)
--- NOTE | 2025-08-25 06:26 | PC.NURSE ---
This RN assumed care for pt at 2300. Pt remains sedated. and intubated. Propofol and Fentanyl infusing as ordered. Pupils 1mm, constricted. ACVC vent settings 16, 390, 8, 35%, tolerating well with sedation. NG tube to right nare - tube feeding infusing, up to 50mL/hr at this time with water flushes every 4 hours. Pt tolerating the feeds. Abd round and large with hypoactive BS. FC patent and draining yellow urine - see intake and output. Skin intact - preventative foam on coccyx and heels.
[2025-08-25 06:28] LABS: Venous Blood Gas Refer to POC result
[2025-08-25 06:31] LABS: Alanine Aminotransferase 23 U/L (0-40); Albumin Level 3.2 g/dL (3.5-5.0); Alkaline Phosphatase 140 U/L (39-117); Anion Gap 12 (12-20); Aspartate Amino Transferase 57 U/L (5-37); Blood Urea Nitrogen 12 mg/dL (9-16); Calcium 8.5 mg/dL (8.4-10.2); Carbon Dioxide 27 mmol/L (22-29); Chloride 109 mmol/L (96-108); Creatinine Clr Calc Pharmacy 59.5; Estimated Glomerular Filt Rate 47; Magnesium 2.3 mg/dL (1.6-2.6); Potassium 3.5 mmol/L (3.3-5.1); Sodium 144 mmol/L (135-145); Total Protein 6.4 g/dL (6.5-8.0)
[2025-08-25] MEDS: Chlorhexidine Gluc Oral Rinse 15 ML MOUTHWASH BUCCAL ×3 (07:45→20:33)
[2025-08-25] MEDS: Nystatin Oral Susp 500,000 UNIT/5 ML ORAL.SUSP 200000 UNIT BUCCAL ×3 (08:03→20:33)
--- NOTE | 2025-08-25 08:36 | PM.CCPN ---
Subjective Subjective Date of Service: 08/25/25 Interval History: Doing well, significant decrease in oxygen requirement on the ventilator Critical Care Time (minutes): 35 Physical Exam Vital Signs: Vital Signs: Last Vital Signs Temp 99.0 F 08/25/25 08:00 Pulse 118 H 08/25/25 08:00 Resp 18 08/25/25 08:00 BP 127/67 08/25/25 08:00 Pulse Ox 89 L 08/25/25 08:00 O2 Del Method Mechanical Ventil ation 08/25/25 08:00 O2 Flow Rate 12 08/23/25 16:00 FiO2 35 08/25/25 08:00 Oxygen Flow Rate 2.5 08/22/25 00:01 BMI result Body Mass Index 31.5 General: In acute distress, ill appearing and tired appearing Nutritional Appearance: well nourished and overweight Eyes: appearance normal, both eyes and all related structures; Alignment and Position: alignment normal and position normal Neck: No lymphadenopathy, no thyromegaly Resp: bilateral air entry equal, occasional added sounds present Cardio: Regular rate, regular rhythm; Heart sounds: S1 normal heart sound present and S2 normal heart sound present GI: soft, nontender, no guarding, no hepatosplenomegaly : bladder normal to inspection, bladder normal to palpation, no renal angle tenderness Skin: no rashes or lesions noted and elasticity normal Neuro: Sedated, no focal deficits Objective Data Labs 08/25/25 05:42 08/25/25 05:42 Labs: Laboratory Results - last 24 hr 08/24/25 08/24/25 08/25/25 13:05 17:58 00:00 WBC RBC Hgb Hct MCV MCH MCHC RDW Plt Count MPV Immature Gran % (Auto) Neut % (Auto) Lymph % (Auto) [place] % (Auto) Eos % (Auto) Baso % (Auto) Lymph # (Auto) [place] # (Auto) Eos # (Auto) Baso # (Auto) Abs Immat Gran (auto) Absolute Neuts (auto) Absolute Nucleated RBC Nucleated RBC % (auto) VBG pH VBG pCO2 VBG pO2 VBG HCO3 VBG O2 Saturation VBG Base Excess Sodium Potassium Chloride Carbon Dioxide Anion Gap BUN Creatinine Estim Creat Clear Calc Estimated GFR POC Glucose 128 H 115 147 H Random Glucose Calcium Phosphorus Magnesium Total Bilirubin AST ALT Alkaline Phosphatase Total Protein Albumin 08/25/25 08/25/2508/25/25 05:42 05:47 06:05 WBC 7.4 RBC 3.13 L Hgb 9.7 L Hct 31.6 L MCV 101.0 H MCH 31.0 MCHC 30.7 L RDW 16.2 H Plt Count 153 L MPV 9.3 L Immature Gran % (Auto) 2.2 H Neut % (Auto) 78.6 H Lymph % (Auto) 12.4 L [place] % (Auto) 6.5 Eos % (Auto) 0.0 Baso % (Auto) 0.3 Lymph # (Auto) 0.9 L [place] # (Auto) 0.5 Eos # (Auto) 0.0 Baso # (Auto) 0.0 Abs Immat Gran (auto) 0.16 H Absolute Neuts (auto) 5.8 Absolute Nucleated RBC 0.000 Nucleated RBC % (auto) 0.0 VBG pH 7.41 VBG pCO2 46 VBG pO2 58 VBG HCO3 29 H VBG O2 Saturation 90.0 VBG Base Excess 4.3 Sodium 144 Potassium 3.5 Chloride 109 H Carbon Dioxide 27 Anion Gap 12 BUN 12 Creatinine 1.47 H Estim Creat Clear Calc 59.5 Estimated GFR 47 POC Glucose 143 H Random Glucose 135 H Calcium 8.5 Phosphorus 3.9 Magnesium 2.3 Total Bilirubin 0.5 AST 57 H ALT 23 Alkaline Phosphatase 140 H Total Protein 6.4 L Albumin 3.2 L Microbiology Microbiology Results: Microbiology 08/21/25 20:09 Blood - Venous Blood Culture - Preliminary No growth after 48 hours. 08/21/25 19:25 Blood - Venous Blood Culture - Preliminary No growth after 48 hours. Progress Note: A&P Assessment and plan (1) Schizo affective schizophrenia: Status: Acute (2) Acute hypotension: Status: Acute (3) VALERIE (acute kidney injury): Status: Acute (4) Acute kidney failure: Status: Acute (5) Septic shock: Status: Acute (6) Encephalopathy: Status: Acute (7) Acute hypoxic respiratory failure: Status: Acute Plan 70-year-old male with PMH of schizoaffective disorder, seizures, COPD, CADand cardiomyopathy, COPD,? sleep apnea, diabetes, GERD, hypertension, dysphagia living in halfway facility ([facility]) admitted on the night of 08/21/2025 due to altered sensorium leading to aspiration pneumonia and shock thought to be secondary to polypharmacy. Neuro: Acute encephalopathy possibly due to toxic metabolic encephalopathy from medications On propofol for sedation, fentanyl for analgesia; we will wean sedation for pressure support trials CT head did not show any acute intracranial changes; MRI of brain negative for any acute intracranial changes, has sinusitis and mastoiditis Continue lithium 300 mg b.i.d., lithium levels normal, clozapine dose changed to 100mg in AM and 200 at night by psych. Cardiac: Septic Shock: Resolved Respiratory: Acute hypoxemic respiratory failure due to aspiration pneumonia Intubated yesterday for hypoxia and tachypnea Currently on ventilator support, ventilator management bundle PRVC mode, FiO2 down from 35%, peep 8, tidal volume 390, rate 20; we will place the patient on pressure support for weaning trials Addendum elevation, chlorhexidine oral care, daily spontaneous breathing trials, daily awakening trials GI: on tube feeds Renal: Acute hypernatremia: sodium 144 Continue D5W at 75cc/hr as he might be extubated and then we will be off of free water flushes We will add free water flushes Acute kidney injury: Possibly secondary to hemodynamic changes and hypotension Creatinine increased to 1.47 Closely monitor I's and Os Avoid nephrotoxic medications Heme: Chronic anemia, closely monitor H&H, transfuse for hemoglobin less than 7 grams/deciliter Drop in hemoglobin is dilation Endocrine: Blood sugars under control Sliding scale insulin as needed Infectious disease: Pending pancultures Antibiotics escalated to Zosyn for aspiration pneumonia and sinusitis Musculoskeletal: Decubitus ulcer prevention protocol Lines: Peripheral Prophylaxis: Lovenox Quality Stroke Does the patient have a stroke diagnosis?: No VTE Prior VTE?: No VTE Risk Level:: Medical - moderate - high VTE Device Contraindication: N/A - Device Ordered VTE Drug Contraindication: N/A - Med Ordered
[2025-08-25] MEDS: Ketamine HCl 500 MG in 0.9 % Sodium Chloride 250 ML 5.38 MG IVCONT (09:25)
[2025-08-25 11:32] LABS: Glucose, Whole Blood 157 mg/dL (60-115)
--- NOTE | 2025-08-25 18:59 | PC.NURSE ---
Assumed care at 0700. Upon initial assessment, pt remains intubated and on sedative drips. RASS -4 for vent synchrony. Sedation vacation started at approx 0920 per provider. Ketamine drip started at this time as well. RT changed vent to PSV at 6/8 with fio2 of 35% at approx 0930. As of 1100, pt twitches eyes but does not open to voice and sternal rub. Pt grimaces with oral care. Ketamine drip off per provider at 1423 as pt still not following commands or opening eyes. Family updated at bedside. See MAR and assessments for details. Fall & safety precautions in place. Pt repositioned q2hr as tolerated.
[2025-08-25 21:00] LABS: Alanine Aminotransferase 28 U/L (0-40); Albumin Level 3.4 g/dL (3.5-5.0); Alkaline Phosphatase 136 U/L (39-117); Anion Gap 13 (12-20); Aspartate Amino Transferase 46 U/L (5-37); Blood Urea Nitrogen 12 mg/dL (9-16); Calcium 8.6 mg/dL (8.4-10.2); Carbon Dioxide 27 mmol/L (22-29); Chloride 107 mmol/L (96-108); Creatinine Clr Calc Pharmacy 59.1; Estimated Glomerular Filt Rate 47; Potassium 3.5 mmol/L (3.3-5.1); Sodium 143 mmol/L (135-145); Total Protein 6.6 g/dL (6.5-8.0)
[2025-08-26] VITALS (39 sets, daily range): BP systolic 113–157; BP diastolic 58–89; PULSE 85–134; RESP 18–35; TEMP 35.1–37.8; O2SAT 86–97; BMI 31.5
[2025-08-26 00:06] LABS: Glucose, Whole Blood 135 mg/dL (60-115)
[2025-08-26] MEDS: 0.9 % Sodium Chloride Flush 3 ML SYRINGE IVFLUSH ×4 (00:14→23:51)
[2025-08-26] MEDS: dexmedeTOMIDine HCL/NS 400 MCG/100 ML PLAST..BAG 26.35 MCG IVCONT (00:57)
[2025-08-26] MEDS: dexmedeTOMIDine HCL/NS 400 MCG/100 ML PLAST..BAG 39.53 MCG IVCONT ×2 (02:38→04:35)
[2025-08-26 05:11] LABS: VBG HCO3 31 mmol/L (22-26); VBG O2 % Saturation 100.0 %
[2025-08-26 05:15] LABS: Hematocrit 26.5 % (42.0-52.0); Hemoglobin 8.7 g/dl (14.0-18.0); Imm Gran Abs Auto 0.18 X10*3/uL (0.00-0.03); Imm Gran Pct Auto 2.1 % (0.0-0.4); Lymphocytes Absolute Auto 1.3 X10*3/uL (1.2-4.9); MANUAL DIFF FLAG SCAN; Mean Corpuscular HGB Conc 32.8 g/dl (31.0-36.0); Mean Corpuscular Hemoglobin 31.5 pg (27.0-33.0); Mean Corpuscular Volume 96.0 fL (80.0-98.0); NRBC Abs Auto 0.000 X10*3/uL (0.0-0.012); NRBC Pct Auto 0.0 /100WBC (0.0-0.2); Platelet Count 157 X10*3/uL (160-400); Red Blood Count 2.76 X10*6/uL (4.60-5.80); SCAN SMEAR FLAG 1; White Blood Count 8.5 X10*3/uL (4.8-10.8)
[2025-08-26 05:32] LABS: Alanine Aminotransferase 23 U/L (0-40); Albumin Level 3.1 g/dL (3.5-5.0); Alkaline Phosphatase 118 U/L (39-117); Anion Gap 9 (12-20); Aspartate Amino Transferase 38 U/L (5-37); Blood Urea Nitrogen 11 mg/dL (9-16); Calcium 8.4 mg/dL (8.4-10.2); Carbon Dioxide 29 mmol/L (22-29); Chloride 111 mmol/L (96-108); Creatinine Clr Calc Pharmacy 58.7; Estimated Glomerular Filt Rate 47; Magnesium 2.6 mg/dL (1.6-2.6); Potassium 3.3 mmol/L (3.3-5.1); Sodium 146 mmol/L (135-145); Total Protein 6.5 g/dL (6.5-8.0)
[2025-08-26] MEDS: Potassium Chloride/H20 10 MEQ/100 ML PIGGYBACK 100 MEQ IV ×2 (06:27→08:02)
--- NOTE | 2025-08-26 06:36 | PC.NURSE ---
CARE ASSUMED 7PM..REMAINS INTUBATED/CPAP-PSV VENT SUPPORT..OFF SEDATION AT SHIFT CHANGE..WATTERS..COUGHING FORCEFULLY AND GAGGING ON ETT AT TIMES...SUCTIONED ORALLY FOR MOFFETT SECRETIONS..SUCTIONED MODERATE THICK CREAM SECRETIONS VIA ETT...TUBE FEEDS HELD OVERNIGHT PER PROVIDER FOR ? TRIAL EXTUBATION...S.TACH HR 128-134...LEYVA DRAINING LARGE AMOUNTS CLEAR YELLOW URINE..INCONTINANT LIQUIED BROWN STOOL MULTIPLE TIMES..RECTAL TUBE PLACED..INCREASED RESTLESSNES AND AGITATION OVERNIGHT..FORCEFULLY COUGHING AGAINST ETT...DID NOT FOLLOW ANY COMMANDS ...PRECIDEX STARTED 00:30 PER PROVIDER @ 1 MCG/KG/HR AND TITRATED TO 1.5 MCG/KG/HR WITH GRADUAL RESTFUL EFFECT....PRECIDEX DRIP HELD APPROX 5AM BY PROVIDER FOR PLANNED POSSIBLE EXTUBATION THIS AM...CURRENTLY CPAP 6/PSV 6/FIO2 40% WITH Ve 10-12 L/M
[2025-08-26 07:28] LABS: Venous Blood Gas Refer to POC result
--- NOTE | 2025-08-26 08:31 | P.PNCC_ITS ---
Subjective Subjective Date of Service: 08/26/25 Interval History: Was on pressor support all night Had episodes of agitation overnight for which was treated with Precedex, Precedex was turned off around 07:00 Following commands, doing well so is extubated at 08:15 Critical Care Time (minutes): 35 Physical Exam 2 Vital Signs: Vital Signs: Last Vital Signs Temp 98.8 F 08/26/25 08:00 Pulse 117 H 08/26/25 08:00 Resp 22 H 08/26/25 08:00 BP 143/80 H 08/26/25 08:00 Pulse Ox 95 08/26/25 08:00 O2 Del Method Mechanical Ventil ation 08/26/25 08:00 O2 Flow Rate 12 08/23/25 16:00 FiO2 40 08/26/25 08:00 Oxygen Flow Rate 2.5 08/22/25 00:01 BMI result Body Mass Index 31.5 General: Elderly male acute distress, ill appearing and tired appearing Nutritional Appearance: well nourished and overweight Eyes: appearance normal, both eyes and all related structures; Alignment and Position: alignment normal and position normal Neck: No lymphadenopathy, no thyromegaly Resp: bilateral air entry equal, bilaterally diffuse crackles heard Cardio: Regular rate, regular rhythm; Heart sounds: S1 normal heart sound present and S2 normal heart sound present GI: soft, nontender, no guarding, no hepatosplenomegaly : bladder normal to inspection, bladder normal to palpation, no renal angle tenderness Skin: no rashes or lesions noted and elasticity normal Neuro: oriented to person, oriented to place, oriented to time and moves all extremities Objective Data Labs 08/26/25 04:57 08/26/25 04:57 Labs: Laboratory Results - last 24 hr 08/25/25 08/25/25 08/25/25 11:26 20:16 23:58 WBC RBC Hgb Hct MCV MCH MCHC RDW Plt Count MPV Immature Gran % (Auto) Neut % (Auto) Lymph % (Auto) [place] % (Auto) Eos % (Auto) Baso % (Auto) Lymph # (Auto) [place] # (Auto) Eos # (Auto) Baso # (Auto) Abs Immat Gran (auto) Absolute Neuts (auto) Absolute Nucleated RBC Nucleated RBC % (auto) Smear Tech's Comments VBG pH VBG pCO2 VBG pO2 VBG HCO3 VBG O2 Saturation VBG Base Excess Sodium 143 Potassium 3.5 Chloride 107 Carbon Dioxide 27 Anion Gap 13 BUN 12 Creatinine 1.48 H Estim Creat Clear Calc 59.1 Estimated GFR 47 POC Glucose 157 H 135 H Random Glucose 149 H Calcium 8.6 Phosphorus Magnesium Total Bilirubin 0.5 AST 46 H ALT 28 Alkaline Phosphatase 136 H Total Protein 6.6 Albumin 3.4 L 08/26/25 08/26/25 04:57 05:06 WBC 8.5 RBC 2.76 L Hgb 8.7 L Hct 26.5 L MCV 96.0 D MCH 31.5 MCHC 32.8 RDW 15.9 Plt Count 157 L MPV 9.1 L Immature Gran % (Auto) 2.1 H Neut % (Auto) 74.0 H Lymph % (Auto) 15.8 L [place] % (Auto) 7.9 Eos % (Auto) 0.0 Baso % (Auto) 0.2 Lymph # (Auto) 1.3 [place] # (Auto) 0.7 Eos # (Auto) 0.0 Baso # (Auto) 0.0 Abs Immat Gran (auto) 0.18 H Absolute Neuts (auto) 6.3 Absolute Nucleated RBC 0.000 Nucleated RBC % (auto) 0.0 Smear Tech's Comments VERIFIED VBG pH 7.49 H VBG pCO2 41 VBG pO2 103 VBG HCO3 31 H VBG O2 Saturation 100.0 VBG Base Excess 7.7 Sodium 146 H Potassium 3.3 Chloride 111 H Carbon Dioxide 29 Anion Gap 9 L BUN 11 Creatinine 1.49 H Estim Creat Clear Calc 58.7 Estimated GFR 47 POC Glucose Random Glucose 155 H Calcium 8.4 Phosphorus 3.6 Magnesium 2.6 Total Bilirubin 0.4 AST 38 H ALT 23 Alkaline Phosphatase 118 H Total Protein 6.5 Albumin 3.1 L Microbiology Microbiology Results: Microbiology 08/21/25 20:09 Blood - Venous Blood Culture - Preliminary No growth after 48 hours. 08/21/25 19:25 Blood - Venous Blood Culture - Preliminary No growth after 48 hours. Progress Note: A&P Assessment and plan (1) Schizo affective schizophrenia: Status: Acute (2) Acute hypotension: Status: Acute (3) VALERIE (acute kidney injury): Status: Acute (4) Encephalopathy: Status: Acute (5) COPD (chronic obstructive pulmonary disease): Status: Acute (6) Aspiration pneumonia: Status: Acute (7) Acute hypoxic respiratory failure: Status: Acute Plan 70-year-old male with PMH of schizoaffective disorder, seizures, COPD, CADand cardiomyopathy, COPD,? sleep apnea, diabetes, GERD, hypertension, dysphagia living [place] [facility]) admitted on the night of 08/21/2025 due to altered sensorium leading to aspiration pneumonia and shock thought to be secondary to polypharmacy. Neuro: Acute encephalopathy possibly due to toxic metabolic encephalopathy from medications Propofol and fentanyl was turned off, was started on Precedex overnight for agitation which was turned off at 07:00. Currently he is following commands CT head did not show any acute intracranial changes; MRI of brain negative for any acute intracranial changes, has sinusitis and mastoiditis Continue lithium 300 mg b.i.d., lithium levels normal, clozapine dose changed to 100mg in AM and 200 at night by psych. Cardiac: Septic Shock: Resolved Respiratory: Acute hypoxemic respiratory failure due to aspiration pneumonia It will on pressor support trials, extubated around 08:15 this morning on high [place] needing 100% oxygen at 50L/min, still very critical high risk for reintubation Continue to closely monitor his respiratory status in the ICU GI: will hold tube feeds Renal: Acute hypernatremia: sodium 146 Continue D5W at 75cc/hr Acute kidney injury: Possibly secondary to hemodynamic changes and hypotension Creatinine plateaued around 1.4 Closely monitor I's and Os Avoid nephrotoxic medications Heme: Chronic anemia, closely monitor H&H, transfuse for hemoglobin less than 7 grams/deciliter Drop in hemoglobin is dilation Endocrine: Blood sugars under control Sliding scale insulin as needed Infectious disease: Negative pancultures Continue Zosyn for aspiration pneumonia and sinusitis Musculoskeletal: Decubitus ulcer prevention protocol Lines: Peripheral Prophylaxis: Lovenox Critical care time spent is about 40 minutes on ventilator management, sedation management, weaning trials, extubation and postextubation care where he is hypoxic and needing maximum support on Optiflo, close hemodynamic monitoring at this time is excluding any procedural time Quality Stroke Does the patient have a stroke diagnosis?: No VTE Prior VTE?: No VTE Risk Level:: Medical - moderate - high VTE Device Contraindication: N/A - Device Ordered VTE Drug Contraindication: N/A - Med Ordered
--- NOTE | 2025-08-26 10:30 | MHC.CLN ---
F/U PT WAS EXTUBATED THIS AM PT PREVIOUSLY RECEIVED GLUCERNA 1.2 @ MAX GOAL RATE 50ML/HR WITH 300ML FREE WATER FLUSHES Q 4 HRS PROVIDED 1440KCALS (2118KCALS WITH SEDATION; 23KCALS/KG), 72G PROTEIN (.8G/KG), 2766ML TOTAL WATER FROM FORMULA AND FLUSHES (30ML/KG) DISCUSSED AT ROUNDS WITH TF CURRENTLY ON HOLD NOTED D5W RUNNING FOR HYPERNATREMIA NGT IN PLACE TO THE RIGHT NARE WILL CHANGE DIET TO NPO AT THIS TIME IF UNABLE TO ADVANCE DIET; RECOMMEND RE-START TF ABOVE VIA NGT IF DIET ADVANCES; RECOMMEND 2000DM DIET ALONG WITH SECURITIES CLERK RECOMMENDATIONS R/T HX DYSPHAGIA AND ASP PNA-MONITOR PO INTAKE CLOSELY RD CAN BE REACHED VIA TIGER CONNECT DURING OFF HOURS IF NEEDED
[2025-08-26] MEDS: Nystatin Oral Susp 500,000 UNIT/5 ML ORAL.SUSP 200000 UNIT BUCCAL ×2 (10:34→20:48)
[2025-08-26 11:45] LABS: Glucose, Whole Blood 129 mg/dL (60-115)
--- NOTE | 2025-08-26 12:18 | PC.RT ---
Pt recieved cough assist 4 sets of 3 breaths at +/- 30 cmh20 via mask and kaleigh fair post bilat posterior cpt via auto percussor. oral sxn for lg wte thin sec. LS are bilat loose rhonchi. [facility] does not allow RT to chart for this therapy.
[2025-08-26] MEDS: dexmedeTOMIDine HCL/NS 400 MCG/100 ML PLAST..BAG 13.19 MCG IVCONT (13:20)
--- NOTE | 2025-08-26 15:22 | MHC.CM.PN ---
EMR REVIEWED AND PER MD ROUNDS, PT REMAINS IN ICU ON . SORAIDA CHEATHAM UPDATED VIA [employer]. CM CONTINUES TO FOLLOW FOR ANY CHANGE TO DC PLAN/NEEDS
[2025-08-26] MEDS: Albuterol/Iprat 2.5/0.5MG 3 ML AMPUL.NEB INHALE ×2 (17:52→20:19)
--- NOTE | 2025-08-26 18:01 | PC.NURSE ---
Assumed care at 0700. Upon initial assessment, pt remains intubated with no sedative drips running. Pt opens eyes, tracks, and is able to follow commands. Per MD, ok to extubate. RT at bedside, uneventful extubation at 0825. Pt placed on oxymask with 6L o2. Camera placed in room at this time for patient safety and protection of lines. At approx 0845, pt placed on HFNC running at 50L and 95% fio2. O2 titrated down; see vitals. Ketamine infusion given per JAN. MD stated ok to give in ICU despite order stating ?PACU only.? Pharmacy made aware. Fecal mgmt system and davila removed at 1130. Pt DTV at 1730. Precedex drip restarted for restlessness and agitation. Pt voided 300mL at approx 1545. Family updated at bedside. See MAR and assessments for further details. Fall & safety precautions in place. Pt repositioned q2hr as tolerated.
[2025-08-26] MEDS: dexmedeTOMIDine HCL/NS 400 MCG/100 ML PLAST..BAG 18.46 MCG IVCONT (18:49)
[2025-08-26] MEDS: dexmedeTOMIDine HCL/NS 400 MCG/100 ML PLAST..BAG 21.1 MCG IVCONT (22:12)
[2025-08-27] VITALS (31 sets, daily range): BP systolic 106–157; BP diastolic 45–86; PULSE 108–134; RESP 20–63; TEMP 36.1–37.2; O2SAT 87–100; BMI 30.5
[2025-08-27] LABS: Glucose, Whole Blood 120 mg/dL (60-115)
[2025-08-27 05:11] LABS: VBG HCO3 26 mmol/L (22-26); VBG O2 % Saturation 76.0 %
[2025-08-27 05:16] LABS: Venous Blood Gas Refer to POC result
[2025-08-27 05:34] LABS: MANUAL DIFF FLAG NO
[2025-08-27 05:37] LABS: Hematocrit 31.3 % (42.0-52.0); Hemoglobin 10.1 g/dl (14.0-18.0); Imm Gran Abs Auto 0.20 X10*3/uL (0.00-0.03); Imm Gran Pct Auto 1.7 % (0.0-0.4); Lymphocytes Absolute Auto 1.5 X10*3/uL (1.2-4.9); Mean Corpuscular HGB Conc 32.3 g/dl (31.0-36.0); Mean Corpuscular Hemoglobin 31.4 pg (27.0-33.0); Mean Corpuscular Volume 97.2 fL (80.0-98.0); NRBC Abs Auto 0.000 X10*3/uL (0.0-0.012); NRBC Pct Auto 0.0 /100WBC (0.0-0.2); Platelet Count 201 X10*3/uL (160-400); Red Blood Count 3.22 X10*6/uL (4.60-5.80); White Blood Count 11.5 X10*3/uL (4.8-10.8)
[2025-08-27 05:59] LABS: Alanine Aminotransferase 26 U/L (0-40); Albumin Level 3.8 g/dL (3.5-5.0); Alkaline Phosphatase 119 U/L (39-117); Anion Gap 14 (12-20); Aspartate Amino Transferase 44 U/L (5-37); Blood Urea Nitrogen 16 mg/dL (9-16); Calcium 9.4 mg/dL (8.4-10.2); Carbon Dioxide 25 mmol/L (22-29); Chloride 118 mmol/L (96-108); Creatinine Clr Calc Pharmacy 58.3; Estimated Glomerular Filt Rate 46; Magnesium 2.7 mg/dL (1.6-2.6); Potassium 3.2 mmol/L (3.3-5.1); Sodium 154 mmol/L (135-145); Total Protein 7.6 g/dL (6.5-8.0)
--- NOTE | 2025-08-27 07:36 | PC.NURSE ---
Critical Care Nursing Note Assumed care of the patient at 1900. The patient is awake and alert to self. Sinus tachycardia on telemetry. The patient is NPO, with NGT clamped, may use for medication administration. The patient was on a precedex gtt at the start of shift, the patient became more confused and began to hallucinate. Precedex was paused at this time. Patient is intermittently redirectable.
[2025-08-27] MEDS: 0.9 % Sodium Chloride Flush 3 ML SYRINGE IVFLUSH ×2 (08:16→14:58)
[2025-08-27] MEDS: Potassium Phosphate/NS 15 MMOL/250 ML PLAST..BAG 62.5 MMOL IV (08:16)
[2025-08-27] MEDS: Nystatin Oral Susp 500,000 UNIT/5 ML ORAL.SUSP 200000 UNIT BUCCAL ×3 (08:17→21:52)
[2025-08-27] MEDS: Chlorhexidine Gluc Oral Rinse 15 ML MOUTHWASH BUCCAL ×2 (08:18→14:57)
--- NOTE | 2025-08-27 09:57 | P.PNCC_ITS ---
Subjective Subjective Date of Service: 08/27/25 Interval History: Continues to be critically ill, on high-flow oxygen 60% 50 L/min Critical Care Time (minutes): 35 Physical Exam 2 Vital Signs: Vital Signs: Last Vital Signs Temp 97.2 F 08/27/25 08:00 Pulse 119 H 08/27/25 09:00 Resp 21 H 08/27/25 09:00 BP 145/83 H 08/27/25 09:00 Pulse Ox 91 L 08/27/25 09:00 O2 Del Method High Flow Nasal C annula, Oxymask 08/27/25 09:00 O2 Flow Rate 50 08/27/25 09:00 FiO2 60 08/27/25 09:00 Oxygen Flow Rate 2.5 08/22/25 00:01 BMI result Body Mass Index 30.5 General: male in moderate acute distress, fidgety and restless in the bed Nutritional Appearance: well nourished and overweight Eyes: appearance normal, both eyes and all related structures; Alignment and Position: alignment normal and position normal Neck: No lymphadenopathy, no thyromegaly Resp: bilateral air entry equal, bilateral crackles heard Cardio: Regular rate, regular rhythm; Heart sounds: S1 normal heart sound present and S2 normal heart sound present GI: soft, nontender, no guarding, no hepatosplenomegaly : bladder normal to inspection, bladder normal to palpation, no renal angle tenderness Skin: no rashes or lesions noted and elasticity normal Neuro: Talks few words accurately what to the commands and placed No focal deficits, moves all extremities Objective Data Labs 08/27/25 05:01 08/27/25 05:01 Labs: Laboratory Results - last 24 hr 08/21/25 08/26/25 08/26/25 19:25 11:37 23:56 WBC RBC Hgb Hct MCV MCH MCHC RDW Plt Count MPV Immature Gran % (Auto) Neut % (Auto) Lymph % (Auto) [place] % (Auto) Eos % (Auto) Baso % (Auto) Lymph # (Auto) [place] # (Auto) Eos # (Auto) Baso # (Auto) Abs Immat Gran (auto) Absolute Neuts (auto) Absolute Nucleated RBC Nucleated RBC % (auto) VBG pH VBG pCO2 VBG pO2 VBG HCO3 VBG O2 Saturation VBG Base Excess Sodium Potassium Chloride Carbon Dioxide Anion Gap BUN Creatinine Estim Creat Clear Calc Estimated GFR POC Glucose 129 H 120 H Random Glucose Calcium Phosphorus Magnesium Total Bilirubin AST ALT Alkaline Phosphatase Total Protein Albumin Ur L.pneumophila Ag Not Detected 08/27/25 08/27/25 05:01 05:05 WBC 11.5 H RBC 3.22 L Hgb 10.1 L Hct 31.3 L MCV 97.2 MCH 31.4 MCHC 32.3 RDW 15.7 Plt Count 201 D MPV 9.5 Immature Gran % (Auto) 1.7 H Neut % (Auto) 76.6 H Lymph % (Auto) 13.4 L [place] % (Auto) 7.9 Eos % (Auto) 0.1 Baso % (Auto) 0.3 Lymph # (Auto) 1.5 [place] # (Auto) 0.9 Eos # (Auto) 0.0 Baso # (Auto) 0.0 Abs Immat Gran (auto) 0.20 H Absolute Neuts (auto) 8.8 H Absolute Nucleated RBC 0.000 Nucleated RBC % (auto) 0.0 VBG pH 7.42 VBG pCO2 40 VBG pO2 49 VBG HCO3 26 VBG O2 Saturation 76.0 VBG Base Excess 2.5 Sodium 154 H Potassium 3.2 L Chloride 118 H Carbon Dioxide 25 Anion Gap 14 BUN 16 Creatinine 1.50 H Estim Creat Clear Calc 58.3 Estimated GFR 46 POC Glucose Random Glucose 129 H Calcium 9.4 D Phosphorus 2.6 L Magnesium 2.7 H Total Bilirubin 0.5 AST 44 H ALT 26 Alkaline Phosphatase 119 H Total Protein 7.6 Albumin 3.8 Ur L.pneumophila Ag Microbiology Microbiology Results: Microbiology 08/21/25 20:09 Blood - Venous Blood Culture - Final No growth after 5 days. 08/21/25 19:25 Blood - Venous Blood Culture - Final No growth after 5 days. Progress Note: A&P Assessment and plan (1) Schizo affective schizophrenia: Status: Acute (2) Acute kidney failure: Status: Acute (3) VALERIE (acute kidney injury): Status: Acute (4) Septic shock: Status: Acute (5) Acute hypoxic respiratory failure: Status: Acute (6) Aspiration pneumonia: Status: Acute Plan 70-year-old male with PMH of schizoaffective disorder, seizures, COPD, CAD and cardiomyopathy, COPD,? sleep apnea, diabetes, GERD, hypertension, dysphagia living [place] [facility]) admitted on the night of 08/21/2025 due to altered sensorium leading to aspiration pneumonia and shock thought to be secondary to polypharmacy. Neuro: Acute encephalopathy possibly due to toxic metabolic encephalopathy from medications Had no significant effect with Precedex, we will switch to ketamine drip CT head did not show any acute intracranial changes; MRI of brain negative for any acute intracranial changes, has sinusitis and mastoiditis Continue lithium 300 mg b.i.d., lithium levels normal, clozapine dose changed to 100mg in AM and 200 at night by psych. Cardiac: Septic Shock: Resolved Respiratory: Acute hypoxemic respiratory failure due to aspiration pneumonia on high [place] needing 60% oxygen at 50L/min, still very critical high risk for reintubation Continue to closely monitor his respiratory status in the ICU robinul to decrease secretions. GI: will hold tube feeds due to high aspiration risks Renal: Acute hypernatremia: sodium 154 D5W was stopped yesterday, will restart at 100cc/hr. Acute kidney injury: Possibly secondary to hemodynamic changes and hypotension Creatinine plateaued around 1.4- 1.5 Closely monitor I's and Os Avoid nephrotoxic medications Heme: Chronic anemia, closely monitor H&H, transfuse for hemoglobin less than 7 grams/deciliter Drop in hemoglobin is dilation Endocrine: Blood sugars under control Sliding scale insulin as needed Infectious disease: Negative pancultures Continue Zosyn for aspiration pneumonia and sinusitis Musculoskeletal: Decubitus ulcer prevention protocol Lines: Peripheral Prophylaxis: Lovenox Quality Stroke Does the patient have a stroke diagnosis?: No VTE Prior VTE?: No VTE Risk Level:: Medical - moderate - high VTE Device Contraindication: N/A - Device Ordered VTE Drug Contraindication: N/A - Med Ordered
[2025-08-27] MEDS: Ketamine HCl 500 MG in 0.9 % Sodium Chloride 250 ML IVCONT (10:15)
[2025-08-27 12:11] LABS: Glucose, Whole Blood 120 mg/dL (60-115)
[2025-08-27] MEDS: Albuterol/Iprat 2.5/0.5MG 3 ML AMPUL.NEB INHALE ×2 (15:41→20:08)
[2025-08-27] MEDS: Valproic Acid (as Sodium Salt) 250 MG in Dextrose 5 % 50 ML 52.5 MG IV (17:15)
[2025-08-27 18:28] LABS: Glucose, Whole Blood 144 mg/dL (60-115)
--- NOTE | 2025-08-27 19:09 | PC.NURSE ---
patient agitated and very restless, Ketamine gtt started and increased as per Ordered Dr Hahn, with restlessness pain stated, Dilaudid 0.5mg Q4hr ordered and given with noted good effect, NG tube placement assessed via auscultation, PO meds crushed and given, purewick in place and draining clear yellow urine.
[2025-08-27 23:49] LABS: Glucose, Whole Blood 137 mg/dL (60-115)
[2025-08-28] VITALS (34 sets, daily range): BP systolic 76–155; BP diastolic 37–88; PULSE 86–143; RESP 16–36; TEMP 35.7–36.7; O2SAT 87–98; BMI 30.5
[2025-08-28] MEDS: Valproic Acid (as Sodium Salt) 250 MG in Dextrose 5 % 50 ML 52.5 MG IV ×3 (00:42→16:31)
[2025-08-28] MEDS: 0.9 % Sodium Chloride Flush 3 ML SYRINGE IVFLUSH ×4 (00:47→22:23)
[2025-08-28 04:56] LABS: VBG HCO3 29 mmol/L (22-26); VBG O2 % Saturation 91.0 %
[2025-08-28 04:57] LABS: Venous Blood Gas Refer to POC result
[2025-08-28 05:18] LABS: MANUAL DIFF FLAG NO
[2025-08-28 05:22] LABS: Hematocrit 28.7 % (42.0-52.0); Hemoglobin 9.0 g/dl (14.0-18.0); Imm Gran Abs Auto 0.21 X10*3/uL (0.00-0.03); Imm Gran Pct Auto 1.7 % (0.0-0.4); Lymphocytes Absolute Auto 1.3 X10*3/uL (1.2-4.9); Mean Corpuscular HGB Conc 31.4 g/dl (31.0-36.0); Mean Corpuscular Hemoglobin 31.1 pg (27.0-33.0); Mean Corpuscular Volume 99.3 fL (80.0-98.0); NRBC Abs Auto 0.000 X10*3/uL (0.0-0.012); NRBC Pct Auto 0.0 /100WBC (0.0-0.2); Platelet Count 178 X10*3/uL (160-400); Red Blood Count 2.89 X10*6/uL (4.60-5.80); White Blood Count 12.1 X10*3/uL (4.8-10.8)
[2025-08-28 05:40] LABS: Alanine Aminotransferase 21 U/L (0-40); Albumin Level 3.2 g/dL (3.5-5.0); Alkaline Phosphatase 92 U/L (39-117); Anion Gap 10 (12-20); Aspartate Amino Transferase 41 U/L (5-37); Blood Urea Nitrogen 16 mg/dL (9-16); Calcium 8.7 mg/dL (8.4-10.2); Carbon Dioxide 27 mmol/L (22-29); Chloride 119 mmol/L (96-108); Creatinine Clr Calc Pharmacy 58.2; Estimated Glomerular Filt Rate 47; Magnesium 2.7 mg/dL (1.6-2.6); Potassium 3.1 mmol/L (3.3-5.1); Sodium 153 mmol/L (135-145); Total Protein 7.0 g/dL (6.5-8.0)
[2025-08-28] MEDS: Albuterol/Iprat 2.5/0.5MG 3 ML AMPUL.NEB INHALE ×3 (07:34→19:14)
[2025-08-28] MEDS: Potassium Phosphate/NS 15 MMOL/250 ML PLAST..BAG 62.5 MMOL IV ×2 (08:04→12:07)
[2025-08-28] MEDS: Chlorhexidine Gluc Oral Rinse 15 ML MOUTHWASH BUCCAL (10:02)
[2025-08-28] MEDS: Nystatin Oral Susp 500,000 UNIT/5 ML ORAL.SUSP 200000 UNIT BUCCAL (10:02)
[2025-08-28] MEDS: Ketamine HCl 500 MG in 0.9 % Sodium Chloride 250 ML 5.2 MG IVCONT (10:08)
--- NOTE | 2025-08-28 11:07 | P.CNPS_ITS ---
History of Present Illness Date of Service: 08/28/25 Chief Complaint: Septic Shock Reason for Consult: medication re-evaluation HPI Narrative: Psych consults 08/22/25: Impression: If patient is on clozapine likely it is the only antipsychotic that has worked for him. For that reason it is very likely that patient would significantly decompensate without it. Clozapine means risk profile does include sedation, hyper secretion and aspiration pneumonia. Patient is on clozapine 400 mg q.h.s.. Registered Nurse Hh Case Manager recommends dividing up the dose into t.i.d. dosing to limit its sedating effects at bedtime decreasing any possible hypersalivation at bedtime. Adding glycopyrrolate to bedtime can also help mitigate risks of hypersalivation/aspiration pneumonia. That said, Patient does complain of insomnia, and dividing up clozapine dose will quite possibly exacerbate this issue for him. Plan: 1. break-up clozapine dosing Clozapine 100 mg daily Clozapine 100 mg at noon Clozapine 200 mg q.h.s. 2. Consider adding glycopyrrolate q.h.s. to lessen risk of Sialorrhea Today: spoke with patient's provider yesterday and started Depakote for agitation and restlessness. Currently on clozapine total daily dose 500 mg i.e. 100 mg higher than pre-admission. Observation is restless. Currently sedate. As per staff is clearly paranoid when he is awake and this is much worse at nighttime but also present during the day. Make statements that people are coming to get him and in a lot of distress. Lots of respiratory needs and is bordering on requiring re-intubation at times. Currently on ketamine infusion. We discussed increasing clozapine to 300 mg at bedtime and continuing 100 mg 3 times per day and Depakote which was scheduled yesterday. Depakote does appear to have helped with some of the restlessness and irritability. [facility] Medical History (Updated 08/24/25 @ 10:26 by Alex Wen MD) Lower extremity edema Combined pulmonary fibrosis and emphysema (CPFE) Nicotine dependence, cigarettes, uncomplicated History of non-ST elevation myocardial infarction (NSTEMI) Thoracic aortic aneurysm Resides in [facility] facility Supraventricular tachycardia Cardiomyopathy CAD (coronary artery disease) HTN (hypertension) GERD (gastroesophageal reflux disease) Diabetes Epilepsy Schizo affective schizophrenia Pulmonary fibrosis Nocturnal hypoxia BRITT (obstructive sleep apnea) (~2017) COPD (chronic obstructive pulmonary disease) Surgical History History of colonoscopy Diagnostics Vital Signs (24Hr): Vital Signs - 24 hr 08/27/25 11:20 08/27/25 12:00 08/27/25 13:00 Temperature 97.5 F Pulse Rate 116 H 123 H Respiratory Rate 30 H 20 39 H Blood Pressure 151/78 H 151/78 H Pulse Oximetry 90 L 91 L Oxygen Delivery Method High Flow Nasal Cannula Oxymask High Flow Nasal Cannula Oxymask Oxygen Flow Rate 50 50 Fraction of Inspired Oxygen 60 60 08/27/25 14:00 08/27/25 15:00 08/27/25 15:49 Temperature Pulse Rate 123 H 120 H Respiratory Rate 29 H 24 H 24 H Blood Pressure 144/86 H 132/81 Pulse Oximetry 90 L 92 Oxygen Delivery Method High Flow Nasal Cannula Oxymask High Flow Nasal Cannula Oxygen Flow Rate 50 50 Fraction of Inspired Oxygen 60 60 08/27/25 16:00 08/27/25 16:02 08/27/25 17:00 Temperature 98.8 F Pulse Rate 121 H 118 H 122 H Respiratory Rate 63 H 24 H 28 H Blood Pressure 106/45 L 155/84 H Pulse Oximetry 92 93 Oxygen Delivery Method High Flow Nasal Cannula Oxymask High Flow Nasal Cannula Oxygen Flow Rate 50 55 Fraction of Inspired Oxygen 60 85 08/27/25 18:00 08/27/25 19:00 08/27/25 19:56 Temperature Pulse Rate 126 H 122 H 121 H Respiratory Rate 26 H 32 H 25 H Blood Pressure 139/75 146/80 H 151/79 H Pulse Oximetry 94 92 93 Oxygen Delivery Method High Flow Nasal Cannula Oxymask High Flow Nasal Cannula High Flow Nasal Cannula Oxygen Flow Rate 50 50 50 Fraction of Inspired Oxygen 60 60 75 08/27/25 20:09 08/27/25 20:09 08/27/25 20:59 Temperature 97.0 F Pulse Rate 121 H 116 H Respiratory Rate 25 H 25 H 25 H Blood Pressure 135/76 Pulse Oximetry 99 Oxygen Delivery Method High Flow Nasal Cannula Oxygen Flow Rate 55 Fraction of Inspired Oxygen 75 08/27/25 22:00 08/27/25 23:00 08/28/25 00:00 Temperature 97.1 F Pulse Rate 117 H 119 H 122 H Respiratory Rate 30 H 25 H 25 H Blood Pressure 137/79 133/79 133/88 Pulse Oximetry 90 L 96 93 Oxygen Delivery Method High Flow Nasal Cannula High Flow Nasal Cannula Oxymask High Flow Nasal Cannula Oxymask Oxygen Flow Rate 55 55 55 Fraction of Inspired Oxygen 75 75 75 08/28/25 00:37 08/28/25 01:00 08/28/25 01:59 Temperature Pulse Rate 121 H 117 H Respiratory Rate 25 H 26 H 24 H Blood Pressure 155/85 H 154/80 H Pulse Oximetry 90 L 93 Oxygen Delivery Method High Flow Nasal Cannula Oxymask High Flow Nasal Cannula Oxymask Oxygen Flow Rate 55 55 Fraction of Inspired Oxygen 70 70 08/28/25 03:00 08/28/25 04:00 08/28/25 04:00 Temperature 97.5 F Pulse Rate 121 H 115 H Respiratory Rate 31 H 25 H 19 Blood Pressure 139/77 142/80 H Pulse Oximetry 92 98 Oxygen Delivery Method High Flow Nasal Cannula High Flow Nasal Cannula Oxymask Oxygen Flow Rate 55 55 Fraction of Inspired Oxygen 70 70 08/28/25 05:00 08/28/25 06:00 08/28/25 07:00 Temperature Pulse Rate 121 H 117 H 112 H Respiratory Rate 19 22 H 24 H Blood Pressure 144/77 H 130/77 147/78 H Pulse Oximetry 89 L 95 91 L Oxygen Delivery Method High Flow Nasal Cannula Oxymask High Flow Nasal Cannula Oxymask High Flow Nasal Cannula Oxymask Oxygen Flow Rate 55 55 55 Fraction of Inspired Oxygen 70 70 70 08/28/25 07:37 08/28/25 07:38 08/28/25 07:51 Temperature 98.0 F Pulse Rate 120 H 129 H Respiratory Rate 24 H 24 H 29 H Blood Pressure 149/79 H Pulse Oximetry 87 L Oxygen Delivery Method High Flow Nasal Cannula Oxymask Oxygen Flow Rate 50 Fraction of Inspired Oxygen 70 08/28/25 08:54 08/28/25 09:51 08/28/25 10:50 Temperature Pulse Rate 124 H 123 H 122 H Respiratory Rate 25 H 30 H 27 H Blood Pressure 113/74 111/81 122/71 Pulse Oximetry 92 91 L 94 Oxygen Delivery Method High Flow Nasal Cannula Oxymask High Flow Nasal Cannula Oxymask High Flow Nasal Cannula Oxymask Oxygen Flow Rate 55 55 50 Fraction of Inspired Oxygen 70 70 100 BMI result Body Mass Index 30.5 Labs 08/28/25 04:46 08/28/25 12:25 Labs: Laboratory Results - last 48 hr 08/21/25 08/26/25 08/26/25 19:25 11:37 23:56 WBC RBC Hgb Hct MCV MCH MCHC RDW Plt Count MPV Immature Gran % (Auto) Neut % (Auto) Lymph % (Auto) [place] % (Auto) Eos % (Auto) Baso % (Auto) Lymph # (Auto) [place] # (Auto) Eos # (Auto) Baso # (Auto) Abs Immat Gran (auto) Absolute Neuts (auto) Absolute Nucleated RBC Nucleated RBC % (auto) VBG pH VBG pCO2 VBG pO2 VBG HCO3 VBG O2 Saturation VBG Base Excess Sodium Potassium Chloride Carbon Dioxide Anion Gap BUN Creatinine Estim Creat Clear Calc Estimated GFR POC Glucose 129 H 120 H Random Glucose Calcium Phosphorus Magnesium Total Bilirubin AST ALT Alkaline Phosphatase Total Protein Albumin Ur L.pneumophila Ag Not Detected 08/27/25 08/27/25 08/27/25 05:01 05:05 12:05 WBC 11.5 H RBC 3.22 L Hgb 10.1 L Hct 31.3 L MCV 97.2 MCH 31.4 MCHC 32.3 RDW 15.7 Plt Count 201 D MPV 9.5 Immature Gran % (Auto) 1.7 H Neut % (Auto) 76.6 H Lymph % (Auto) 13.4 L [place] % (Auto) 7.9 Eos % (Auto) 0.1 Baso % (Auto) 0.3 Lymph # (Auto) 1.5 [place] # (Auto) 0.9 Eos # (Auto) 0.0 Baso # (Auto) 0.0 Abs Immat Gran (auto) 0.20 H Absolute Neuts (auto) 8.8 H Absolute Nucleated RBC 0.000 Nucleated RBC % (auto) 0.0 VBG pH 7.42 VBG pCO2 40 VBG pO2 49 VBG HCO3 26 VBG O2 Saturation 76.0 VBG Base Excess 2.5 Sodium 154 H Potassium 3.2 L Chloride 118 H Carbon Dioxide 25 Anion Gap 14 BUN 16 Creatinine 1.50 H Estim Creat Clear Calc 58.3 Estimated GFR 46 POC Glucose 120 H Random Glucose 129 H Calcium 9.4 D Phosphorus 2.6 L Magnesium 2.7 H Total Bilirubin 0.5 AST 44 H ALT 26 Alkaline Phosphatase 119 H Total Protein 7.6 Albumin 3.8 Ur L.pneumophila Ag 08/27/25 08/27/25 08/28/25 17:57 23:15 04:46 WBC 12.1 H RBC 2.89 L Hgb 9.0 L Hct 28.7 L MCV 99.3 H MCH 31.1 MCHC 31.4 RDW 15.6 Plt Count 178 MPV 9.4 Immature Gran % (Auto) 1.7 H Neut % (Auto) 80.1 H Lymph % (Auto) 11.1 L [place] % (Auto) 6.8 Eos % (Auto) 0.0 Baso % (Auto) 0.3 Lymph # (Auto) 1.3 [place] # (Auto) 0.8 Eos # (Auto) 0.0 Baso # (Auto) 0.0 Abs Immat Gran (auto) 0.21 H Absolute Neuts (auto) 9.7 H Absolute Nucleated RBC 0.000 Nucleated RBC % (auto) 0.0 VBG pH VBG pCO2 VBG pO2 VBG HCO3 VBG O2 Saturation VBG Base Excess Sodium 153 H Potassium 3.1 L Chloride 119 H Carbon Dioxide 27 Anion Gap 10 L BUN 16 Creatinine 1.48 H Estim Creat Clear Calc 58.2 Estimated GFR 47 POC Glucose 144 H 137 H Random Glucose 150 H Calcium 8.7 D Phosphorus 2.4 L Magnesium 2.7 H Total Bilirubin 0.5 AST 41 H ALT 21 Alkaline Phosphatase 92 Total Protein 7.0 Albumin 3.2 L Ur L.pneumophila Ag 08/28/25 04:52 WBC RBC Hgb Hct MCV MCH MCHC RDW Plt Count MPV Immature Gran % (Auto) Neut % (Auto) Lymph % (Auto) [place] % (Auto) Eos % (Auto) Baso % (Auto) Lymph # (Auto) [place] # (Auto) Eos # (Auto) Baso # (Auto) Abs Immat Gran (auto) Absolute Neuts (auto) Absolute Nucleated RBC Nucleated RBC % (auto) VBG pH 7.42 VBG pCO2 44 VBG pO2 68 VBG HCO3 29 H VBG O2 Saturation 91.0 VBG Base Excess 4.5 Sodium Potassium Chloride Carbon Dioxide Anion Gap BUN Creatinine Estim Creat Clear Calc Estimated GFR POC Glucose Random Glucose Calcium Phosphorus Magnesium Total Bilirubin AST ALT Alkaline Phosphatase Total Protein Albumin Ur L.pneumophila Ag Imaging Radiology Impressions: ITS Impressions Chest X-Ray 08/22/25 10:02 IMPRESSION: 1. Interstitial and alveolar opacities throughout both lungs, with patchy confluent opacities in the bilateral right greater than left lung bases. Findings have mildly worsened since 08/21/2025 exam. 2. Well-positioned NG tube. Electronically signed by: Ezra Muhammad MD 08/22/2025 10:26 AM EDT RP Mental Status Exam Mental Status Exam Narrative: In bed. Breathing assistance. Restless. Today. Has been paranoid as per staff when more awake Medications Medications Current Medications Albuterol/Ipratropium (Albuterol/Iprat 2.5/0.5mg 3 Ml Ampul.Neb) 3 ml INHALE RQ6H WHILE AWAKE [facility] Last Admin: 08/28/25 07:34 Dose: 3 ml Chlorhexidine Gluconate (Chlorhexidine Gluc Oral Rinse 15 Ml Mouthwash) 15 ml BUCCAL TID SHAINA Last Admin: 08/28/25 10:02 Dose: 15 ml Clozapine (Clozapine 100 Mg Tablet) 200 mg PO BEDTIME SHAINA Last Admin: 08/27/25 21:53 Dose: 200 mg Clozapine (Clozapine 100 Mg Tablet) 100 mg PO TIDAC SHAINA Last Admin: 08/28/25 08:04 Dose: 100 mg Enoxaparin Sodium (Enoxaparin Sodium 40 Mg/0.4 Ml Syringe) 40 mg SUBCUT Q24H SHAINA Last Admin: 08/28/25 10:02 Dose: 40 mg Glycopyrrolate (Glycopyrrolate 0.2 Mg/Ml Vial) 0.2 mg IVPUSH Q4H PRN PRN Reason: Secretions Last Admin: 08/28/25 10:52 Dose: 0.2 mg Hydromorphone HCl (Hydromorphone Hcl 0.5 Mg/0.5 Ml Syringe) 0.5 mg IVPUSH Q4H PRN; Protocol PRN Reason: Pain, Moderate(Pain Scale 4-6) Last Admin: 08/28/25 10:21 Dose: 0.5 mg Piperacillin Sod/Tazobactam (Sod 4.5 gm/ Sodium Chloride) 100 mls @ 200 mls/hr IV Q6H SHAINA Last Admin: 08/28/25 10:01 Dose: 200 mls/hr Dexmedetomidine HCl (Precedex) 400 mcg in 100 mls @ 0 mls/hr IVCONT .Q0M [facility]; Protocol Last Titration: 08/27/25 01:40 Dose: 0 mcg/kg/hr, 0 mls/hr Ketamine HCl 500 mg/ Sodium (Chloride) 255 mls @ 5.202 mls/hr IVCONT .Q24H [facility]; Protocol Last Admin: 08/28/25 10:08 Dose: 0.1 mg/kg/hr, 5.2 mls/hr Dextrose (D5w) 1,000 mls @ 100 mls/hr IVCONT .Q10H SHAINA Last Admin: 08/28/25 10:43 Dose: 100 mls/hr Valproic Acid 250 mg/ Dextrose 52.5 mls @ 52.5 mls/hr IV Q8H SHIANA Last Admin: 08/28/25 10:01 Dose: 52.5 mls/hr Potassium Phosphate (Kphos) 15 mmol in 250 mls @ 62.5 mls/hr IV Q4H [facility] Stop: 08/28/25 15:29 Last Admin: 08/28/25 08:04 Dose: 62.5 mls/hr [place] Carbonate ([place] Carbonate 300 Mg Capsule) 300 mg PO BID [facility] Last Admin: 08/28/25 10:02 Dose: 300 mg Nystatin (Nystatin Oral Susp 500,000 Unit/5 Ml Oral.Susp) 200,000 unit BUCCAL TID [facility]; Protocol Last Admin: 08/28/25 10:02 Dose: 200,000 unit Sodium Chloride (0.9 % Sodium Chloride Flush 3 Ml Syringe) 3 ml IVFLUSH QSHIFT [facility] Last Admin: 08/28/25 10:03 Dose: 3 ml Allergies Allergies Allergy/AdvReac Type Severity Reaction Status Date / Time divalproex sodium (Depakote) Allergy Severe Rash/Hives Unverified 08/21/25 19:01 gabapentin (Neurontin) Allergy Severe Rash/Hives Unverified 08/21/25 19:01 haloperidol (From HALDOL) Allergy Severe Rash/Hives Unverified 08/21/25 19:01 Assessment & Plan Assessment & Plan (1) Aspiration pneumonia: Status: Acute Code(s): J69.0 - Pneumonitis due to inhalation of food and vomit (2) Schizo affective schizophrenia: Status: Acute Code(s): F25.9 - Schizoaffective disorder, unspecified Plan 08/18/25: Impression: If patient is on clozapine likely it is the only antipsychotic that has worked for him. For that reason it is very likely that patient would significantly decompensate without it. Clozapine means risk profile does include sedation, hyper secretion and aspiration pneumonia. Patient is on clozapine 400 mg q.h.s.. Registered Nurse Hh Case Manager recommends dividing up the dose into t.i.d. dosing to limit its sedating effects at bedtime decreasing any possible hypersalivation at bedtime. Adding glycopyrrolate to bedtime can also help mitigate risks of hypersalivation/aspiration pneumonia. That said, Patient does complain of insomnia, and dividing up clozapine dose will quite possibly exacerbate this issue for him. Plan: 1. break-up clozapine dosing Clozapine 100 mg daily Clozapine 100 mg at noon Clozapine 200 mg q.h.s. 2. Consider adding glycopyrrolate q.h.s. to lessen risk of Sialorrhea 08/28/25: We discussed increasing clozapine to 300 mg at bedtime and continuing 100 mg 3 times per day and Depakote which was scheduled yesterday. Depakote does appear to have helped with some of the restlessness and irritability. Total time managing care of this patient today ____ minutes. Patient educated on: diagnosis, medication risk/benefits and medical condition Informed Consent: understands and further education needed
--- NOTE | 2025-08-28 11:17 | P.PNCC_ITS ---
Subjective Subjective Date of Service: 08/28/25 Interval History: Worsening respiratory status, increasing oxygen requirement to 100% FiO2 on high-flow. His switch to BiPAP support enough Critical Care Time (minutes): 35 Physical Exam 2 Vital Signs: Vital Signs: Last Vital Signs Temp 98.0 F 08/28/25 07:51 Pulse 122 H 08/28/25 10:50 Resp 27 H 08/28/25 11:10 BP 122/71 08/28/25 10:50 Pulse Ox 94 08/28/25 10:50 O2 Del Method High Flow Nasal C annula, Oxymask 08/28/25 10:50 O2 Flow Rate 50 08/28/25 10:50 FiO2 100 08/28/25 10:50 Oxygen Flow Rate 2.5 08/22/25 00:01 BMI result Body Mass Index 30.5 General: Elderly male in acute distress, ill appearing and tired appearing Nutritional Appearance: well nourished and overweight Eyes: appearance normal, both eyes and all related structures; Alignment and Position: alignment normal and position normal Neck: No lymphadenopathy, no thyromegaly Resp: bilateral air entry equal, bilateral crackles heard Cardio: Regular rate, regular rhythm; Heart sounds: S1 normal heart sound present and S2 normal heart sound present GI: soft, nontender, no guarding, no hepatosplenomegaly : bladder normal to inspection, bladder normal to palpation, no renal angle tenderness Skin: no rashes or lesions noted and elasticity normal Neuro: Drowsy, confused, delusional and moves all extremities Objective Data Labs 08/28/25 04:46 08/28/25 12:25 Labs: Laboratory Results - last 24 hr 08/27/25 08/27/25 08/27/25 12:05 17:57 23:15 WBC RBC Hgb Hct MCV MCH MCHC RDW Plt Count MPV Immature Gran % (Auto) Neut % (Auto) Lymph % (Auto) [place] % (Auto) Eos % (Auto) Baso % (Auto) Lymph # (Auto) [place] # (Auto) Eos # (Auto) Baso # (Auto) Abs Immat Gran (auto) Absolute Neuts (auto) Absolute Nucleated RBC Nucleated RBC % (auto) VBG pH VBG pCO2 VBG pO2 VBG HCO3 VBG O2 Saturation VBG Base Excess Sodium Potassium Chloride Carbon Dioxide Anion Gap BUN Creatinine Estim Creat Clear Calc Estimated GFR POC Glucose 120 H 144 H 137 H Random Glucose Calcium Phosphorus Magnesium Total Bilirubin AST ALT Alkaline Phosphatase Total Protein Albumin 08/28/25 08/28/25 04:46 04:52 WBC 12.1 H RBC 2.89 L Hgb 9.0 L Hct 28.7 L MCV 99.3 H MCH 31.1 MCHC 31.4 RDW 15.6 Plt Count 178 MPV 9.4 Immature Gran % (Auto) 1.7 H Neut % (Auto) 80.1 H Lymph % (Auto) 11.1 L [place] % (Auto) 6.8 Eos % (Auto) 0.0 Baso % (Auto) 0.3 Lymph # (Auto) 1.3 [place] # (Auto) 0.8 Eos # (Auto) 0.0 Baso # (Auto) 0.0 Abs Immat Gran (auto) 0.21 H Absolute Neuts (auto) 9.7 H Absolute Nucleated RBC 0.000 Nucleated RBC % (auto) 0.0 VBG pH 7.42 VBG pCO2 44 VBG pO2 68 VBG HCO3 29 H VBG O2 Saturation 91.0 VBG Base Excess 4.5 Sodium 153 H Potassium 3.1 L Chloride 119 H Carbon Dioxide 27 Anion Gap 10 L BUN 16 Creatinine 1.48 H Estim Creat Clear Calc 58.2 Estimated GFR 47 POC Glucose Random Glucose 150 H Calcium 8.7 D Phosphorus 2.4 L Magnesium 2.7 H Total Bilirubin 0.5 AST 41 H ALT 21 Alkaline Phosphatase 92 Total Protein 7.0 Albumin 3.2 L Microbiology Microbiology Results: Microbiology 08/21/25 20:09 Blood - Venous Blood Culture - Final No growth after 5 days. 08/21/25 19:25 Blood - Venous Blood Culture - Final No growth after 5 days. Progress Note: A&P Assessment and plan (1) Schizo affective schizophrenia: Status: Acute (2) VALERIE (acute kidney injury): Status: Acute (3) Encephalopathy: Status: Acute (4) Acute hypoxic respiratory failure: Status: Acute Plan 70-year-old male with PMH of schizoaffective disorder, seizures, COPD, CAD and cardiomyopathy, COPD,? sleep apnea, diabetes, GERD, hypertension, dysphagia living in prison facility ([facility]) admitted on the night of 08/21/2025 due to altered sensorium leading to aspiration pneumonia and shock thought to be secondary to polypharmacy. He was intubated due to tachypnea and hypoxia on 08/23/2025 and extubated on 08/26/2025, currently very hypoxic on 100% FiO2 on high [place], he is a mouth breather. Neuro: Acute encephalopathy possibly due to toxic metabolic encephalopathy from medications On ketamine drip for agitation CT head did not show any acute intracranial changes; MRI of brain negative for any acute intracranial changes, has sinusitis and mastoiditis Continue sodium valproate 250mg IV TID, lithium 300 mg b.i.d., lithium levels normal, clozapine dose changed to 100mg in AM and 400 at night as per psych. Cardiac: Septic Shock: Resolved Respiratory: Acute hypoxemic respiratory failure due to aspiration pneumonia on high [place]anna needing 100% oxygen at 50L/min, very high risk for reintubation given ongoing aspiration and poor respiratory efforts Continue to closely monitor his respiratory status in the ICU robinul to decrease secretions. GI: will hold tube feeds due to high aspiration risks Renal: Acute hypernatremia: sodium 154 D5W increase to 150cc/hr. Acute kidney injury: Possibly secondary to hemodynamic changes and hypotension Creatinine plateaued around 1.4- 1.5 Closely monitor I's and Os Avoid nephrotoxic medications Acute hypokalemia: Acute hypophosphatemia: will replace as per protocol due to poor oral intake Heme: Chronic anemia, closely monitor H&H, transfuse for hemoglobin less than 7 grams/deciliter Drop in hemoglobin is dilation Endocrine: Blood sugars under control Sliding scale insulin as needed Infectious disease: Negative pancultures Continue Zosyn for aspiration pneumonia and sinusitis Musculoskeletal: Decubitus ulcer prevention protocol Lines: Peripheral Prophylaxis: Lovenox Quality Stroke Does the patient have a stroke diagnosis?: No VTE Prior VTE?: No VTE Risk Level:: Medical - moderate - high VTE Device Contraindication: N/A - Device Ordered VTE Drug Contraindication: N/A - Med Ordered
[2025-08-28 12:29] LABS: Glucose, Whole Blood 151 mg/dL (60-115)
[2025-08-28 13:28] LABS: Anion Gap 10 (12-20); Blood Urea Nitrogen 15 mg/dL (9-16); Calcium 8.7 mg/dL (8.4-10.2); Carbon Dioxide 28 mmol/L (22-29); Chloride 119 mmol/L (96-108); Creatinine Clr Calc Pharmacy 57.4; Estimated Glomerular Filt Rate 46; Potassium 3.2 mmol/L (3.3-5.1); Sodium 154 mmol/L (135-145)
[2025-08-28 17:34] LABS: Glucose, Whole Blood 132 mg/dL (60-115)
--- NOTE | 2025-08-28 19:16 | HE.ICUCC ---
ICU Critical Care Nursing Note ICU Day #:8 Neuro: Alert to self only. Impulsive, restless, frequent redirection needed, Ketamine gtt continues at 0.1 as ordered Cardiac: minimal edema to lower extremeties noted, patient Tachy up to 140's and sustaining, Metropolol ordered but then patients HR settled down 110-120's, not given as per provider to give if sustaining above 140's Resp: patient on High flow and oxymask at begining of shift and maxed out on highflow by midday transitioned to Bipap per provider, tolerating well. GI/: NG tube in right nare, used for PO meds only, External male catheter in place patient voids with encouraging Endocrine: POC as noted Integumentary/Musculoskeletal: Active ROM, pillows used repositioning and patient able to reposition self at times Psychosocial (family etc.): Family at bedside
[2025-08-28 23:31] LABS: Glucose, Whole Blood 154 mg/dL (60-115)
--- NOTE | 2025-08-28 23:52 | P.PNCC_ITS ---
Critical Care Event Note Summary Date of Service: 08/28/25 Code activated: No Narrative: This case had a high probability of a clinically significant, sudden, or life threatening deterioration of this patient's condition which required my full and direct attention, intervention and personal management. Critical Care Time (minutes): 30 Comment: 02/10/2025, the patient has sudden decompensation with obtundation, clinically tired using accessory muscles and barely responsive.? Barely satting 84% in an intermittent manner, unable to ventilate properly despite of BiPAP 14/8, 18, 60% , FiO2 was increased to 85%, although he seemed to be oxygenating between 88-90% with this new change he was completely unresponsive. I was able to briefly speak to Mikey who gave me the consent to intubate. Rapid sequence intubation turned into crash air way for we could not ventilate or oxygenate via ambu bag, there was resistance and patient continued to desat; upon manual inspection the patient appeared to have a mechanical obstruction in the posterior pharynx with thick dry mucus plug obstructing his airway and this is what made difficult the ventilation via Ambu bag. I manually removed dry thickened secretions in the posterior pharynx that were obstructing the airway with positive result as it was now easier to bag him; this was done until O2 sat reached 86%. Propofol was used for sedation and rocuronium to paralyze him, intubation was successful and ET tube was adjusted at 23 at the lip after obtaining capnography and equal breath sounds in both lungs. Please see procedure note for details.? ABG ordered.? The patient became hypotensive after induction, Levophed added. Post intubation ABG shows pH of 7.29, pCO2 62, PO2 106, bicarb 30. Currently on AC, 18, 450, 5, 100%. Requested to increase the PEEP pressure to 8 and titrate FiO2 slowly. This patient counter and care had a high probability of a clinically significant, sudden, or life threatening deterioration of this patient's condition which required my full and direct attention, intervention and personal management. Critical care time used for critical evaluation of this patient, diagnosis, treatment and coordination of care, review her records and documentation TOTAL CRITICAL CARE TIME??? 30 MIN . discussion and coordination with consultants, completely separate from any procedures performed. . Patient's care was discussed in detail with Dr. Hahn.? He is aware of all the above as well as the plan of care for this patient. .
--- NOTE | 2025-08-28 23:58 | W.PM.CCHP ---
Procedures Date of Service Date of Service: 08/29/25 Intubation Intubation Comments: Crash airway intubation was required after RSI attempted. Please see event note for details. Consent for Procedure: Elective - informed consent obtained (From patient family member Mikey over the phone) Time out performed: Yes Sedative: propofol Mg given: 100 Paralytic: rocuronium Mg given: 50 Laryngoscope: fiber optic video scope ET tube size: 7.5 ET tube uncuffed: Yes Tube secured depth (cm): 24 Tube secured location: lips Tube placement confirmation: visualized tube passing through cords (Mechanical obstruction of dry mucous plug was manually removed from the posterior pharynx right over the vocal cord area), equal breath sounds bilaterally, no breath sounds over epigastrium and confirmation by capnometry Patient tolerated procedure: well Intubation complications: none, hypoxia (Transient until mechanical obstruction was manually removed.) and other (Post intubation x-ray to my review shows the tip of the tube at about 5 cm above the misty, this was then advanced 1 cm and now 24 at the lip.)
[2025-08-29] VITALS (54 sets, daily range): BP systolic 91–141; BP diastolic 43–78; PULSE 104–122; RESP 12–27; TEMP 34.9–37; O2SAT 90–99; BMI 29.2
[2025-08-29 00:10] LABS: ABG HCO3 30 mmol/L (22-26); ABG O2 % Saturation 97.0 %
[2025-08-29] MEDS: Valproic Acid (as Sodium Salt) 250 MG in Dextrose 5 % 50 ML 52.5 MG IV ×3 (00:11→15:59)
--- NOTE | 2025-08-29 01:12 | P.ACPN_ITS ---
Advanced Care Planning Note Advanced Care Planning Note Discussed with: family member(s) (Sister Katina HCP ) Time spent (in minutes): 30 Narrative: I have had a very lengthy discussion of the recent events with the patient's sister Stwe Ambriz HCP who came back into the hospital after she had asked us to intubate him over the phone. Multiple questions were answered, best and worst case scenarios were discussed in detail.? The patient's life was discussed at length in relation to his illness and multiple clinical issues. At this point is their desire to know continued to expose the patient to invasive procedures or heroic measures.? Specifically they have decided that if the patient was to have anymore complications included but not limited to a cardiac arrest they would not want him to be resuscitated.? In addition if the patient is not able to be extubated, they would not want him to have a tracheostomy, peg tube placement or if he was to suffer renal insufficiency they would not want him to go through dialysis catheter placement for dialysis sessions. They are aware that the patient has had a really difficult life given his underlying schizophrenia and at this point they feel that they have done the best they could for him therefore they had asked me to change his code status to do not resuscitate, no more heroic measures or procedures and if the patient decompensates in the future to make him comfortable. At this point we will continue with medical care in the above-mentioned information will be passed on to the medical team.? The patient's nurse any signs aware of all the above and had discussed this with the family to serve as a witnessed of the above-mentioned conversation and decisions. 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 Critical care time used for critical evaluation of this patient, diagnosis, treatment and coordination of care, review her records and documentation TOTAL CRITICAL CARE TIME??30 MIN discussion and coordination with consultants, completely separate from any procedures performed. Patient's care was discussed in detail with Dr. Hahn.? He is aware of all the above as well as the plan of care for this patient. . Problems Discussed (1) Schizo affective schizophrenia: (2) VALERIE (acute kidney injury): (3) Encephalopathy: (4) Acute hypoxic respiratory failure:
[2025-08-29 04:46] LABS: VBG HCO3 30 mmol/L (22-26); VBG O2 % Saturation 95.0 %
[2025-08-29 05:08] LABS: MANUAL DIFF FLAG NO
[2025-08-29 05:08] LABS: Venous Blood Gas Refer to POC result
[2025-08-29 05:09] LABS: Hematocrit 27.0 % (42.0-52.0); Hemoglobin 8.2 g/dl (14.0-18.0); Imm Gran Abs Auto 0.10 X10*3/uL (0.00-0.03); Imm Gran Pct Auto 0.9 % (0.0-0.4); Lymphocytes Absolute Auto 1.3 X10*3/uL (1.2-4.9); Mean Corpuscular HGB Conc 30.4 g/dl (31.0-36.0); Mean Corpuscular Hemoglobin 30.9 pg (27.0-33.0); Mean Corpuscular Volume 101.9 fL (80.0-98.0); NRBC Abs Auto 0.000 X10*3/uL (0.0-0.012); NRBC Pct Auto 0.0 /100WBC (0.0-0.2); Platelet Count 164 X10*3/uL (160-400); Red Blood Count 2.65 X10*6/uL (4.60-5.80); White Blood Count 10.8 X10*3/uL (4.8-10.8)
[2025-08-29 05:28] LABS: Alanine Aminotransferase 16 U/L (0-40); Albumin Level 3.0 g/dL (3.5-5.0); Alkaline Phosphatase 88 U/L (39-117); Anion Gap 10 (12-20); Aspartate Amino Transferase 27 U/L (5-37); Blood Urea Nitrogen 13 mg/dL (9-16); Calcium 8.3 mg/dL (8.4-10.2); Carbon Dioxide 27 mmol/L (22-29); Chloride 114 mmol/L (96-108); Creatinine Clr Calc Pharmacy 50.8; Estimated Glomerular Filt Rate 41; Magnesium 2.7 mg/dL (1.6-2.6); Potassium 3.4 mmol/L (3.3-5.1); Sodium 148 mmol/L (135-145); Total Protein 6.8 g/dL (6.5-8.0)
[2025-08-29] MEDS: Albumin Human 25 % 100 ML 133.33 ML IV ×2 (06:12→09:26)
--- NOTE | 2025-08-29 06:27 | PC.NURSE ---
Assumed care 1900 pt alert to person only, restless and confused. SpO2 85-89% on bipap - see bipap assessment.? Approx 2330 pt obtunded and tachypneic - decision to intubate per MARIA GUADALUPE Menjivar. Propofol?100 mg and Rocuronium?50 mg administered for RSI. Propofol gtt administered for sedation. ETT #7.5, 24 cm?@ lip. On ACVC settings - see vent assessment. Cxr to confirm placement, ETT adjusted to 25 cm?@ lip per RT. ST on tele, HR 110-120s, MAP < 65, Levophed gtt administered/titrated per JAN. NGT to R nare, advanced 6 cm per cxr - placed to low intermittent wall suction per MARIA GUADALUPE. Pt retaining urine, bladder scanned for 700 ml. Straight cath performed, 600 ml clear yellow urine - due to void 1115. Hygiene provided, repositioned Q2H. Family updated by Darius LERMA, decision to make pt DNR per pt's sister - Katina.?
[2025-08-29 06:47] LABS: Glucose, Whole Blood 220 mg/dL (60-115)
[2025-08-29] MEDS: Calcium Gluconate/NaCl,Iso-Osm 1 GM/50 ML PLAST..BAG IV (06:48)
[2025-08-29] MEDS: Albuterol/Iprat 2.5/0.5MG 3 ML AMPUL.NEB INHALE ×4 (07:15→23:57)
--- NOTE | 2025-08-29 07:50 | PM.CCPN ---
Subjective Subjective Date of Service: 08/29/25 Interval History: worsening respiratory failure, intubated 08/28 PM; profound shock, now on vasopressors; goals of care discussion w/ sister 08/28 PM, now DNR/DNE Critical Care Time (minutes): 60 Physical Exam Vital Signs: Vital Signs: Last Vital Signs Temp 98.4 F 08/29/25 04:00 Pulse 108 H 08/29/25 07:23 Resp 18 08/29/25 07:23 BP 119/65 08/29/25 07:00 Pulse Ox 92 08/29/25 07:00 O2 Del Method Mechanical Ventil ation 08/29/25 07:00 O2 Flow Rate 55 08/28/25 14:00 FiO2 40 08/29/25 07:16 Oxygen Flow Rate 2.5 08/22/25 00:01 BMI result Body Mass Index 29.2 Const: Other: intubated, sedated; no appreciable spontaneous movements General: no acute distress HEENT: Head: Yes normal to inspection, No normocephalic and No atraumatic Eyes: General: appearance normal, both eyes and all related structures Neck: Neck: Yes normal visual inspection, Yes full ROM, Yes trachea midline and Yes supple Chest: Chest palpation & inspection: normal inspection of the chest Resp: Other: appreciable rhonchi throughout; no appreciable overt rales, wheezing Effort & Inspection: normal respiratory effort Cardio: Rate: tachycardic Rhythm: regular rhythm GI: Inspection: Yes normal to inspection, No Abdominal wall edema and No distended Skin: General skin exam: no rashes or lesions noted Neuro: General: tone normal Extrem: Other: appreciable 1+ pitting edema to bilateral shins Psych: Other: unable to assess Objective Data Labs 08/29/25 04:36 08/29/25 04:36 Labs: Laboratory Results - last 24 hr 08/28/25 08/28/25 08/28/25 12:04 12:25 17:19 WBC RBC Hgb Hct MCV MCH MCHC RDW Plt Count MPV Immature Gran % (Auto) Neut % (Auto) Lymph % (Auto) [place] % (Auto) Eos % (Auto) Baso % (Auto) Lymph # (Auto) [place] # (Auto) Eos # (Auto) Baso # (Auto) Abs Immat Gran (auto) Absolute Neuts (auto) Absolute Nucleated RBC Nucleated RBC % (auto) O2 Saturation ABG pH at Pt Temp ABG pCO2 at Pt Temp ABG pO2 at Pt Temp ABG HCO3 ABG Base Excess (Actual) VBG pH VBG pCO2 VBG pO2 VBG HCO3 VBG O2 Saturation VBG Base Excess Sodium 154 H Potassium 3.2 L Chloride 119 H Carbon Dioxide 28 Anion Gap 10 L BUN 15 Creatinine 1.50 H Estim Creat Clear Calc 57.4 Estimated GFR 46 POC Glucose 151 H 132 H Random Glucose 151 H Calcium 8.7 Phosphorus 3.3 Magnesium Total Bilirubin AST ALT Alkaline Phosphatase Total Protein Albumin 08/28/25 08/29/25 08/29/25 23:28 00:03 04:36 WBC 10.8 RBC 2.65 L Hgb 8.2 L Hct 27.0 L MCV 101.9 H MCH 30.9 MCHC 30.4 L RDW 16.0 Plt Count 164 MPV 10.0 Immature Gran % (Auto) 0.9 H Neut % (Auto) 81.5 H Lymph % (Auto) 11.8 L [place] % (Auto) 5.6 Eos % (Auto) 0.0 Baso % (Auto) 0.2 Lymph # (Auto) 1.3 [place] # (Auto) 0.6 Eos # (Auto) 0.0 Baso # (Auto) 0.0 Abs Immat Gran (auto) 0.10 H Absolute Neuts (auto) 8.8 H Absolute Nucleated RBC 0.000 Nucleated RBC % (auto) 0.0 O2 Saturation 97.0 ABG pH at Pt Temp 7.30 L ABG pCO2 at Pt Temp 62 H* ABG pO2 at Pt Temp 107 ABG HCO3 30 H ABG Base Excess (Actual) 3.4 VBG pH VBG pCO2 VBG pO2 VBG HCO3 VBG O2 Saturation VBG Base Excess Sodium 148 H Potassium 3.4 Chloride 114 H Carbon Dioxide 27 Anion Gap 10 L BUN 13 Creatinine 1.66 H Estim Creat Clear Calc 50.8 Estimated GFR 41 POC Glucose 154 H Random Glucose 246 H Calcium 8.3 L Phosphorus 4.6 H Magnesium 2.7 H Total Bilirubin 0.4 AST 27 ALT 16 Alkaline Phosphatase 88 Total Protein 6.8 Albumin 3.0 L 08/29/25 08/29/25 04:42 06:43 WBC RBC Hgb Hct MCV MCH MCHC RDW Plt Count MPV Immature Gran % (Auto) Neut % (Auto) Lymph % (Auto) [place] % (Auto) Eos % (Auto) Baso % (Auto) Lymph # (Auto) [place] # (Auto) Eos # (Auto) Baso # (Auto) Abs Immat Gran (auto) Absolute Neuts (auto) Absolute Nucleated RBC Nucleated RBC % (auto) O2 Saturation ABG pH at Pt Temp ABG pCO2 at Pt Temp ABG pO2 at Pt Temp ABG HCO3 ABG Base Excess (Actual) VBG pH 7.37 VBG pCO2 52 VBG pO2 79 VBG HCO3 30 H VBG O2 Saturation 95.0 VBG Base Excess 4.8 Sodium Potassium Chloride Carbon Dioxide Anion Gap BUN Creatinine Estim Creat Clear Calc Estimated GFR POC Glucose 220 H Random Glucose Calcium Phosphorus Magnesium Total Bilirubin AST ALT Alkaline Phosphatase Total Protein Albumin Microbiology Microbiology Results: Microbiology 08/21/25 20:09 Blood - Venous Blood Culture - Final No growth after 5 days. 08/21/25 19:25 Blood - Venous Blood Culture - Final No growth after 5 days. Progress Note: A&P Assessment and plan (1) Acute hypoxic respiratory failure: Status: Acute (2) Aspiration pneumonia: Status: Acute (3) COPD (chronic obstructive pulmonary disease): Status: Acute (4) Septic shock: Status: Acute Plan Patient is a 70 Y M w/ hypertension, diabetes mellitus, c/b CAD, cardiomyopathy, COPD, BRITT, epilepsy, and schizophrenia presenting?[facility] w/ encephalopathy, work-up suggestive of aspiration pneumonia c/b septic shock; ICU course c/b acute hypoxic respiratory failure, intubated 08/23, extubated 08/26, re-intubated 08/28 N: intubated, sedated on propofol gtt, wean as tolerated; epilepsy and schizophrenia, on valproic acid, lithium, and clozapine CV: shock, c/f septic shock, norepinephrine, vasopressin gtts, wean as tolerated R: acute hypoxic respiratory failure d/t aspiration pneumonia, intubated 08/23, extubated 08/26, re-intubated 08/28, wean as tolerated GI: NPO : acute renal insufficiency, to monitor renal indices; hypernatremia, on D5W gtt H: no acute issues; chemical DVT prophylaxis ID: aspiration pneumonia c/b septic shock, empiric vanc/zosyn E: to monitor hypo-/hyper-glycemia S: daily updates given to sister/HCP Quality Stroke Does the patient have a stroke diagnosis?: No VTE Prior VTE?: No VTE Risk Level:: Medical - moderate - high VTE Device Contraindication: N/A - Device Ordered VTE Drug Contraindication: N/A - Med Ordered
--- NOTE | 2025-08-29 09:13 | MHC.CLN ---
F/U PT IS RE-INTUBATED AND SEDATED CURRENTLY NPO DISCUSSED WITH MD-PLAN TO START TF WITH INCREASED WATER FLUSHES REVIEWED LABS NOTED SERUM NA 146 RECOMMEND GLUCERNA 1.2 @ MAX GOAL RATE 45ML/HR WITH 300ML FREE WATER FLUSHES Q 4 HRS TO PROVIDE 1296KCALS (2104KCALS WITH SEDATION; 23KCALS/KG), 65G PROTEIN, 2669ML TOTAL WATER FROM FORMULA AND FLUSHES (29ML/KG) MONITOR TOLERANCE AND LYTES SEE FULL ASSESSMENT
[2025-08-29] MEDS: vancomycin/NS 2,000 MG/500 ML PLAST..BAG 250 MG IV (09:42)
[2025-08-29 09:53] LABS: Free T4 (Free Thyroxine) 0.90 ng/dL (0.71-1.85)
[2025-08-29] MEDS: 0.9 % Sodium Chloride Flush 3 ML SYRINGE IVFLUSH ×3 (10:03→22:15)
--- NOTE | 2025-08-29 10:06 | PHA.PROG ---
Admission Date/Time: August 21, 2025 22:44 Indication: Other (septic shock?) Weight in k.6 kg Serum Creatinine - Last 168 Hours 08/22/25 08/23/25 08/24/25 20:46 04:53 04:50 Creatinine 1.20 1.19 1.44 H 08/25/25 08/25/25 08/26/25 05:42 20:16 04:57 Creatinine 1.47 H 1.48 H 1.49 H 08/27/25 08/28/25 08/28/25 05:01 04:46 12:25 Creatinine 1.50 H 1.48 H 1.50 H 08/29/25 04:36 Creatinine 1.66 H Estimated CrCl and GFR - Last 168 Hours 08/22/25 08/23/25 08/24/25 20:46 04:53 04:50 Estim Creat Clear Calc 72.1 74.0 61.1 Estimated GFR > 60 > 60 49 08/25/25 08/25/25 08/26/25 05:42 20:16 04:57 Estim Creat Clear Calc 59.5 59.1 58.7 Estimated GFR 47 47 47 08/27/25 08/28/25 08/28/25 05:01 04:46 12:25 Estim Creat Clear Calc 58.3 58.2 57.4 Estimated GFR 46 47 46 08/29/25 04:36 Estim Creat Clear Calc 50.8 Estimated GFR 41 Vancomycin Loading Dose: 2,000 mg Current Vancomycin Dosing Regimen: 1500 mg q24h Vancomycin Monitoring using AUC goal of 400 - 600 range with trough as surrogate marker: 595, 18.7 Date and Time for next Vancomycin Level to be drawn: 08/31 @ 0800 Pharmacist Comments on Vancomycin Plan: Vancomycin dosing will take advantage of [employer] as a clinical decision support tool that uses Bayesian modeling to calculate individual patient's pharmacokinetic parameters and forecast the patient's drug concentration time course with the target goal AUC 24 range of 400 - 600 mg/L/hr.
[2025-08-29] MEDS: Nystatin Oral Susp 500,000 UNIT/5 ML ORAL.SUSP 200000 UNIT BUCCAL ×3 (10:12→20:23)
[2025-08-29] MEDS: Chlorhexidine Gluc Oral Rinse 15 ML MOUTHWASH BUCCAL ×3 (10:12→20:23)
[2025-08-29 13:24] LABS: Glucose, Whole Blood 198 mg/dL (60-115)
[2025-08-29] MEDS: Hydrocortisone Sod Succ/PF 100 MG VIAL IVPUSH (14:03)
[2025-08-29] MEDS: Hydrocortisone Sod Succ/PF 100 MG VIAL 50 MG IVPUSH ×2 (14:03→18:04)
--- NOTE | 2025-08-29 14:16 | MHC.CM.PN ---
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 Pt is a [facility] resident of [facility]. CM to follow
--- NOTE | 2025-08-29 15:09 | PC.NURSE ---
Patient retaining urine. Due to void at 11:00 s/p straight cath at 0500 today. Bladder Scanned at 10:30 for 355mls. no intervention required until urine >260 per protocol. At approx 1200 bladder scanned for 814mls. patient yet to void spontaneously so straight cath performed for 700mls Patient DTV at 20:00.
[2025-08-29 18:00] LABS: Glucose, Whole Blood 208 mg/dL (60-115)
[2025-08-29 23:51] LABS: Glucose, Whole Blood 231 mg/dL (60-115)
[2025-08-30] VITALS (47 sets, daily range): BP systolic 98–131; BP diastolic 44–76; PULSE 71–125; RESP 12–28; TEMP 34.6–37.7; O2SAT 89–98; BMI 31.9
[2025-08-30] MEDS: Hydrocortisone Sod Succ/PF 100 MG VIAL 50 MG IVPUSH ×5 (00:03→23:57)
[2025-08-30] MEDS: Valproic Acid (as Sodium Salt) 250 MG in Dextrose 5 % 50 ML 52.5 MG IV ×3 (00:04→16:20)
[2025-08-30] MEDS: Albuterol/Iprat 2.5/0.5MG 3 ML AMPUL.NEB INHALE ×4 (04:54→23:49)
[2025-08-30 05:13] LABS: VBG HCO3 25 mmol/L (22-26); VBG O2 % Saturation 100.0 %
[2025-08-30 05:15] LABS: Venous Blood Gas Refer to POC result
[2025-08-30 05:48] LABS: MANUAL DIFF FLAG NO
[2025-08-30 05:50] LABS: Glucose, Whole Blood 217 mg/dL (60-115)
[2025-08-30 05:53] LABS: Hematocrit 24.9 % (42.0-52.0); Hemoglobin 7.6 g/dl (14.0-18.0); Imm Gran Abs Auto 0.26 X10*3/uL (0.00-0.03); Imm Gran Pct Auto 3.2 % (0.0-0.4); Lymphocytes Absolute Auto 0.8 X10*3/uL (1.2-4.9); Mean Corpuscular HGB Conc 30.5 g/dl (31.0-36.0); Mean Corpuscular Hemoglobin 30.6 pg (27.0-33.0); Mean Corpuscular Volume 100.4 fL (80.0-98.0); NRBC Abs Auto 0.020 X10*3/uL (0.0-0.012); NRBC Pct Auto 0.2 /100WBC (0.0-0.2); Platelet Count 154 X10*3/uL (160-400); Red Blood Count 2.48 X10*6/uL (4.60-5.80); White Blood Count 8.1 X10*3/uL (4.8-10.8)
[2025-08-30 06:05] LABS: Albumin Level 3.3 g/dL (3.5-5.0)
[2025-08-30 06:09] LABS: Anion Gap 14 (12-20); Blood Urea Nitrogen 16 mg/dL (9-16); Calcium 8.7 mg/dL (8.4-10.2); Carbon Dioxide 23 mmol/L (22-29); Chloride 111 mmol/L (96-108); Creatinine Clr Calc Pharmacy 38.0; Estimated Glomerular Filt Rate 30; Magnesium 2.8 mg/dL (1.6-2.6); Potassium 3.2 mmol/L (3.3-5.1); Sodium 145 mmol/L (135-145)
[2025-08-30 06:10] LABS: Lithium 0.46 mmol/L (0.60-1.20)
[2025-08-30] MEDS: Albumin Human 25 % 50 ML 100 ML IV (06:41)
[2025-08-30] MEDS: 0.9 % Sodium Chloride Flush 3 ML SYRINGE IVFLUSH ×3 (07:47→23:58)
[2025-08-30] MEDS: Chlorhexidine Gluc Oral Rinse 15 ML MOUTHWASH BUCCAL ×3 (07:48→20:32)
[2025-08-30] MEDS: Furosemide 40 MG/4 ML VIAL IVPUSH ×2 (07:48→17:11)
[2025-08-30] MEDS: Nystatin Oral Susp 500,000 UNIT/5 ML ORAL.SUSP 200000 UNIT BUCCAL ×3 (07:48→20:48)
[2025-08-30] MEDS: Potassium Chloride Packet 20 MEQ PACKET 40 MEQ PO (07:48)
--- NOTE | 2025-08-30 07:57 | P.PNCC_ITS ---
Subjective Subjective Date of Service: 08/30/25 Interval History: no significant overnight events Critical Care Time (minutes): 60 Physical Exam 2 Vital Signs: Vital Signs: Last Vital Signs Temp 96.9 F 08/30/25 04:00 Pulse 96 08/30/25 07:00 Resp 18 08/30/25 07:00 BP 113/61 08/30/25 07:00 Pulse Ox 92 08/30/25 07:29 O2 Del Method Mechanical Ventil ation 08/30/25 07:00 O2 Flow Rate 55 08/28/25 14:00 FiO2 40 08/30/25 07:29 Oxygen Flow Rate 2.5 08/22/25 00:01 BMI result Body Mass Index 31.9 Const: Other: intubated, sedated; no appreciable spontaneous movements General: no acute distress and well developed HEENT: Head: Yes normal to inspection, Yes normocephalic and Yes atraumatic Eyes: General: appearance normal, both eyes and all related structures Neck: Neck: Yes normal visual inspection, Yes full ROM, Yes no meningeal signs, Yes trachea midline and Yes supple Chest: Chest palpation & inspection: normal inspection of the chest Resp: Other: no appreciable overt rales, rhonchi, wheezing Effort & Inspection: normal respiratory effort Cardio: Rate: regular rate Rhythm: regular rhythm GI: Inspection: Yes normal to inspection, No Abdominal wall edema and No distended Palpation (GI): Soft to palpation, not firm, nontender, no guarding and not rigid Skin: General skin exam: no rashes or lesions noted Neuro: General: tone normal and no meningeal signs Extrem: Other: appreciable 1+ pitting edema to bilateral shins General: Yes normal to inspection, Yes full ROM and Yes capillary refill normal Psych: Other: unable to assess Objective Data Labs 08/30/25 05:06 08/30/25 05:06 Labs: Laboratory Results - last 24 hr 08/29/25 08/29/25 08/29/25 08:26 13:21 17:55 WBC RBC Hgb Hct MCV MCH MCHC RDW Plt Count MPV Immature Gran % (Auto) Neut % (Auto) Lymph % (Auto) [place] % (Auto) Eos % (Auto) Baso % (Auto) Lymph # (Auto) [place] # (Auto) Eos # (Auto) Baso # (Auto) Abs Immat Gran (auto) Absolute Neuts (auto) Absolute Nucleated RBC Nucleated RBC % (auto) Hold Purple Top SEE NOTE VBG pH VBG pCO2 VBG pO2 VBG HCO3 VBG O2 Saturation VBG Base Excess Sodium Potassium Chloride Carbon Dioxide Anion Gap BUN Creatinine Estim Creat Clear Calc Estimated GFR POC Glucose 198 H 208 H Random Glucose Calcium Phosphorus Magnesium Albumin TSH 0.10 L Free T4 0.90 [place] 08/29/25 08/30/25 08/30/25 23:47 05:06 05:10 WBC 8.1 RBC 2.48 L Hgb 7.6 L Hct 24.9 L MCV 100.4 H MCH 30.6 MCHC 30.5 L RDW 16.4 H Plt Count 154 L MPV 9.9 Immature Gran % (Auto) 3.2 H Neut % (Auto) 83.9 H Lymph % (Auto) 10.0 L [place] % (Auto) 2.7 Eos % (Auto) 0.0 Baso % (Auto) 0.2 Lymph # (Auto) 0.8 L [place] # (Auto) 0.2 Eos # (Auto) 0.0 Baso # (Auto) 0.0 Abs Immat Gran (auto) 0.26 H Absolute Neuts (auto) 6.8 Absolute Nucleated RBC 0.020 H Nucleated RBC % (auto) 0.2 Hold Purple Top VBG pH 7.34 VBG pCO2 46 VBG pO2 136 VBG HCO3 25 VBG O2 Saturation 100.0 VBG Base Excess -0.1 Sodium 145 Potassium 3.2 L Chloride 111 H Carbon Dioxide 23 Anion Gap 14 BUN 16 Creatinine 2.22 H Estim Creat Clear Calc 38.0 Estimated GFR 30 POC Glucose 231 H Random Glucose 240 H Calcium 8.7 Phosphorus 4.6 H Magnesium 2.8 H Albumin 3.3 L TSH Free T4 [place] 0.46 L 08/30/25 05:48 WBC RBC Hgb Hct MCV MCH MCHC RDW Plt Count MPV Immature Gran % (Auto) Neut % (Auto) Lymph % (Auto) [place] % (Auto) Eos % (Auto) Baso % (Auto) Lymph # (Auto) [place] # (Auto) Eos # (Auto) Baso # (Auto) Abs Immat Gran (auto) Absolute Neuts (auto) Absolute Nucleated RBC Nucleated RBC % (auto) Hold Purple Top VBG pH VBG pCO2 VBG pO2 VBG HCO3 VBG O2 Saturation VBG Base Excess Sodium Potassium Chloride Carbon Dioxide Anion Gap BUN Creatinine Estim Creat Clear Calc Estimated GFR POC Glucose 217 H Random Glucose Calcium Phosphorus Magnesium Albumin TSH Free T4 [place] Microbiology Microbiology Results: Microbiology 08/21/25 20:09 Blood - Venous Blood Culture - Final No growth after 5 days. 08/21/25 19:25 Blood - Venous Blood Culture - Final No growth after 5 days. Progress Note: A&P Assessment and plan (1) Acute hypoxic respiratory failure: Status: Acute (2) Aspiration pneumonia: Status: Acute (3) Septic shock: Status: Acute Plan Patient is a 70 Y M w/ hypertension, diabetes mellitus, c/b CAD, cardiomyopathy, COPD, BRITT, epilepsy, and schizophrenia presenting?[facility], work-up suggestive of aspiration pneumonia c/b septic shock; ICU course c/b acute hypoxic respiratory failure, intubated 08/23, extubated 08/26, re-intubated 08/28 N: intubated, sedated on propofol gtt, wean as tolerated; epilepsy and schizophrenia, on valproic acid, lithium, and clozapine CV: shock, c/f septic shock, norepinephrine gtt, wean as tolerated R: acute hypoxic respiratory failure d/t aspiration pneumonia, intubated 08/23, extubated 08/26, re-intubated 08/28, wean as tolerated GI: tube feeds : acute renal insufficiency, to monitor renal indices H: no acute issues; chemical DVT prophylaxis ID: aspiration pneumonia c/b septic shock, empiric vanc/zosyn E: to monitor hypo-/hyper-glycemia S: daily updates given to sister/HCP Quality Stroke Does the patient have a stroke diagnosis?: No VTE Prior VTE?: No VTE Risk Level:: Medical - moderate - high VTE Device Contraindication: N/A - Device Ordered VTE Drug Contraindication: N/A - Med Ordered
[2025-08-30 11:50] LABS: Glucose, Whole Blood 193 mg/dL (60-115)
[2025-08-30 14:46] LABS: OBS Int Ctl Valid YES; OBS1 NEGATIVE (NEGATIVE)
[2025-08-30 17:33] LABS: Glucose, Whole Blood 180 mg/dL (60-115)
[2025-08-31] VITALS (41 sets, daily range): BP systolic 99–142; BP diastolic 40–64; PULSE 117–129; RESP 15–28; TEMP 34.5–38.5; O2SAT 90–98; BMI 31.7
[2025-08-31 00:07] LABS: Glucose, Whole Blood 117 mg/dL (60-115)
[2025-08-31] MEDS: Valproic Acid (as Sodium Salt) 250 MG in Dextrose 5 % 50 ML 52.5 MG IV ×3 (01:26→17:24)
[2025-08-31 05:05] LABS: VBG HCO3 30 mmol/L (22-26); VBG O2 % Saturation 97.0 %
[2025-08-31] MEDS: Albuterol/Iprat 2.5/0.5MG 3 ML AMPUL.NEB INHALE ×3 (05:24→15:48)
[2025-08-31 05:31] LABS: MANUAL DIFF FLAG NO
[2025-08-31 05:35] LABS: Hematocrit 23.6 % (42.0-52.0); Hemoglobin 7.6 g/dl (14.0-18.0); Imm Gran Abs Auto 0.44 X10*3/uL (0.00-0.03); Imm Gran Pct Auto 3.6 % (0.0-0.4); Lymphocytes Absolute Auto 0.8 X10*3/uL (1.2-4.9); Mean Corpuscular HGB Conc 32.2 g/dl (31.0-36.0); Mean Corpuscular Hemoglobin 31.4 pg (27.0-33.0); Mean Corpuscular Volume 97.5 fL (80.0-98.0); NRBC Abs Auto 0.020 X10*3/uL (0.0-0.012); NRBC Pct Auto 0.2 /100WBC (0.0-0.2); Platelet Count 192 X10*3/uL (160-400); Red Blood Count 2.42 X10*6/uL (4.60-5.80); White Blood Count 12.4 X10*3/uL (4.8-10.8)
[2025-08-31] MEDS: Hydrocortisone Sod Succ/PF 100 MG VIAL 50 MG IVPUSH ×3 (05:41→17:24)
[2025-08-31 05:52] LABS: Albumin Level 3.2 g/dL (3.5-5.0)
[2025-08-31 05:56] LABS: Anion Gap 14 (12-20); Blood Urea Nitrogen 24 mg/dL (9-16); Calcium 8.4 mg/dL (8.4-10.2); Carbon Dioxide 26 mmol/L (22-29); Chloride 115 mmol/L (96-108); Creatinine Clr Calc Pharmacy 32.3; Estimated Glomerular Filt Rate 23; Magnesium 2.8 mg/dL (1.6-2.6); Potassium 3.3 mmol/L (3.3-5.1); Sodium 152 mmol/L (135-145)
[2025-08-31 06:18] LABS: Glucose, Whole Blood 145 mg/dL (60-115)
[2025-08-31 07:13] LABS: Venous Blood Gas Refer to POC result
[2025-08-31] MEDS: 0.9 % Sodium Chloride Flush 3 ML SYRINGE IVFLUSH ×3 (08:26→23:08)
[2025-08-31] MEDS: Albumin Human 25 % 50 ML 100 ML IV ×2 (08:26→10:06)
[2025-08-31] MEDS: Chlorhexidine Gluc Oral Rinse 15 ML MOUTHWASH BUCCAL ×3 (08:27→21:27)
[2025-08-31] MEDS: Furosemide 40 MG/4 ML VIAL IVPUSH ×2 (08:27→17:24)
[2025-08-31] MEDS: Nystatin Oral Susp 500,000 UNIT/5 ML ORAL.SUSP 200000 UNIT BUCCAL ×3 (08:27→21:28)
[2025-08-31] MEDS: Potassium Chloride Packet 20 MEQ PACKET 40 MEQ PO (08:27)
--- NOTE | 2025-08-31 08:53 | HE.PHANOTE ---
Susan Baer Pt in [place], dose decreased and scheduled for 2299. Projected to have a therapeutic level by then, will check at 2100 to be sure it is safe to continue.
--- NOTE | 2025-08-31 09:44 | PM.CCPN ---
Subjective Subjective Date of Service: 08/31/25 Interval History: no significant overnight events Critical Care Time (minutes): 60 Physical Exam Vital Signs: Vital Signs: Last Vital Signs Temp 100.2 F 08/31/25 08:00 Pulse 121 H 08/31/25 09:11 Resp 18 08/31/25 08:00 BP 126/64 08/31/25 09:11 Pulse Ox 90 L 08/31/25 08:00 O2 Del Method Mechanical Ventil ation 08/31/25 08:00 O2 Flow Rate 55 08/28/25 14:00 FiO2 40 08/31/25 08:04 Oxygen Flow Rate 2.5 08/22/25 00:01 BMI result Body Mass Index 31.7 Const: Other: intubated, minimally sedated; no appreciable spontaneous movements General: comfortable, no acute distress and well developed HEENT: Head: Yes normal to inspection, Yes normocephalic and Yes atraumatic Eyes: General: appearance normal, both eyes and all related structures Neck: Neck: Yes normal visual inspection, Yes full ROM, Yes no meningeal signs, Yes trachea midline and Yes supple Chest: Chest palpation & inspection: normal inspection of the chest Resp: Other: no appreciable overt rales, rhonchi, wheezing Effort & Inspection: normal respiratory effort Cardio: Rate: tachycardic Rhythm: regular rhythm GI: Inspection: Yes normal to inspection, No Abdominal wall edema and No distended Palpation (GI): Soft to palpation, not firm, nontender, no guarding and not rigid Skin: General skin exam: no rashes or lesions noted Neuro: General: tone normal and no meningeal signs Extrem: General: Yes normal to inspection, Yes full ROM, Yes capillary refill normal and Yes no clubbing, cyanosis or edema Psych: Other: unable to assess Objective Data Labs 08/31/25 04:54 08/31/25 04:55 Labs: Laboratory Results - last 24 hr 08/30/25 08/30/25 08/30/25 11:30 12:29 14:19 WBC RBC Hgb Hct MCV MCH MCHC RDW Plt Count MPV Immature Gran % (Auto) Neut % (Auto) Lymph % (Auto) [place] % (Auto) Eos % (Auto) Baso % (Auto) Lymph # (Auto) [place] # (Auto) Eos # (Auto) Baso # (Auto) Abs Immat Gran (auto) Absolute Neuts (auto) Absolute Nucleated RBC Nucleated RBC % (auto) VBG pH VBG pCO2 VBG pO2 VBG HCO3 VBG O2 Saturation VBG Base Excess Sodium Potassium Chloride Carbon Dioxide Anion Gap BUN Creatinine Estim Creat Clear Calc Estimated GFR POC Glucose 193 H Random Glucose Calcium Phosphorus Magnesium Albumin Stool Occult Blood NEGATIVE Random Vancomycin Blood Type A Positive Antibody Screen NEGATIVE 08/30/25 08/31/25 08/31/25 17:22 00:01 04:54 WBC 12.4 H RBC 2.42 L Hgb 7.6 L Hct 23.6 L MCV 97.5 MCH 31.4 MCHC 32.2 RDW 16.5 H Plt Count 192 MPV 10.1 Immature Gran % (Auto) 3.6 H Neut % (Auto) 86.1 H Lymph % (Auto) 6.8 L [place] % (Auto) 3.3 Eos % (Auto) 0.1 Baso % (Auto) 0.1 Lymph # (Auto) 0.8 L [place] # (Auto) 0.4 Eos # (Auto) 0.0 Baso # (Auto) 0.0 Abs Immat Gran (auto) 0.44 H Absolute Neuts (auto) 10.6 H Absolute Nucleated RBC 0.020 H Nucleated RBC % (auto) 0.2 VBG pH VBG pCO2 VBG pO2 VBG HCO3 VBG O2 Saturation VBG Base Excess Sodium Potassium Chloride Carbon Dioxide Anion Gap BUN Creatinine Estim Creat Clear Calc Estimated GFR POC Glucose 180 H 117 H Random Glucose Calcium Phosphorus Magnesium Albumin Stool Occult Blood Random Vancomycin Blood Type Antibody Screen 08/31/25 08/31/25 08/31/25 04:55 04:56 06:15 WBC RBC Hgb Hct MCV MCH MCHC RDW Plt Count MPV Immature Gran % (Auto) Neut % (Auto) Lymph % (Auto) [place] % (Auto) Eos % (Auto) Baso % (Auto) Lymph # (Auto) [place] # (Auto) Eos # (Auto) Baso # (Auto) Abs Immat Gran (auto) Absolute Neuts (auto) Absolute Nucleated RBC Nucleated RBC % (auto) VBG pH 7.37 VBG pCO2 52 VBG pO2 89 VBG HCO3 30 H VBG O2 Saturation 97.0 VBG Base Excess 4.4 Sodium 152 H Potassium 3.3 Chloride 115 H Carbon Dioxide 26 Anion Gap 14 BUN 24 H Creatinine 2.71 H Estim Creat Clear Calc 32.3 Estimated GFR 23 POC Glucose 145 H Random Glucose 160 H Calcium 8.4 Phosphorus 5.8 H Magnesium 2.8 H Albumin 3.2 L Stool Occult Blood Random Vancomycin Blood Type Antibody Screen 08/31/25 08:15 WBC RBC Hgb Hct MCV MCH MCHC RDW Plt Count MPV Immature Gran % (Auto) Neut % (Auto) Lymph % (Auto) [place] % (Auto) Eos % (Auto) Baso % (Auto) Lymph # (Auto) [place] # (Auto) Eos # (Auto) Baso # (Auto) Abs Immat Gran (auto) Absolute Neuts (auto) Absolute Nucleated RBC Nucleated RBC % (auto) VBG pH VBG pCO2 VBG pO2 VBG HCO3 VBG O2 Saturation VBG Base Excess Sodium Potassium Chloride Carbon Dioxide Anion Gap BUN Creatinine Estim Creat Clear Calc Estimated GFR POC Glucose Random Glucose Calcium Phosphorus Magnesium Albumin Stool Occult Blood Random Vancomycin 21.4 H Blood Type Antibody Screen Microbiology Microbiology Results: Microbiology 08/21/25 20:09 Blood - Venous Blood Culture - Final No growth after 5 days. 08/21/25 19:25 Blood - Venous Blood Culture - Final No growth after 5 days. Progress Note: A&P Assessment and plan (1) Acute hypoxic respiratory failure: Status: Acute (2) Aspiration pneumonia: Status: Acute (3) COPD (chronic obstructive pulmonary disease): Status: Acute (4) BRITT (obstructive sleep apnea): Status: Acute Plan Patient is a 70 Y M w/ hypertension, diabetes mellitus, c/b CAD, cardiomyopathy, COPD, BRITT, epilepsy, and schizophrenia presenting?to ED on 08/21 from alf facility w/ encephalopathy, work-up suggestive of aspiration pneumonia c/b septic shock; ICU course c/b acute hypoxic respiratory failure, intubated 08/23, extubated 08/26, re-intubated 08/28 N: intubated, sedated on propofol gtt, wean as tolerated; epilepsy and schizophrenia, on valproic acid, lithium, and clozapine CV: shock, c/f septic shock, norepinephrine gtt, wean as tolerated R: acute hypoxic respiratory failure d/t aspiration pneumonia, intubated 08/23, extubated 08/26, re-intubated 08/28, wean as tolerated GI: tube feeds : acute renal insufficiency, to monitor renal indices H: no acute issues; chemical DVT prophylaxis ID: aspiration pneumonia c/b septic shock, empiric vanc/zosyn E: to monitor hypo-/hyper-glycemia S: daily updates given to sister/HCP Quality Stroke Does the patient have a stroke diagnosis?: No VTE Prior VTE?: No VTE Risk Level:: Medical - moderate - high VTE Device Contraindication: N/A - Device Ordered VTE Drug Contraindication: N/A - Med Ordered
--- NOTE | 2025-08-31 09:46 | MHC.CLN ---
F/U PT REMAINS INTUBATED AND SEDATED NOTED SEDATION DECREASED REVIEWED LABS NOTED SERUM NA 152 WITH WATER FLSU[address]ES IN PLACE RECOMMEND INCREASING GLUCERNA 1.2 TO MAX GOAL RATE 60ML/HR WITH 300ML FREE WATER FLUSHES Q 4 HRS TO PROVIDE 1728KCALS (2051KCALS WITH SEDATION; 23KCALS/KG), 86G PROTEIN, 2959ML TOTAL WATER FROM FORMULA AND FLUSHES (33ML/KG) MONITOR TOLERANCE AND LYTES
[2025-08-31 11:43] LABS: Glucose, Whole Blood 173 mg/dL (60-115)
--- NOTE | 2025-08-31 13:37 | MHC.CM.PN ---
PT REMAINS IN ICU ON VENTILATORY SUPPORT. CM CLINICALLY UPDATED SORAIDA CHEATHAM VIA [employer]. CM WILL CONTINUE TO FOLLOW.
--- NOTE | 2025-08-31 18:31 | PC.NURSE ---
Assumed care of patient 0700. Sedation vacation per MD started approx 11:00. By 14:00, patient opens eyes to name, briefly makes eye contact, follows commands to squeeze hands and wiggle feet. Patient vent setting this shift Pressure support PSV 6/ PEEP 6.0/ FiO2 40%. Patient had increased amount of inline secretions with spontaneous awakening trial. Inline suctioned moderate to large amount of thick cream secretions. Patient tolerating with some discomfort. Propofol gtt resumed at 10 mcg/kg/min with OK from MD. Patient passed 2 bowel movements this shift, tolerating tube feeds Glucerna @45 ml/hr. Family at bedside approx 16:00 and updated by MD.
[2025-08-31 18:39] LABS: Glucose, Whole Blood 169 mg/dL (60-115)
--- NOTE | 2025-08-31 21:25 | HE.PHANOTE ---
RE VANCO DOSING RENAL FUNCTION CONTINUES TO DECLINE. SCR TODAY 2.71 INCREASED FROM YESTERDAY OF 2.22. LIKELY CAUSE [place] IN THE SETTING OF SEPSIS. VANCOMYCIN LEVEL TODAY IS 16.4. DOSE OF VANCOMYCIN DECREASED AGAIN TO 750 MG Q24 HOURS AND WILL RECHECK VANCOMYCIN LEVEL TOMORROW @2100 TO ENSURE SAFE DOSING. CONTINUE DAILY RENAL FUNCTION MONITORING.
[2025-09-01] VITALS (39 sets, daily range): BP systolic 95–130; BP diastolic 43–62; PULSE 117–130; RESP 18–28; TEMP 34.2–39.4; O2SAT 90–97; BMI 31.2
[2025-09-01 00:15] LABS: Glucose, Whole Blood 147 mg/dL (60-115)
[2025-09-01] MEDS: Albuterol/Iprat 2.5/0.5MG 3 ML AMPUL.NEB INHALE ×5 (00:17→18:57)
[2025-09-01 00:19] LABS: Glucose, Whole Blood 152 mg/dL (60-115)
[2025-09-01] MEDS: Hydrocortisone Sod Succ/PF 100 MG VIAL 50 MG IVPUSH ×3 (00:21→12:53)
[2025-09-01] MEDS: Valproic Acid (as Sodium Salt) 250 MG in Dextrose 5 % 50 ML 52.5 MG IV ×3 (00:23→16:39)
[2025-09-01 05:41] LABS: VBG HCO3 33 mmol/L (22-26); VBG O2 % Saturation 98.0 %
[2025-09-01 06:06] LABS: Hematocrit 25.6 % (42.0-52.0); Hemoglobin 8.1 g/dl (14.0-18.0); Imm Gran Abs Auto 0.45 X10*3/uL (0.00-0.03); Imm Gran Pct Auto 4.1 % (0.0-0.4); Lymphocytes Absolute Auto 1.7 X10*3/uL (1.2-4.9); MANUAL DIFF FLAG SCAN; Mean Corpuscular HGB Conc 31.6 g/dl (31.0-36.0); Mean Corpuscular Hemoglobin 31.0 pg (27.0-33.0); Mean Corpuscular Volume 98.1 fL (80.0-98.0); NRBC Abs Auto 0.000 X10*3/uL (0.0-0.012); NRBC Pct Auto 0.0 /100WBC (0.0-0.2); Platelet Count 211 X10*3/uL (160-400); Red Blood Count 2.61 X10*6/uL (4.60-5.80); SCAN SMEAR FLAG 1; White Blood Count 10.9 X10*3/uL (4.8-10.8)
[2025-09-01 06:37] LABS: Venous Blood Gas Refer to POC result
[2025-09-01 06:40] LABS: Albumin Level 3.2 g/dL (3.5-5.0); Anion Gap 13 (12-20); Blood Urea Nitrogen 45 mg/dL (9-16); Calcium 7.9 mg/dL (8.4-10.2); Carbon Dioxide 29 mmol/L (22-29); Chloride 115 mmol/L (96-108); Creatinine Clr Calc Pharmacy 27.8; Estimated Glomerular Filt Rate 20; Magnesium 2.8 mg/dL (1.6-2.6); Potassium 2.9 mmol/L (3.3-5.1); Sodium 154 mmol/L (135-145)
[2025-09-01 06:46] LABS: Glucose, Whole Blood 164 mg/dL (60-115)
[2025-09-01] MEDS: Potassium Chloride/H20 10 MEQ/100 ML PIGGYBACK 100 MEQ IV ×4 (08:09→12:54)
[2025-09-01] MEDS: Nystatin Oral Susp 500,000 UNIT/5 ML ORAL.SUSP 200000 UNIT BUCCAL ×3 (08:09→21:33)
[2025-09-01] MEDS: Potassium Chloride Packet 20 MEQ PACKET 40 MEQ PO (08:10)
[2025-09-01] MEDS: Chlorhexidine Gluc Oral Rinse 15 ML MOUTHWASH BUCCAL ×3 (08:10→21:34)
[2025-09-01] MEDS: 0.9 % Sodium Chloride Flush 3 ML SYRINGE IVFLUSH ×2 (08:10→15:16)
[2025-09-01] MEDS: Furosemide 40 MG/4 ML VIAL IVPUSH ×2 (08:10→17:29)
--- NOTE | 2025-09-01 09:54 | P.PNCC_ITS ---
Subjective Subjective Date of Service: 09/01/25 Interval History: no significant overnight events; remains encephalopathic, w/ copious secretions Critical Care Time (minutes): 60 Physical Exam 2 Vital Signs: Vital Signs: Last Vital Signs Temp 101.1 F H 09/01/25 09:00 Pulse 121 H 09/01/25 09:00 Resp 20 09/01/25 09:00 BP 119/62 09/01/25 09:00 Pulse Ox 95 09/01/25 09:00 O2 Del Method Mechanical Ventil ation 09/01/25 09:00 O2 Flow Rate 55 08/28/25 14:00 FiO2 40 09/01/25 09:00 Oxygen Flow Rate 2.5 08/22/25 00:01 BMI result Body Mass Index 31.2 Const: Other: intubated, minimally sedated; no appreciable spontaneous movements General: comfortable, no acute distress and well developed HEENT: Head: Yes normal to inspection, Yes normocephalic and Yes atraumatic Eyes: General: appearance normal, both eyes and all related structures Neck: Neck: Yes normal visual inspection, Yes full ROM, Yes no meningeal signs, Yes trachea midline and Yes supple Chest: Chest palpation & inspection: normal inspection of the chest Resp: Other: appreciable rhonchi throughout; no appreciable overt rales, wheezing Effort & Inspection: normal respiratory effort Cardio: Rate: tachycardic Rhythm: regular rhythm GI: Inspection: Yes normal to inspection, No Abdominal wall edema and No distended Palpation (GI): Soft to palpation, not firm, nontender, no guarding and not rigid Skin: General skin exam: no rashes or lesions noted Neuro: General: tone normal and no meningeal signs Extrem: Other: appreciable 1+ pitting edema to bilateral thighs General: Yes normal to inspection, Yes full ROM and Yes capillary refill normal Psych: Other: unable to assess Objective Data Labs 09/01/25 05:26 09/01/25 05:26 Labs: Laboratory Results - last 24 hr 08/31/25 08/31/25 08/31/25 11:36 18:35 20:55 WBC RBC Hgb Hct MCV MCH MCHC RDW Plt Count MPV Immature Gran % (Auto) Neut % (Auto) Lymph % (Auto) [place] % (Auto) Eos % (Auto) Baso % (Auto) Lymph # (Auto) [place] # (Auto) Eos # (Auto) Baso # (Auto) Abs Immat Gran (auto) Absolute Neuts (auto) Absolute Nucleated RBC Nucleated RBC % (auto) Smear Tech's Comments VBG pH VBG pCO2 VBG pO2 VBG HCO3 VBG O2 Saturation VBG Base Excess Sodium Potassium Chloride Carbon Dioxide Anion Gap BUN Creatinine Estim Creat Clear Calc Estimated GFR POC Glucose 173 H 169 H Random Glucose Calcium Phosphorus Magnesium Albumin Random Vancomycin 16.4 09/01/25 09/01/25 09/01/25 00:06 00:16 05:26 WBC 10.9 H RBC 2.61 L Hgb 8.1 L Hct 25.6 L MCV 98.1 H MCH 31.0 MCHC 31.6 RDW 16.3 H Plt Count 211 MPV 9.5 Immature Gran % (Auto) 4.1 H Neut % (Auto) 74.4 H Lymph % (Auto) 15.3 L [place] % (Auto) 6.0 Eos % (Auto) 0.0 Baso % (Auto) 0.2 Lymph # (Auto) 1.7 [place] # (Auto) 0.7 Eos # (Auto) 0.0 Baso # (Auto) 0.0 Abs Immat Gran (auto) 0.45 H Absolute Neuts (auto) 8.1 Absolute Nucleated RBC 0.000 Nucleated RBC % (auto) 0.0 Smear Tech's Comments VERIFIED VBG pH VBG pCO2 VBG pO2 VBG HCO3 VBG O2 Saturation VBG Base Excess Sodium 154 H Potassium 2.9 L* Chloride 115 H Carbon Dioxide 29 Anion Gap 13 BUN 45 H Creatinine 3.13 H Estim Creat Clear Calc 27.8 Estimated GFR 20 POC Glucose 147 H 152 H Random Glucose 181 H Calcium 7.9 L Phosphorus 4.9 H Magnesium 2.8 H Albumin 3.2 L Random Vancomycin 09/01/25 09/01/25 05:36 06:41 WBC RBC Hgb Hct MCV MCH MCHC RDW Plt Count MPV Immature Gran % (Auto) Neut % (Auto) Lymph % (Auto) [place] % (Auto) Eos % (Auto) Baso % (Auto) Lymph # (Auto) [place] # (Auto) Eos # (Auto) Baso # (Auto) Abs Immat Gran (auto) Absolute Neuts (auto) Absolute Nucleated RBC Nucleated RBC % (auto) Smear Tech's Comments VBG pH 7.43 VBG pCO2 48 VBG pO2 91 VBG HCO3 33 H VBG O2 Saturation 98.0 VBG Base Excess 8.1 Sodium Potassium Chloride Carbon Dioxide Anion Gap BUN Creatinine Estim Creat Clear Calc Estimated GFR POC Glucose 164 H Random Glucose Calcium Phosphorus Magnesium Albumin Random Vancomycin Microbiology Microbiology Results: Microbiology 08/21/25 20:09 Blood - Venous Blood Culture - Final No growth after 5 days. 08/21/25 19:25 Blood - Venous Blood Culture - Final No growth after 5 days. Progress Note: A&P Assessment and plan (1) Acute hypoxic respiratory failure: Status: Acute (2) Aspiration pneumonia: Status: Acute (3) COPD (chronic obstructive pulmonary disease): Status: Acute (4) Pulmonary fibrosis: Status: Acute (5) BRITT (obstructive sleep apnea): Status: Acute Plan Patient is a 70 Y M w/ hypertension, diabetes mellitus, c/b CAD, cardiomyopathy, COPD, BRITT, epilepsy, and schizophrenia presenting?[facility] w/ [facility]opathy, work-up suggestive of aspiration pneumonia c/b septic shock; ICU course c/b acute hypoxic respiratory failure, intubated 08/23, extubated 08/26, re-intubated 08/28 N: intubated, sedated on propofol gtt, wean as tolerated; epilepsy and schizophrenia, on valproic acid, lithium, and clozapine CV: shock, c/f septic shock, norepinephrine gtt, wean as tolerated R: acute hypoxic respiratory failure d/t aspiration pneumonia, intubated 08/23, extubated 08/26, re-intubated 08/28, wean as tolerated; significant copious secretions GI: tube feeds : acute renal insufficiency, to monitor renal indices H: no acute issues; chemical DVT prophylaxis ID: aspiration pneumonia c/b septic shock, empiric vanc/zosyn; to follow-up RCx 09/01 E: to monitor hypo-/hyper-glycemia S: daily updates given to sister/HCP Quality Stroke Does the patient have a stroke diagnosis?: No VTE Prior VTE?: No VTE Risk Level:: Medical - moderate - high VTE Device Contraindication: N/A - Device Ordered VTE Drug Contraindication: N/A - Med Ordered
[2025-09-01] MEDS: Albumin Human 25 % 50 ML 100 ML IV (10:17)
[2025-09-01] MEDS: Calcium Gluconate/NaCl,Iso-Osm 1 GM/50 ML PLAST..BAG IV (10:17)
[2025-09-01 12:02] LABS: Glucose, Whole Blood 173 mg/dL (60-115)
--- NOTE | 2025-09-01 14:52 | MHC.CM.PN ---
Pt remains on vent support: no clinical improvement noted. Pt is LTC resident of [facility] and will return when medically stable. CM to follow
[2025-09-01 18:19] LABS: Glucose, Whole Blood 185 mg/dL (60-115)
--- NOTE | 2025-09-01 19:22 | HE.ICUCC ---
ICU Critical Care Nursing Note ICU Day #:11 Vent Day #:3 Neuro: Sedated and intubated, Propofol titrated down, see MAR for titration details, Rass -4 at begining of shift and -3 at end of shift with propofol decrease Cardiac: ST with Occational PAC's Resp: Mechanically ventilated, on PSV this shift, see vent assessment for full details GI/: Tube feeds increased to goal as per Treasury Consultant, water boluses given as ordered [id number], Lasix BID continues, Endocrine: POC Q6 hours covered with lispro sliding scale Integumentary/Musculoskeletal: Turn and Repo every 2hours Psychosocial (family etc.): Family at bedside
--- NOTE | 2025-09-01 19:52 | W.MHC.ACPN ---
Advanced Care Planning Note Advanced Care Planning Note Discussed with: family member(s) Time spent (in minutes): 60 Narrative: Mr. Johnson' sister, Ros, and niece, Katina, have been at Mr. Johnson' bedside every night; we have discussed Mr. Johnson' lifelong struggle with psychiatric illness, for which he is on medications that increase his risk of altered mental status, which in turn increase his risk of aspiration; we discussed that given the severity of Mr. Tran psychiatric illness, he will necessitate these medications, and therefore remain at high risk of aspiration, for the remainder of his life; additionally, we discussed that although Mr. Johnson has been initiating his own breaths on the ventilator, he continues to have altered mental status, and is therefore very high risk for aspiration if the breathing tube were to be removed in the near future; we also discussed that it is not recommended to have breathing tubes in place for prolonged periods of time, and that a tracheostomy may be an option; Ros expressed that she does not want Mr. Johnson to suffer, and believes a tracheostomy would cause suffering; we discussed comfort-focused care; Ros expressed that comfort-focused care would provide a graceful and dignified end to Mr. Tran life; at the same time, Ros is having a difficult time deciding the appropriate time to remove the breathing tube and start the comfort-focused process, as she expressed understanding that Mr. Johnson is at a high risk of aspiration and dying in the near future; Ros is thankful to be able to visit Mr. Johnson every day and cherishes her time with him; I encouraged Ros to spend quality time with her brother as we continue to care for Mr. Johnson and assess the appropriateness of removing the breathing tube on a daily basis Problems Discussed (1) Acute hypoxic respiratory failure: (2) Aspiration pneumonia: (3) COPD (chronic obstructive pulmonary disease): (4) Pulmonary fibrosis: (5) BRITT (obstructive sleep apnea):
--- NOTE | 2025-09-01 21:58 | HE.PHANOTE ---
RE: VANCO DOSING Trough came back as 16.5 mg/L, renal functions worsened. Continue with dose 750 mg q24h, trough is scheduled for 09/02/25 @2100.
[2025-09-01 23:55] LABS: Glucose, Whole Blood 153 mg/dL (60-115)
[2025-09-02] VITALS (43 sets, daily range): BP systolic 92–153; BP diastolic 45–90; PULSE 108–135; RESP 16–27; TEMP 34.6–38.4; O2SAT 90–95; BMI 30.7
[2025-09-02] MEDS: Valproic Acid (as Sodium Salt) 250 MG in Dextrose 5 % 50 ML 52.5 MG IV ×3 (00:49→16:39)
[2025-09-02] MEDS: 0.9 % Sodium Chloride Flush 3 ML SYRINGE IVFLUSH ×4 (00:49→23:00)
[2025-09-02] MEDS: Hydrocortisone Sod Succ/PF 100 MG VIAL 50 MG IVPUSH (00:49)
--- NOTE | 2025-09-02 04:53 | PC.NURSE ---
CARE ASSUMED 7PM..REMAINS INTUBATED...INITIALLY CPAP 6/ PS 10CM/FIO2 40% AT SHIFT CHANGE...Ve 11 L/M...SAO2 94%...RT PLACED ON RESTING VCV VENT SUPPORT APPROX 10PM TO 4AM THEN RETURNED TO CPAP/PSV VENT SUPPORT...CONTINUES WITH INTERMITTANT THICK CREAM SECRETIONS VIA ETT....GLUCRNA TUBE FEEDS 60 CC/HR AND H20 300ML FLUSHES Q4H TOLERATED...RECTAL TUBE DRAINING LIQUIED BROWN STOOL...WARM TO TOUCH 10PM...ESOPHAGEAL PROBE READING 99.0...ORAL TEMP 103.0..ESOPHAGEAL PROBE REPOSITIONED BUT REMAINED LOWER THAN ORAL TEMP...PROVIDER AWARE....ICE PACKS APPLIED AND IV TYLENOL 1000MG GIVEN EARLY AT 22:10 PER PROVIDER....GRADUAL DECREASED TEMP AND HR...HR DECREASED FROM 130 TO 114...TEMP DOWN TO 99.0-99.2 ORAL..PURWIK EXTERNAL CATHETER COLLECTING YELLOW URINE
[2025-09-02 05:10] LABS: VBG HCO3 36 mmol/L (22-26); VBG O2 % Saturation 97.0 %
[2025-09-02 05:13] LABS: Venous Blood Gas Refer to POC result
[2025-09-02 05:31] LABS: MANUAL DIFF FLAG NO
[2025-09-02 05:32] LABS: Hematocrit 29.0 % (42.0-52.0); Hemoglobin 8.7 g/dl (14.0-18.0); Imm Gran Abs Auto 0.36 X10*3/uL (0.00-0.03); Imm Gran Pct Auto 3.0 % (0.0-0.4); Lymphocytes Absolute Auto 1.7 X10*3/uL (1.2-4.9); Mean Corpuscular HGB Conc 30.0 g/dl (31.0-36.0); Mean Corpuscular Hemoglobin 30.2 pg (27.0-33.0); Mean Corpuscular Volume 100.7 fL (80.0-98.0); NRBC Abs Auto 0.000 X10*3/uL (0.0-0.012); NRBC Pct Auto 0.0 /100WBC (0.0-0.2); Platelet Count 223 X10*3/uL (160-400); Red Blood Count 2.88 X10*6/uL (4.60-5.80); White Blood Count 11.9 X10*3/uL (4.8-10.8)
[2025-09-02 05:50] LABS: Albumin Level 3.2 g/dL (3.5-5.0); Anion Gap 15 (12-20); Blood Urea Nitrogen 58 mg/dL (9-16); Calcium 7.9 mg/dL (8.4-10.2); Carbon Dioxide 30 mmol/L (22-29); Chloride 111 mmol/L (96-108); Creatinine Clr Calc Pharmacy 26.1; Estimated Glomerular Filt Rate 19; Magnesium 2.9 mg/dL (1.6-2.6); Potassium 3.0 mmol/L (3.3-5.1); Sodium 153 mmol/L (135-145)
[2025-09-02 06:29] LABS: Glucose, Whole Blood 271 mg/dL (60-115)
[2025-09-02] MEDS: Albuterol/Iprat 2.5/0.5MG 3 ML AMPUL.NEB INHALE ×4 (07:13→18:57)
[2025-09-02] MEDS: Calcium Gluconate/NaCl,Iso-Osm 1 GM/50 ML PLAST..BAG IV (07:27)
[2025-09-02] MEDS: Nystatin Oral Susp 500,000 UNIT/5 ML ORAL.SUSP 200000 UNIT BUCCAL ×3 (07:29→20:06)
[2025-09-02] MEDS: Furosemide 40 MG/4 ML VIAL IVPUSH (07:29)
[2025-09-02] MEDS: Chlorhexidine Gluc Oral Rinse 15 ML MOUTHWASH BUCCAL ×3 (07:30→20:06)
[2025-09-02] MEDS: Potassium Chloride Packet 20 MEQ PACKET 40 MEQ PO ×2 (07:40→23:00)
--- NOTE | 2025-09-02 10:31 | PM.CCPN ---
Subjective Subjective Date of Service: 09/02/25 Interval History: no significant overnight events; continues to be encephalopathic, w/ copious secretions Critical Care Time (minutes): 60 Physical Exam Vital Signs: Vital Signs: Last Vital Signs Temp 99.6 F 09/02/25 08:00 Pulse 124 H 09/02/25 09:00 Resp 27 H 09/02/25 09:00 BP 121/65 09/02/25 09:00 Pulse Ox 93 09/02/25 09:00 O2 Del Method Mechanical Ventil ation 09/02/25 09:00 O2 Flow Rate 55 08/28/25 14:00 FiO2 40 09/02/25 09:00 Oxygen Flow Rate 2.5 08/22/25 00:01 BMI result Body Mass Index 30.7 Const: Other: intubated, sedated; no appreciable spontaneous movements General: comfortable, no acute distress and well developed HEENT: Head: Yes normal to inspection, Yes normocephalic and Yes atraumatic Eyes: General: appearance normal, both eyes and all related structures Neck: Neck: Yes normal visual inspection, Yes full ROM, Yes no meningeal signs, Yes trachea midline and Yes supple Chest: Chest palpation & inspection: normal inspection of the chest Resp: Other: appreciable rhonchi throughout; no appreciable rales, wheezing Effort & Inspection: normal respiratory effort Cardio: Rate: tachycardic Rhythm: regular rhythm GI: Inspection: Yes normal to inspection, No Abdominal wall edema and No distended Palpation (GI): Soft to palpation, not firm, nontender, no guarding and not rigid Skin: General skin exam: no rashes or lesions noted Neuro: General: tone normal and no meningeal signs Extrem: Other: appreciable 1+ pitting edema to bilateral shins General: Yes normal to inspection, Yes full ROM and Yes capillary refill normal Psych: Other: unable to asses Objective Data Labs 09/02/25 05:06 09/02/25 05:06 Labs: Laboratory Results - last 24 hr 09/01/25 09/01/25 09/01/25 11:47 18:07 21:18 WBC RBC Hgb Hct MCV MCH MCHC RDW Plt Count MPV Immature Gran % (Auto) Neut % (Auto) Lymph % (Auto) [place] % (Auto) Eos % (Auto) Baso % (Auto) Lymph # (Auto) [place] # (Auto) Eos # (Auto) Baso # (Auto) Abs Immat Gran (auto) Absolute Neuts (auto) Absolute Nucleated RBC Nucleated RBC % (auto) VBG pH VBG pCO2 VBG pO2 VBG HCO3 VBG O2 Saturation VBG Base Excess Sodium Potassium Chloride Carbon Dioxide Anion Gap BUN Creatinine Estim Creat Clear Calc Estimated GFR POC Glucose 173 H 185 H Random Glucose Calcium Phosphorus Magnesium Albumin Random Vancomycin 16.5 09/01/25 09/02/25 09/02/25 23:50 05:06 06:24 WBC 11.9 H RBC 2.88 L Hgb 8.7 L Hct 29.0 L MCV 100.7 H MCH 30.2 MCHC 30.0 L RDW 16.4 H Plt Count 223 MPV 10.0 Immature Gran % (Auto) 3.0 H Neut % (Auto) 77.1 H Lymph % (Auto) 13.9 L [place] % (Auto) 5.7 Eos % (Auto) 0.0 Baso % (Auto) 0.3 Lymph # (Auto) 1.7 [place] # (Auto) 0.7 Eos # (Auto) 0.0 Baso # (Auto) 0.0 Abs Immat Gran (auto) 0.36 H Absolute Neuts (auto) 9.2 H Absolute Nucleated RBC 0.000 Nucleated RBC % (auto) 0.0 VBG pH 7.39 VBG pCO2 58 VBG pO2 86 VBG HCO3 36 H VBG O2 Saturation 97.0 VBG Base Excess 9.7 Sodium 153 H Potassium 3.0 L Chloride 111 H Carbon Dioxide 30 H Anion Gap 15 BUN 58 H Creatinine 3.30 H Estim Creat Clear Calc 26.1 Estimated GFR 19 POC Glucose 153 H 271 H Random Glucose 277 H Calcium 7.9 L Phosphorus 5.5 H Magnesium 2.9 H Albumin 3.2 L Random Vancomycin Microbiology Microbiology Results: Microbiology 09/01/25 21:30 Trachea Gram Stain - Final 08/21/25 20:09 Blood - Venous Blood Culture - Final No growth after 5 days. 08/21/25 19:25 Blood - Venous Blood Culture - Final No growth after 5 days. Progress Note: A&P Assessment and plan (1) Acute hypoxic respiratory failure: Status: Acute (2) Aspiration pneumonia: Status: Acute (3) COPD (chronic obstructive pulmonary disease): Status: Acute (4) BRITT (obstructive sleep apnea): Status: Acute (5) Pulmonary fibrosis: Status: Acute (6) Encephalopathy: Status: Acute Plan Patient is a 70 Y M w/ hypertension, diabetes mellitus, c/b CAD, cardiomyopathy, COPD, BRITT, epilepsy, and schizophrenia presenting[facility], work-up suggestive of aspiration pneumonia c/b septic shock; ICU course c/b acute hypoxic respiratory failure, intubated 08/23, extubated 08/26, re-intubated 08/28 N: intubated, sedated on propofol gtt, encephalopathic despite weaning sedation; epilepsy and schizophrenia, on valproic acid, lithium, and clozapine CV: shock, c/f septic shock, norepinephrine gtt, wean as tolerated R: acute hypoxic respiratory failure d/t aspiration pneumonia, intubated 08/23, extubated 08/26, re-intubated 08/28, wean as tolerated; tolerating PS, though w/ significant copious secretions GI: tube feeds : acute renal insufficiency, to monitor renal indices H: no acute issues; chemical DVT prophylaxis ID: aspiration pneumonia c/b septic shock, empiric vanc/zosyn; to follow-up RCx 09/01 E: to monitor hypo-/hyper-glycemia S: daily updates given to sister/HCP Quality Stroke Does the patient have a stroke diagnosis?: No VTE Prior VTE?: No VTE Risk Level:: Medical - moderate - high VTE Device Contraindication: N/A - Device Ordered VTE Drug Contraindication: N/A - Med Ordered
--- NOTE | 2025-09-02 11:02 | MHC.CLN ---
F/U PT REMAINS INTUBATED AND SEDATED NOTED FEVER REVIEWED LABS NOTED SERUM NA 153 WITH INCREASED WATER FLUSHES IN PLACE CONTINUE GLUCERNA 1.2 AT MAX GOAL RATE 60ML/HR WITH 300ML FREE WATER FLUSHES Q 4 HRS PROVIDES 1728KCALS (2051KCALS WITH SEDATION; 23KCALS/KG), 86G PROTEIN, 2959ML TOTAL WATER FROM FORMULA AND FLUSHES (33ML/KG) MONITOR TOLERANCE AND LYTES
[2025-09-02] MEDS: Albumin Human 25 % 50 ML 100 ML IV (11:26)
--- NOTE | 2025-09-02 13:24 | MHC.CM.PN ---
Pt continues vented with little clinical progress exhibited: goals of care discussions are ongoing with MD and HCP/sister. Pt is a LTC resident from [facility]. CM to follow
[2025-09-02 14:30] LABS: Glucose, Whole Blood 174 mg/dL (60-115)
[2025-09-02 14:56] LABS: Lithium 0.41 mmol/L (0.60-1.20)
[2025-09-02 18:12] LABS: Glucose, Whole Blood 164 mg/dL (60-115)
--- NOTE | 2025-09-02 19:17 | HE.ICUCC ---
ICU Critical Care Nursing Note ICU Day #:12 Vent Day #:4 Neuro: Sedation titrated off this shift, opens eyes briefly but not to command, followed command to squeeze hands and wiggle toes once, no purpuseful movement noted, family at bedside Cardiac: ST with occational PAC's, titrated Levophed as per MAR Resp: On PSV mode of vent see vent assessment for full details, neg gag positive cough, small amount white secretions in line. GI/: Tube feeds infusing at goal with boluses as ordered, purewick in place and draining clear yellow urine Endocrine: POC covered with lispro as ordered Integumentary/Musculoskeletal: pink foam to coccyx prophylactic
--- NOTE | 2025-09-02 21:30 | HE.PHANOTE ---
RE: VANCO DOSING Trough came back as 16.9 mg/L, renal function is not improving. Continue with dose 750 mg q24h, next trough is scheduled for 09/03/25 @2100.
[2025-09-02 22:48] LABS: Anion Gap 13 (12-20); Blood Urea Nitrogen 54 mg/dL (9-16); Calcium 8.4 mg/dL (8.4-10.2); Carbon Dioxide 33 mmol/L (22-29); Chloride 112 mmol/L (96-108); Creatinine Clr Calc Pharmacy 28.1; Estimated Glomerular Filt Rate 20; Magnesium 2.8 mg/dL (1.6-2.6); Potassium 2.9 mmol/L (3.3-5.1); Sodium 155 mmol/L (135-145)
[2025-09-02] MEDS: Potassium Chloride/H20 10 MEQ/100 ML PIGGYBACK 100 MEQ IV ×2 (23:00→23:59)
[2025-09-02 23:35] LABS: Glucose, Whole Blood 179 mg/dL (60-115)
[2025-09-03] VITALS (33 sets, daily range): BP systolic 101–137; BP diastolic 49–73; PULSE 111–128; RESP 18–27; TEMP 34.2–38.4; O2SAT 89–95; BMI 30.2
[2025-09-03] MEDS: Valproic Acid (as Sodium Salt) 250 MG in Dextrose 5 % 50 ML 52.5 MG IV ×3 (00:15→16:07)
[2025-09-03] MEDS: Potassium Chloride/H20 10 MEQ/100 ML PIGGYBACK 100 MEQ IV ×2 (01:00→02:06)
[2025-09-03 05:06] LABS: VBG HCO3 38 mmol/L (22-26); VBG O2 % Saturation 97.0 %
[2025-09-03 05:07] LABS: Venous Blood Gas Refer to POC result
[2025-09-03 05:32] LABS: Hematocrit 28.7 % (42.0-52.0); Hemoglobin 8.9 g/dl (14.0-18.0); Imm Gran Abs Auto 0.22 X10*3/uL (0.00-0.03); Imm Gran Pct Auto 2.2 % (0.0-0.4); Lymphocytes Absolute Auto 2.6 X10*3/uL (1.2-4.9); MANUAL DIFF FLAG NO; Mean Corpuscular HGB Conc 31.0 g/dl (31.0-36.0); Mean Corpuscular Hemoglobin 30.7 pg (27.0-33.0); Mean Corpuscular Volume 99.0 fL (80.0-98.0); NRBC Abs Auto 0.000 X10*3/uL (0.0-0.012); NRBC Pct Auto 0.0 /100WBC (0.0-0.2); Platelet Count 241 X10*3/uL (160-400); Red Blood Count 2.90 X10*6/uL (4.60-5.80); White Blood Count 10.1 X10*3/uL (4.8-10.8)
[2025-09-03 05:46] LABS: Albumin Level 3.0 g/dL (3.5-5.0); Anion Gap 12 (12-20); Blood Urea Nitrogen 64 mg/dL (9-16); Calcium 8.0 mg/dL (8.4-10.2); Carbon Dioxide 31 mmol/L (22-29); Chloride 114 mmol/L (96-108); Creatinine Clr Calc Pharmacy 30.0; Estimated Glomerular Filt Rate 22; Magnesium 3.0 mg/dL (1.6-2.6); Potassium 3.4 mmol/L (3.3-5.1); Sodium 154 mmol/L (135-145)
[2025-09-03] MEDS: Albumin Human 25 % 50 ML 100 ML IV ×3 (06:15→09:50)
[2025-09-03] MEDS: Potassium Chloride Packet 20 MEQ PACKET 40 MEQ PO ×2 (06:16→23:18)
--- NOTE | 2025-09-03 06:35 | PC.NURSE ---
09/02/25 [id number] Pt placed back on ACVC ventilation overnight with Propofol titrated to 20mcg/kg/min for sedation per Crystal Dasilva PATTERN PAINTER. 0 Pt with increasing temp and HR , Crystal LERMA notified and prn IV Tylenol for temp max 101.3 via davila cath core temp and 5mg Lopressor IV push as HR bursting ST 130-140 w/nonsustained burst of SVT to 200. Electrolytes ordered and K level resulted at 2.9, K replacement ordered by PATTERN PAINTER and provided as documented in eMar. Patient HR improved with no further episodes of SVT after treatment and HR improving 110-118 B/min ST. 2335 Respirator at bedside and holister dressing changed and respiratory confirmed ETT tube is at 23cm at the lip. Pt requiring intermittent oral/inline suctioning throughout the night, with small amounts of thin clear to white secretions removed and O2 sat maintained at 92-95%. Repeat am K level 3.5, additional 40MeQ of Potassium solution provided via NGT. Care is ongoing, Personal care provided throughout the night and patient's own music to promote a calm restful environment.
[2025-09-03] MEDS: Albuterol/Iprat 2.5/0.5MG 3 ML AMPUL.NEB INHALE ×4 (07:29→18:51)
[2025-09-03] MEDS: Hydrocortisone Sod Succ/PF 100 MG VIAL 50 MG IVPUSH (08:26)
[2025-09-03] MEDS: 0.9 % Sodium Chloride Flush 3 ML SYRINGE IVFLUSH ×3 (08:27→23:20)
[2025-09-03] MEDS: Nystatin Oral Susp 500,000 UNIT/5 ML ORAL.SUSP 200000 UNIT BUCCAL ×3 (08:29→20:05)
[2025-09-03] MEDS: Chlorhexidine Gluc Oral Rinse 15 ML MOUTHWASH BUCCAL ×3 (08:30→20:05)
--- NOTE | 2025-09-03 09:18 | P.PNCC_ITS ---
Subjective Subjective Date of Service: 09/03/25 Interval History: no significant overnight events; persistent encephalopathy Critical Care Time (minutes): 60 Physical Exam 2 Vital Signs: Vital Signs: Last Vital Signs Temp 99.3 F 09/03/25 09:00 Pulse 122 H 09/03/25 09:00 Resp 21 H 09/03/25 09:00 BP 119/57 L 09/03/25 09:00 Pulse Ox 94 09/03/25 09:00 O2 Del Method Mechanical Ventil ation 09/03/25 09:00 O2 Flow Rate 40 09/02/25 16:00 FiO2 40 09/03/25 09:00 Oxygen Flow Rate 2.5 08/22/25 00:01 BMI result Body Mass Index 30.2 Const: Other: intubated, minimally sedated; no appreciable spontaneous movements General: comfortable, no acute distress and well developed HEENT: Head: Yes normal to inspection, Yes normocephalic and Yes atraumatic Eyes: General: appearance normal, both eyes and all related structures Neck: Neck: Yes normal visual inspection, Yes full ROM, Yes no meningeal signs, Yes trachea midline and Yes supple Chest: Chest palpation & inspection: normal inspection of the chest Resp: Other: some appreciable rhonchi; no appreciable rales, wheezing Effort & Inspection: normal respiratory effort Cardio: Rate: tachycardic Rhythm: regular rhythm GI: Inspection: Yes normal to inspection, No Abdominal wall edema and No distended Palpation (GI): Soft to palpation, not firm, nontender, no guarding and not rigid Skin: General skin exam: no rashes or lesions noted Neuro: General: tone normal and no meningeal signs Extrem: Other: appreciable clubbing; appreciable 1+ pitting edema to bilateral shins General: Yes normal to inspection, Yes full ROM and Yes capillary refill normal Psych: Other: unable to assess Objective Data Labs 09/03/25 04:51 09/03/25 04:51 Labs: Laboratory Results - last 24 hr 09/02/25 09/02/25 09/02/25 14:13 14:26 18:08 WBC RBC Hgb Hct MCV MCH MCHC RDW Plt Count MPV Immature Gran % (Auto) Neut % (Auto) Lymph % (Auto) [place] % (Auto) Eos % (Auto) Baso % (Auto) Lymph # (Auto) [place] # (Auto) Eos # (Auto) Baso # (Auto) Abs Immat Gran (auto) Absolute Neuts (auto) Absolute Nucleated RBC Nucleated RBC % (auto) VBG pH VBG pCO2 VBG pO2 VBG HCO3 VBG O2 Saturation VBG Base Excess Sodium Potassium Chloride Carbon Dioxide Anion Gap BUN Creatinine Estim Creat Clear Calc Estimated GFR POC Glucose 174 H 164 H Random Glucose Calcium Phosphorus Magnesium Albumin Random Vancomycin [place] 0.41 L 09/02/25 09/02/25 09/02/25 20:59 22:25 23:24 WBC RBC Hgb Hct MCV MCH MCHC RDW Plt Count MPV Immature Gran % (Auto) Neut % (Auto) Lymph % (Auto) [place] % (Auto) Eos % (Auto) Baso % (Auto) Lymph # (Auto) [place] # (Auto) Eos # (Auto) Baso # (Auto) Abs Immat Gran (auto) Absolute Neuts (auto) Absolute Nucleated RBC Nucleated RBC % (auto) VBG pH VBG pCO2 VBG pO2 VBG HCO3 VBG O2 Saturation VBG Base Excess Sodium 155 H Potassium 2.9 L* Chloride 112 H Carbon Dioxide 33 H Anion Gap 13 BUN 54 H Creatinine 3.07 H Estim Creat Clear Calc 28.1 Estimated GFR 20 POC Glucose 179 H Random Glucose 183 H Calcium 8.4 D Phosphorus 3.8 Magnesium 2.8 H Albumin Random Vancomycin 16.9 [place] 09/03/25 09/03/25 04:51 05:02 WBC 10.1 RBC 2.90 L Hgb 8.9 L Hct 28.7 L MCV 99.0 H MCH 30.7 MCHC 31.0 RDW 15.9 Plt Count 241 MPV 10.5 Immature Gran % (Auto) 2.2 H Neut % (Auto) 65.0 Lymph % (Auto) 25.2 [place] % (Auto) 7.4 Eos % (Auto) 0.1 Baso % (Auto) 0.1 Lymph # (Auto) 2.6 [place] # (Auto) 0.8 Eos # (Auto) 0.0 Baso # (Auto) 0.0 Abs Immat Gran (auto) 0.22 H Absolute Neuts (auto) 6.6 Absolute Nucleated RBC 0.000 Nucleated RBC % (auto) 0.0 VBG pH 7.45 H VBG pCO2 54 VBG pO2 88 VBG HCO3 38 H VBG O2 Saturation 97.0 VBG Base Excess 13.2 Sodium 154 H Potassium 3.4 Chloride 114 H Carbon Dioxide 31 H Anion Gap 12 BUN 64 H Creatinine 2.88 H Estim Creat Clear Calc 30.0 Estimated GFR 22 POC Glucose Random Glucose 199 H Calcium 8.0 L Phosphorus 3.6 Magnesium 3.0 H Albumin 3.0 L Random Vancomycin [place] Microbiology Microbiology Results: Microbiology 09/01/25 21:30 Trachea Gram Stain - Final 09/01/25 21:30 Trachea Sputum Culture - Preliminary No growth to date. 08/21/25 20:09 Blood - Venous Blood Culture - Final No growth after 5 days. 08/21/25 19:25 Blood - Venous Blood Culture - Final No growth after 5 days. Progress Note: A&P Assessment and plan (1) Encephalopathy: Status: Acute (2) Aspiration pneumonia: Status: Acute (3) COPD (chronic obstructive pulmonary disease): Status: Acute (4) BRITT (obstructive sleep apnea): Status: Acute (5) Pulmonary fibrosis: Status: Acute Plan Patient is a 70 Y M w/ hypertension, diabetes mellitus, c/b CAD, cardiomyopathy, COPD, BRITT, epilepsy, and schizophrenia presenting?[facility] w/ encephalopathy, work-up suggestive of aspiration pneumonia c/b septic shock; ICU course c/b acute hypoxic respiratory failure, intubated 08/23, extubated 08/26, re-intubated 08/28 N: intubated, sedated on propofol gtt, encephalopathic despite weaning sedation; epilepsy and schizophrenia, on valproic acid, lithium, and clozapine, to follow- up levels CV: hypotension, possibly d/t sedation, norepinephrine gtt, wean as tolerated R: acute hypoxic respiratory failure d/t aspiration pneumonia, intubated 08/23, extubated 08/26, re-intubated 08/28, wean as tolerated; tolerating PS, though w/ significant copious secretions GI: tube feeds : acute renal insufficiency, to monitor renal indices H: no acute issues; chemical DVT prophylaxis ID: aspiration pneumonia c/b septic shock, empiric vanc/zosyn; to follow-up RCx 09/01 E: to monitor hypo-/hyper-glycemia P: schizophrenia, on valproic acid, lithium, and clozapine, to follow-up levels S: daily updates given to sister/HCP Quality Stroke Does the patient have a stroke diagnosis?: No VTE Prior VTE?: No VTE Risk Level:: Medical - moderate - high VTE Device Contraindication: N/A - Device Ordered VTE Drug Contraindication: N/A - Med Ordered
[2025-09-03] MEDS: Calcium Gluconate/NaCl,Iso-Osm 1 GM/50 ML PLAST..BAG IV (09:54)
[2025-09-03 10:40] LABS: Lithium 0.26 mmol/L (0.60-1.20)
[2025-09-03 12:03] LABS: Glucose, Whole Blood 219 mg/dL (60-115)
[2025-09-03 17:28] LABS: Glucose, Whole Blood 158 mg/dL (60-115)
--- NOTE | 2025-09-03 17:52 | PC.NURSE ---
Assumed care at 0700. Upon initial assessment, pt intubated and on propofol and levophed drips. Pt has some nonpurposeful movement of limbs, opens eyes briefly to noxious stimulus. Pt comfortably on PSV of 8/5 at fio2 of 35% for duration of shift. Fall & safety precautions in place. See MAR and assessments for further details. Pt repositioned q2hr as tolerated.
[2025-09-03 22:31] LABS: Anion Gap 11 (12-20); Blood Urea Nitrogen 53 mg/dL (9-16); Calcium 8.0 mg/dL (8.4-10.2); Carbon Dioxide 33 mmol/L (22-29); Chloride 115 mmol/L (96-108); Creatinine Clr Calc Pharmacy 31.6; Estimated Glomerular Filt Rate 23; Magnesium 2.9 mg/dL (1.6-2.6); Potassium 3.4 mmol/L (3.3-5.1); Sodium 156 mmol/L (135-145)
[2025-09-04] VITALS (33 sets, daily range): BP systolic 107–141; BP diastolic 47–78; PULSE 117–128; RESP 17–26; TEMP 34.8–38.3; O2SAT 92–96; BMI 30.2
[2025-09-04 00:15] LABS: Glucose, Whole Blood 164 mg/dL (60-115)
[2025-09-04] MEDS: Valproic Acid (as Sodium Salt) 250 MG in Dextrose 5 % 50 ML 52.5 MG IV ×4 (00:24→23:59)
[2025-09-04 05:17] LABS: Venous Blood Gas Refer to POC result
[2025-09-04 05:17] LABS: VBG HCO3 35 mmol/L (22-26); VBG O2 % Saturation 93.0 %
[2025-09-04 05:31] LABS: MANUAL DIFF FLAG NO
[2025-09-04 05:34] LABS: Hematocrit 28.0 % (42.0-52.0); Hemoglobin 8.4 g/dl (14.0-18.0); Imm Gran Abs Auto 0.22 X10*3/uL (0.00-0.03); Imm Gran Pct Auto 2.4 % (0.0-0.4); Lymphocytes Absolute Auto 2.3 X10*3/uL (1.2-4.9); Mean Corpuscular HGB Conc 30.0 g/dl (31.0-36.0); Mean Corpuscular Hemoglobin 30.2 pg (27.0-33.0); Mean Corpuscular Volume 100.7 fL (80.0-98.0); NRBC Abs Auto 0.000 X10*3/uL (0.0-0.012); NRBC Pct Auto 0.0 /100WBC (0.0-0.2); Neut%MD 63.9 %; Platelet Count 242 X10*3/uL (160-400); Red Blood Count 2.78 X10*6/uL (4.60-5.80); WBCANC 9.3 X10*3/uL; White Blood Count 9.3 X10*3/uL (4.8-10.8)
[2025-09-04 05:48] LABS: Albumin Level 3.2 g/dL (3.5-5.0)
[2025-09-04 05:53] LABS: Anion Gap 12 (12-20); Blood Urea Nitrogen 55 mg/dL (9-16); Calcium 8.1 mg/dL (8.4-10.2); Carbon Dioxide 30 mmol/L (22-29); Chloride 117 mmol/L (96-108); Creatinine Clr Calc Pharmacy 33.3; Estimated Glomerular Filt Rate 25; Magnesium 2.9 mg/dL (1.6-2.6); Potassium 3.7 mmol/L (3.3-5.1); Sodium 155 mmol/L (135-145)
[2025-09-04] MEDS: Albuterol/Iprat 2.5/0.5MG 3 ML AMPUL.NEB INHALE ×4 (08:06→19:46)
[2025-09-04] MEDS: 0.9 % Sodium Chloride Flush 3 ML SYRINGE IVFLUSH ×3 (08:30→23:59)
[2025-09-04] MEDS: Hydrocortisone Sod Succ/PF 100 MG VIAL 50 MG IVPUSH (08:30)
[2025-09-04] MEDS: Chlorhexidine Gluc Oral Rinse 15 ML MOUTHWASH BUCCAL ×3 (08:34→20:05)
[2025-09-04] MEDS: Nystatin Oral Susp 500,000 UNIT/5 ML ORAL.SUSP 200000 UNIT BUCCAL ×3 (08:34→20:05)
--- NOTE | 2025-09-04 09:11 | P.PNCC_ITS ---
Subjective Subjective Date of Service: 09/04/25 Interval History: no significant overnight events Critical Care Time (minutes): 60 Physical Exam 2 Vital Signs: Vital Signs: Last Vital Signs Temp 99.5 F 09/04/25 09:00 Pulse 120 H 09/04/25 09:00 Resp 23 H 09/04/25 08:11 BP 120/54 L 09/04/25 09:00 Pulse Ox 92 09/04/25 09:00 O2 Del Method Mechanical Ventil ation 09/04/25 09:00 O2 Flow Rate 40 09/02/25 16:00 FiO2 35 09/04/25 09:00 Oxygen Flow Rate 2.5 08/22/25 00:01 BMI result Body Mass Index 30.2 Const: Other: intubated, minimally sedated; some appreciable eyelid flickering, grimacing; no appreciable purposeful movements General: no acute distress and well developed HEENT: Head: Yes normal to inspection, Yes normocephalic and Yes atraumatic Eyes: General: appearance normal, both eyes and all related structures Neck: Neck: Yes normal visual inspection, Yes full ROM, Yes no meningeal signs, Yes trachea midline and Yes supple Chest: Chest palpation & inspection: normal inspection of the chest Resp: Other: some appreciable rhonchi; no appreciable overt rales, wheezing Effort & Inspection: normal respiratory effort Cardio: Rate: tachycardic Rhythm: regular rhythm GI: Inspection: Yes normal to inspection, No Abdominal wall edema and No distended Palpation (GI): Soft to palpation, not firm, nontender, no guarding and not rigid Skin: General skin exam: no rashes or lesions noted Neuro: General: tone normal and no meningeal signs Extrem: Other: appreciable trace pitting edema to bilateral shins General: Yes normal to inspection, Yes full ROM and Yes capillary refill normal Psych: Other: unable to assess Objective Data Labs 09/04/25 05:04 09/04/25 05:04 Labs: Laboratory Results - last 24 hr 09/03/25 09/03/25 09/03/25 09:30 11:53 17:17 WBC RBC Hgb Hct MCV MCH MCHC RDW Plt Count MPV Immature Gran % (Auto) Neut % (Auto) Lymph % (Auto) [place] % (Auto) Eos % (Auto) Baso % (Auto) Lymph # (Auto) [place] # (Auto) Eos # (Auto) Baso # (Auto) Abs Immat Gran (auto) Absolute Neuts (auto) Absolute Nucleated RBC Nucleated RBC % (auto) VBG pH VBG pCO2 VBG pO2 VBG HCO3 VBG O2 Saturation VBG Base Excess Sodium Potassium Chloride Carbon Dioxide Anion Gap BUN Creatinine Estim Creat Clear Calc Estimated GFR POC Glucose 219 H 158 H Random Glucose Calcium Phosphorus Magnesium Albumin Random Vancomycin Valproic Acid 28.7 L [place] 0.26 L 09/03/25 09/03/25 09/04/25 21:10 22:08 00:06 WBC RBC Hgb Hct MCV MCH MCHC RDW Plt Count MPV Immature Gran % (Auto) Neut % (Auto) Lymph % (Auto) [place] % (Auto) Eos % (Auto) Baso % (Auto) Lymph # (Auto) [place] # (Auto) Eos # (Auto) Baso # (Auto) Abs Immat Gran (auto) Absolute Neuts (auto) Absolute Nucleated RBC Nucleated RBC % (auto) VBG pH VBG pCO2 VBG pO2 VBG HCO3 VBG O2 Saturation VBG Base Excess Sodium 156 H Potassium 3.4 Chloride 115 H Carbon Dioxide 33 H Anion Gap 11 L BUN 53 H Creatinine 2.71 H Estim Creat Clear Calc 31.6 Estimated GFR 23 POC Glucose 164 H Random Glucose 162 H Calcium 8.0 L Phosphorus 3.2 Magnesium 2.9 H Albumin Random Vancomycin 15.0 Valproic Acid [place] 09/04/25 09/04/25 05:04 05:14 WBC 9.3 RBC 2.78 L Hgb 8.4 L Hct 28.0 L MCV 100.7 H MCH 30.2 MCHC 30.0 L RDW 15.9 Plt Count 242 MPV 10.6 Immature Gran % (Auto) 2.4 H Neut % (Auto) 63.9 Lymph % (Auto) 24.9 [place] % (Auto) 8.5 Eos % (Auto) 0.1 Baso % (Auto) 0.2 Lymph # (Auto) 2.3 [place] # (Auto) 0.8 Eos # (Auto) 0.0 Baso # (Auto) 0.0 Abs Immat Gran (auto) 0.22 H Absolute Neuts (auto) 5.9 Absolute Nucleated RBC 0.000 Nucleated RBC % (auto) 0.0 VBG pH 7.47 H VBG pCO2 48 VBG pO2 71 VBG HCO3 35 H VBG O2 Saturation 93.0 VBG Base Excess 10.5 Sodium 155 H Potassium 3.7 Chloride 117 H Carbon Dioxide 30 H Anion Gap 12 BUN 55 H Creatinine 2.57 H Estim Creat Clear Calc 33.3 Estimated GFR 25 POC Glucose Random Glucose 197 H Calcium 8.1 L Phosphorus 2.7 Magnesium 2.9 H Albumin 3.2 L Random Vancomycin Valproic Acid [place] Microbiology Microbiology Results: Microbiology 09/01/25 21:30 Trachea Gram Stain - Final 09/01/25 21:30 Trachea Sputum Culture - Final No growth. 08/21/25 20:09 Blood - Venous Blood Culture - Final No growth after 5 days. 08/21/25 19:25 Blood - Venous Blood Culture - Final No growth after 5 days. Progress Note: A&P Assessment and plan (1) Encephalopathy: Status: Acute (2) Aspiration pneumonia: Status: Acute (3) COPD (chronic obstructive pulmonary disease): Status: Acute (4) BRITT (obstructive sleep apnea): Status: Acute (5) Pulmonary fibrosis: Status: Acute Plan Patient is a 70 Y M w/ hypertension, diabetes mellitus, c/b CAD, cardiomyopathy, COPD, BRITT, epilepsy, and schizophrenia presenting?[facility] from [facility] w/ encephalopathy, work-up suggestive of aspiration pneumonia c/b septic shock; ICU course c/b acute hypoxic respiratory failure, intubated 08/23, extubated 08/26, re-intubated 08/28 N: intubated, sedated on propofol gtt, encephalopathic despite weaning sedation; epilepsy and schizophrenia, on valproic acid, lithium, and clozapine, to follow- up levels CV: hypotension, possibly d/t sedation, on/off norepinephrine gtt, wean as tolerated R: acute hypoxic respiratory failure d/t aspiration pneumonia, intubated 08/23, extubated 08/26, re-intubated 08/28, wean as tolerated; tolerating PS, though w/ significant copious secretions GI: tube feeds : acute renal insufficiency, to monitor renal indices H: no acute issues; chemical DVT prophylaxis ID: aspiration pneumonia c/b septic shock, empiric vanc/zosyn; to follow-up RCx 09/01 E: to monitor hypo-/hyper-glycemia P: schizophrenia, on valproic acid, lithium, and clozapine, to follow-up levels S: daily updates given to sister/HCP Quality Stroke Does the patient have a stroke diagnosis?: No VTE Prior VTE?: No VTE Risk Level:: Medical - moderate - high VTE Device Contraindication: N/A - Device Ordered VTE Drug Contraindication: N/A - Med Ordered
[2025-09-04] MEDS: Calcium Gluconate/NaCl,Iso-Osm 1 GM/50 ML PLAST..BAG IV (09:58)
[2025-09-04] MEDS: Albumin Human 25 % 50 ML 100 ML IV (10:44)
[2025-09-04 11:32] LABS: Glucose, Whole Blood 215 mg/dL (60-115)
[2025-09-04 18:01] LABS: Glucose, Whole Blood 206 mg/dL (60-115)
--- NOTE | 2025-09-04 18:17 | PC.NURSE ---
Assumed care at 0700. Upon initial assessment, Pt intubated and on propofol drip. Pt rouses somewhat to name, grimaces with oral care. Pt does not visually track or follow commands. Pt comfortably on PSV of 10/5 at fio2 of 35% for duration of shift. Update given to family at bedside Pt repositioned q2hr as tolerated. Fall & safety precautions in place. See MAR and assessments for further details.
[2025-09-04 23:53] LABS: Glucose, Whole Blood 172 mg/dL (60-115)
[2025-09-05] VITALS (28 sets, daily range): BP systolic 94–122; BP diastolic 45–69; PULSE 109–119; RESP 11–29; TEMP 35–37.7; O2SAT 90–98
[2025-09-05 05:18] LABS: VBG HCO3 35 mmol/L (22-26); VBG O2 % Saturation 98.0 %
[2025-09-05 05:20] LABS: Venous Blood Gas Refer to POC result
[2025-09-05 05:50] LABS: MANUAL DIFF FLAG NO
[2025-09-05 05:50] LABS: Glucose, Whole Blood 169 mg/dL (60-115)
[2025-09-05 05:58] LABS: Hematocrit 27.8 % (42.0-52.0); Hemoglobin 8.1 g/dl (14.0-18.0); Imm Gran Abs Auto 0.22 X10*3/uL (0.00-0.03); Imm Gran Pct Auto 2.2 % (0.0-0.4); Lymphocytes Absolute Auto 2.8 X10*3/uL (1.2-4.9); Mean Corpuscular HGB Conc 29.1 g/dl (31.0-36.0); Mean Corpuscular Hemoglobin 30.1 pg (27.0-33.0); Mean Corpuscular Volume 103.3 fL (80.0-98.0); NRBC Abs Auto 0.000 X10*3/uL (0.0-0.012); NRBC Pct Auto 0.0 /100WBC (0.0-0.2); Platelet Count 245 X10*3/uL (160-400); Red Blood Count 2.69 X10*6/uL (4.60-5.80); White Blood Count 10.2 X10*3/uL (4.8-10.8)
[2025-09-05 06:09] LABS: Albumin Level 3.1 g/dL (3.5-5.0); Anion Gap 12 (12-20); Blood Urea Nitrogen 49 mg/dL (9-16); Calcium 8.1 mg/dL (8.4-10.2); Carbon Dioxide 31 mmol/L (22-29); Chloride 116 mmol/L (96-108); Creatinine Clr Calc Pharmacy 36.2; Estimated Glomerular Filt Rate 28; Magnesium 2.9 mg/dL (1.6-2.6); Potassium 3.8 mmol/L (3.3-5.1); Sodium 155 mmol/L (135-145)
[2025-09-05] MEDS: Albuterol/Iprat 2.5/0.5MG 3 ML AMPUL.NEB INHALE ×4 (08:00→21:30)
[2025-09-05] MEDS: 0.9 % Sodium Chloride Flush 3 ML SYRINGE IVFLUSH ×3 (08:33→23:17)
[2025-09-05] MEDS: Chlorhexidine Gluc Oral Rinse 15 ML MOUTHWASH BUCCAL ×3 (08:33→21:56)
[2025-09-05] MEDS: Nystatin Oral Susp 500,000 UNIT/5 ML ORAL.SUSP 200000 UNIT BUCCAL ×3 (08:33→21:56)
[2025-09-05] MEDS: Valproic Acid (as Sodium Salt) 250 MG in Dextrose 5 % 50 ML 52.5 MG IV ×2 (08:34→16:13)
[2025-09-05] MEDS: Hydrocortisone Sod Succ/PF 100 MG VIAL 50 MG IVPUSH (08:34)
[2025-09-05 11:58] LABS: Glucose, Whole Blood 214 mg/dL (60-115)
--- NOTE | 2025-09-05 12:02 | P.PNCC_ITS ---
Subjective Subjective Date of Service: 09/05/25 Interval History: 70-year-old gentleman with underlying schizoaffective disorder, COPD, sleep apnea, diabetes mellitus, dysphagia, CAD, seizure disorder, cardiomyopathy admitted on 08/21/2025 with lethargy and hypoxia likely secondary to pulmonary aspiration with hospital course significant for progressive hypoxia requiring intubation and ventilatory support on 08/23/2025, extubated 08/26/2025, requiring intubation again for pulmonary aspiration on 08/28/2025, now with poor arousal with sedation vacation. No events overnight. Critical Care Time (minutes): 60 Physical Exam 2 Vital Signs: Vital Signs: Last Vital Signs Temp 99.0 F 09/05/25 11:00 Pulse 112 H 09/05/25 11:25 Resp 20 09/05/25 11:25 BP 102/52 L 09/05/25 11:00 Pulse Ox 93 09/05/25 11:00 O2 Del Method Mechanical Ventil ation 09/05/25 11:00 O2 Flow Rate 40 09/02/25 16:00 FiO2 35 09/05/25 11:25 Oxygen Flow Rate 2.5 08/22/25 00:01 BMI result Body Mass Index 30.0 Const: General: no acute distress and other (Sedated on ventilatory support) Eyes: Sclerae: sclerae normal EOM: EOMs intact bilaterally Neck: Neck: Yes no lymphadenopathy, Yes trachea midline and Yes supple Resp: Auscultation: clear to auscultation bilaterally Cardio: Rate: tachycardic Rhythm: regular rhythm Heart sounds: no gallops, no murmurs and no rubs GI: Palpation (GI): Soft to palpation and Other GI palpation findings present ( Nontender) Auscultation: normal bowel sounds Extrem: General: No clubbing, No cyanosis and Yes edema (Trace bilateral) Objective Data Labs 09/05/25 05:13 09/05/25 05:13 Labs: Laboratory Results - last 24 hr 09/04/25 09/04/25 09/05/25 17:48 23:50 05:13 WBC 10.2 RBC 2.69 L Hgb 8.1 L Hct 27.8 L MCV 103.3 H MCH 30.1 MCHC 29.1 L RDW 15.9 Plt Count 245 MPV 11.2 Immature Gran % (Auto) 2.2 H Neut % (Auto) 63.3 Lymph % (Auto) 27.4 [place] % (Auto) 6.7 Eos % (Auto) 0.1 Baso % (Auto) 0.3 Lymph # (Auto) 2.8 [place] # (Auto) 0.7 Eos # (Auto) 0.0 Baso # (Auto) 0.0 Abs Immat Gran (auto) 0.22 H Absolute Neuts (auto) 6.4 Absolute Nucleated RBC 0.000 Nucleated RBC % (auto) 0.0 VBG pH VBG pCO2 VBG pO2 VBG HCO3 VBG O2 Saturation VBG Base Excess Sodium 155 H Potassium 3.8 Chloride 116 H Carbon Dioxide 31 H Anion Gap 12 BUN 49 H Creatinine 2.36 H Estim Creat Clear Calc 36.2 Estimated GFR 28 POC Glucose 206 H 172 H Random Glucose 206 H Calcium 8.1 L Phosphorus 3.9 Magnesium 2.9 H Albumin 3.1 L 09/05/25 09/05/25 09/05/25 05:15 05:47 11:48 WBC RBC Hgb Hct MCV MCH MCHC RDW Plt Count MPV Immature Gran % (Auto) Neut % (Auto) Lymph % (Auto) [place] % (Auto) Eos % (Auto) Baso % (Auto) Lymph # (Auto) [place] # (Auto) Eos # (Auto) Baso # (Auto) Abs Immat Gran (auto) Absolute Neuts (auto) Absolute Nucleated RBC Nucleated RBC % (auto) VBG pH 7.41 VBG pCO2 55 VBG pO2 95 VBG HCO3 35 H VBG O2 Saturation 98.0 VBG Base Excess 10.1 Sodium Potassium Chloride Carbon Dioxide Anion Gap BUN Creatinine Estim Creat Clear Calc Estimated GFR POC Glucose 169 H 214 H Random Glucose Calcium Phosphorus Magnesium Albumin Microbiology Microbiology Results: Microbiology 09/01/25 21:30 Trachea Gram Stain - Final 09/01/25 21:30 Trachea Sputum Culture - Final No growth. 08/21/25 20:09 Blood - Venous Blood Culture - Final No growth after 5 days. 08/21/25 19:25 Blood - Venous Blood Culture - Final No growth after 5 days. Progress Note: A&P Assessment and plan (1) Schizo affective schizophrenia: Status: Acute (2) Encephalopathy: Status: Acute (3) Combined pulmonary fibrosis and emphysema (CPFE): Status: Acute (4) Acute hypoxic respiratory failure: Status: Acute (5) Aspiration pneumonia: Status: Acute (6) Cardiomyopathy: Status: Acute (7) VALERIE (acute kidney injury): Status: Acute (8) Hypernatremia: Status: Acute Plan Assessment: 70-year-old gentleman with underlying schizophrenia, seizures, COPD, dysphagia hospitalized with encephalopathy and hypoxia requiring ventilatory support likely secondary to recurrent pulmonary aspiration. Plan: Neuro: Encephalopathy of unclear etiology, likely toxic versus septic. 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 Cardiac: No acute issues. Underlying CAD and cardiomyopathy. Pulmonary: Acute hypoxic respiratory failure secondary to pulmonary aspiration requiring ventilatory support, continue to titrate off as tolerated. Renal: Acute renal failure and hypernatremia. Increase free water boluses. Non oliguric. Continue to monitor renal indices and urine output. Endo: No acute issues. GI: No acute issues. ID: Empiric coverage for pulmonary aspiration Heme/Onc: No acute issues. Psych: No acute issues. Miscellaneous: No acute issues. Prophylaxis: Heparin, ppi Diet: Tube feeds Critical care time spent: 60 Quality Stroke Does the patient have a stroke diagnosis?: No VTE Prior VTE?: No VTE Risk Level:: Medical - moderate - high VTE Device Contraindication: N/A - Device Ordered VTE Drug Contraindication: N/A - Med Ordered
--- NOTE | 2025-09-05 15:16 | MHC.CLN ---
F/U PT REMAINS INTUBATED AND SEDATED REVIEWED LABS NOTED SERUM NA 155 CONTINUE GLUCERNA 1.2 AT MAX GOAL RATE 60ML/HR WITH 300ML FREE WATER FLUSHES Q 4 HRS PROVIDES 1728KCALS (2051KCALS WITH SEDATION; 23KCALS/KG), 86G PROTEIN, 2959ML TOTAL WATER FROM FORMULA AND FLUSHES (33ML/KG) MONITOR TOLERANCE AND LYTES
--- NOTE | 2025-09-05 17:27 | PC.NURSE ---
Assumed care at 0700. Upon initial assessment, pt remains ventilated and is on propofol and IV fluids. Sedation reduced per MAR. Update given to family at bedside. Pt repositioned q2hr as tolerated. Fall & safety precautions in place. See MAR and assessments for further details.
[2025-09-05 17:30] LABS: Glucose, Whole Blood 186 mg/dL (60-115)
--- NOTE | 2025-09-05 21:34 | HE.PHANOTE ---
VANCO DOSE ADJUSTMENT BASED ON SCR AND TROUGH OF 13.1 DOSE CONTINUED AT [id number]. Based on scr getting better might have to increase to 1000q 24h after next level
[2025-09-06] VITALS (33 sets, daily range): BP systolic 100–133; BP diastolic 51–75; PULSE 92–118; RESP 17–29; TEMP 35–37.5; O2SAT 89–95
[2025-09-06 00:02] LABS: Glucose, Whole Blood 138 mg/dL (60-115)
[2025-09-06] MEDS: Valproic Acid (as Sodium Salt) 250 MG in Dextrose 5 % 50 ML 52.5 MG IV ×3 (01:34→17:36)
[2025-09-06 05:34] LABS: VBG HCO3 37 mmol/L (22-26)
[2025-09-06 05:47] LABS: Hematocrit 26.8 % (42.0-52.0); Hemoglobin 8.1 g/dl (14.0-18.0); Imm Gran Abs Auto 0.18 X10*3/uL (0.00-0.03); Imm Gran Pct Auto 2.0 % (0.0-0.4); Lymphocytes Absolute Auto 2.0 X10*3/uL (1.2-4.9); MANUAL DIFF FLAG NO; Mean Corpuscular HGB Conc 30.2 g/dl (31.0-36.0); Mean Corpuscular Hemoglobin 31.0 pg (27.0-33.0); Mean Corpuscular Volume 102.7 fL (80.0-98.0); NRBC Abs Auto 0.030 X10*3/uL (0.0-0.012); NRBC Pct Auto 0.3 /100WBC (0.0-0.2); Platelet Count 231 X10*3/uL (160-400); Red Blood Count 2.61 X10*6/uL (4.60-5.80); White Blood Count 9.0 X10*3/uL (4.8-10.8)
[2025-09-06 06:00] LABS: Venous Blood Gas Refer to POC result
[2025-09-06 06:16] LABS: Glucose, Whole Blood 195 mg/dL (60-115)
[2025-09-06 06:18] LABS: Alanine Aminotransferase 21 U/L (0-40); Albumin Level 3.0 g/dL (3.5-5.0); Alkaline Phosphatase 59 U/L (39-117); Anion Gap 12 (12-20); Aspartate Amino Transferase 28 U/L (5-37); Blood Urea Nitrogen 42 mg/dL (9-16); Calcium 8.3 mg/dL (8.4-10.2); Carbon Dioxide 31 mmol/L (22-29); Chloride 117 mmol/L (96-108); Creatinine Clr Calc Pharmacy 38.8; Estimated Glomerular Filt Rate 30; Magnesium 2.8 mg/dL (1.6-2.6); Potassium 3.7 mmol/L (3.3-5.1); Sodium 156 mmol/L (135-145); Total Protein 6.4 g/dL (6.5-8.0)
[2025-09-06] MEDS: 0.9 % Sodium Chloride Flush 3 ML SYRINGE IVFLUSH ×3 (08:50→23:47)
[2025-09-06] MEDS: Nystatin Oral Susp 500,000 UNIT/5 ML ORAL.SUSP 200000 UNIT BUCCAL ×3 (08:52→21:27)
[2025-09-06] MEDS: Chlorhexidine Gluc Oral Rinse 15 ML MOUTHWASH BUCCAL ×3 (08:52→21:27)
[2025-09-06] MEDS: Albuterol/Iprat 2.5/0.5MG 3 ML AMPUL.NEB INHALE ×4 (09:32→19:59)
--- NOTE | 2025-09-06 10:52 | MHC.CLN ---
F/U PT REMAINS INTUBATED AND SEDATED REVIEWED LABS NOTED SERUM NA REMAINS ELEVATED DISCUSSED AT ROUNDS WITH MD-D5W IVF WITH MAXIMUM WATER FLUSHES IN PLACE CONTINUE GLUCERNA 1.2 AT MAX GOAL RATE 60ML/HR WITH 300ML FREE WATER FLUSHES Q 4 HRS PROVIDES 1728KCALS (2051KCALS WITH SEDATION; 23KCALS/KG), 86G PROTEIN, 2959ML TOTAL WATER FROM FORMULA AND FLUSHES (33ML/KG) CONTINUE TO MONITOR TOLERANCE AND LYTES
--- NOTE | 2025-09-06 11:11 | P.PNCC_ITS ---
Subjective Subjective Date of Service: 09/06/25 Interval History: 70-year-old gentleman with underlying schizoaffective disorder, COPD, sleep apnea, diabetes mellitus, dysphagia, CAD, seizure disorder, cardiomyopathy admitted on 08/21/2025 with lethargy and hypoxia likely secondary to pulmonary aspiration with hospital course significant for progressive hypoxia requiring intubation and ventilatory support on 08/23/2025, extubated 08/26/2025, requiring intubation again for pulmonary aspiration on 08/28/2025, now with slowly improving arousal with sedation vacation. No events overnight. Critical Care Time (minutes): 60 Physical Exam 2 Vital Signs: Vital Signs: Last Vital Signs Temp 99.5 F 09/06/25 09:00 Pulse 116 H 09/06/25 09:00 Resp 25 H 09/06/25 09:00 BP 117/62 09/06/25 09:00 Pulse Ox 90 L 09/06/25 09:00 O2 Del Method Mechanical Ventil ation 09/06/25 09:00 O2 Flow Rate 40 09/02/25 16:00 FiO2 30 09/06/25 09:00 Oxygen Flow Rate 2.5 08/22/25 00:01 BMI result Body Mass Index 30.0 Const: General: no acute distress and other (Sedated on ventilatory support) Eyes: Sclerae: sclerae normal EOM: EOMs intact bilaterally Neck: Neck: Yes no lymphadenopathy, Yes trachea midline and Yes supple Resp: Auscultation: clear to auscultation bilaterally Cardio: Rate: tachycardic Rhythm: regular rhythm Heart sounds: no gallops, no murmurs and no rubs GI: Palpation (GI): Soft to palpation and Other GI palpation findings present ( Nontender) Auscultation: normal bowel sounds Extrem: General: No clubbing, No cyanosis and Yes edema (1+ bilateral) Objective Data Labs 09/06/25 05:20 09/06/25 05:20 Labs: Laboratory Results - last 24 hr 09/05/25 09/05/25 09/05/25 11:48 17:27 20:52 WBC RBC Hgb Hct MCV MCH MCHC RDW Plt Count MPV Immature Gran % (Auto) Neut % (Auto) Lymph % (Auto) [place] % (Auto) Eos % (Auto) Baso % (Auto) Lymph # (Auto) [place] # (Auto) Eos # (Auto) Baso # (Auto) Abs Immat Gran (auto) Absolute Neuts (auto) Absolute Nucleated RBC Nucleated RBC % (auto) VBG pH VBG pCO2 VBG pO2 VBG HCO3 VBG O2 Saturation VBG Base Excess Sodium Potassium Chloride Carbon Dioxide Anion Gap BUN Creatinine Estim Creat Clear Calc Estimated GFR POC Glucose 214 H 186 H Random Glucose Calcium Phosphorus Magnesium Total Bilirubin AST ALT Alkaline Phosphatase Total Protein Albumin Random Vancomycin 13.1 L 09/05/25 09/06/25 09/06/25 23:57 05:20 05:30 WBC 9.0 RBC 2.61 L Hgb 8.1 L Hct 26.8 L MCV 102.7 H MCH 31.0 MCHC 30.2 L RDW 15.8 Plt Count 231 MPV 11.2 Immature Gran % (Auto) 2.0 H Neut % (Auto) 68.5 Lymph % (Auto) 21.7 [place] % (Auto) 7.4 Eos % (Auto) 0.1 Baso % (Auto) 0.3 Lymph # (Auto) 2.0 [place] # (Auto) 0.7 Eos # (Auto) 0.0 Baso # (Auto) 0.0 Abs Immat Gran (auto) 0.18 H Absolute Neuts (auto) 6.1 Absolute Nucleated RBC 0.030 H Nucleated RBC % (auto) 0.3 H VBG pH 7.53 H VBG pCO2 44 VBG pO2 106 VBG HCO3 37 H VBG O2 Saturation Not Reportable VBG Base Excess 13.2 Sodium 156 H Potassium 3.7 Chloride 117 H Carbon Dioxide 31 H Anion Gap 12 BUN 42 H Creatinine 2.20 H Estim Creat Clear Calc 38.8 Estimated GFR 30 POC Glucose 138 H Random Glucose 200 H Calcium 8.3 L Phosphorus 3.8 Magnesium 2.8 H Total Bilirubin 0.2 AST 28 ALT 21 Alkaline Phosphatase 59 Total Protein 6.4 L Albumin 3.0 L Random Vancomycin 09/06/25 06:05 WBC RBC Hgb Hct MCV MCH MCHC RDW Plt Count MPV Immature Gran % (Auto) Neut % (Auto) Lymph % (Auto) [place] % (Auto) Eos % (Auto) Baso % (Auto) Lymph # (Auto) [place] # (Auto) Eos # (Auto) Baso # (Auto) Abs Immat Gran (auto) Absolute Neuts (auto) Absolute Nucleated RBC Nucleated RBC % (auto) VBG pH VBG pCO2 VBG pO2 VBG HCO3 VBG O2 Saturation VBG Base Excess Sodium Potassium Chloride Carbon Dioxide Anion Gap BUN Creatinine Estim Creat Clear Calc Estimated GFR POC Glucose 195 H Random Glucose Calcium Phosphorus Magnesium Total Bilirubin AST ALT Alkaline Phosphatase Total Protein Albumin Random Vancomycin Microbiology Microbiology Results: Microbiology 09/01/25 21:30 Trachea Gram Stain - Final 09/01/25 21:30 Trachea Sputum Culture - Final No growth. 08/21/25 20:09 Blood - Venous Blood Culture - Final No growth after 5 days. 08/21/25 19:25 Blood - Venous Blood Culture - Final No growth after 5 days. Progress Note: A&P Assessment and plan (1) Schizo affective schizophrenia: Status: Acute (2) Cardiomyopathy: Status: Acute (3) VALERIE (acute kidney injury): Status: Acute (4) Hypernatremia: Status: Acute (5) Combined pulmonary fibrosis and emphysema (CPFE): Status: Acute (6) Aspiration pneumonia: Status: Acute Plan Assessment: 70-year-old gentleman with underlying schizophrenia, seizures, COPD, dysphagia hospitalized with encephalopathy and hypoxia requiring ventilatory support likely secondary to recurrent pulmonary aspiration. Plan: Neuro: Encephalopathy of unclear etiology, likely toxic versus septic. 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 Cardiac: No acute issues. Underlying CAD and cardiomyopathy. Pulmonary: Acute hypoxic respiratory failure secondary to pulmonary aspiration requiring ventilatory support, continue to titrate off as tolerated. Renal: Acute renal failure and hypernatremia, improving. Now on D5W. Non oliguric. Continue to monitor renal indices and urine output. Endo: No acute issues. GI: No acute issues. ID: Empiric coverage for pulmonary aspiration Heme/Onc: No acute issues. Psych: No acute issues. Miscellaneous: No acute issues. Prophylaxis: Heparin, ppi Diet: Tube feeds Critical care time spent: 60 Quality Stroke Does the patient have a stroke diagnosis?: No VTE Prior VTE?: No VTE Risk Level:: Medical - moderate - high VTE Device Contraindication: N/A - Device Ordered VTE Drug Contraindication: N/A - Med Ordered
[2025-09-06 11:53] LABS: Glucose, Whole Blood 266 mg/dL (60-115)
--- NOTE | 2025-09-06 14:26 | MHC.CM.PN ---
Pt remains on vent support: family to decide on extubation (do not reintubate) later today. MD has had several conversations with family about goals of care/prognosis: pt is a LTC resident of [facility]. CM to follow
[2025-09-06 17:40] LABS: Glucose, Whole Blood 172 mg/dL (60-115)
--- NOTE | 2025-09-06 20:23 | W.MHC.ACPN ---
Advanced Care Planning Note Advanced Care Planning Note Discussed with: family member(s) Time spent (in minutes): 30 Narrative: Goals of care conversation held with patient sisterRos, and nieceKatina, who are patient next of kin, informed of patient's current medical condition and future goals of care. They understand patient's conditions, and would like to like to proceed with tracheostomy placement and enteral tube feeding insertion. Will place surgical consult in the morning Problems Discussed (1) Schizo affective schizophrenia: (2) Cardiomyopathy: (3) VALERIE (acute kidney injury): (4) Hypernatremia: (5) Combined pulmonary fibrosis and emphysema (CPFE): (6) Aspiration pneumonia:
[2025-09-06 20:47] LABS: Anion Gap 13 (12-20); Blood Urea Nitrogen 39 mg/dL (9-16); Calcium 8.4 mg/dL (8.4-10.2); Carbon Dioxide 31 mmol/L (22-29); Chloride 116 mmol/L (96-108); Creatinine Clr Calc Pharmacy 40.3; Estimated Glomerular Filt Rate 31; Magnesium 2.7 mg/dL (1.6-2.6); Potassium 3.7 mmol/L (3.3-5.1); Sodium 156 mmol/L (135-145)
[2025-09-06 23:59] LABS: Glucose, Whole Blood 200 mg/dL (60-115)
[2025-09-07] VITALS (35 sets, daily range): BP systolic 105–132; BP diastolic 50–75; PULSE 26–121; RESP 18–29; TEMP 34.8–37.4; O2SAT 89–95; BMI 30.1
[2025-09-07] MEDS: Valproic Acid (as Sodium Salt) 250 MG in Dextrose 5 % 50 ML 52.5 MG IV ×3 (00:53→16:02)
[2025-09-07 06:00] LABS: MANUAL DIFF FLAG NO
[2025-09-07 06:10] LABS: Glucose, Whole Blood 212 mg/dL (60-115)
[2025-09-07 06:16] LABS: Albumin Level 2.9 g/dL (3.5-5.0); Anion Gap 8 (12-20); Blood Urea Nitrogen 34 mg/dL (9-16); Calcium 8.2 mg/dL (8.4-10.2); Carbon Dioxide 33 mmol/L (22-29); Chloride 114 mmol/L (96-108); Creatinine Clr Calc Pharmacy 42.5; Estimated Glomerular Filt Rate 33; Hematocrit 25.0 % (42.0-52.0); Hemoglobin 7.8 g/dl (14.0-18.0); Imm Gran Abs Auto 0.36 X10*3/uL (0.00-0.03); Imm Gran Pct Auto 3.9 % (0.0-0.4); Lymphocytes Absolute Auto 2.2 X10*3/uL (1.2-4.9); Magnesium 2.7 mg/dL (1.6-2.6); Mean Corpuscular HGB Conc 31.2 g/dl (31.0-36.0); Mean Corpuscular Hemoglobin 31.3 pg (27.0-33.0); Mean Corpuscular Volume 100.4 fL (80.0-98.0); NRBC Abs Auto 0.000 X10*3/uL (0.0-0.012); NRBC Pct Auto 0.0 /100WBC (0.0-0.2); Platelet Count 246 X10*3/uL (160-400); Potassium 3.3 mmol/L (3.3-5.1); Red Blood Count 2.49 X10*6/uL (4.60-5.80); Sodium 152 mmol/L (135-145); White Blood Count 9.3 X10*3/uL (4.8-10.8)
--- NOTE | 2025-09-07 06:55 | PC.NURSE ---
Assumed care of patient at 2300. Patient remains intubated, sedated on propofol per JAN. Diminished lungs with some occasional rhonchi. Sinus tach on monitor, see tele assessment. VSS. Rectal tube in place. Patient voiding via external catheter. Turned and repositioned throughout the night. No acute events. Bed in lowest position. Alarm on, plan of care ongoing.
[2025-09-07] MEDS: Albuterol/Iprat 2.5/0.5MG 3 ML AMPUL.NEB INHALE ×4 (08:07→19:48)
[2025-09-07] MEDS: Albumin Human 25 % 100 ML IV ×3 (08:31→20:08)
[2025-09-07] MEDS: 0.9 % Sodium Chloride Flush 3 ML SYRINGE IVFLUSH ×3 (08:31→23:04)
[2025-09-07] MEDS: Chlorhexidine Gluc Oral Rinse 15 ML MOUTHWASH BUCCAL ×3 (08:32→20:34)
[2025-09-07] MEDS: Potassium Chloride Packet 20 MEQ PACKET 40 MEQ PO ×2 (08:32→12:09)
[2025-09-07] MEDS: Nystatin Oral Susp 500,000 UNIT/5 ML ORAL.SUSP 200000 UNIT BUCCAL ×3 (08:33→20:34)
--- NOTE | 2025-09-07 10:46 | MHC.CLN ---
F/U PT REMAINS INTUBATED AND SEDATED REVIEWED LABS NOTED SERUM NA REMAINS ELEVATED BUT IMPROVED DISCUSSED AT ROUNDS WITH MD-FAMILY PURSUING TRACH/PEG CONTINUE GLUCERNA 1.2 AT MAX GOAL RATE 60ML/HR WITH 300ML FREE WATER FLUSHES Q 4 HRS PROVIDES 1728KCALS (2051KCALS WITH SEDATION; 23KCALS/KG), 86G PROTEIN, 2959ML TOTAL WATER FROM FORMULA AND FLUSHES (33ML/KG) CONTINUE TO MONITOR TOLERANCE AND LYTES
--- NOTE | 2025-09-07 11:01 | P.PNCC_ITS ---
Subjective Subjective Date of Service: 09/07/25 Interval History: 70-year-old gentleman with underlying schizoaffective disorder, COPD, sleep apnea, diabetes mellitus, dysphagia, CAD, seizure disorder, cardiomyopathy admitted on 08/21/2025 with lethargy and hypoxia likely secondary to pulmonary aspiration with hospital course significant for progressive hypoxia requiring intubation and ventilatory support on 08/23/2025, extubated 08/26/2025, requiring intubation again for pulmonary aspiration on 08/28/2025, now with slowly improving arousal with sedation vacation. Remains constant aspiration risk. Discussion held with healthcare proxy who is interested in further care including tracheostomy and gastrostomy. No events overnight. Critical Care Time (minutes): 60 Physical Exam 2 Vital Signs: Vital Signs: Last Vital Signs Temp 98.6 F 09/07/25 10:00 Pulse 28 L 09/07/25 10:00 Resp 28 H 09/07/25 10:00 BP 117/57 L 09/07/25 10:00 Pulse Ox 92 09/07/25 10:00 O2 Del Method Mechanical Ventil ation 09/07/25 10:00 O2 Flow Rate 40 09/02/25 16:00 FiO2 30 09/07/25 10:00 Oxygen Flow Rate 2.5 08/22/25 00:01 BMI result Body Mass Index 30.1 Const: General: no acute distress and other (Sedated on ventilatory support) Eyes: Sclerae: sclerae normal EOM: EOMs intact bilaterally Neck: Neck: Yes no lymphadenopathy, Yes trachea midline and Yes supple Resp: Auscultation: clear to auscultation bilaterally Cardio: Rate: tachycardic Rhythm: regular rhythm Heart sounds: no gallops, no murmurs and no rubs GI: Palpation (GI): Soft to palpation and Other GI palpation findings present ( Nontender) Auscultation: normal bowel sounds Extrem: General: Yes no pedal edema, No clubbing and No cyanosis Objective Data Labs 09/07/25 05:49 09/07/25 05:49 Labs: Laboratory Results - last 24 hr 09/06/25 09/06/25 09/06/25 11:43 17:33 20:13 WBC RBC Hgb Hct MCV MCH MCHC RDW Plt Count MPV Immature Gran % (Auto) Neut % (Auto) Lymph % (Auto) [place] % (Auto) Eos % (Auto) Baso % (Auto) Lymph # (Auto) [place] # (Auto) Eos # (Auto) Baso # (Auto) Abs Immat Gran (auto) Absolute Neuts (auto) Absolute Nucleated RBC Nucleated RBC % (auto) Sodium 156 H Potassium 3.7 Chloride 116 H Carbon Dioxide 31 H Anion Gap 13 BUN 39 H Creatinine 2.12 H Estim Creat Clear Calc 40.3 Estimated GFR 31 POC Glucose 266 H 172 H Random Glucose 176 H Calcium 8.4 Phosphorus 3.4 Magnesium 2.7 H Albumin 09/06/25 09/07/25 09/07/25 23:49 05:49 06:04 WBC 9.3 RBC 2.49 L Hgb 7.8 L Hct 25.0 L MCV 100.4 H MCH 31.3 MCHC 31.2 RDW 15.7 Plt Count 246 MPV 11.2 Immature Gran % (Auto) 3.9 H Neut % (Auto) 65.7 Lymph % (Auto) 23.2 [place] % (Auto) 6.7 Eos % (Auto) 0.2 Baso % (Auto) 0.3 Lymph # (Auto) 2.2 [place] # (Auto) 0.6 Eos # (Auto) 0.0 Baso # (Auto) 0.0 Abs Immat Gran (auto) 0.36 H Absolute Neuts (auto) 6.1 Absolute Nucleated RBC 0.000 Nucleated RBC % (auto) 0.0 Sodium 152 H Potassium 3.3 Chloride 114 H Carbon Dioxide 33 H Anion Gap 8 L BUN 34 H Creatinine 2.01 H Estim Creat Clear Calc 42.5 Estimated GFR 33 POC Glucose 200 H 212 H Random Glucose 232 H Calcium 8.2 L Phosphorus 3.4 Magnesium 2.7 H Albumin 2.9 L Microbiology Microbiology Results: Microbiology 09/01/25 21:30 Trachea Gram Stain - Final 09/01/25 21:30 Trachea Sputum Culture - Final No growth. 08/21/25 20:09 Blood - Venous Blood Culture - Final No growth after 5 days. 08/21/25 19:25 Blood - Venous Blood Culture - Final No growth after 5 days. Progress Note: A&P Assessment and plan (1) Failure to wean from mechanical ventilation: Status: Acute (2) Schizo affective schizophrenia: Status: Acute (3) Cardiomyopathy: Status: Acute (4) VALERIE (acute kidney injury): Status: Acute (5) Encephalopathy: Status: Acute (6) COPD (chronic obstructive pulmonary disease): Status: Acute (7) Combined pulmonary fibrosis and emphysema (CPFE): Status: Acute (8) Aspiration pneumonia: Status: Acute (9) BRITT (obstructive sleep apnea): Status: Acute Plan Assessment: 70-year-old gentleman with underlying schizophrenia, seizures, COPD, dysphagia hospitalized with encephalopathy and hypoxia requiring ventilatory support likely secondary to recurrent pulmonary aspiration. Plan: Neuro: Encephalopathy of unclear etiology, likely toxic versus septic. 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 Cardiac: No acute issues. Underlying CAD and cardiomyopathy. Pulmonary: Acute hypoxic respiratory failure secondary to pulmonary aspiration requiring ventilatory support, remains on consult aspiration risk. Discussion held with healthcare proxy about goals of further care a decision has been made to continue with tracheostomy and gastrostomy placement. General surgery evaluation requested.. Renal: Acute renal failure and hypernatremia, improving. Non oliguric. Continue to monitor renal indices and urine output. Endo: No acute issues. GI: No acute issues. ID: Empiric coverage for pulmonary aspiration Heme/Onc: No acute issues. Psych: No acute issues. Miscellaneous: No acute issues. Prophylaxis: Heparin, ppi Diet: Tube feeds Critical care time spent: 60 Quality Stroke Does the patient have a stroke diagnosis?: No VTE Prior VTE?: No VTE Risk Level:: Medical - moderate - high VTE Device Contraindication: N/A - Device Ordered VTE Drug Contraindication: N/A - Med Ordered
--- NOTE | 2025-09-07 11:15 | P.CONGS_ITS ---
History of Present Illness Consult details Consult date: 09/07/25 <Ella Denney PA-C - Last Filed: 09/07/25 14:23> Reason for consult: other (trach/PEG tube ) <EUGENIO Roland Last Filed: 09/07/25 14:23> Requesting physician: Alo Cain <Elal Denney PA-C - Last Filed: 09/07/25 14:23> Narrative: 70-year-old male with PMH of schizoaffective disorder, COPD, sleep apnea, diabetes mellitus, dysphagia, CAD, seizure disorder, cardiomyopathy admitted on 08/21/2025 with lethargy and hypoxia secondary to pulmonary aspiration. He had progressive hypoxia requiring intubation and ventilatory support on 08/23/2025, was subsequently extubated on 08/26/2025 however required reintubation for aspiration on 08/28/2025. He initially had poor arousal with sedation vacation but now with slowly improving. He unfortunately remains constant aspiration risk. Discussion held with healthcare proxy by timber grader who is interested in furthering care with tracheostomy and gastrostomy tube. General surgery was therefore consulted. Chart reviewed. He is on IV zosyn. He is off pressor support. He has a NGT in place and is currently getting tube feeds. No surgical history noted. <EUGENIO Roland Last Filed: 09/07/25 14:23> Review of Systems 2 Review of Systems: Yes Unobtainable due to mental status <EUGENIO Roland Last Filed: 09/07/25 14:23> [facility] Past Medical History Medical History: Medical History (Updated 09/07/25 @ 11:03 by Alo Cain MD) Lower extremity edema Combined pulmonary fibrosis and emphysema (CPFE) Nicotine dependence, cigarettes, uncomplicated History of non-ST elevation myocardial infarction (NSTEMI) Thoracic aortic aneurysm Resides in [facility] care facility Supraventricular tachycardia Cardiomyopathy CAD (coronary artery disease) HTN (hypertension) GERD (gastroesophageal reflux disease) Diabetes Epilepsy Schizo affective schizophrenia Pulmonary fibrosis Nocturnal hypoxia BRITT (obstructive sleep apnea) (~2017) COPD (chronic obstructive pulmonary disease) <EUGENIO Roland Last Filed: 09/07/25 14:23> Surgical History Surgical History: Surgical History History of colonoscopy <Ella Denney PA-C - Last Filed: 09/07/25 14:23> Social History Social History: Social History Household Members: Other Household Members Other:: resides at [facility] Housing: Snf Housing Other:: [facility] [place] [facility] Are you a primary care specialist to a significant other at home: No Do you presently have visiting nurse or other home services: No Unable to assess alcohol history related to: Unable to respond Alcohol intake: never Comment: 1:1 sitter Patient Tobacco Use Status: Never used Tobacco Tobacco use type: Cigarette Cigarette Packs Per Day: 0.5 Years Smoked: (onset 16yo, 1/2ppd x 51yrs, 25pyh) Use of substances other than those prescribed or required for medical reasons: Unable to respond Currently Displaying Signs/Symptoms of Drug Intoxication Withdrawal: No Advance Directives: Yes Advance Directives on File: Yes Advance Directives Date on File: 12/21/21 Do you have a plan to hurt others: No Plan Recently lost weight without trying: Unsure Poor oral hygiene: Yes service: No <Ella Denney PA-C - Last Filed: 09/07/25 14:23> Meds Allergies/Adverse reactions: Allergies Allergy/AdvReac Type Severity Reaction Status Date / Time divalproex sodium (Depakote) Allergy Severe Rash/Hives Unverified 08/21/25 19:01 gabapentin (Neurontin) Allergy Severe Rash/Hives Unverified 08/21/25 19:01 haloperidol (From HALDOL) Allergy Severe Rash/Hives Unverified 08/21/25 19:01 <Ella Denney PA-C - Last Filed: 09/07/25 14:23> Active Medications: Current Medications Albuterol/Ipratropium (Albuterol/Iprat 2.5/0.5mg 3 Ml Ampul.Neb) 3 ml INHALE RQ4H WHILE AWAKE SHAINA Last Admin: 09/07/25 11:15 Dose: 3 ml Chlorhexidine Gluconate (Chlorhexidine Gluc Oral Rinse 15 Ml Mouthwash) 15 ml BUCCAL TID SHAINA Last Admin: 09/07/25 08:32 Dose: 15 ml Clozapine (Clozapine 100 Mg Tablet) 400 mg PO BEDTIME [facility]A Last Admin: 09/06/25 21:27 Dose: 400 mg Dextrose (Dextrose 50 % 25 Gm/50 Ml Syringe) 25 gm IVPUSH Q15M PRN; Protocol PRN Reason: per Hypoglycemia Standing Ord. Glucose (Glucose Gel 15 Gm Gel..Gram.) 15 gm PO Q15M PRN; Protocol PRN Reason: per Hypoglycemia Standing Ord. Heparin Sodium (Porcine) (Heparin Sodium,Porcine 5,000 Unit/Ml Vial) 5,000 unit SUBCUT Q8H [facility] Last Admin: 09/07/25 06:22 Dose: 5,000 unit Propofol (Diprivan) 1,000 mg in 100 mls @ 0 mls/hr IVCONT .Q0M [facility]; Protocol Last Admin: 09/06/25 21:31 Dose: 10 mcg/kg/min, 6.12 mls/hr Norepinephrine Bitartrate (Levophed) 8 mg in 250 mls @ 0 mls/hr IVCONT .Q0M [facility]; Protocol Last Titration: 09/04/25 06:10 Dose: Infused Valproic Acid 250 mg/ Dextrose 52.5 mls @ 52.5 mls/hr IV Q8H [facility] Last Infusion: 09/07/25 09:35 Dose: Infused Dextrose (D5w) 1,000 mls @ 125 mls/hr IVCONT .Q8H [facility] Last Admin: 09/07/25 04:46 Dose: 125 mls/hr Albumin Human (Kedbumin 25 %) 100 mls @ 100 mls/hr IV Q6H [facility] Stop: 09/08/25 02:59 Last Infusion: 09/07/25 10:41 Dose: Infused Insulin Human Lispro (Insulin Lispro 100 Unit/Ml 3 Ml Vial) 0 unit SUBCUT Q6H [facility]; Protocol Last Admin: 09/07/25 06:22 Dose: 4 unit [place]ellwood Carbonate (Zellwood Carbonate 300 Mg Capsule) 300 mg PO BID [facility] Last Admin: 09/07/25 08:32 Dose: 300 mg Nystatin (Nystatin Oral Susp 500,000 Unit/5 Ml Oral.Susp) 200,000 unit BUCCAL TID [facility]; Protocol Last Admin: 09/07/25 08:33 Dose: 200,000 unit Pantoprazole Sodium (Pantoprazole Sodium 40 Mg/10 Ml Vial) 40 mg IVPUSH DAILY@0630 [facility] Last Admin: 09/07/25 06:22 Dose: 40 mg Potassium Chloride (Potassium Chloride Packet 20 Meq Packet) 40 meq PO Q4H [facility] Stop: 09/07/25 12:01 Last Admin: 09/07/25 08:32 Dose: 40 meq Sodium Chloride (0.9 % Sodium Chloride Flush 3 Ml Syringe) 3 ml IVFLUSH QSHIFT [facility] Last Admin: 09/07/25 08:31 Dose: 3 ml <Ella Denney PA-C - Last Filed: 09/07/25 14:23> Home medications: Home Medications ?Medication ?Instructions ?Recorded ?Confirmed ?Last Taken ?Type atorvastatin 10 mg tablet 10 mg PO BEDTIME 06/21/21 Unknown History bisacodyl 10 mg rectal suppository [address] DAILY PRN Constipation 06/21/21 08/22/25 Unknown History furosemide 20 mg tablet 40 mg PO DAILY 06/21/2107/26 Unknown History metformin 1,000 mg tablet 1,000 mg PO BID 06/21/21 Unknown History metoprolol succinate 50 mg 50 mg PO BID 06/21/2108/22 Unknown History tablet,extended release 24 hr omeprazole 20 mg capsule,delayed 20 mg PO DAILY@1630 0 06/21/21 08/22/25 Unknown History release oxybutynin chloride 5 mg tablet 5 mg PO DAILY 06/21/21 08/22/25 Unknown History sennosides 8.6 mg tablet (senna) 8.6 mg PO DAILY PRN C onstipation 06/21/21 08/22/25 Unknown History aluminum-mag hydroxide-simethicone 30 ml PO Q4H PRN gi upset 08/13/22 08/22/25 Unknown History 200 mg-200 mg-20 mg/5 mL oral susp multivitamin 1 tab PO DAILY 08/13/2207/26 Unknown History lithium carbonate 300 mg 300 mg PO BID 04/03/2308/22 Unknown History tablet,extended release trazodone 50 mg tablet 50 mg PO BEDTIME 12/29/23 Unknown History acetaminophen 325 mg tablet 650 mg PO Q6H PRN temp>100 /mild 08/22/25 08/22/25 Unknown History pain ascorbic acid (vitamin C) 500 mg 500 mg PO DAILY 08/2208/22/25 Unknown History tablet clozapine 200 mg tablet (Clozaril) 400 mg PO BEDTIME 0 08/22/25 08/22/25 08/21/25 21:00 History fluticasone propionate 50 2 spray intranasal DAILY 08/22/25 Unknown History mcg/actuation nasal spray,suspension glucagon 1 mg solution for 1 mg IM Q15M PRN hypoglycem ic 08/22/25 08/22/25 Unknown History injection protocol miconazole nitrate 2 % topical 1 appl topical BID 07/2608/22/25 Unknown History powder eobrfdjunebvw-NB-ycayjvtcklx 5 10 ml PO Q4H PRN Cough 08/22/25 08/22/25 Unknown History mg-10 mg-100 mg/5 mL oral liquid sennosides 8.6 mg tablet (senna) 17.2 mg PO BEDTIME 08/22/25 Unknown History sodium phosphates 19 gram-[address] DAILY PRN Consti pation 08/22/25 08/22/25 Unknown History gram/118 mL enema (Fleet Enema) <EUGENIO Roland Last Filed: 09/07/25 14:23> Physical Exam 2 Vital Signs: Vital Signs: Last Vital Signs Temp 98.6 F 09/07/25 10:00 Pulse 28 L 09/07/25 10:00 Resp 28 H 09/07/25 10:00 BP 117/57 L 09/07/25 10:00 Pulse Ox 92 09/07/25 10:00 O2 Del Method Mechanical Ventil ation 09/07/25 10:00 O2 Flow Rate 40 09/02/25 16:00 FiO2 30 09/07/25 10:00 Oxygen Flow Rate 2.5 08/22/25 00:01 BMI result Body Mass Index 30.1 <EUGENIO Roland Last Filed: 09/07/25 14:23> HEENT: Other: NGT in place <Ella Denney PA-C - Last Filed: 09/07/25 14:23> Eyes: Other: currently somewhat opening eyes to verbal stimuli <[facility] Last Filed: 09/07/25 14:23> Neck: Neck: Yes normal visual inspection, Yes trachea midline and Yes no JVD <[facility] Last Filed: 09/07/25 14:23> Resp: Other: intubated, on vent <[facility] Last Filed: 09/07/25 14:23> Cardio: Rate: tachycardic <Ella MARIA [facility]ADALUPE [facility] Last Filed: 09/07/25 14:23> GI: Other: corpulent abdomen no scars appreciated soft, nondistended no guarding or rigidity small soft reducible umbilical hernia rectal tube in place, soft brown stool <MARIA [facility]UPE [facility] Last Filed: 09/07/25 14:23> Percussion: Yes normal to percussion <MAR[facility] Last Filed: 09/07/25 14:23> Skin: Other: warm and dry <MAR[facility] Last Filed: 09/07/25 14:23> Extrem: Other: mild edema of b/l UE and LE <MAR[facility] Last Filed: 09/07/25 14:23> Results Labs Result diagrams: 09/07/25 05:49 09/07/25 05:49 <[facility] Last Filed: 09/07/25 14:23> Labs: Abnormal lab results 09/06/25 09/06/25 09/06/25 Range/Units 11:43 17:33 20:13 RBC (4.60-5.80) X10*6/uL Hgb (14.0-18.0) g/dl Hct (42.0-52.0) % MCV (80.0-98.0) fL Immature Gran % (Auto) (0.0-0.4) % Abs Immat Gran (auto) (0.00-0.03) X10*3/uL Sodium 156 H (135-145) mmol/L Chloride 116 H (96-108) mmol/L Carbon Dioxide 31 H (22-29) mmol/L Anion Gap (12-20) BUN 39 H (9-16) mg/dL Creatinine 2.12 H (0.5-1.4) mg/dL POC Glucose 266 H 172 H (60-115) mg/dL Random Glucose 176 H (60-115) mg/dL Calcium (8.4-10.2) mg/dL Magnesium 2.7 H (1.6-2.6) mg/dL Albumin (3.5-5.0) g/dL 09/06/25 09/07/25 09/07/25 Range/Units 23:49 05:49 06:04 RBC 2.49 L (4.60-5.80) X10*6/uL Hgb 7.8 L (14.0-18.0) g/dl Hct 25.0 L (42.0-52.0) % MCV 100.4 H (80.0-98.0) fL Immature Gran % (Auto) 3.9 H (0.0-0.4) % Abs Immat Gran (auto) 0.36 H (0.00-0.03) X10*3/uL Sodium 152 H (135-145) mmol/L Chloride 114 H (96-108) mmol/L Carbon Dioxide 33 H (22-29) mmol/L Anion Gap 8 L (12-20) BUN 34 H (9-16) mg/dL Creatinine 2.01 H (0.5-1.4) mg/dL POC Glucose 200 H 212 H (60-115) mg/dL Random Glucose 232 H (60-115) mg/dL Calcium 8.2 L (8.4-10.2) mg/dL Magnesium 2.7 H (1.6-2.6) mg/dL Albumin 2.9 L (3.5-5.0) g/dL Short CBC 09/07/25 Range/Units 05:49 WBC 9.3 (4.8-10.8) X10*3/uL Hgb 7.8 L (14.0-18.0) g/dl Hct 25.0 L (42.0-52.0) % Plt Count 246 (160-400) X10*3/uL BMP 09/06/25 09/07/25 20:13 05:49 Sodium 156 H 152 H Potassium 3.7 3.3 Chloride 116 H 114 H Carbon Dioxide 31 H 33 H BUN 39 H 34 H Creatinine 2.12 H 2.01 H Calcium 8.4 8.2 L Liver Function 09/07/25 Range/Units 05:49 Albumin 2.9 L (3.5-5.0) g/dL Urine 08/21/25 Range/Units 19:25 Urine Color Yellow Urine Appearance Clear Urine pH 7.5 (5.0-9.0) Ur Specific Bent 1.010 (1.005-1.025) Urine Protein 30 (1+) H (Neg-Trace) mg/dL Urine Glucose (UA) Negative (Negative) mg/dL All other labs normal. <Ella Denney PA-C - Last Filed: 09/07/25 14:23> Imaging Additional studies: chest CTA reviewed <Ella Denney PA-C - Last Filed: 09/07/25 14:23> Assessment and Plan (1) Failure to wean from mechanical ventilation: Status: Acute <Ella Denney PA-C - Last Filed: 09/07/25 14:23> 70-year-old male with multiple medical problems including schizoaffective disorder, COPD, sleep apnea, coronary artery disease, cardiomyopathy, admitted on August 21 because of aspiration. He has been on and off the ventilator since then. The trachea is felt easily on the midline . The abdomen is soft, benign and does not have any surgical scars. He has therefore been referred for PEG tube placement as well as tracheostomy I have reached out to his healthcare proxy Marlene over the phone multiple times today. I left a message on her phone number We have tentatively scheduled him for PEG tube placement and tracheostomy tomorrow morning. I have seen and examined the patient independently. <Jhon Chino MD - Last Filed: 09/07/25 16:11> 70-year-old male with PMH of schizoaffective disorder, COPD, sleep apnea, diabetes mellitus, dysphagia, CAD, seizure disorder, cardiomyopathy admitted on 08/21/2025 with lethargy and hypoxia secondary to pulmonary aspiration requiring intubation and ventilatory support on 08/23/2025. He was extubated but required reintubation and now is unable to be weaned from the vent. Healthcare proxy is interested in furthering care with tracheostomy and PEG tube placement. No surgical history is noted, trachea is midline and neck is soft and supple. No abdominal scars, chest CTA reviewed- appears to have good window and will be amenable to PEG tube. He has been added onto the OR schedule for tomorrow for tracheostomy and PEG tube placement with Dr. Chino. Hold tube feeds at midnight. <Ella Denney PA-C - Last Filed: 09/07/25 14:23> Procedures Date of Service Date of Service: 09/07/25 <Ella Denney PA-C - Last Filed: 09/07/25 14:23> 09/07/25 <Jhon Chino MD - Last Filed: 09/07/25 16:11>
[2025-09-07 12:11] LABS: Glucose, Whole Blood 191 mg/dL (60-115)
--- NOTE | 2025-09-07 13:56 | HO.ANESPROP2 ---
HPI - Anesthesia Eval Consult details Narrative: 70 yr old male for trach/PEG insert H/O non-ST elevated [place] secondary to cocaine abuse in 2013 -Nuclear stress test done 08/16/25 showing no evidence of ischemia. Stress EF 72% Thoracic aortic aneurysm: stable on echo done 03/2024, will be repeated 01/2026 COPD/interstitial lung disease/pulmonary fibrosis: intubated due to aspiration; prior to hospitalization daily smoker BRITT: ?has not been recently using CPAP Unexplained syncope-status post [employer] ILR placement-syncope thought to be orthostatic in nature; ILR was removed 12/2024 [facility] Active Problems Active Problems: All Active Problems Failure to wean from mechanical ventilation (Acute) Hypernatremia (Acute) Cardiomyopathy (Acute) Schizo affective schizophrenia (Acute) Acute kidney failure (Acute) Acute hypoxic respiratory failure (Acute) VALERIE (acute kidney injury) (Acute) Encephalopathy (Acute) Septic shock (Acute) Acute hypotension (Acute) Fever (Acute) Acute alteration in mental status (Acute) Aspiration pneumonia (Acute) Lower extremity edema (Acute) 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) Nicotine dependence, cigarettes, uncomplicated (Acute) Pulmonary fibrosis (Acute) Nocturnal hypoxia (Acute) BRITT (obstructive sleep apnea) (Acute ~2017) COPD (chronic obstructive pulmonary disease) (Acute) Past Medical History Medical History (Updated 09/07/25 @ 11:03 by Alo Cain MD) Lower extremity edema Combined pulmonary fibrosis and emphysema (CPFE) Nicotine dependence, cigarettes, uncomplicated History of non-ST elevation myocardial infarction (NSTEMI) Thoracic aortic aneurysm 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 Supraventricular tachycardia Cardiomyopathy CAD (coronary artery disease) HTN (hypertension) GERD (gastroesophageal reflux disease) Diabetes Epilepsy Schizo affective schizophrenia Pulmonary fibrosis Nocturnal hypoxia BRITT (obstructive sleep apnea) (~2017) COPD (chronic obstructive pulmonary disease) Family History Family history of problems with anesthesia: No Surgical History Surgical History History of colonoscopy Social History Social History Household Members: Other Household Members Other:: resides at [facility] Housing: Alf Housing Other:: [facility] Are you a primary lpn care manager to a significant other at home: No Do you presently have visiting nurse or other home services: No Unable to assess alcohol history related to: Unable to respond Alcohol intake: never Comment: 1:1 sitter Patient Tobacco Use Status: Never used Tobacco Tobacco use type: Cigarette Cigarette Packs Per Day: 0.5 Years Smoked: (onset 16yo, 1/2ppd x 51yrs, 25pyh) Use of substances other than those prescribed or required for medical reasons: Unable to respond Currently Displaying Signs/Symptoms of Drug Intoxication Withdrawal: No Advance Directives: Yes Advance Directives on File: Yes Advance Directives Date on File: 12/21/21 Do you have a plan to hurt others: No Plan Recently lost weight without trying: Unsure Poor oral hygiene: Yes service: No Meds Allergies Allergy/AdvReac Type Severity Reaction Status Date / Time divalproex sodium (Depakote) Allergy Severe Rash/Hives Unverified 08/21/25 19:01 gabapentin (Neurontin) Allergy Severe Rash/Hives Unverified 08/21/25 19:01 haloperidol (From HALDOL) Allergy Severe Rash/Hives Unverified 08/21/25 19:01 Active Medications: Current Medications Albuterol/Ipratropium (Albuterol/Iprat 2.5/0.5mg 3 Ml Ampul.Neb) 3 ml INHALE RQ4H WHILE AWAKE [facility] Last Admin: 09/07/25 11:15 Dose: 3 ml Chlorhexidine Gluconate (Chlorhexidine Gluc Oral Rinse 15 Ml Mouthwash) 15 ml BUCCAL TID SHAINA Last Admin: 09/07/25 08:32 Dose: 15 ml Clozapine (Clozapine 100 Mg Tablet) 400 mg PO BEDTIME [facility] Last Admin: 09/06/25 21:27 Dose: 400 mg Dextrose (Dextrose 50 % 25 Gm/50 Ml Syringe) 25 gm IVPUSH Q15M PRN; Protocol PRN Reason: per Hypoglycemia Standing Ord. Glucose (Glucose Gel 15 Gm Gel..Gram.) 15 gm PO Q15M PRN; Protocol PRN Reason: per Hypoglycemia Standing Ord. Heparin Sodium (Porcine) (Heparin Sodium,Porcine 5,000 Unit/Ml Vial) 5,000 unit SUBCUT Q8H [facility] Last Admin: 09/07/25 06:22 Dose: 5,000 unit Propofol (Diprivan) 1,000 mg in 100 mls @ 0 mls/hr IVCONT .Q0M SHAINA; Protocol Last Admin: 09/07/25 11:00 Dose: 20 mcg/kg/min, 12.24 mls/hr Norepinephrine Bitartrate (Levophed) 8 mg in 250 mls @ 0 mls/hr IVCONT .Q0M [facility]; Protocol Last Titration: 09/04/25 06:10 Dose: Infused Valproic Acid 250 mg/ Dextrose 52.5 mls @ 52.5 mls/hr IV Q8H [facility] Last Infusion: 09/07/25 09:35 Dose: Infused Dextrose (D5w) 1,000 mls @ 125 mls/hr IVCONT .Q8H [facility] Last Admin: 09/07/25 12:36 Dose: 125 mls/hr Albumin Human (Kedbumin 25 %) 100 mls @ 100 mls/hr IV Q6H [facility] Stop: 09/08/25 02:59 Last Infusion: 09/07/25 10:41 Dose: Infused Insulin Human Lispro (Insulin Lispro 100 Unit/Ml 3 Ml Vial) 0 unit SUBCUT Q6H [facility]; Protocol Last Admin: 09/07/25 12:36 Dose: 2 unit [place] Carbonate ([place] Carbonate 300 Mg Capsule) 300 mg PO BID [facility] Last Admin: 09/07/25 08:32 Dose: 300 mg Nystatin (Nystatin Oral Susp 500,000 Unit/5 Ml Oral.Susp) 200,000 unit BUCCAL TID [facility]; Protocol Last Admin: 09/07/25 08:33 Dose: 200,000 unit Pantoprazole Sodium (Pantoprazole Sodium 40 Mg/10 Ml Vial) 40 mg IVPUSH DAILY@0630 [facility] Last Admin: 09/07/25 06:22 Dose: 40 mg Sodium Chloride (0.9 % Sodium Chloride Flush 3 Ml Syringe) 3 ml IVFLUSH QSHIFT [facility] Last Admin: 09/07/25 08:31 Dose: 3 ml Home Medications ?Medication ?Instructions ?Recorded ?Confirmed ?Last Taken ?Type atorvastatin 10 mg tablet 10 mg PO BEDTIME 06/21/21 08/22/25 Unknown History bisacodyl 10 mg rectal suppository 10 mg OR DAILY PRN Constipation 06/21/21 08/22/25 Unknown History furosemide 20 mg tablet 40 mg PO DAILY 06/21/21 08/22/25 Unknown History metformin 1,000 mg tablet 1,000 mg PO BID 06/21/21 08/22/25 Unknown History metoprolol succinate 50 mg 50 mg PO BID 06/21/21 08/22/25 Unknown History tablet,extended release 24 hr omeprazole 20 mg capsule,delayed 20 mg PO DAILY@1630 06/21/21 08/22/25 Unknown History release oxybutynin chloride 5 mg tablet 5 mg PO DAILY 06/21/21 08/22/25 Unknown History sennosides 8.6 mg tablet (senna) 8.6 mg PO DAILY PRN Constipation 06/21/21 08/22/25 Unknown History aluminum-mag hydroxide-simethicone 30 ml PO Q4H PRN gi upset 08/13/22 08/22/25 Unknown History 200 mg-200 mg-20 mg/5 mL oral susp multivitamin 1 tab PO DAILY 08/13/22 08/22/25 Unknown History lithium carbonate 300 mg 300 mg PO BID 04/03/23 08/22/25 Unknown History tablet,extended release trazodone 50 mg tablet 50 mg PO BEDTIME 12/29/23 08/22/25 Unknown History acetaminophen 325 mg tablet 650 mg PO Q6H PRN temp>100/mild 08/22/25 08/22/25 Unknown History pain ascorbic acid (vitamin C) 500 mg 500 mg PO DAILY 08/22/25 08/22/25 Unknown History tablet clozapine 200 mg tablet (Clozaril) 400 mg PO BEDTIME 08/22/25 08/22/25 08/21/25 21:00 History fluticasone propionate 50 2 spray intranasal DAILY 08/22/25 08/22/25 Unknown History mcg/actuation nasal spray,suspension glucagon 1 mg solution for 1 mg IM Q15M PRN hypoglycemic 08/22/25 08/22/25 Unknown History injection protocol miconazole nitrate 2 % topical 1 appl topical BID 08/22/25 08/22/25 Unknown History powder jjqurlufyxirr-JJ-jrmcqotlgio 5 10 ml PO Q4H PRN Cough 08/22/25 08/22/25 Unknown History mg-10 mg-100 mg/5 mL oral liquid sennosides 8.6 mg tablet (senna) 17.2 mg PO BEDTIME 08/22/25 08/22/25 Unknown History sodium phosphates 19 gram-7 118 ml OR DAILY PRN Constipation 08/22/25 08/22/25 Unknown History gram/118 mL enema (Fleet Enema) Exam Height,Weight and Vital Signs: Height 6 ft Weight 100.6 kg Last Vital Signs Temp 98.8 F 09/07/25 13:00 Pulse 26 L 09/07/25 13:00 Resp 25 H 09/07/25 13:00 BP 117/65 09/07/25 13:00 Pulse Ox 93 09/07/25 13:00 O2 Del Method Mechanical Ventilation 09/07/25 13:00 O2 Flow Rate 40 09/02/25 16:00 FiO2 30 09/07/25 13:00 Oxygen Flow Rate 2.5 08/22/25 00:01 Pertinent Lab Results Pertinent Lab Results: Laboratory Tests 08/21/25 08/21/25 08/22/25 19:25 19:32 00:22 WBC 13.9 H RBC 3.88 L Hgb 12.3 L Hct 37.0 L MCV 95.4 MCH 31.7 MCHC 33.2 RDW 15.1 Plt Count 184 D MPV 8.6 L Immature Gran % (Auto) 0.5 H Neut % (Auto) 81.5 H Lymph % (Auto) 9.8 L [place] % (Auto) 8.0 Eos % (Auto) 0.0 Baso % (Auto) 0.2 Lymph # (Auto) 1.4 [place] # (Auto) 1.1 Eos # (Auto) 0.0 Baso # (Auto) 0.0 Abs Immat Gran (auto) 0.07 H Absolute Neuts (auto) 11.3 H Absolute Nucleated RBC 0.000 Nucleated RBC % (auto) 0.0 Smear Tech's Comments Hold Purple Top O2 Saturation ABG pH at Pt Temp ABG pCO2 at Pt Temp ABG pO2 at Pt Temp ABG HCO3 ABG Base Excess (Actual) VBG pH 7.39 VBG pCO2 41 VBG pO2 32 VBG HCO3 25 VBG O2 Saturation 44.0 VBG Base Excess 0.4 Sodium 138 Potassium 3.5 Chloride 102 Carbon Dioxide 28 Anion Gap 12 BUN 11 Creatinine 1.38 Estim Creat Clear Calc 63.1 Estimated GFR 51 POC Glucose 129 H Random Glucose 151 H Lactic Acid 1.8 Calcium 9.4 Phosphorus Magnesium 1.9 Total Bilirubin 0.4 Direct Bilirubin 0.2 AST 32 ALT 10 Alkaline Phosphatase 108 Troponin I High Sens 31.4 NT-Pro-B Natriuret Pep 133.7 Total Protein 7.8 Albumin 4.1 TSH Free T4 Urine Color Yellow Urine Appearance Clear Urine pH 7.5 Ur Specific [place] 1.010 Urine Protein 30 (1+) H Urine Glucose (UA) Negative Urine Ketones Negative Urine Blood Negative Urine Nitrite Negative Ur Leukocyte Esterase Negative Urine RBC 0-2 Urine WBC 0-5 Ur Squamous Epith Cells 0-2 Urine Bacteria None Seen Hyaline Casts 0-2 Stool Occult Blood Random Vancomycin Valproic Acid [place] COVID-19 (MARNIE) Negative COVID-19 Clin Com See Note Influenza Type A (DARRIN) Negative Influenza Type B (DARRIN) Negative Influenza A & B Note See Note Ur L.pneumophila Ag Not Detected Blood Type Antibody Screen 08/22/25 08/22/25 08/22/25 04:57 04:59 11:29 WBC 17.0 H RBC 3.35 L Hgb 10.7 L Hct 32.5 L MCV 97.0 MCH 31.9 MCHC 32.9 RDW 15.2 Plt Count 155 L MPV 9.4 Immature Gran % (Auto) 0.9 H Neut % (Auto) 81.0 H Lymph % (Auto) 8.8 L [place] % (Auto) 9.1 Eos % (Auto) 0.0 Baso % (Auto) 0.2 Lymph # (Auto) 1.5 [place] # (Auto) 1.6 H Eos # (Auto) 0.0 Baso # (Auto) 0.0 Abs Immat Gran (auto) 0.15 H Absolute Neuts (auto) 13.7 H Absolute Nucleated RBC 0.000 Nucleated RBC % (auto) 0.0 Smear Tech's Comments VERIFIED Hold Purple Top O2 Saturation ABG pH at Pt Temp ABG pCO2 at Pt Temp ABG pO2 at Pt Temp ABG HCO3 ABG Base Excess (Actual) VBG pH 7.43 VBG pCO2 44 VBG pO2 36 VBG HCO3 29 H VBG O2 Saturation 63.0 VBG Base Excess 4.8 Sodium 143 Potassium 3.6 Chloride 111 H Carbon Dioxide 24 Anion Gap 12 BUN 11 Creatinine 1.14 Estim Creat Clear Calc 75.9 Estimated GFR > 60 POC Glucose 94 Random Glucose 122 H Lactic Acid Calcium 8.7 D Phosphorus 2.4 L Magnesium 2.0 Total Bilirubin Direct Bilirubin AST ALT Alkaline Phosphatase Troponin I High Sens NT-Pro-B Natriuret Pep Total Protein Albumin 3.1 L TSH Free T4 Urine Color Urine Appearance Urine pH Ur Specific [place] Urine Protein Urine Glucose (UA) Urine Ketones Urine Blood Urine Nitrite Ur Leukocyte Esterase Urine RBC Urine WBC Ur Squamous Epith Cells Urine Bacteria Hyaline Casts Stool Occult Blood Random Vancomycin Valproic Acid [place] COVID-19 (MARNIE) COVID-19 Clin Com Influenza Type A (DARRIN) Influenza Type B (DARRIN) Influenza A & B Note Ur L.pneumophila Ag Blood Type Antibody Screen 08/22/25 08/22/25 08/22/25 19:06 20:46 21:17 WBC RBC Hgb 10.7 L Hct 33.4 L MCV MCH MCHC RDW Plt Count MPV Immature Gran % (Auto) Neut % (Auto) Lymph % (Auto) [place] % (Auto) Eos % (Auto) Baso % (Auto) Lymph # (Auto) [place] # (Auto) Eos # (Auto) Baso # (Auto) Abs Immat Gran (auto) Absolute Neuts (auto) Absolute Nucleated RBC Nucleated RBC % (auto) Smear Tech's Comments Hold Purple Top O2 Saturation ABG pH at Pt Temp ABG pCO2 at Pt Temp ABG pO2 at Pt Temp ABG HCO3 ABG Base Excess (Actual) VBG pH VBG pCO2 VBG pO2 VBG HCO3 VBG O2 Saturation VBG Base Excess Sodium 151 H Potassium 3.4 Chloride 114 H Carbon Dioxide 25 Anion Gap 15 BUN 10 Creatinine 1.20 Estim Creat Clear Calc 72.1 Estimated GFR > 60 POC Glucose 95 Random Glucose 108 Lactic Acid 1.2 Calcium 9.3 D Phosphorus Magnesium Total Bilirubin 0.5 Direct Bilirubin AST 28 ALT 10 Alkaline Phosphatase 85 Troponin I High Sens NT-Pro-B Natriuret Pep Total Protein 7.0 Albumin 4.0 TSH Free T4 Urine Color Urine Appearance Urine pH Ur Specific [place] Urine Protein Urine Glucose (UA) Urine Ketones Urine Blood Urine Nitrite Ur Leukocyte Esterase Urine RBC Urine WBC Ur Squamous Epith Cells Urine Bacteria Hyaline Casts Stool Occult Blood Random Vancomycin Valproic Acid [place] COVID-19 (MARNIE) COVID-19 Clin Com Influenza Type A (DARRIN) Influenza Type B (DARRIN) Influenza A & B Note Ur L.pneumophila Ag Blood Type Antibody Screen 08/22/25 08/22/25 08/23/25 21:23 23:37 04:53 WBC 12.1 H RBC 3.13 L Hgb 9.8 L Hct 31.0 L MCV 99.0 H MCH 31.3 MCHC 31.6 RDW 15.5 Plt Count 140 L MPV 10.7 Immature Gran % (Auto) 0.7 H Neut % (Auto) 81.2 H Lymph % (Auto) 12.7 L [place] % (Auto) 5.2 Eos % (Auto) 0.0 Baso % (Auto) 0.2 Lymph # (Auto) 1.5 [place] # (Auto) 0.6 Eos # (Auto) 0.0 Baso # (Auto) 0.0 Abs Immat Gran (auto) 0.08 H Absolute Neuts (auto) 9.8 H Absolute Nucleated RBC 0.020 H Nucleated RBC % (auto) 0.2 Smear Tech's Comments Hold Purple Top O2 Saturation ABG pH at Pt Temp ABG pCO2 at Pt Temp ABG pO2 at Pt Temp ABG HCO3 ABG Base Excess (Actual) VBG pH 7.45 H VBG pCO2 37 VBG pO2 54 VBG HCO3 26 VBG O2 Saturation 82.0 VBG Base Excess 2.9 Sodium 151 H Potassium 3.6 Chloride 117 H Carbon Dioxide 24 Anion Gap 14 BUN 9 Creatinine 1.19 Estim Creat Clear Calc 74.0 Estimated GFR > 60 POC Glucose 114 Random Glucose 113 Lactic Acid Calcium 8.9 Phosphorus 3.7 Magnesium 2.2 Total Bilirubin 0.6 Direct Bilirubin AST 30 ALT 9 Alkaline Phosphatase 77 Troponin I High Sens NT-Pro-B Natriuret Pep Total Protein 6.9 Albumin 4.1 TSH Free T4 Urine Color Urine Appearance Urine pH Ur Specific [place] Urine Protein Urine Glucose (UA) Urine Ketones Urine Blood Urine Nitrite Ur Leukocyte Esterase Urine RBC Urine WBC Ur Squamous Epith Cells Urine Bacteria Hyaline Casts Stool Occult Blood Random Vancomycin Valproic Acid [place] COVID-19 (MARNIE) COVID-19 Clin Com Influenza Type A (DARRIN) Influenza Type B (DARRIN) Influenza A & B Note Ur L.pneumophila Ag Blood Type Antibody Screen 08/23/25 08/23/25 08/23/25 11:52 17:41 17:56 WBC RBC Hgb Hct MCV MCH MCHC RDW Plt Count MPV Immature Gran % (Auto) Neut % (Auto) Lymph % (Auto) [place] % (Auto) Eos % (Auto) Baso % (Auto) Lymph # (Auto) [place] # (Auto) Eos # (Auto) Baso # (Auto) Abs Immat Gran (auto) Absolute Neuts (auto) Absolute Nucleated RBC Nucleated RBC % (auto) Smear Tech's Comments Hold Purple Top O2 Saturation 95.0 ABG pH at Pt Temp 7.32 L ABG pCO2 at Pt Temp 41 ABG pO2 at Pt Temp 84 ABG HCO3 21 L ABG Base Excess (Actual) -4.1 VBG pH VBG pCO2 VBG pO2 VBG HCO3 VBG O2 Saturation VBG Base Excess Sodium Potassium Chloride Carbon Dioxide Anion Gap BUN Creatinine Estim Creat Clear Calc Estimated GFR POC Glucose 135 H 144 H Random Glucose Lactic Acid Calcium Phosphorus Magnesium Total Bilirubin Direct Bilirubin AST ALT Alkaline Phosphatase Troponin I High Sens NT-Pro-B Natriuret Pep Total Protein Albumin TSH Free T4 Urine Color Urine Appearance Urine pH Ur Specific [place] Urine Protein Urine Glucose (UA) Urine Ketones Urine Blood Urine Nitrite Ur Leukocyte Esterase Urine RBC Urine WBC Ur Squamous Epith Cells Urine Bacteria Hyaline Casts Stool Occult Blood Random Vancomycin Valproic Acid [place] COVID-19 (MARNIE) COVID-19 Clin Com Influenza Type A (DARRIN) Influenza Type B (DARRIN) Influenza A & B Note Ur L.pneumophila Ag Blood Type Antibody Screen 08/23/25 08/24/25 08/24/25 23:41 04:50 04:52 WBC 11.0 H RBC 2.97 L Hgb 9.3 L Hct 30.1 L MCV 101.3 H MCH 31.3 MCHC 30.9 L RDW 16.0 Plt Count 148 L MPV 9.6 Immature Gran % (Auto) 1.1 H Neut % (Auto) 83.1 H Lymph % (Auto) 10.6 L [place] % (Auto) 4.8 Eos % (Auto) 0.1 Baso % (Auto) 0.3 Lymph # (Auto) 1.2 [place] # (Auto) 0.5 Eos # (Auto) 0.0 Baso # (Auto) 0.0 Abs Immat Gran (auto) 0.12 H Absolute Neuts (auto) 9.1 H Absolute Nucleated RBC 0.000 Nucleated RBC % (auto) 0.0 Smear Tech's Comments Hold Purple Top O2 Saturation ABG pH at Pt Temp ABG pCO2 at Pt Temp ABG pO2 at Pt Temp ABG HCO3 ABG Base Excess (Actual) VBG pH 7.34 VBG pCO2 57 VBG pO2 63 VBG HCO3 31 H VBG O2 Saturation 90.0 VBG Base Excess 4.5 Sodium 150 H Potassium 3.4 Chloride 115 H Carbon Dioxide 27 Anion Gap 11 L BUN 11 Creatinine 1.44 H Estim Creat Clear Calc 61.1 Estimated GFR 49 POC Glucose 136 H Random Glucose 145 H Lactic Acid Calcium 8.6 Phosphorus 3.6 Magnesium 2.1 Total Bilirubin 0.4 Direct Bilirubin AST 27 ALT 6 Alkaline Phosphatase 89 Troponin I High Sens NT-Pro-B Natriuret Pep Total Protein 6.6 Albumin 3.5 TSH Free T4 Urine Color Urine Appearance Urine pH Ur Specific [place] Urine Protein Urine Glucose (UA) Urine Ketones Urine Blood Urine Nitrite Ur Leukocyte Esterase Urine RBC Urine WBC Ur Squamous Epith Cells Urine Bacteria Hyaline Casts Stool Occult Blood Random Vancomycin Valproic Acid [place] COVID-19 (MARNIE) COVID-19 Clin Com Influenza Type A (DARRIN) Influenza Type B (DARRIN) Influenza A & B Note Ur L.pneumophila Ag Blood Type Antibody Screen 08/24/25 08/24/25 08/25/25 13:05 17:58 00:00 WBC RBC Hgb Hct MCV MCH MCHC RDW Plt Count MPV Immature Gran % (Auto) Neut % (Auto) Lymph % (Auto) [place] % (Auto) Eos % (Auto) Baso % (Auto) Lymph # (Auto) [place] # (Auto) Eos # (Auto) Baso # (Auto) Abs Immat Gran (auto) Absolute Neuts (auto) Absolute Nucleated RBC Nucleated RBC % (auto) Smear Tech's Comments Hold Purple Top O2 Saturation ABG pH at Pt Temp ABG pCO2 at Pt Temp ABG pO2 at Pt Temp ABG HCO3 ABG Base Excess (Actual) VBG pH VBG pCO2 VBG pO2 VBG HCO3 VBG O2 Saturation VBG Base Excess Sodium Potassium Chloride Carbon Dioxide Anion Gap BUN Creatinine Estim Creat Clear Calc Estimated GFR POC Glucose 128 H 115 147 H Random Glucose Lactic Acid Calcium Phosphorus Magnesium Total Bilirubin Direct Bilirubin AST ALT Alkaline Phosphatase Troponin I High Sens NT-Pro-B Natriuret Pep Total Protein Albumin TSH Free T4 Urine Color Urine Appearance Urine pH Ur Specific [place] Urine Protein Urine Glucose (UA) Urine Ketones Urine Blood Urine Nitrite Ur Leukocyte Esterase Urine RBC Urine WBC Ur Squamous Epith Cells Urine Bacteria Hyaline Casts Stool Occult Blood Random Vancomycin Valproic Acid [place] COVID-19 (MARNIE) COVID-19 Clin Com Influenza Type A (DARRIN) Influenza Type B (DARRIN) Influenza A & B Note Ur L.pneumophila Ag Blood Type Antibody Screen 08/25/25 08/25/25 08/25/25 05:42 05:47 06:05 WBC 7.4 RBC 3.13 L Hgb 9.7 L Hct 31.6 L MCV 101.0 H MCH 31.0 MCHC 30.7 L RDW 16.2 H Plt Count 153 L MPV 9.3 L Immature Gran % (Auto) 2.2 H Neut % (Auto) 78.6 H Lymph % (Auto) 12.4 L [place] % (Auto) 6.5 Eos % (Auto) 0.0 Baso % (Auto) 0.3 Lymph # (Auto) 0.9 L [place] # (Auto) 0.5 Eos # (Auto) 0.0 Baso # (Auto) 0.0 Abs Immat Gran (auto) 0.16 H Absolute Neuts (auto) 5.8 Absolute Nucleated RBC 0.000 Nucleated RBC % (auto) 0.0 Smear Tech's Comments Hold Purple Top O2 Saturation ABG pH at Pt Temp ABG pCO2 at Pt Temp ABG pO2 at Pt Temp ABG HCO3 ABG Base Excess (Actual) VBG pH 7.41 VBG pCO2 46 VBG pO2 58 VBG HCO3 29 H VBG O2 Saturation 90.0 VBG Base Excess 4.3 Sodium 144 Potassium 3.5 Chloride 109 H Carbon Dioxide 27 Anion Gap 12 BUN 12 Creatinine 1.47 H Estim Creat Clear Calc 59.5 Estimated GFR 47 POC Glucose 143 H Random Glucose 135 H Lactic Acid Calcium 8.5 Phosphorus 3.9 Magnesium 2.3 Total Bilirubin 0.5 Direct Bilirubin AST 57 H ALT 23 Alkaline Phosphatase 140 H Troponin I High Sens NT-Pro-B Natriuret Pep Total Protein 6.4 L Albumin 3.2 L TSH Free T4 Urine Color Urine Appearance Urine pH Ur Specific [place] Urine Protein Urine Glucose (UA) Urine Ketones Urine Blood Urine Nitrite Ur Leukocyte Esterase Urine RBC Urine WBC Ur Squamous Epith Cells Urine Bacteria Hyaline Casts Stool Occult Blood Random Vancomycin Valproic Acid [place] COVID-19 (MARNIE) COVID-19 Clin Com Influenza Type A (DARRIN) Influenza Type B (DARRIN) Influenza A & B Note Ur L.pneumophila Ag Blood Type Antibody Screen 08/25/25 08/25/25 08/25/25 11:26 20:16 23:58 WBC RBC Hgb Hct MCV MCH MCHC RDW Plt Count MPV Immature Gran % (Auto) Neut % (Auto) Lymph % (Auto) [place] % (Auto) Eos % (Auto) Baso % (Auto) Lymph # (Auto) [place] # (Auto) Eos # (Auto) Baso # (Auto) Abs Immat Gran (auto) Absolute Neuts (auto) Absolute Nucleated RBC Nucleated RBC % (auto) Smear Tech's Comments Hold Purple Top O2 Saturation ABG pH at Pt Temp ABG pCO2 at Pt Temp ABG pO2 at Pt Temp ABG HCO3 ABG Base Excess (Actual) VBG pH VBG pCO2 VBG pO2 VBG HCO3 VBG O2 Saturation VBG Base Excess Sodium 143 Potassium 3.5 Chloride 107 Carbon Dioxide 27 Anion Gap 13 BUN 12 Creatinine 1.48 H Estim Creat Clear Calc 59.1 Estimated GFR 47 POC Glucose 157 H 135 H Random Glucose 149 H Lactic Acid Calcium 8.6 Phosphorus Magnesium Total Bilirubin 0.5 Direct Bilirubin AST 46 H ALT 28 Alkaline Phosphatase 136 H Troponin I High Sens NT-Pro-B Natriuret Pep Total Protein 6.6 Albumin 3.4 L TSH Free T4 Urine Color Urine Appearance Urine pH Ur Specific [place] Urine Protein Urine Glucose (UA) Urine Ketones Urine Blood Urine Nitrite Ur Leukocyte Esterase Urine RBC Urine WBC Ur Squamous Epith Cells Urine Bacteria Hyaline Casts Stool Occult Blood Random Vancomycin Valproic Acid [place] COVID-19 (MARNIE) COVID-19 Clin Com Influenza Type A (DARRIN) Influenza Type B (DARRIN) Influenza A & B Note Ur L.pneumophila Ag Blood Type Antibody Screen 08/26/25 08/26/25 08/26/25 04:57 05:06 11:37 WBC 8.5 RBC 2.76 L Hgb 8.7 L Hct 26.5 L MCV 96.0 D MCH 31.5 MCHC 32.8 RDW 15.9 Plt Count 157 L MPV 9.1 L Immature Gran % (Auto) 2.1 H Neut % (Auto) 74.0 H Lymph % (Auto) 15.8 L [place] % (Auto) 7.9 Eos % (Auto) 0.0 Baso % (Auto) 0.2 Lymph # (Auto) 1.3 [place] # (Auto) 0.7 Eos # (Auto) 0.0 Baso # (Auto) 0.0 Abs Immat Gran (auto) 0.18 H Absolute Neuts (auto) 6.3 Absolute Nucleated RBC 0.000 Nucleated RBC % (auto) 0.0 Smear Tech's Comments VERIFIED Hold Purple Top O2 Saturation ABG pH at Pt Temp ABG pCO2 at Pt Temp ABG pO2 at Pt Temp ABG HCO3 ABG Base Excess (Actual) VBG pH 7.49 H VBG pCO2 41 VBG pO2 103 VBG HCO3 31 H VBG O2 Saturation 100.0 VBG Base Excess 7.7 Sodium 146 H Potassium 3.3 Chloride 111 H Carbon Dioxide 29 Anion Gap 9 L BUN 11 Creatinine 1.49 H Estim Creat Clear Calc 58.7 Estimated GFR 47 POC Glucose 129 H Random Glucose 155 H Lactic Acid Calcium 8.4 Phosphorus 3.6 Magnesium 2.6 Total Bilirubin 0.4 Direct Bilirubin AST 38 H ALT 23 Alkaline Phosphatase 118 H Troponin I High Sens NT-Pro-B Natriuret Pep Total Protein 6.5 Albumin 3.1 L TSH Free T4 Urine Color Urine Appearance Urine pH Ur Specific [place] Urine Protein Urine Glucose (UA) Urine Ketones Urine Blood Urine Nitrite Ur Leukocyte Esterase Urine RBC Urine WBC Ur Squamous Epith Cells Urine Bacteria Hyaline Casts Stool Occult Blood Random Vancomycin Valproic Acid [place] COVID-19 (MARNIE) COVID-19 Clin Com Influenza Type A (DARRIN) Influenza Type B (DARRIN) Influenza A & B Note Ur L.pneumophila Ag Blood Type Antibody Screen 08/26/25 08/27/25 08/27/25 23:56 05:01 05:05 WBC 11.5 H RBC 3.22 L Hgb 10.1 L Hct 31.3 L MCV 97.2 MCH 31.4 MCHC 32.3 RDW 15.7 Plt Count 201 D MPV 9.5 Immature Gran % (Auto) 1.7 H Neut % (Auto) 76.6 H Lymph % (Auto) 13.4 L [place] % (Auto) 7.9 Eos % (Auto) 0.1 Baso % (Auto) 0.3 Lymph # (Auto) 1.5 [place] # (Auto) 0.9 Eos # (Auto) 0.0 Baso # (Auto) 0.0 Abs Immat Gran (auto) 0.20 H Absolute Neuts (auto) 8.8 H Absolute Nucleated RBC 0.000 Nucleated RBC % (auto) 0.0 Smear Tech's Comments Hold Purple Top O2 Saturation ABG pH at Pt Temp ABG pCO2 at Pt Temp ABG pO2 at Pt Temp ABG HCO3 ABG Base Excess (Actual) VBG pH 7.42 VBG pCO2 40 VBG pO2 49 VBG HCO3 26 VBG O2 Saturation 76.0 VBG Base Excess 2.5 Sodium 154 H Potassium 3.2 L Chloride 118 H Carbon Dioxide 25 Anion Gap 14 BUN 16 Creatinine 1.50 H Estim Creat Clear Calc 58.3 Estimated GFR 46 POC Glucose 120 H Random Glucose 129 H Lactic Acid Calcium 9.4 D Phosphorus 2.6 L Magnesium 2.7 H Total Bilirubin 0.5 Direct Bilirubin AST 44 H ALT 26 Alkaline Phosphatase 119 H Troponin I High Sens NT-Pro-B Natriuret Pep Total Protein 7.6 Albumin 3.8 TSH Free T4 Urine Color Urine Appearance Urine pH Ur Specific [place] Urine Protein Urine Glucose (UA) Urine Ketones Urine Blood Urine Nitrite Ur Leukocyte Esterase Urine RBC Urine WBC Ur Squamous Epith Cells Urine Bacteria Hyaline Casts Stool Occult Blood Random Vancomycin Valproic Acid [place] COVID-19 (MARNIE) COVID-19 Clin Com Influenza Type A (DARRIN) Influenza Type B (DARRIN) Influenza A & B Note Ur L.pneumophila Ag Blood Type Antibody Screen 08/27/25 08/27/25 08/27/25 12:05 17:57 23:15 WBC RBC Hgb Hct MCV MCH MCHC RDW Plt Count MPV Immature Gran % (Auto) Neut % (Auto) Lymph % (Auto) [place] % (Auto) Eos % (Auto) Baso % (Auto) Lymph # (Auto) [place] # (Auto) Eos # (Auto) Baso # (Auto) Abs Immat Gran (auto) Absolute Neuts (auto) Absolute Nucleated RBC Nucleated RBC % (auto) Smear Tech's Comments Hold Purple Top O2 Saturation ABG pH at Pt Temp ABG pCO2 at Pt Temp ABG pO2 at Pt Temp ABG HCO3 ABG Base Excess (Actual) VBG pH VBG pCO2 VBG pO2 VBG HCO3 VBG O2 Saturation VBG Base Excess Sodium Potassium Chloride Carbon Dioxide Anion Gap BUN Creatinine Estim Creat Clear Calc Estimated GFR POC Glucose 120 H 144 H 137 H Random Glucose Lactic Acid Calcium Phosphorus Magnesium Total Bilirubin Direct Bilirubin AST ALT Alkaline Phosphatase Troponin I High Sens NT-Pro-B Natriuret Pep Total Protein Albumin TSH Free T4 Urine Color Urine Appearance Urine pH Ur Specific [place] Urine Protein Urine Glucose (UA) Urine Ketones Urine Blood Urine Nitrite Ur Leukocyte Esterase Urine RBC Urine WBC Ur Squamous Epith Cells Urine Bacteria Hyaline Casts Stool Occult Blood Random Vancomycin Valproic Acid [place] COVID-19 (MARNIE) COVID-19 Clin Com Influenza Type A (DARRIN) Influenza Type B (DARRIN) Influenza A & B Note Ur L.pneumophila Ag Blood Type Antibody Screen 08/28/25 08/28/25 08/28/25 04:46 04:52 12:04 WBC 12.1 H RBC 2.89 L Hgb 9.0 L Hct 28.7 L MCV 99.3 H MCH 31.1 MCHC 31.4 RDW 15.6 Plt Count 178 MPV 9.4 Immature Gran % (Auto) 1.7 H Neut % (Auto) 80.1 H Lymph % (Auto) 11.1 L [place] % (Auto) 6.8 Eos % (Auto) 0.0 Baso % (Auto) 0.3 Lymph # (Auto) 1.3 [place] # (Auto) 0.8 Eos # (Auto) 0.0 Baso # (Auto) 0.0 Abs Immat Gran (auto) 0.21 H Absolute Neuts (auto) 9.7 H Absolute Nucleated RBC 0.000 Nucleated RBC % (auto) 0.0 Smear Tech's Comments Hold Purple Top O2 Saturation ABG pH at Pt Temp ABG pCO2 at Pt Temp ABG pO2 at Pt Temp ABG HCO3 ABG Base Excess (Actual) VBG pH 7.42 VBG pCO2 44 VBG pO2 68 VBG HCO3 29 H VBG O2 Saturation 91.0 VBG Base Excess 4.5 Sodium 153 H Potassium 3.1 L Chloride 119 H Carbon Dioxide 27 Anion Gap 10 L BUN 16 Creatinine 1.48 H Estim Creat Clear Calc 58.2 Estimated GFR 47 POC Glucose 151 H Random Glucose 150 H Lactic Acid Calcium 8.7 D Phosphorus 2.4 L Magnesium 2.7 H Total Bilirubin 0.5 Direct Bilirubin AST 41 H ALT 21 Alkaline Phosphatase 92 Troponin I High Sens NT-Pro-B Natriuret Pep Total Protein 7.0 Albumin 3.2 L TSH Free T4 Urine Color Urine Appearance Urine pH Ur Specific [place] Urine Protein Urine Glucose (UA) Urine Ketones Urine Blood Urine Nitrite Ur Leukocyte Esterase Urine RBC Urine WBC Ur Squamous Epith Cells Urine Bacteria Hyaline Casts Stool Occult Blood Random Vancomycin Valproic Acid [place] COVID-19 (MARNIE) COVID-19 Clin Com Influenza Type A (DARRIN) Influenza Type B (DARRIN) Influenza A & B Note Ur L.pneumophila Ag Blood Type Antibody Screen 08/28/25 08/28/25 08/28/25 12:25 17:19 23:28 WBC RBC Hgb Hct MCV MCH MCHC RDW Plt Count MPV Immature Gran % (Auto) Neut % (Auto) Lymph % (Auto) [place] % (Auto) Eos % (Auto) Baso % (Auto) Lymph # (Auto) [place] # (Auto) Eos # (Auto) Baso # (Auto) Abs Immat Gran (auto) Absolute Neuts (auto) Absolute Nucleated RBC Nucleated RBC % (auto) Smear Tech's Comments Hold Purple Top O2 Saturation ABG pH at Pt Temp ABG pCO2 at Pt Temp ABG pO2 at Pt Temp ABG HCO3 ABG Base Excess (Actual) VBG pH VBG pCO2 VBG pO2 VBG HCO3 VBG O2 Saturation VBG Base Excess Sodium 154 H Potassium 3.2 L Chloride 119 H Carbon Dioxide 28 Anion Gap 10 L BUN 15 Creatinine 1.50 H Estim Creat Clear Calc 57.4 Estimated GFR 46 POC Glucose 132 H 154 H Random Glucose 151 H Lactic Acid Calcium 8.7 Phosphorus 3.3 Magnesium Total Bilirubin Direct Bilirubin AST ALT Alkaline Phosphatase Troponin I High Sens NT-Pro-B Natriuret Pep Total Protein Albumin TSH Free T4 Urine Color Urine Appearance Urine pH Ur Specific [place] Urine Protein Urine Glucose (UA) Urine Ketones Urine Blood Urine Nitrite Ur Leukocyte Esterase Urine RBC Urine WBC Ur Squamous Epith Cells Urine Bacteria Hyaline Casts Stool Occult Blood Random Vancomycin Valproic Acid [place] COVID-19 (MARNIE) COVID-19 Clin Com Influenza Type A (DARRIN) Influenza Type B (DARRIN) Influenza A & B Note Ur L.pneumophila Ag Blood Type Antibody Screen 08/29/25 08/29/25 08/29/25 00:03 04:36 04:42 WBC 10.8 RBC 2.65 L Hgb 8.2 L Hct 27.0 L MCV 101.9 H MCH 30.9 MCHC 30.4 L RDW 16.0 Plt Count 164 MPV 10.0 Immature Gran % (Auto) 0.9 H Neut % (Auto) 81.5 H Lymph % (Auto) 11.8 L [place] % (Auto) 5.6 Eos % (Auto) 0.0 Baso % (Auto) 0.2 Lymph # (Auto) 1.3 [place] # (Auto) 0.6 Eos # (Auto) 0.0 Baso # (Auto) 0.0 Abs Immat Gran (auto) 0.10 H Absolute Neuts (auto) 8.8 H Absolute Nucleated RBC 0.000 Nucleated RBC % (auto) 0.0 Smear Tech's Comments Hold Purple Top O2 Saturation 97.0 ABG pH at Pt Temp 7.30 L ABG pCO2 at Pt Temp 62 H* ABG pO2 at Pt Temp 107 ABG HCO3 30 H ABG Base Excess (Actual) 3.4 VBG pH 7.37 VBG pCO2 52 VBG pO2 79 VBG HCO3 30 H VBG O2 Saturation 95.0 VBG Base Excess 4.8 Sodium 148 H Potassium 3.4 Chloride 114 H Carbon Dioxide 27 Anion Gap 10 L BUN 13 Creatinine 1.66 H Estim Creat Clear Calc 50.8 Estimated GFR 41 POC Glucose Random Glucose 246 H Lactic Acid Calcium 8.3 L Phosphorus 4.6 H Magnesium 2.7 H Total Bilirubin 0.4 Direct Bilirubin AST 27 ALT 16 Alkaline Phosphatase 88 Troponin I High Sens NT-Pro-B Natriuret Pep Total Protein 6.8 Albumin 3.0 L TSH Free T4 Urine Color Urine Appearance Urine pH Ur Specific [place] Urine Protein Urine Glucose (UA) Urine Ketones Urine Blood Urine Nitrite Ur Leukocyte Esterase Urine RBC Urine WBC Ur Squamous Epith Cells Urine Bacteria Hyaline Casts Stool Occult Blood Random Vancomycin Valproic Acid [place] COVID-19 (MARNIE) COVID-19 Clin Com Influenza Type A (DARRIN) Influenza Type B (DARRIN) Influenza A & B Note Ur L.pneumophila Ag Blood Type Antibody Screen 08/29/25 08/29/25 08/29/25 06:43 08:26 13:21 WBC RBC Hgb Hct MCV MCH MCHC RDW Plt Count MPV Immature Gran % (Auto) Neut % (Auto) Lymph % (Auto) [place] % (Auto) Eos % (Auto) Baso % (Auto) Lymph # (Auto) [place] # (Auto) Eos # (Auto) Baso # (Auto) Abs Immat Gran (auto) Absolute Neuts (auto) Absolute Nucleated RBC Nucleated RBC % (auto) Smear Tech's Comments Hold Purple Top SEE NOTE O2 Saturation ABG pH at Pt Temp ABG pCO2 at Pt Temp ABG pO2 at Pt Temp ABG HCO3 ABG Base Excess (Actual) VBG pH VBG pCO2 VBG pO2 VBG HCO3 VBG O2 Saturation VBG Base Excess Sodium Potassium Chloride Carbon Dioxide Anion Gap BUN Creatinine Estim Creat Clear Calc Estimated GFR POC Glucose 220 H 198 H Random Glucose Lactic Acid Calcium Phosphorus Magnesium Total Bilirubin Direct Bilirubin AST ALT Alkaline Phosphatase Troponin I High Sens NT-Pro-B Natriuret Pep Total Protein Albumin TSH 0.10 L Free T4 0.90 Urine Color Urine Appearance Urine pH Ur Specific [place] Urine Protein Urine Glucose (UA) Urine Ketones Urine Blood Urine Nitrite Ur Leukocyte Esterase Urine RBC Urine WBC Ur Squamous Epith Cells Urine Bacteria Hyaline Casts Stool Occult Blood Random Vancomycin Valproic Acid [place] COVID-19 (MARNIE) COVID-19 Clin Com Influenza Type A (DARRIN) Influenza Type B (DARRIN) Influenza A & B Note Ur L.pneumophila Ag Blood Type Antibody Screen 08/29/25 08/29/25 08/30/25 17:55 23:47 05:06 WBC 8.1 RBC 2.48 L Hgb 7.6 L Hct 24.9 L MCV 100.4 H MCH 30.6 MCHC 30.5 L RDW 16.4 H Plt Count 154 L MPV 9.9 Immature Gran % (Auto) 3.2 H Neut % (Auto) 83.9 H Lymph % (Auto) 10.0 L [place] % (Auto) 2.7 Eos % (Auto) 0.0 Baso % (Auto) 0.2 Lymph # (Auto) 0.8 L [place] # (Auto) 0.2 Eos # (Auto) 0.0 Baso # (Auto) 0.0 Abs Immat Gran (auto) 0.26 H Absolute Neuts (auto) 6.8 Absolute Nucleated RBC 0.020 H Nucleated RBC % (auto) 0.2 Smear Tech's Comments Hold Purple Top O2 Saturation ABG pH at Pt Temp ABG pCO2 at Pt Temp ABG pO2 at Pt Temp ABG HCO3 ABG Base Excess (Actual) VBG pH VBG pCO2 VBG pO2 VBG HCO3 VBG O2 Saturation VBG Base Excess Sodium 145 Potassium 3.2 L Chloride 111 H Carbon Dioxide 23 Anion Gap 14 BUN 16 Creatinine 2.22 H Estim Creat Clear Calc 38.0 Estimated GFR 30 POC Glucose 208 H 231 H Random Glucose 240 H Lactic Acid Calcium 8.7 Phosphorus 4.6 H Magnesium 2.8 H Total Bilirubin Direct Bilirubin AST ALT Alkaline Phosphatase Troponin I High Sens NT-Pro-B Natriuret Pep Total Protein Albumin 3.3 L TSH Free T4 Urine Color Urine Appearance Urine pH Ur Specific [place] Urine Protein Urine Glucose (UA) Urine Ketones Urine Blood Urine Nitrite Ur Leukocyte Esterase Urine RBC Urine WBC Ur Squamous Epith Cells Urine Bacteria Hyaline Casts Stool Occult Blood Random Vancomycin Valproic Acid [place] 0.46 L COVID-19 (MARNIE) COVID-19 Clin Com Influenza Type A (DARRIN) Influenza Type B (DARRIN) Influenza A & B Note Ur L.pneumophila Ag Blood Type Antibody Screen 08/30/25 08/30/25 08/30/25 05:10 05:48 11:30 WBC RBC Hgb Hct MCV MCH MCHC RDW Plt Count MPV Immature Gran % (Auto) Neut % (Auto) Lymph % (Auto) [place] % (Auto) Eos % (Auto) Baso % (Auto) Lymph # (Auto) [place] # (Auto) Eos # (Auto) Baso # (Auto) Abs Immat Gran (auto) Absolute Neuts (auto) Absolute Nucleated RBC Nucleated RBC % (auto) Smear Tech's Comments Hold Purple Top O2 Saturation ABG pH at Pt Temp ABG pCO2 at Pt Temp ABG pO2 at Pt Temp ABG HCO3 ABG Base Excess (Actual) VBG pH 7.34 VBG pCO2 46 VBG pO2 136 VBG HCO3 25 VBG O2 Saturation 100.0 VBG Base Excess -0.1 Sodium Potassium Chloride Carbon Dioxide Anion Gap BUN Creatinine Estim Creat Clear Calc Estimated GFR POC Glucose 217 H 193 H Random Glucose Lactic Acid Calcium Phosphorus Magnesium Total Bilirubin Direct Bilirubin AST ALT Alkaline Phosphatase Troponin I High Sens NT-Pro-B Natriuret Pep Total Protein Albumin TSH Free T4 Urine Color Urine Appearance Urine pH Ur Specific [place] Urine Protein Urine Glucose (UA) Urine Ketones Urine Blood Urine Nitrite Ur Leukocyte Esterase Urine RBC Urine WBC Ur Squamous Epith Cells Urine Bacteria Hyaline Casts Stool Occult Blood Random Vancomycin Valproic Acid [place] COVID-19 (MARNIE) COVID-19 Clin Com Influenza Type A (DARIRN) Influenza Type B (DARRIN) Influenza A & B Note Ur L.pneumophila Ag Blood Type Antibody Screen 08/30/25 08/30/25 08/30/25 12:29 14:19 17:22 WBC RBC Hgb Hct MCV MCH MCHC RDW Plt Count MPV Immature Gran % (Auto) Neut % (Auto) Lymph % (Auto) [place] % (Auto) Eos % (Auto) Baso % (Auto) Lymph # (Auto) [place] # (Auto) Eos # (Auto) Baso # (Auto) Abs Immat Gran (auto) Absolute Neuts (auto) Absolute Nucleated RBC Nucleated RBC % (auto) Smear Tech's Comments Hold Purple Top O2 Saturation ABG pH at Pt Temp ABG pCO2 at Pt Temp ABG pO2 at Pt Temp ABG HCO3 ABG Base Excess (Actual) VBG pH VBG pCO2 VBG pO2 VBG HCO3 VBG O2 Saturation VBG Base Excess Sodium Potassium Chloride Carbon Dioxide Anion Gap BUN Creatinine Estim Creat Clear Calc Estimated GFR POC Glucose 180 H Random Glucose Lactic Acid Calcium Phosphorus Magnesium Total Bilirubin Direct Bilirubin AST ALT Alkaline Phosphatase Troponin I High Sens NT-Pro-B Natriuret Pep Total Protein Albumin TSH Free T4 Urine Color Urine Appearance Urine pH Ur Specific [place] Urine Protein Urine Glucose (UA) Urine Ketones Urine Blood Urine Nitrite Ur Leukocyte Esterase Urine RBC Urine WBC Ur Squamous Epith Cells Urine Bacteria Hyaline Casts Stool Occult Blood NEGATIVE Random Vancomycin Valproic Acid [place] COVID-19 (MARNIE) COVID-19 Clin Com Influenza Type A (DARRIN) Influenza Type B (DARRIN) Influenza A & B Note Ur L.pneumophila Ag Blood Type A Positive Antibody Screen NEGATIVE 08/31/25 08/31/25 08/31/25 00:01 04:54 04:55 WBC 12.4 H RBC 2.42 L Hgb 7.6 L Hct 23.6 L MCV 97.5 MCH 31.4 MCHC 32.2 RDW 16.5 H Plt Count 192 MPV 10.1 Immature Gran % (Auto) 3.6 H Neut % (Auto) 86.1 H Lymph % (Auto) 6.8 L [place] % (Auto) 3.3 Eos % (Auto) 0.1 Baso % (Auto) 0.1 Lymph # (Auto) 0.8 L [place] # (Auto) 0.4 Eos # (Auto) 0.0 Baso # (Auto) 0.0 Abs Immat Gran (auto) 0.44 H Absolute Neuts (auto) 10.6 H Absolute Nucleated RBC 0.020 H Nucleated RBC % (auto) 0.2 Smear Tech's Comments Hold Purple Top O2 Saturation ABG pH at Pt Temp ABG pCO2 at Pt Temp ABG pO2 at Pt Temp ABG HCO3 ABG Base Excess (Actual) VBG pH VBG pCO2 VBG pO2 VBG HCO3 VBG O2 Saturation VBG Base Excess Sodium 152 H Potassium 3.3 Chloride 115 H Carbon Dioxide 26 Anion Gap 14 BUN 24 H Creatinine 2.71 H Estim Creat Clear Calc 32.3 Estimated GFR 23 POC Glucose 117 H Random Glucose 160 H Lactic Acid Calcium 8.4 Phosphorus 5.8 H Magnesium 2.8 H Total Bilirubin Direct Bilirubin AST ALT Alkaline Phosphatase Troponin I High Sens NT-Pro-B Natriuret Pep Total Protein Albumin 3.2 L TSH Free T4 Urine Color Urine Appearance Urine pH Ur Specific [place] Urine Protein Urine Glucose (UA) Urine Ketones Urine Blood Urine Nitrite Ur Leukocyte Esterase Urine RBC Urine WBC Ur Squamous Epith Cells Urine Bacteria Hyaline Casts Stool Occult Blood Random Vancomycin Valproic Acid [place] COVID-19 (MARNIE) COVID-19 Clin Com Influenza Type A (DARRIN) Influenza Type B (DARRIN) Influenza A & B Note Ur L.pneumophila Ag Blood Type Antibody Screen 08/31/25 08/31/25 08/31/25 04:56 06:15 08:15 WBC RBC Hgb Hct MCV MCH MCHC RDW Plt Count MPV Immature Gran % (Auto) Neut % (Auto) Lymph % (Auto) [place] % (Auto) Eos % (Auto) Baso % (Auto) Lymph # (Auto) [place] # (Auto) Eos # (Auto) Baso # (Auto) Abs Immat Gran (auto) Absolute Neuts (auto) Absolute Nucleated RBC Nucleated RBC % (auto) Smear Tech's Comments Hold Purple Top O2 Saturation ABG pH at Pt Temp ABG pCO2 at Pt Temp ABG pO2 at Pt Temp ABG HCO3 ABG Base Excess (Actual) VBG pH 7.37 VBG pCO2 52 VBG pO2 89 VBG HCO3 30 H VBG O2 Saturation 97.0 VBG Base Excess 4.4 Sodium Potassium Chloride Carbon Dioxide Anion Gap BUN Creatinine Estim Creat Clear Calc Estimated GFR POC Glucose 145 H Random Glucose Lactic Acid Calcium Phosphorus Magnesium Total Bilirubin Direct Bilirubin AST ALT Alkaline Phosphatase Troponin I High Sens NT-Pro-B Natriuret Pep Total Protein Albumin TSH Free T4 Urine Color Urine Appearance Urine pH Ur Specific [place] Urine Protein Urine Glucose (UA) Urine Ketones Urine Blood Urine Nitrite Ur Leukocyte Esterase Urine RBC Urine WBC Ur Squamous Epith Cells Urine Bacteria Hyaline Casts Stool Occult Blood Random Vancomycin 21.4 H Valproic Acid [place] COVID-19 (MARNIE) COVID-19 Clin Com Influenza Type A (DARRIN) Influenza Type B (DARRIN) Influenza A & B Note Ur L.pneumophila Ag Blood Type Antibody Screen 08/31/25 08/31/25 08/31/25 11:36 18:35 20:55 WBC RBC Hgb Hct MCV MCH MCHC RDW Plt Count MPV Immature Gran % (Auto) Neut % (Auto) Lymph % (Auto) [place] % (Auto) Eos % (Auto) Baso % (Auto) Lymph # (Auto) [place] # (Auto) Eos # (Auto) Baso # (Auto) Abs Immat Gran (auto) Absolute Neuts (auto) Absolute Nucleated RBC Nucleated RBC % (auto) Smear Tech's Comments Hold Purple Top O2 Saturation ABG pH at Pt Temp ABG pCO2 at Pt Temp ABG pO2 at Pt Temp ABG HCO3 ABG Base Excess (Actual) VBG pH VBG pCO2 VBG pO2 VBG HCO3 VBG O2 Saturation VBG Base Excess Sodium Potassium Chloride Carbon Dioxide Anion Gap BUN Creatinine Estim Creat Clear Calc Estimated GFR POC Glucose 173 H 169 H Random Glucose Lactic Acid Calcium Phosphorus Magnesium Total Bilirubin Direct Bilirubin AST ALT Alkaline Phosphatase Troponin I High Sens NT-Pro-B Natriuret Pep Total Protein Albumin TSH Free T4 Urine Color Urine Appearance Urine pH Ur Specific [place] Urine Protein Urine Glucose (UA) Urine Ketones Urine Blood Urine Nitrite Ur Leukocyte Esterase Urine RBC Urine WBC Ur Squamous Epith Cells Urine Bacteria Hyaline Casts Stool Occult Blood Random Vancomycin 16.4 Valproic Acid [place] COVID-19 (MARNIE) COVID-19 Clin Com Influenza Type A (DARRIN) Influenza Type B (DARRIN) Influenza A & B Note Ur L.pneumophila Ag Blood Type Antibody Screen 09/01/25 09/01/25 09/01/25 00:06 00:16 05:26 WBC 10.9 H RBC 2.61 L Hgb 8.1 L Hct 25.6 L MCV 98.1 H MCH 31.0 MCHC 31.6 RDW 16.3 H Plt Count 211 MPV 9.5 Immature Gran % (Auto) 4.1 H Neut % (Auto) 74.4 H Lymph % (Auto) 15.3 L [place] % (Auto) 6.0 Eos % (Auto) 0.0 Baso % (Auto) 0.2 Lymph # (Auto) 1.7 [place] # (Auto) 0.7 Eos # (Auto) 0.0 Baso # (Auto) 0.0 Abs Immat Gran (auto) 0.45 H Absolute Neuts (auto) 8.1 Absolute Nucleated RBC 0.000 Nucleated RBC % (auto) 0.0 Smear Tech's Comments VERIFIED Hold Purple Top O2 Saturation ABG pH at Pt Temp ABG pCO2 at Pt Temp ABG pO2 at Pt Temp ABG HCO3 ABG Base Excess (Actual) VBG pH VBG pCO2 VBG pO2 VBG HCO3 VBG O2 Saturation VBG Base Excess Sodium 154 H Potassium 2.9 L* Chloride 115 H Carbon Dioxide 29 Anion Gap 13 BUN 45 H Creatinine 3.13 H Estim Creat Clear Calc 27.8 Estimated GFR 20 POC Glucose 147 H 152 H Random Glucose 181 H Lactic Acid Calcium 7.9 L Phosphorus 4.9 H Magnesium 2.8 H Total Bilirubin Direct Bilirubin AST ALT Alkaline Phosphatase Troponin I High Sens NT-Pro-B Natriuret Pep Total Protein Albumin 3.2 L TSH Free T4 Urine Color Urine Appearance Urine pH Ur Specific [place] Urine Protein Urine Glucose (UA) Urine Ketones Urine Blood Urine Nitrite Ur Leukocyte Esterase Urine RBC Urine WBC Ur Squamous Epith Cells Urine Bacteria Hyaline Casts Stool Occult Blood Random Vancomycin Valproic Acid [place] COVID-19 (MARNIE) COVID-19 Clin Com Influenza Type A (DARRIN) Influenza Type B (DARRIN) Influenza A & B Note Ur L.pneumophila Ag Blood Type Antibody Screen 09/01/25 09/01/25 09/01/25 05:36 06:41 11:47 WBC RBC Hgb Hct MCV MCH MCHC RDW Plt Count MPV Immature Gran % (Auto) Neut % (Auto) Lymph % (Auto) [place] % (Auto) Eos % (Auto) Baso % (Auto) Lymph # (Auto) [place] # (Auto) Eos # (Auto) Baso # (Auto) Abs Immat Gran (auto) Absolute Neuts (auto) Absolute Nucleated RBC Nucleated RBC % (auto) Smear Tech's Comments Hold Purple Top O2 Saturation ABG pH at Pt Temp ABG pCO2 at Pt Temp ABG pO2 at Pt Temp ABG HCO3 ABG Base Excess (Actual) VBG pH 7.43 VBG pCO2 48 VBG pO2 91 VBG HCO3 33 H VBG O2 Saturation 98.0 VBG Base Excess 8.1 Sodium Potassium Chloride Carbon Dioxide Anion Gap BUN Creatinine Estim Creat Clear Calc Estimated GFR POC Glucose 164 H 173 H Random Glucose Lactic Acid Calcium Phosphorus Magnesium Total Bilirubin Direct Bilirubin AST ALT Alkaline Phosphatase Troponin I High Sens NT-Pro-B Natriuret Pep Total Protein Albumin TSH Free T4 Urine Color Urine Appearance Urine pH Ur Specific [place] Urine Protein Urine Glucose (UA) Urine Ketones Urine Blood Urine Nitrite Ur Leukocyte Esterase Urine RBC Urine WBC Ur Squamous Epith Cells Urine Bacteria Hyaline Casts Stool Occult Blood Random Vancomycin Valproic Acid [place] COVID-19 (MARNIE) COVID-19 Clin Com Influenza Type A (DARRIN) Influenza Type B (DARRIN) Influenza A & B Note Ur L.pneumophila Ag Blood Type Antibody Screen 09/01/25 09/01/25 09/01/25 18:07 21:18 23:50 WBC RBC Hgb Hct MCV MCH MCHC RDW Plt Count MPV Immature Gran % (Auto) Neut % (Auto) Lymph % (Auto) [place] % (Auto) Eos % (Auto) Baso % (Auto) Lymph # (Auto) [place] # (Auto) Eos # (Auto) Baso # (Auto) Abs Immat Gran (auto) Absolute Neuts (auto) Absolute Nucleated RBC Nucleated RBC % (auto) Smear Tech's Comments Hold Purple Top O2 Saturation ABG pH at Pt Temp ABG pCO2 at Pt Temp ABG pO2 at Pt Temp ABG HCO3 ABG Base Excess (Actual) VBG pH VBG pCO2 VBG pO2 VBG HCO3 VBG O2 Saturation VBG Base Excess Sodium Potassium Chloride Carbon Dioxide Anion Gap BUN Creatinine Estim Creat Clear Calc Estimated GFR POC Glucose 185 H 153 H Random Glucose Lactic Acid Calcium Phosphorus Magnesium Total Bilirubin Direct Bilirubin AST ALT Alkaline Phosphatase Troponin I High Sens NT-Pro-B Natriuret Pep Total Protein Albumin TSH Free T4 Urine Color Urine Appearance Urine pH Ur Specific [place] Urine Protein Urine Glucose (UA) Urine Ketones Urine Blood Urine Nitrite Ur Leukocyte Esterase Urine RBC Urine WBC Ur Squamous Epith Cells Urine Bacteria Hyaline Casts Stool Occult Blood Random Vancomycin 16.5 Valproic Acid [place] COVID-19 (MARNIE) COVID-19 Clin Com Influenza Type A (DARRIN) Influenza Type B (DARRIN) Influenza A & B Note Ur L.pneumophila Ag Blood Type Antibody Screen 09/02/25 09/02/25 09/02/25 05:06 06:24 14:13 WBC 11.9 H RBC 2.88 L Hgb 8.7 L Hct 29.0 L MCV 100.7 H MCH 30.2 MCHC 30.0 L RDW 16.4 H Plt Count 223 MPV 10.0 Immature Gran % (Auto) 3.0 H Neut % (Auto) 77.1 H Lymph % (Auto) 13.9 L [place] % (Auto) 5.7 Eos % (Auto) 0.0 Baso % (Auto) 0.3 Lymph # (Auto) 1.7 [place] # (Auto) 0.7 Eos # (Auto) 0.0 Baso # (Auto) 0.0 Abs Immat Gran (auto) 0.36 H Absolute Neuts (auto) 9.2 H Absolute Nucleated RBC 0.000 Nucleated RBC % (auto) 0.0 Smear Tech's Comments Hold Purple Top O2 Saturation ABG pH at Pt Temp ABG pCO2 at Pt Temp ABG pO2 at Pt Temp ABG HCO3 ABG Base Excess (Actual) VBG pH 7.39 VBG pCO2 58 VBG pO2 86 VBG HCO3 36 H VBG O2 Saturation 97.0 VBG Base Excess 9.7 Sodium 153 H Potassium 3.0 L Chloride 111 H Carbon Dioxide 30 H Anion Gap 15 BUN 58 H Creatinine 3.30 H Estim Creat Clear Calc 26.1 Estimated GFR 19 POC Glucose 271 H Random Glucose 277 H Lactic Acid Calcium 7.9 L Phosphorus 5.5 H Magnesium 2.9 H Total Bilirubin Direct Bilirubin AST ALT Alkaline Phosphatase Troponin I High Sens NT-Pro-B Natriuret Pep Total Protein Albumin 3.2 L TSH Free T4 Urine Color Urine Appearance Urine pH Ur Specific [place] Urine Protein Urine Glucose (UA) Urine Ketones Urine Blood Urine Nitrite Ur Leukocyte Esterase Urine RBC Urine WBC Ur Squamous Epith Cells Urine Bacteria Hyaline Casts Stool Occult Blood Random Vancomycin Valproic Acid [place] 0.41 L COVID-19 (MARNIE) COVID-19 Clin Com Influenza Type A (DARRIN) Influenza Type B (DARRIN) Influenza A & B Note Ur L.pneumophila Ag Blood Type Antibody Screen 09/02/25 09/02/25 09/02/25 14:26 18:08 20:59 WBC RBC Hgb Hct MCV MCH MCHC RDW Plt Count MPV Immature Gran % (Auto) Neut % (Auto) Lymph % (Auto) [place] % (Auto) Eos % (Auto) Baso % (Auto) Lymph # (Auto) [place] # (Auto) Eos # (Auto) Baso # (Auto) Abs Immat Gran (auto) Absolute Neuts (auto) Absolute Nucleated RBC Nucleated RBC % (auto) Smear Tech's Comments Hold Purple Top O2 Saturation ABG pH at Pt Temp ABG pCO2 at Pt Temp ABG pO2 at Pt Temp ABG HCO3 ABG Base Excess (Actual) VBG pH VBG pCO2 VBG pO2 VBG HCO3 VBG O2 Saturation VBG Base Excess Sodium Potassium Chloride Carbon Dioxide Anion Gap BUN Creatinine Estim Creat Clear Calc Estimated GFR POC Glucose 174 H 164 H Random Glucose Lactic Acid Calcium Phosphorus Magnesium Total Bilirubin Direct Bilirubin AST ALT Alkaline Phosphatase Troponin I High Sens NT-Pro-B Natriuret Pep Total Protein Albumin TSH Free T4 Urine Color Urine Appearance Urine pH Ur Specific [place] Urine Protein Urine Glucose (UA) Urine Ketones Urine Blood Urine Nitrite Ur Leukocyte Esterase Urine RBC Urine WBC Ur Squamous Epith Cells Urine Bacteria Hyaline Casts Stool Occult Blood Random Vancomycin 16.9 Valproic Acid [place] COVID-19 (MARNIE) COVID-19 Clin Com Influenza Type A (DARRIN) Influenza Type B (DARRIN) Influenza A & B Note Ur L.pneumophila Ag Blood Type Antibody Screen 09/02/25 09/02/25 09/03/25 22:25 23:24 04:51 WBC 10.1 RBC 2.90 L Hgb 8.9 L Hct 28.7 L MCV 99.0 H MCH 30.7 MCHC 31.0 RDW 15.9 Plt Count 241 MPV 10.5 Immature Gran % (Auto) 2.2 H Neut % (Auto) 65.0 Lymph % (Auto) 25.2 [place] % (Auto) 7.4 Eos % (Auto) 0.1 Baso % (Auto) 0.1 Lymph # (Auto) 2.6 [place] # (Auto) 0.8 Eos # (Auto) 0.0 Baso # (Auto) 0.0 Abs Immat Gran (auto) 0.22 H Absolute Neuts (auto) 6.6 Absolute Nucleated RBC 0.000 Nucleated RBC % (auto) 0.0 Smear Tech's Comments Hold Purple Top O2 Saturation ABG pH at Pt Temp ABG pCO2 at Pt Temp ABG pO2 at Pt Temp ABG HCO3 ABG Base Excess (Actual) VBG pH VBG pCO2 VBG pO2 VBG HCO3 VBG O2 Saturation VBG Base Excess Sodium 155 H 154 H Potassium 2.9 L* 3.4 Chloride 112 H 114 H Carbon Dioxide 33 H 31 H Anion Gap 13 12 BUN 54 H 64 H Creatinine 3.07 H 2.88 H Estim Creat Clear Calc 28.1 30.0 Estimated GFR 20 22 POC Glucose 179 H Random Glucose 183 H 199 H Lactic Acid Calcium 8.4 D 8.0 L Phosphorus 3.8 3.6 Magnesium 2.8 H 3.0 H Total Bilirubin Direct Bilirubin AST ALT Alkaline Phosphatase Troponin I High Sens NT-Pro-B Natriuret Pep Total Protein Albumin 3.0 L TSH Free T4 Urine Color Urine Appearance Urine pH Ur Specific [place] Urine Protein Urine Glucose (UA) Urine Ketones Urine Blood Urine Nitrite Ur Leukocyte Esterase Urine RBC Urine WBC Ur Squamous Epith Cells Urine Bacteria Hyaline Casts Stool Occult Blood Random Vancomycin Valproic Acid [place] COVID-19 (MARNIE) COVID-19 Clin Com Influenza Type A (DARRIN) Influenza Type B (DARRIN) Influenza A & B Note Ur L.pneumophila Ag Blood Type Antibody Screen 09/03/25 09/03/25 09/03/25 05:02 09:30 11:53 WBC RBC Hgb Hct MCV MCH MCHC RDW Plt Count MPV Immature Gran % (Auto) Neut % (Auto) Lymph % (Auto) [place] % (Auto) Eos % (Auto) Baso % (Auto) Lymph # (Auto) [place] # (Auto) Eos # (Auto) Baso # (Auto) Abs Immat Gran (auto) Absolute Neuts (auto) Absolute Nucleated RBC Nucleated RBC % (auto) Smear Tech's Comments Hold Purple Top O2 Saturation ABG pH at Pt Temp ABG pCO2 at Pt Temp ABG pO2 at Pt Temp ABG HCO3 ABG Base Excess (Actual) VBG pH 7.45 H VBG pCO2 54 VBG pO2 88 VBG HCO3 38 H VBG O2 Saturation 97.0 VBG Base Excess 13.2 Sodium Potassium Chloride Carbon Dioxide Anion Gap BUN Creatinine Estim Creat Clear Calc Estimated GFR POC Glucose 219 H Random Glucose Lactic Acid Calcium Phosphorus Magnesium Total Bilirubin Direct Bilirubin AST ALT Alkaline Phosphatase Troponin I High Sens NT-Pro-B Natriuret Pep Total Protein Albumin TSH Free T4 Urine Color Urine Appearance Urine pH Ur Specific [place] Urine Protein Urine Glucose (UA) Urine Ketones Urine Blood Urine Nitrite Ur Leukocyte Esterase Urine RBC Urine WBC Ur Squamous Epith Cells Urine Bacteria Hyaline Casts Stool Occult Blood Random Vancomycin Valproic Acid 28.7 L [place] 0.26 L COVID-19 (MARNIE) COVID-19 Clin Com Influenza Type A (DARRIN) Influenza Type B (DARRIN) Influenza A & B Note Ur L.pneumophila Ag Blood Type Antibody Screen 09/03/25 09/03/25 09/03/25 17:17 21:10 22:08 WBC RBC Hgb Hct MCV MCH MCHC RDW Plt Count MPV Immature Gran % (Auto) Neut % (Auto) Lymph % (Auto) [place] % (Auto) Eos % (Auto) Baso % (Auto) Lymph # (Auto) [place] # (Auto) Eos # (Auto) Baso # (Auto) Abs Immat Gran (auto) Absolute Neuts (auto) Absolute Nucleated RBC Nucleated RBC % (auto) Smear Tech's Comments Hold Purple Top O2 Saturation ABG pH at Pt Temp ABG pCO2 at Pt Temp ABG pO2 at Pt Temp ABG HCO3 ABG Base Excess (Actual) VBG pH VBG pCO2 VBG pO2 VBG HCO3 VBG O2 Saturation VBG Base Excess Sodium 156 H Potassium 3.4 Chloride 115 H Carbon Dioxide 33 H Anion Gap 11 L BUN 53 H Creatinine 2.71 H Estim Creat Clear Calc 31.6 Estimated GFR 23 POC Glucose 158 H Random Glucose 162 H Lactic Acid Calcium 8.0 L Phosphorus 3.2 Magnesium 2.9 H Total Bilirubin Direct Bilirubin AST ALT Alkaline Phosphatase Troponin I High Sens NT-Pro-B Natriuret Pep Total Protein Albumin TSH Free T4 Urine Color Urine Appearance Urine pH Ur Specific [place] Urine Protein Urine Glucose (UA) Urine Ketones Urine Blood Urine Nitrite Ur Leukocyte Esterase Urine RBC Urine WBC Ur Squamous Epith Cells Urine Bacteria Hyaline Casts Stool Occult Blood Random Vancomycin 15.0 Valproic Acid [place] COVID-19 (MARNIE) COVID-19 Clin Com Influenza Type A (DARRIN) Influenza Type B (DARRIN) Influenza A & B Note Ur L.pneumophila Ag Blood Type Antibody Screen 09/04/25 09/04/25 09/04/25 00:06 05:04 05:14 WBC 9.3 RBC 2.78 L Hgb 8.4 L Hct 28.0 L MCV 100.7 H MCH 30.2 MCHC 30.0 L RDW 15.9 Plt Count 242 MPV 10.6 Immature Gran % (Auto) 2.4 H Neut % (Auto) 63.9 Lymph % (Auto) 24.9 [place] % (Auto) 8.5 Eos % (Auto) 0.1 Baso % (Auto) 0.2 Lymph # (Auto) 2.3 [place] # (Auto) 0.8 Eos # (Auto) 0.0 Baso # (Auto) 0.0 Abs Immat Gran (auto) 0.22 H Absolute Neuts (auto) 5.9 Absolute Nucleated RBC 0.000 Nucleated RBC % (auto) 0.0 Smear Tech's Comments Hold Purple Top O2 Saturation ABG pH at Pt Temp ABG pCO2 at Pt Temp ABG pO2 at Pt Temp ABG HCO3 ABG Base Excess (Actual) VBG pH 7.47 H VBG pCO2 48 VBG pO2 71 VBG HCO3 35 H VBG O2 Saturation 93.0 VBG Base Excess 10.5 Sodium 155 H Potassium 3.7 Chloride 117 H Carbon Dioxide 30 H Anion Gap 12 BUN 55 H Creatinine 2.57 H Estim Creat Clear Calc 33.3 Estimated GFR 25 POC Glucose 164 H Random Glucose 197 H Lactic Acid Calcium 8.1 L Phosphorus 2.7 Magnesium 2.9 H Total Bilirubin Direct Bilirubin AST ALT Alkaline Phosphatase Troponin I High Sens NT-Pro-B Natriuret Pep Total Protein Albumin 3.2 L TSH Free T4 Urine Color Urine Appearance Urine pH Ur Specific [place] Urine Protein Urine Glucose (UA) Urine Ketones Urine Blood Urine Nitrite Ur Leukocyte Esterase Urine RBC Urine WBC Ur Squamous Epith Cells Urine Bacteria Hyaline Casts Stool Occult Blood Random Vancomycin Valproic Acid [place] COVID-19 (MARNIE) COVID-19 Clin Com Influenza Type A (DARRIN) Influenza Type B (DARRIN) Influenza A & B Note Ur L.pneumophila Ag Blood Type Antibody Screen 09/04/25 09/04/25 09/04/25 11:24 17:48 23:50 WBC RBC Hgb Hct MCV MCH MCHC RDW Plt Count MPV Immature Gran % (Auto) Neut % (Auto) Lymph % (Auto) [place] % (Auto) Eos % (Auto) Baso % (Auto) Lymph # (Auto) [place] # (Auto) Eos # (Auto) Baso # (Auto) Abs Immat Gran (auto) Absolute Neuts (auto) Absolute Nucleated RBC Nucleated RBC % (auto) Smear Tech's Comments Hold Purple Top O2 Saturation ABG pH at Pt Temp ABG pCO2 at Pt Temp ABG pO2 at Pt Temp ABG HCO3 ABG Base Excess (Actual) VBG pH VBG pCO2 VBG pO2 VBG HCO3 VBG O2 Saturation VBG Base Excess Sodium Potassium Chloride Carbon Dioxide Anion Gap BUN Creatinine Estim Creat Clear Calc Estimated GFR POC Glucose 215 H 206 H 172 H Random Glucose Lactic Acid Calcium Phosphorus Magnesium Total Bilirubin Direct Bilirubin AST ALT Alkaline Phosphatase Troponin I High Sens NT-Pro-B Natriuret Pep Total Protein Albumin TSH Free T4 Urine Color Urine Appearance Urine pH Ur Specific [place] Urine Protein Urine Glucose (UA) Urine Ketones Urine Blood Urine Nitrite Ur Leukocyte Esterase Urine RBC Urine WBC Ur Squamous Epith Cells Urine Bacteria Hyaline Casts Stool Occult Blood Random Vancomycin Valproic Acid [place] COVID-19 (MARNIE) COVID-19 Clin Com Influenza Type A (DARRIN) Influenza Type B (DARRIN) Influenza A & B Note Ur L.pneumophila Ag Blood Type Antibody Screen 09/05/25 09/05/25 09/05/25 05:13 05:15 05:47 WBC 10.2 RBC 2.69 L Hgb 8.1 L Hct 27.8 L MCV 103.3 H MCH 30.1 MCHC 29.1 L RDW 15.9 Plt Count 245 MPV 11.2 Immature Gran % (Auto) 2.2 H Neut % (Auto) 63.3 Lymph % (Auto) 27.4 [place] % (Auto) 6.7 Eos % (Auto) 0.1 Baso % (Auto) 0.3 Lymph # (Auto) 2.8 [place] # (Auto) 0.7 Eos # (Auto) 0.0 Baso # (Auto) 0.0 Abs Immat Gran (auto) 0.22 H Absolute Neuts (auto) 6.4 Absolute Nucleated RBC 0.000 Nucleated RBC % (auto) 0.0 Smear Tech's Comments Hold Purple Top O2 Saturation ABG pH at Pt Temp ABG pCO2 at Pt Temp ABG pO2 at Pt Temp ABG HCO3 ABG Base Excess (Actual) VBG pH 7.41 VBG pCO2 55 VBG pO2 95 VBG HCO3 35 H VBG O2 Saturation 98.0 VBG Base Excess 10.1 Sodium 155 H Potassium 3.8 Chloride 116 H Carbon Dioxide 31 H Anion Gap 12 BUN 49 H Creatinine 2.36 H Estim Creat Clear Calc 36.2 Estimated GFR 28 POC Glucose 169 H Random Glucose 206 H Lactic Acid Calcium 8.1 L Phosphorus 3.9 Magnesium 2.9 H Total Bilirubin Direct Bilirubin AST ALT Alkaline Phosphatase Troponin I High Sens NT-Pro-B Natriuret Pep Total Protein Albumin 3.1 L TSH Free T4 Urine Color Urine Appearance Urine pH Ur Specific [place] Urine Protein Urine Glucose (UA) Urine Ketones Urine Blood Urine Nitrite Ur Leukocyte Esterase Urine RBC Urine WBC Ur Squamous Epith Cells Urine Bacteria Hyaline Casts Stool Occult Blood Random Vancomycin Valproic Acid [place] COVID-19 (MARNIE) COVID-19 Clin Com Influenza Type A (DARRIN) Influenza Type B (DARRIN) Influenza A & B Note Ur L.pneumophila Ag Blood Type Antibody Screen 09/05/25 09/05/25 09/05/25 11:48 17:27 20:52 WBC RBC Hgb Hct MCV MCH MCHC RDW Plt Count MPV Immature Gran % (Auto) Neut % (Auto) Lymph % (Auto) [place] % (Auto) Eos % (Auto) Baso % (Auto) Lymph # (Auto) [place] # (Auto) Eos # (Auto) Baso # (Auto) Abs Immat Gran (auto) Absolute Neuts (auto) Absolute Nucleated RBC Nucleated RBC % (auto) Smear Tech's Comments Hold Purple Top O2 Saturation ABG pH at Pt Temp ABG pCO2 at Pt Temp ABG pO2 at Pt Temp ABG HCO3 ABG Base Excess (Actual) VBG pH VBG pCO2 VBG pO2 VBG HCO3 VBG O2 Saturation VBG Base Excess Sodium Potassium Chloride Carbon Dioxide Anion Gap BUN Creatinine Estim Creat Clear Calc Estimated GFR POC Glucose 214 H 186 H Random Glucose Lactic Acid Calcium Phosphorus Magnesium Total Bilirubin Direct Bilirubin AST ALT Alkaline Phosphatase Troponin I High Sens NT-Pro-B Natriuret Pep Total Protein Albumin TSH Free T4 Urine Color Urine Appearance Urine pH Ur Specific [place] Urine Protein Urine Glucose (UA) Urine Ketones Urine Blood Urine Nitrite Ur Leukocyte Esterase Urine RBC Urine WBC Ur Squamous Epith Cells Urine Bacteria Hyaline Casts Stool Occult Blood Random Vancomycin 13.1 L Valproic Acid [place] COVID-19 (AMRNIE) COVID-19 Clin Com Influenza Type A (DARRIN) Influenza Type B (DARRIN) Influenza A & B Note Ur L.pneumophila Ag Blood Type Antibody Screen 09/05/25 09/06/25 09/06/25 23:57 05:20 05:30 WBC 9.0 RBC 2.61 L Hgb 8.1 L Hct 26.8 L MCV 102.7 H MCH 31.0 MCHC 30.2 L RDW 15.8 Plt Count 231 MPV 11.2 Immature Gran % (Auto) 2.0 H Neut % (Auto) 68.5 Lymph % (Auto) 21.7 [place] % (Auto) 7.4 Eos % (Auto) 0.1 Baso % (Auto) 0.3 Lymph # (Auto) 2.0 [place] # (Auto) 0.7 Eos # (Auto) 0.0 Baso # (Auto) 0.0 Abs Immat Gran (auto) 0.18 H Absolute Neuts (auto) 6.1 Absolute Nucleated RBC 0.030 H Nucleated RBC % (auto) 0.3 H Smear Tech's Comments Hold Purple Top O2 Saturation ABG pH at Pt Temp ABG pCO2 at Pt Temp ABG pO2 at Pt Temp ABG HCO3 ABG Base Excess (Actual) VBG pH 7.53 H VBG pCO2 44 VBG pO2 106 VBG HCO3 37 H VBG O2 Saturation Not Reportable VBG Base Excess 13.2 Sodium 156 H Potassium 3.7 Chloride 117 H Carbon Dioxide 31 H Anion Gap 12 BUN 42 H Creatinine 2.20 H Estim Creat Clear Calc 38.8 Estimated GFR 30 POC Glucose 138 H Random Glucose 200 H Lactic Acid Calcium 8.3 L Phosphorus 3.8 Magnesium 2.8 H Total Bilirubin 0.2 Direct Bilirubin AST 28 ALT 21 Alkaline Phosphatase 59 Troponin I High Sens NT-Pro-B Natriuret Pep Total Protein 6.4 L Albumin 3.0 L TSH Free T4 Urine Color Urine Appearance Urine pH Ur Specific [place] Urine Protein Urine Glucose (UA) Urine Ketones Urine Blood Urine Nitrite Ur Leukocyte Esterase Urine RBC Urine WBC Ur Squamous Epith Cells Urine Bacteria Hyaline Casts Stool Occult Blood Random Vancomycin Valproic Acid [place] COVID-19 (MARNIE) COVID-19 Clin Com Influenza Type A (DARRIN) Influenza Type B (DARRIN) Influenza A & B Note Ur L.pneumophila Ag Blood Type Antibody Screen 09/06/25 09/06/25 09/06/25 06:05 11:43 17:33 WBC RBC Hgb Hct MCV MCH MCHC RDW Plt Count MPV Immature Gran % (Auto) Neut % (Auto) Lymph % (Auto) [place] % (Auto) Eos % (Auto) Baso % (Auto) Lymph # (Auto) [place] # (Auto) Eos # (Auto) Baso # (Auto) Abs Immat Gran (auto) Absolute Neuts (auto) Absolute Nucleated RBC Nucleated RBC % (auto) Smear Tech's Comments Hold Purple Top O2 Saturation ABG pH at Pt Temp ABG pCO2 at Pt Temp ABG pO2 at Pt Temp ABG HCO3 ABG Base Excess (Actual) VBG pH VBG pCO2 VBG pO2 VBG HCO3 VBG O2 Saturation VBG Base Excess Sodium Potassium Chloride Carbon Dioxide Anion Gap BUN Creatinine Estim Creat Clear Calc Estimated GFR POC Glucose 195 H 266 H 172 H Random Glucose Lactic Acid Calcium Phosphorus Magnesium Total Bilirubin Direct Bilirubin AST ALT Alkaline Phosphatase Troponin I High Sens NT-Pro-B Natriuret Pep Total Protein Albumin TSH Free T4 Urine Color Urine Appearance Urine pH Ur Specific [place] Urine Protein Urine Glucose (UA) Urine Ketones Urine Blood Urine Nitrite Ur Leukocyte Esterase Urine RBC Urine WBC Ur Squamous Epith Cells Urine Bacteria Hyaline Casts Stool Occult Blood Random Vancomycin Valproic Acid [place] COVID-19 (MARNIE) COVID-19 Clin Com Influenza Type A (DARRIN) Influenza Type B (DARRIN) Influenza A & B Note Ur L.pneumophila Ag Blood Type Antibody Screen 09/06/25 09/06/25 09/07/25 20:13 23:49 05:49 WBC 9.3 RBC 2.49 L Hgb 7.8 L Hct 25.0 L MCV 100.4 H MCH 31.3 MCHC 31.2 RDW 15.7 Plt Count 246 MPV 11.2 Immature Gran % (Auto) 3.9 H Neut % (Auto) 65.7 Lymph % (Auto) 23.2 [place] % (Auto) 6.7 Eos % (Auto) 0.2 Baso % (Auto) 0.3 Lymph # (Auto) 2.2 [place] # (Auto) 0.6 Eos # (Auto) 0.0 Baso # (Auto) 0.0 Abs Immat Gran (auto) 0.36 H Absolute Neuts (auto) 6.1 Absolute Nucleated RBC 0.000 Nucleated RBC % (auto) 0.0 Smear Tech's Comments Hold Purple Top O2 Saturation ABG pH at Pt Temp ABG pCO2 at Pt Temp ABG pO2 at Pt Temp ABG HCO3 ABG Base Excess (Actual) VBG pH VBG pCO2 VBG pO2 VBG HCO3 VBG O2 Saturation VBG Base Excess Sodium 156 H 152 H Potassium 3.7 3.3 Chloride 116 H 114 H Carbon Dioxide 31 H 33 H Anion Gap 13 8 L BUN 39 H 34 H Creatinine 2.12 H 2.01 H Estim Creat Clear Calc 40.3 42.5 Estimated GFR 31 33 POC Glucose 200 H Random Glucose 176 H 232 H Lactic Acid Calcium 8.4 8.2 L Phosphorus 3.4 3.4 Magnesium 2.7 H 2.7 H Total Bilirubin Direct Bilirubin AST ALT Alkaline Phosphatase Troponin I High Sens NT-Pro-B Natriuret Pep Total Protein Albumin 2.9 L TSH Free T4 Urine Color Urine Appearance Urine pH Ur Specific [place] Urine Protein Urine Glucose (UA) Urine Ketones Urine Blood Urine Nitrite Ur Leukocyte Esterase Urine RBC Urine WBC Ur Squamous Epith Cells Urine Bacteria Hyaline Casts Stool Occult Blood Random Vancomycin Valproic Acid [place] COVID-19 (MARNIE) COVID-19 Clin Com Influenza Type A (DARRIN) Influenza Type B (DARRIN) Influenza A & B Note Ur L.pneumophila Ag Blood Type Antibody Screen 09/07/25 09/07/25 06:04 12:07 WBC RBC Hgb Hct MCV MCH MCHC RDW Plt Count MPV Immature Gran % (Auto) Neut % (Auto) Lymph % (Auto) [place] % (Auto) Eos % (Auto) Baso % (Auto) Lymph # (Auto) [place] # (Auto) Eos # (Auto) Baso # (Auto) Abs Immat Gran (auto) Absolute Neuts (auto) Absolute Nucleated RBC Nucleated RBC % (auto) Smear Tech's Comments Hold Purple Top O2 Saturation ABG pH at Pt Temp ABG pCO2 at Pt Temp ABG pO2 at Pt Temp ABG HCO3 ABG Base Excess (Actual) VBG pH VBG pCO2 VBG pO2 VBG HCO3 VBG O2 Saturation VBG Base Excess Sodium Potassium Chloride Carbon Dioxide Anion Gap BUN Creatinine Estim Creat Clear Calc Estimated GFR POC Glucose 212 H 191 H Random Glucose Lactic Acid Calcium Phosphorus Magnesium Total Bilirubin Direct Bilirubin AST ALT Alkaline Phosphatase Troponin I High Sens NT-Pro-B Natriuret Pep Total Protein Albumin TSH Free T4 Urine Color Urine Appearance Urine pH Ur Specific [place] Urine Protein Urine Glucose (UA) Urine Ketones Urine Blood Urine Nitrite Ur Leukocyte Esterase Urine RBC Urine WBC Ur Squamous Epith Cells Urine Bacteria Hyaline Casts Stool Occult Blood Random Vancomycin Valproic Acid [place] COVID-19 (MARNIE) COVID-19 Clin Com Influenza Type A (DARRIN) Influenza Type B (DARRIN) Influenza A & B Note Ur L.pneumophila Ag Blood Type Antibody Screen Narrative Narrative: ECHO 03/2024 Normal biventricular size and systolic function. Normal left ventricular wall motion with EF of 55-60% Likely normal left ventricular diastolic function. No hemodynamically significant valve disease Dilated aortic root. Normal aschedning aortic size. Findings stable compared with echo from 03/2023 EKG 07/2025 Sinus rhythm with occasional Premature atrial complexes Left axis deviation Incomplete right bundle branch block Abnormal ECG When compared with ECG of 29-NOV-2024 14:10, Premature ventricular complexes are now Present Incomplete right bundle branch block is now Present Confirmed by JAI MENDES ([id number]) on 08/25/2025 1:21:13 PM Assessment and Plan Final Anesthetic Review Family History of Problems with Anesthesia: No
[2025-09-07 17:44] LABS: Glucose, Whole Blood 182 mg/dL (60-115)
--- NOTE | 2025-09-07 18:58 | PC.NURSE ---
Assumed care @ 0700? Continues sedated/intubated, on PSV.? Sinus Tachy on tele External cath & FMD in place, , + bowel sounds, NG in place, tolerating TF w/o sing of intolerance. POC Q6hr, on sliding scale insulin per JAN.? peripheral IVs
[2025-09-07 20:13] LABS: Albumin Level 3.4 g/dL (3.5-5.0); Anion Gap 11 (12-20); Blood Urea Nitrogen 30 mg/dL (9-16); Calcium 8.5 mg/dL (8.4-10.2); Carbon Dioxide 27 mmol/L (22-29); Chloride 117 mmol/L (96-108); Creatinine Clr Calc Pharmacy 41.9; Estimated Glomerular Filt Rate 33; Magnesium 2.6 mg/dL (1.6-2.6); Potassium 4.3 mmol/L (3.3-5.1); Sodium 151 mmol/L (135-145)
--- NOTE | 2025-09-07 21:41 | W.MHC.ACPN ---
Advanced Care Planning Note Advanced Care Planning Note Discussed with: family member(s) Time spent (in minutes): 60 Narrative: Family requested goals of care conversation,? patient?s sister,? Ros and nirick Ambriz,? informed me that she spoke with surgery,? Dr. Chino,? regarding tracheostomy and enteral feeding tube today,? but after ? thinking about it?? they would not like to proceed with surgery.? They would like for patient to be extubated and may DNR/? DNI.? they understand patient?s quality of life,? and clinical conditions,? and do not wish to reintubate after extubation.? We also discussed comfort care, they are in understanding if patient does not do well after extubation, the might wish to proceed with comfort care. At this time code status change in chart.? ?They request for extubation to be performed,? during the afternoon as they are from [facility] and would like to be present at bedside.? We will plan to extubate tomorrow 18:00 Problems Discussed (1) Failure to wean from mechanical ventilation:
[2025-09-08] VITALS (36 sets, daily range): BP systolic 96–141; BP diastolic 54–75; PULSE 100–119; RESP 18–29; TEMP 34.5–36.7; O2SAT 90–95; BMI 30.9
[2025-09-08 00:22] LABS: Glucose, Whole Blood 172 mg/dL (60-115)
[2025-09-08] MEDS: Valproic Acid (as Sodium Salt) 250 MG in Dextrose 5 % 50 ML 52.5 MG IV ×3 (00:37→17:33)
[2025-09-08] MEDS: Albumin Human 25 % 100 ML IV (01:58)
[2025-09-08] MEDS: Furosemide 40 MG/4 ML VIAL IVPUSH (02:30)
[2025-09-08 05:16] LABS: Glucose, Whole Blood 184 mg/dL (60-115)
[2025-09-08 05:39] LABS: MANUAL DIFF FLAG NO
[2025-09-08 05:46] LABS: Hematocrit 25.0 % (42.0-52.0); Hemoglobin 7.5 g/dl (14.0-18.0); Imm Gran Abs Auto 0.24 X10*3/uL (0.00-0.03); Imm Gran Pct Auto 2.8 % (0.0-0.4); Lymphocytes Absolute Auto 1.7 X10*3/uL (1.2-4.9); Mean Corpuscular HGB Conc 30.0 g/dl (31.0-36.0); Mean Corpuscular Hemoglobin 30.5 pg (27.0-33.0); Mean Corpuscular Volume 101.6 fL (80.0-98.0); NRBC Abs Auto 0.000 X10*3/uL (0.0-0.012); NRBC Pct Auto 0.0 /100WBC (0.0-0.2); Platelet Count 231 X10*3/uL (160-400); Red Blood Count 2.46 X10*6/uL (4.60-5.80); White Blood Count 8.7 X10*3/uL (4.8-10.8)
[2025-09-08 05:59] LABS: Albumin Level 3.9 g/dL (3.5-5.0); Anion Gap 13 (12-20); Blood Urea Nitrogen 32 mg/dL (9-16); Calcium 8.9 mg/dL (8.4-10.2); Carbon Dioxide 30 mmol/L (22-29); Chloride 113 mmol/L (96-108); Creatinine Clr Calc Pharmacy 43.5; Estimated Glomerular Filt Rate 33; Magnesium 2.6 mg/dL (1.6-2.6); Potassium 3.6 mmol/L (3.3-5.1); Sodium 152 mmol/L (135-145)
[2025-09-08] MEDS: Albuterol/Iprat 2.5/0.5MG 3 ML AMPUL.NEB INHALE ×4 (08:01→20:23)
[2025-09-08] MEDS: 0.9 % Sodium Chloride Flush 3 ML SYRINGE IVFLUSH ×2 (08:20→16:49)
[2025-09-08] MEDS: Nystatin Oral Susp 500,000 UNIT/5 ML ORAL.SUSP 200000 UNIT BUCCAL ×3 (08:20→20:05)
[2025-09-08] MEDS: Chlorhexidine Gluc Oral Rinse 15 ML MOUTHWASH BUCCAL ×3 (08:20→20:06)
[2025-09-08 09:37] LABS: Venous Blood Gas Refer to POC result
[2025-09-08 09:38] LABS: VBG HCO3 38 mmol/L (22-26)
--- NOTE | 2025-09-08 10:21 | PM.CCPN ---
Subjective Subjective Date of Service: 09/08/25 Interval History: 70-year-old gentleman with underlying schizoaffective disorder, COPD, sleep apnea, diabetes mellitus, dysphagia, CAD, seizure disorder, cardiomyopathy admitted on 08/21/2025 with lethargy and hypoxia likely secondary to pulmonary aspiration with hospital course significant for progressive hypoxia requiring intubation and ventilatory support on 08/23/2025, extubated 08/26/2025, requiring intubation again for pulmonary aspiration on 08/28/2025, now with slowly improving arousal with sedation vacation. Remains constant aspiration risk. At this time healthcare proxy wants to proceed with extubation and likely no re-intubation later tonight. No events overnight. Critical Care Time (minutes): 60 Physical Exam Vital Signs: Vital Signs: Last Vital Signs Temp 97.0 F 09/08/25 09:00 Pulse 109 H 09/08/25 09:00 Resp 22 H 09/08/25 09:00 BP 106/54 L 09/08/25 09:00 Pulse Ox 90 L 09/08/25 09:00 O2 Del Method Mechanical Ventil ation 09/08/25 09:00 O2 Flow Rate 40 09/02/25 16:00 FiO2 30 09/08/25 09:00 Oxygen Flow Rate 2.5 08/22/25 00:01 BMI result Body Mass Index 30.9 Const: General: no acute distress and other (Sedated on ventilatory support) Eyes: Sclerae: sclerae normal EOM: EOMs intact bilaterally Neck: Neck: Yes no lymphadenopathy, Yes trachea midline and Yes supple Resp: Auscultation: clear to auscultation bilaterally Cardio: Rate: tachycardic Rhythm: regular rhythm Heart sounds: no gallops, no murmurs and no rubs GI: Palpation (GI): Soft to palpation and Other GI palpation findings present ( Nontender) Auscultation: normal bowel sounds Extrem: General: No clubbing, No cyanosis and Yes edema (1+ bilateral) Objective Data Labs 09/08/25 04:52 09/08/25 04:52 Labs: Laboratory Results - last 24 hr 09/07/25 09/07/25 09/07/25 12:07 14:57 17:41 WBC RBC Hgb Hct MCV MCH MCHC RDW Plt Count MPV Immature Gran % (Auto) Neut % (Auto) Lymph % (Auto) [place] % (Auto) Eos % (Auto) Baso % (Auto) Lymph # (Auto) [place] # (Auto) Eos # (Auto) Baso # (Auto) Abs Immat Gran (auto) Absolute Neuts (auto) Absolute Nucleated RBC Nucleated RBC % (auto) VBG pH VBG pCO2 VBG pO2 VBG HCO3 VBG O2 Saturation VBG Base Excess Sodium Potassium Chloride Carbon Dioxide Anion Gap BUN Creatinine Estim Creat Clear Calc Estimated GFR POC Glucose 191 H 182 H Random Glucose Calcium Phosphorus Magnesium Albumin Blood Type A Positive Antibody Screen NEGATIVE 09/07/25 09/08/25 09/08/25 19:39 00:16 04:52 WBC 8.7 RBC 2.46 L Hgb 7.5 L Hct 25.0 L MCV 101.6 H MCH 30.5 MCHC 30.0 L RDW 15.6 Plt Count 231 MPV 11.1 Immature Gran % (Auto) 2.8 H Neut % (Auto) 70.2 Lymph % (Auto) 19.9 L [place] % (Auto) 6.7 Eos % (Auto) 0.2 Baso % (Auto) 0.2 Lymph # (Auto) 1.7 [place] # (Auto) 0.6 Eos # (Auto) 0.0 Baso # (Auto) 0.0 Abs Immat Gran (auto) 0.24 H Absolute Neuts (auto) 6.1 Absolute Nucleated RBC 0.000 Nucleated RBC % (auto) 0.0 VBG pH VBG pCO2 VBG pO2 VBG HCO3 VBG O2 Saturation VBG Base Excess Sodium 151 H 152 H Potassium 4.3 D 3.6 Chloride 117 H 113 H Carbon Dioxide 27 30 H Anion Gap 11 L 13 BUN 30 H 32 H Creatinine 2.04 H 1.99 H Estim Creat Clear Calc 41.9 43.5 Estimated GFR 33 33 POC Glucose 172 H Random Glucose 201 H 203 H Calcium 8.5 8.9 Phosphorus 3.7 3.9 Magnesium 2.6 2.6 Albumin 3.4 L 3.9 Blood Type Antibody Screen 09/08/25 09/08/25 05:12 09:33 WBC RBC Hgb Hct MCV MCH MCHC RDW Plt Count MPV Immature Gran % (Auto) Neut % (Auto) Lymph % (Auto) [place] % (Auto) Eos % (Auto) Baso % (Auto) Lymph # (Auto) [place] # (Auto) Eos # (Auto) Baso # (Auto) Abs Immat Gran (auto) Absolute Neuts (auto) Absolute Nucleated RBC Nucleated RBC % (auto) VBG pH 7.43 VBG pCO2 57 VBG pO2 49 VBG HCO3 38 H VBG O2 Saturation TNP VBG Base Excess 12.5 Sodium Potassium Chloride Carbon Dioxide Anion Gap BUN Creatinine Estim Creat Clear Calc Estimated GFR POC Glucose 184 H Random Glucose Calcium Phosphorus Magnesium Albumin Blood Type Antibody Screen Microbiology Microbiology Results: Microbiology 09/01/25 21:30 Trachea Gram Stain - Final 09/01/25 21:30 Trachea Sputum Culture - Final No growth. 08/21/25 20:09 Blood - Venous Blood Culture - Final No growth after 5 days. 08/21/25 19:25 Blood - Venous Blood Culture - Final No growth after 5 days. 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 Plan: Neuro: Encephalopathy of unclear etiology, likely toxic versus septic. 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 Cardiac: No acute issues. Underlying CAD and cardiomyopathy. Pulmonary: Acute hypoxic respiratory failure secondary to pulmonary aspiration requiring ventilatory support, remains on consult aspiration risk. At this time healthcare proxy does not want to proceed with tracheostomy and gastrostomy, but wants to proceed with extubation later tonight with no plans for re-intubation. .. Renal: Acute renal failure and hypernatremia, improving. Non oliguric. Continue to monitor renal indices and urine output. Endo: No acute issues. GI: No acute issues. ID: Empiric coverage for pulmonary aspiration Heme/Onc: No acute issues. Psych: No acute issues. Miscellaneous: No acute issues. Prophylaxis: Heparin, ppi Diet: Tube feeds Critical care time spent: 60 Quality Stroke Does the patient have a stroke diagnosis?: No VTE Prior VTE?: No VTE Risk Level:: Medical - moderate - high VTE Device Contraindication: N/A - Device Ordered VTE Drug Contraindication: N/A - Med Ordered
[2025-09-08 12:08] LABS: Glucose, Whole Blood 172 mg/dL (60-115)
--- NOTE | 2025-09-08 12:09 | PM.EVENT ---
Event Note Date of Service: 09/08/25 Event Note: Informed by ICU staff early this morning that the family have decided not to proceed with PEG tube and tracheostomy Procedure was therefore canceled I also was able to discuss this with his healthcare proxy Ros Alex [phone] Time Spent With Patient Time: Total time managing care of this patient today ____ minutes.
--- NOTE | 2025-09-08 15:56 | MHC.CM.PN ---
Pt will be extubated later today per family request. They are opting not to re-intubate or initiate CPR. Goals of care are ongoing at this time and may involve NURSING MANAGER. Pt is from [facility]. Clinical updates remitted.
[2025-09-08 17:58] LABS: Clozapine (Clozaril) 411 mcg/L
[2025-09-08 18:04] LABS: Glucose, Whole Blood 179 mg/dL (60-115)
--- NOTE | 2025-09-08 18:42 | PC.NURSE ---
Pt extubated approx. @ 1815. Now on 6L oxymask. Awake & drowsy,? following simple commands.Tube Feeds on hold s/p extubation, POC q6HR, FMD & External catheter in place/draining.
[2025-09-08 19:56] LABS: Anion Gap 15 (12-20); Blood Urea Nitrogen 32 mg/dL (9-16); Calcium 9.3 mg/dL (8.4-10.2); Carbon Dioxide 31 mmol/L (22-29); Chloride 109 mmol/L (96-108); Creatinine Clr Calc Pharmacy 43.3; Estimated Glomerular Filt Rate 33; Magnesium 2.5 mg/dL (1.6-2.6); Potassium 3.9 mmol/L (3.3-5.1); Sodium 151 mmol/L (135-145)
[2025-09-09] VITALS (27 sets, daily range): BP systolic 108–140; BP diastolic 56–89; PULSE 115–135; RESP 18–32; TEMP 36.2–36.9; O2SAT 89–98; BMI 29.4
[2025-09-09] MEDS: Valproic Acid (as Sodium Salt) 250 MG in Dextrose 5 % 50 ML 52.5 MG IV ×3 (00:16→16:16)
[2025-09-09 00:29] LABS: Glucose, Whole Blood 156 mg/dL (60-115)
[2025-09-09] MEDS: 0.9 % Sodium Chloride Flush 3 ML SYRINGE IVFLUSH ×4 (00:29→23:59)
[2025-09-09 05:00] LABS: VBG HCO3 37 mmol/L (22-26); VBG O2 % Saturation 97.0 %
[2025-09-09 05:03] LABS: Venous Blood Gas Refer to POC result
--- NOTE | 2025-09-09 05:17 | PC.NURSE ---
CARE ASSUMED 7PM..PREVIOUSLY EXTUBATED..CONTINUES O2 6 L/M VIA OXIMASK...SAO2 91-93%...OCASSIONAL LOOSE COUGH..DROWSY BUT AWAKE TO VERBAL STIMULI..DENIED PAON OR SOB...SINUS TACH HR 110'S...TUBE FEEDS RESTARTED GLUCERNA 30 CC/HR PER PROVIDER AND TO TITRATE TOLERATED TO GOAL OF 60 CC/HR...H20 300ML BOLUSES Q4H RESTARED....D5W 125 CC/HR COMPLETED 4AM...TO HOLD FLUIDS UNTIL PROVIDER ASSESSES AM LAB-WORK...PURWIK EXTERNAL CATHETER COLLECTING YELLOW URINE..RECTAL TUBE LIQUIED BROWN STOOL...INCONTINANT LARGE AMOUNT STOOL AT HS..RECTAL TUBE REPOSITIONED WITH EFFECT..RETFUL OVERNIGHT..FAMILY AT BEDSIDE UNTIL 9PM.
[2025-09-09 05:29] LABS: Hematocrit 26.0 % (42.0-52.0); Hemoglobin 8.0 g/dl (14.0-18.0); Imm Gran Abs Auto 0.28 X10*3/uL (0.00-0.03); Imm Gran Pct Auto 2.7 % (0.0-0.4); Lymphocytes Absolute Auto 2.0 X10*3/uL (1.2-4.9); MANUAL DIFF FLAG NO; Mean Corpuscular HGB Conc 30.8 g/dl (31.0-36.0); Mean Corpuscular Hemoglobin 30.8 pg (27.0-33.0); Mean Corpuscular Volume 100.0 fL (80.0-98.0); NRBC Abs Auto 0.000 X10*3/uL (0.0-0.012); NRBC Pct Auto 0.0 /100WBC (0.0-0.2); Platelet Count 305 X10*3/uL (160-400); Red Blood Count 2.60 X10*6/uL (4.60-5.80); White Blood Count 10.5 X10*3/uL (4.8-10.8)
[2025-09-09 05:43] LABS: Albumin Level 3.6 g/dL (3.5-5.0); Anion Gap 13 (12-20); Blood Urea Nitrogen 27 mg/dL (9-16); Calcium 9.0 mg/dL (8.4-10.2); Carbon Dioxide 32 mmol/L (22-29); Chloride 110 mmol/L (96-108); Creatinine Clr Calc Pharmacy 45.3; Estimated Glomerular Filt Rate 35; Magnesium 2.4 mg/dL (1.6-2.6); Potassium 3.5 mmol/L (3.3-5.1); Sodium 151 mmol/L (135-145)
[2025-09-09 05:53] LABS: Glucose, Whole Blood 132 mg/dL (60-115)
[2025-09-09] MEDS: Albuterol/Iprat 2.5/0.5MG 3 ML AMPUL.NEB INHALE ×3 (07:52→15:03)
[2025-09-09] MEDS: Potassium Chloride Packet 20 MEQ PACKET 40 MEQ PO (08:17)
[2025-09-09] MEDS: Chlorhexidine Gluc Oral Rinse 15 ML MOUTHWASH BUCCAL ×3 (08:26→21:32)
[2025-09-09] MEDS: Nystatin Oral Susp 500,000 UNIT/5 ML ORAL.SUSP 200000 UNIT BUCCAL ×3 (08:26→20:34)
--- NOTE | 2025-09-09 09:52 | MHC.CLN ---
F/U PT EXTUBATED WITH NO PLANS FOR RE-INTUBATION REVIEWED LABS NOTED SERUM NA REMAINS ELEVATED BUT IMPROVED PT WITH NGT IN PLACE TF CURRENTLY RUNNING AT 40ML/HR WITH PLAN TO RETURN TO MAX GOAL RATE RECOMMEND GLUCERNA 1.2 AT MAX GOAL RATE 60ML/HR WITH 300ML FREE WATER FLUSHES Q 4 HRS PROVIDES 1728KCALS (21KCALS/KG), 86G PROTEIN, 2959ML TOTAL WATER FROM FORMULA AND FLUSHES (33ML/KG) CONTINUE TO MONITOR TOLERANCE AND LYTES RD CAN BE REACHED VIA TIGER CONNECT DURING OFF HOURS IF NEEDED FOLLOWING WITH TEAM
--- NOTE | 2025-09-09 10:31 | P.PNCC_ITS ---
Subjective Subjective Date of Service: 09/09/25 Critical Care Time (minutes): 0 Physical Exam 2 Vital Signs: Vital Signs: Last Vital Signs Temp 98.5 F 09/09/25 08:00 Pulse 117 H 09/09/25 10:00 Resp 25 H 09/09/25 10:00 BP 140/76 H 09/09/25 10:00 Pulse Ox 93 09/09/25 10:00 O2 Del Method Oxymask 09/09/25 10:00 O2 Flow Rate 1 09/09/25 10:00 FiO2 30 09/08/25 18:00 Oxygen Flow Rate 2.5 08/22/25 00:01 BMI result Body Mass Index 29.4 Const: General: no acute distress and lethargic (Arousable) O rientation/consciousness: lethargic (Arousable) Eyes: Sclerae: sclerae normal EOM: EOMs intact bilaterally Neck: Neck: Yes no lymphadenopathy, Yes trachea midline and Yes supple Resp: Effort & Inspection: normal respiratory effort and no respiratory distress Auscultation: crackles (Mild bibasilar) Cardio: Rate: tachycardic Rhythm: regular rhythm Heart sounds: no gallops, no murmurs and no rubs GI: Palpation (GI): Soft to palpation and Other GI palpation findings present ( Nontender) Auscultation: normal bowel sounds Extrem: General: No clubbing, No cyanosis and Yes edema (1+ bilateral) Objective Data Labs 09/09/25 04:48 09/09/25 04:48 Labs: Laboratory Results - last 24 hr 09/03/25 09/08/25 09/08/25 09:30 12:05 17:58 WBC RBC Hgb Hct MCV MCH MCHC RDW Plt Count MPV Immature Gran % (Auto) Neut % (Auto) Lymph % (Auto) [place] % (Auto) Eos % (Auto) Baso % (Auto) Lymph # (Auto) [place] # (Auto) Eos # (Auto) Baso # (Auto) Abs Immat Gran (auto) Absolute Neuts (auto) Absolute Nucleated RBC Nucleated RBC % (auto) VBG pH VBG pCO2 VBG pO2 VBG HCO3 VBG O2 Saturation VBG Base Excess Sodium Potassium Chloride Carbon Dioxide Anion Gap BUN Creatinine Estim Creat Clear Calc Estimated GFR POC Glucose 172 H 179 H Random Glucose Calcium Phosphorus Magnesium Albumin Clozapine 411 Norclozapine 135 09/08/25 09/09/25 09/09/25 19:29 00:24 04:48 WBC 10.5 RBC 2.60 L Hgb 8.0 L Hct 26.0 L MCV 100.0 H MCH 30.8 MCHC 30.8 L RDW 15.5 Plt Count 305 D MPV 10.9 Immature Gran % (Auto) 2.7 H Neut % (Auto) 72.1 Lymph % (Auto) 18.7 L [place] % (Auto) 6.2 Eos % (Auto) 0.1 Baso % (Auto) 0.2 Lymph # (Auto) 2.0 [place] # (Auto) 0.7 Eos # (Auto) 0.0 Baso # (Auto) 0.0 Abs Immat Gran (auto) 0.28 H Absolute Neuts (auto) 7.6 Absolute Nucleated RBC 0.000 Nucleated RBC % (auto) 0.0 VBG pH VBG pCO2 VBG pO2 VBG HCO3 VBG O2 Saturation VBG Base Excess Sodium 151 H 151 H Potassium 3.9 3.5 Chloride 109 H 110 H Carbon Dioxide 31 H 32 H Anion Gap 15 13 BUN 32 H 27 H Creatinine 2.00 H 1.91 H Estim Creat Clear Calc 43.3 45.3 Estimated GFR 33 35 POC Glucose 156 H Random Glucose 169 H 188 H Calcium 9.3 9.0 Phosphorus 4.7 H 4.0 Magnesium 2.5 2.4 Albumin 3.6 Clozapine Norclozapine 09/09/25 09/09/25 04:54 05:49 WBC RBC Hgb Hct MCV MCH MCHC RDW Plt Count MPV Immature Gran % (Auto) Neut % (Auto) Lymph % (Auto) [place] % (Auto) Eos % (Auto) Baso % (Auto) Lymph # (Auto) [place] # (Auto) Eos # (Auto) Baso # (Auto) Abs Immat Gran (auto) Absolute Neuts (auto) Absolute Nucleated RBC Nucleated RBC % (auto) VBG pH 7.49 H VBG pCO2 47 VBG pO2 84 VBG HCO3 37 H VBG O2 Saturation 97.0 VBG Base Excess 12.7 Sodium Potassium Chloride Carbon Dioxide Anion Gap BUN Creatinine Estim Creat Clear Calc Estimated GFR POC Glucose 132 H Random Glucose Calcium Phosphorus Magnesium Albumin Clozapine Norclozapine Microbiology Microbiology Results: Microbiology 09/01/25 21:30 Trachea Gram Stain - Final 09/01/25 21:30 Trachea Sputum Culture - Final No growth. 08/21/25 20:09 Blood - Venous Blood Culture - Final No growth after 5 days. 08/21/25 19:25 Blood - Venous Blood Culture - Final No growth after 5 days. 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 Plan: Neuro: Encephalopathy of unclear etiology, likely toxic versus septic, resolved. 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 Cardiac: No acute issues. Underlying CAD and cardiomyopathy. Pulmonary: Acute hypoxic respiratory failure secondary to pulmonary aspiration requiring ventilatory support, remains on consult aspiration risk. Patient extubated on 09/08/2025 uneventfully. Code status has been changed to DNR/DNI with no plans for re-intubation per healthcare proxy wishes. Renal: Acute renal failure and hypernatremia, improving. Non oliguric. Continue to monitor renal indices and urine output. Endo: No acute issues. GI: No acute issues. ID: Empiric coverage for pulmonary aspiration Heme/Onc: No acute issues. Psych: No acute issues. Miscellaneous: No acute issues. Prophylaxis: Heparin Diet: Pending swallow evaluation Quality Stroke Does the patient have a stroke diagnosis?: No VTE Prior VTE?: No VTE Risk Level:: Medical - moderate - high VTE Device Contraindication: N/A - Device Ordered VTE Drug Contraindication: N/A - Med Ordered
[2025-09-09 11:27] LABS: Glucose, Whole Blood 145 mg/dL (60-115)
--- NOTE | 2025-09-09 15:55 | MHC.CM.PN ---
PT REMAINS IN ICU, WAS EXTUBATED ON 09/08 UNEVENTFULLY. CM WILL CONTINUE TO FOLLOW AND UPDATE SORAIDA CHEATHAM VIA [facility]
[2025-09-09 18:03] LABS: Glucose, Whole Blood 157 mg/dL (60-115)
--- NOTE | 2025-09-09 18:15 | PC.NURSE ---
Assumed care at 0700. Upon initial assessment, pt eyes open but drowsy. Answers questions with quiet mumbling voice; follows directions. Update given to family at bedside. Pt repositioned q2hr as tolerated. Fall & safety precautions in place. See MAR and assessments for further details.
[2025-09-09 20:48] LABS: Albumin Level 3.7 g/dL (3.5-5.0); Anion Gap 10 (12-20); Blood Urea Nitrogen 31 mg/dL (9-16); Calcium 9.3 mg/dL (8.4-10.2); Carbon Dioxide 30 mmol/L (22-29); Chloride 117 mmol/L (96-108); Creatinine Clr Calc Pharmacy 41.9; Estimated Glomerular Filt Rate 33; Magnesium 2.7 mg/dL (1.6-2.6); Potassium 4.4 mmol/L (3.3-5.1); Sodium 153 mmol/L (135-145)
[2025-09-09] MEDS: Furosemide 40 MG/4 ML VIAL IVPUSH (22:25)
[2025-09-09 23:54] LABS: Glucose, Whole Blood 173 mg/dL (60-115)
[2025-09-10] VITALS (17 sets, daily range): BP systolic 99–132; BP diastolic 46–75; PULSE 94–129; RESP 12–24; TEMP 36–37.8; O2SAT 90–96; BMI 30.8
[2025-09-10] MEDS: Valproic Acid (as Sodium Salt) 250 MG in Dextrose 5 % 50 ML 52.5 MG IV ×2 (00:03→09:04)
[2025-09-10 00:34] LABS: MANUAL DIFF FLAG NO
[2025-09-10 00:35] LABS: Hematocrit 27.7 % (42.0-52.0); Hemoglobin 8.4 g/dl (14.0-18.0); Imm Gran Abs Auto 0.26 X10*3/uL (0.00-0.03); Imm Gran Pct Auto 2.3 % (0.0-0.4); Lymphocytes Absolute Auto 1.8 X10*3/uL (1.2-4.9); Mean Corpuscular HGB Conc 30.3 g/dl (31.0-36.0); Mean Corpuscular Hemoglobin 30.7 pg (27.0-33.0); Mean Corpuscular Volume 101.1 fL (80.0-98.0); NRBC Abs Auto 0.000 X10*3/uL (0.0-0.012); NRBC Pct Auto 0.0 /100WBC (0.0-0.2); Platelet Count 327 X10*3/uL (160-400); Red Blood Count 2.74 X10*6/uL (4.60-5.80); White Blood Count 11.1 X10*3/uL (4.8-10.8)
[2025-09-10 05:35] LABS: VBG HCO3 35 mmol/L (22-26); VBG O2 % Saturation 96.0 %
[2025-09-10 05:39] LABS: Venous Blood Gas Refer to POC result
[2025-09-10 05:48] LABS: MANUAL DIFF FLAG NO
[2025-09-10 05:49] LABS: Hematocrit 28.3 % (42.0-52.0); Hemoglobin 8.5 g/dl (14.0-18.0); Imm Gran Abs Auto 0.36 X10*3/uL (0.00-0.03); Imm Gran Pct Auto 3.3 % (0.0-0.4); Lymphocytes Absolute Auto 1.6 X10*3/uL (1.2-4.9); Mean Corpuscular HGB Conc 30.0 g/dl (31.0-36.0); Mean Corpuscular Hemoglobin 30.5 pg (27.0-33.0); Mean Corpuscular Volume 101.4 fL (80.0-98.0); NRBC Abs Auto 0.020 X10*3/uL (0.0-0.012); NRBC Pct Auto 0.2 /100WBC (0.0-0.2); Platelet Count 370 X10*3/uL (160-400); Red Blood Count 2.79 X10*6/uL (4.60-5.80); White Blood Count 11.1 X10*3/uL (4.8-10.8)
[2025-09-10 06:08] LABS: Albumin Level 3.7 g/dL (3.5-5.0); Anion Gap 13 (12-20); Blood Urea Nitrogen 34 mg/dL (9-16); Calcium 9.3 mg/dL (8.4-10.2); Carbon Dioxide 30 mmol/L (22-29); Chloride 113 mmol/L (96-108); Creatinine Clr Calc Pharmacy 40.6; Estimated Glomerular Filt Rate 31; Magnesium 2.6 mg/dL (1.6-2.6); Potassium 4.1 mmol/L (3.3-5.1); Sodium 152 mmol/L (135-145)
--- NOTE | 2025-09-10 06:38 | PC.NURSE ---
Assumed care 1900, pt alert to person only, answering y/n questions and following simple commands. On 6L oxymask, spO2 88-94%, tachypneic, RR 22-30s. ST on tele, HR 120-130s, MAP 60-70s. D5 ordered and administered?per JAN. Lasix 40 mg IVP ordered and administered per JAN. Approx 0300 pt having runs of SVT on tele, HR up to 190s. Lopressor 5 mg IVP administered with good effect. Tube feeds paused?per HOUSE CLEANER SUPERVISOR Ayesha d/t risk of aspiration. Male purewick patent, draining yellow?urine. Fecal management?system in place. Skin intact, repositioned Q2H.
[2025-09-10] MEDS: 0.9 % Sodium Chloride Flush 3 ML SYRINGE IVFLUSH ×2 (07:51→15:32)
[2025-09-10] MEDS: Albuterol/Iprat 2.5/0.5MG 3 ML AMPUL.NEB INHALE ×2 (07:58→19:46)
[2025-09-10] MEDS: Nystatin Oral Susp 500,000 UNIT/5 ML ORAL.SUSP 200000 UNIT BUCCAL ×3 (09:03→21:40)
[2025-09-10] MEDS: Chlorhexidine Gluc Oral Rinse 15 ML MOUTHWASH BUCCAL ×3 (09:03→21:40)
--- NOTE | 2025-09-10 10:40 | PM.CCPN ---
Subjective Subjective Date of Service: 09/10/25 Interval History: 70-year-old gentleman with underlying schizoaffective disorder, COPD, sleep apnea, diabetes mellitus, dysphagia, CAD, seizure disorder, cardiomyopathy admitted on 08/21/2025 with lethargy and hypoxia likely secondary to pulmonary aspiration with hospital course significant for progressive hypoxia requiring intubation and ventilatory support on 08/23/2025, extubated 08/26/2025, requiring intubation again for pulmonary aspiration on 08/28/2025, now with slowly improving arousal with sedation vacation. Remains at constant aspiration risk. Extubated on 09/08/2025, code status changed to DNR/DNI. No events overnight. Continues with intermittent low volume aspirations. Critical Care Time (minutes): 0 Physical Exam Vital Signs: Vital Signs: Last Vital Signs Temp 96.8 F 09/10/25 08:00 Pulse 116 H 09/10/25 10:00 Resp 21 H 09/10/25 10:00 BP 121/65 09/10/25 10:00 Pulse Ox 93 09/10/25 10:00 O2 Del Method Oxymask 09/10/25 10:00 O2 Flow Rate 7 09/10/25 10:00 FiO2 30 09/08/25 18:00 Oxygen Flow Rate 2.5 08/22/25 00:01 BMI result Body Mass Index 30.8 Const: General: no acute distress, alert and awake HEENT: Head: Yes atraumatic Eyes: General: appearance normal, both eyes and all related structures Sclerae: sclerae normal EOM: EOMs intact bilaterally Neck: Neck: Yes supple Lymphatic: no lymphadenopathy noted Resp: Effort & Inspection: normal respiratory effort and no use of accessory muscles Auscultation: crackles (Mild bibasilar) Cardio: Rate: tachycardic Rhythm: regular rhythm Heart sounds: no gallops, no murmurs and no rubs GI: Palpation (GI): Soft to palpation and Other GI palpation findings present ( Nontender) Auscultation: normal bowel sounds Skin: General skin exam: other ( warm) Extrem: General: No clubbing, No cyanosis and No edema Objective Data Labs 09/10/25 05:28 09/10/25 05:28 Labs: Laboratory Results - last 24 hr 09/09/25 09/09/25 09/09/25 11:23 17:59 20:13 WBC RBC Hgb Hct MCV MCH MCHC RDW Plt Count MPV Immature Gran % (Auto) Neut % (Auto) Lymph % (Auto) [place] % (Auto) Eos % (Auto) Baso % (Auto) Lymph # (Auto) [place] # (Auto) Eos # (Auto) Baso # (Auto) Abs Immat Gran (auto) Absolute Neuts (auto) Absolute Nucleated RBC Nucleated RBC % (auto) VBG pH VBG pCO2 VBG pO2 VBG HCO3 VBG O2 Saturation VBG Base Excess Sodium 153 H Potassium 4.4 D Chloride 117 H Carbon Dioxide 30 H Anion Gap 10 L BUN 31 H Creatinine 2.02 H Estim Creat Clear Calc 41.9 Estimated GFR 33 POC Glucose 145 H 157 H Random Glucose 146 H Lactic Acid Calcium 9.3 Phosphorus 3.6 Magnesium 2.7 H Albumin 3.7 09/09/25 09/10/25 09/10/25 23:45 00:29 05:28 WBC 11.1 H 11.1 H RBC 2.74 L 2.79 L Hgb 8.4 L 8.5 L Hct 27.7 L 28.3 L MCV 101.1 H 101.4 H MCH 30.7 30.5 MCHC 30.3 L 30.0 L RDW 15.8 15.8 Plt Count 327 370 MPV 9.7 10.8 Immature Gran % (Auto) 2.3 H 3.3 H Neut % (Auto) 73.1 H 73.8 H Lymph % (Auto) 16.4 L 14.6 L [place] % (Auto) 7.8 8.0 Eos % (Auto) 0.1 0.0 Baso % (Auto) 0.3 0.3 Lymph # (Auto) 1.8 1.6 [place] # (Auto) 0.9 0.9 Eos # (Auto) 0.0 0.0 Baso # (Auto) 0.0 0.0 Abs Immat Gran (auto) 0.26 H 0.36 H Absolute Neuts (auto) 8.1 8.2 Absolute Nucleated RBC 0.000 0.020 H Nucleated RBC % (auto) 0.0 0.2 VBG pH VBG pCO2 VBG pO2 VBG HCO3 VBG O2 Saturation VBG Base Excess Sodium 152 H Potassium 4.1 Chloride 113 H Carbon Dioxide 30 H Anion Gap 13 BUN 34 H Creatinine 2.13 H Estim Creat Clear Calc 40.6 Estimated GFR 31 POC Glucose 173 H Random Glucose 170 H Lactic Acid 1.0 Calcium 9.3 Phosphorus 4.2 Magnesium 2.6 Albumin 3.7 09/10/25 05:31 WBC RBC Hgb Hct MCV MCH MCHC RDW Plt Count MPV Immature Gran % (Auto) Neut % (Auto) Lymph % (Auto) [place] % (Auto) Eos % (Auto) Baso % (Auto) Lymph # (Auto) [place] # (Auto) Eos # (Auto) Baso # (Auto) Abs Immat Gran (auto) Absolute Neuts (auto) Absolute Nucleated RBC Nucleated RBC % (auto) VBG pH 7.47 H VBG pCO2 48 VBG pO2 80 VBG HCO3 35 H VBG O2 Saturation 96.0 VBG Base Excess 11.1 Sodium Potassium Chloride Carbon Dioxide Anion Gap BUN Creatinine Estim Creat Clear Calc Estimated GFR POC Glucose Random Glucose Lactic Acid Calcium Phosphorus Magnesium Albumin Microbiology Microbiology Results: Microbiology 09/01/25 21:30 Trachea Gram Stain - Final 09/01/25 21:30 Trachea Sputum Culture - Final No growth. 08/21/25 20:09 Blood - Venous Blood Culture - Final No growth after 5 days. 08/21/25 19:25 Blood - Venous Blood Culture - Final No growth after 5 days. Progress Note: A&P Assessment and plan (1) Schizo affective schizophrenia: Status: Acute (2) Combined pulmonary fibrosis and emphysema (CPFE): Status: Acute (3) Chronic pulmonary aspiration: Status: Acute (4) Acute hypoxic respiratory failure: Status: Acute Plan Assessment: 70-year-old gentleman with underlying schizophrenia, seizures, COPD, dysphagia hospitalized with encephalopathy and hypoxia requiring ventilatory support likely secondary to recurrent pulmonary aspiration. Plan: Neuro: Encephalopathy, improved to baseline. 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 Cardiac: No acute issues. Underlying CAD and cardiomyopathy. Pulmonary: Acute hypoxic respiratory failure secondary to pulmonary aspiration requiring ventilatory support, extubated 09/08/2025. Remains on consult aspiration risk. Per discussion with healthcare proxy no plans for re-intubation, code status changed to DNR/DNI. Renal: Acute renal failure and hypernatremia, continues on D5. Non oliguric. Continue to monitor renal indices and urine output. Endo: No acute issues. GI: No acute issues. ID: Empiric coverage for pulmonary aspiration Heme/Onc: No acute issues. Psych: No acute issues. Miscellaneous: No acute issues. Prophylaxis: Heparin Diet: Tube feeds Quality Stroke Does the patient have a stroke diagnosis?: No VTE Prior VTE?: No VTE Risk Level:: Medical - moderate - high VTE Device Contraindication: N/A - Device Ordered VTE Drug Contraindication: N/A - Med Ordered
[2025-09-10 11:33] LABS: Glucose, Whole Blood 133 mg/dL (60-115)
--- NOTE | 2025-09-10 12:13 | P.EN_ITS ---
Event Note Date of Service: 09/10/25 Event Note: This is 70-year-old gentleman with underlying schizoaffective disorder, COPD, sleep apnea, diabetes mellitus, dysphagia, CAD, seizure disorder, cardiomyopathy admitted on 08/21/2025 with lethargy and hypoxia likely secondary to pulmonary aspiration with hospital course significant for progressive hypoxia requiring intubation and ventilatory support on 08/23/2025, extubated 08/26/2025, requiring intubation again for pulmonary aspiration on 08/28/2025, now with slowly improving arousal with sedation vacation. Remains at constant aspiration risk. Extubated on 09/08/2025. Per discussion with healthcare proxy no plans for re- intubation, code status changed to DNR/DNI. Downgraded to the medical floor 09/10 Time Spent With Patient Time: Total time managing care of this patient today ____ minutes.
[2025-09-10 17:43] LABS: Glucose, Whole Blood 145 mg/dL (60-115)
[2025-09-11] VITALS (13 sets, daily range): BP systolic 97–126; BP diastolic 51–60; PULSE 109–137; RESP 18–35; TEMP 36.9–38; O2SAT 90–95
--- NOTE | 2025-09-11 | ECG_ITS ---
Test Reason : DR ORDER Blood Pressure : */* mmHG Vent. Rate : 138 BPM Atrial Rate : 138 BPM P-R Int : 128 ms QRS Dur : 86 ms QT Int : 382 ms P-R-T Axes : 51 -54 57 degrees QTcB Int : 578 ms Sinus tachycardia Possible Left atrial enlargement Left axis deviation Abnormal ECG When compared with ECG of 21-Aug-2025 19:43, Incomplete right bundle branch block is no longer Present Referred By: Ryan Barrios Electronically Signed By: Leoncio Bowen
[2025-09-11 00:31] LABS: Glucose, Whole Blood 187 mg/dL (60-115)
[2025-09-11 06:23] LABS: Glucose, Whole Blood 164 mg/dL (60-115)
[2025-09-11] MEDS: Albuterol/Iprat 2.5/0.5MG 3 ML AMPUL.NEB INHALE ×2 (07:46→15:19)
[2025-09-11 07:48] LABS: ABG HCO3 33 mmol/L (22-26); ABG O2 % Saturation 87.0 %
[2025-09-11 07:54] LABS: Glucose, Whole Blood 149 mg/dL (60-115)
[2025-09-11 07:56] LABS: MANUAL DIFF FLAG NO
[2025-09-11 08:04] LABS: Ammonia 49 umol/L (13-55)
[2025-09-11 08:17] LABS: Hematocrit 29.8 % (42.0-52.0); Hemoglobin 9.0 g/dl (14.0-18.0); Imm Gran Abs Auto 0.25 X10*3/uL (0.00-0.03); Imm Gran Pct Auto 2.2 % (0.0-0.4); Lymphocytes Absolute Auto 1.8 X10*3/uL (1.2-4.9); Mean Corpuscular HGB Conc 30.2 g/dl (31.0-36.0); Mean Corpuscular Hemoglobin 30.7 pg (27.0-33.0); Mean Corpuscular Volume 101.7 fL (80.0-98.0); NRBC Abs Auto 0.000 X10*3/uL (0.0-0.012); NRBC Pct Auto 0.0 /100WBC (0.0-0.2); Platelet Count 394 X10*3/uL (160-400); Red Blood Count 2.93 X10*6/uL (4.60-5.80); White Blood Count 11.6 X10*3/uL (4.8-10.8)
[2025-09-11 08:20] LABS: Alanine Aminotransferase 21 U/L (0-40); Albumin Level 3.7 g/dL (3.5-5.0); Alkaline Phosphatase 73 U/L (39-117); Anion Gap 12 (12-20); Aspartate Amino Transferase 24 U/L (5-37); Blood Urea Nitrogen 33 mg/dL (9-16); Calcium 9.5 mg/dL (8.4-10.2); Carbon Dioxide 29 mmol/L (22-29); Chloride 112 mmol/L (96-108); Creatinine Clr Calc Pharmacy 39.1; Estimated Glomerular Filt Rate 30; Potassium 4.2 mmol/L (3.3-5.1); Sodium 149 mmol/L (135-145); Total Protein 7.7 g/dL (6.5-8.0); Troponin-I High Sensitivity 34.7 ng/L (<3.5-35.0)
[2025-09-11 08:30] LABS: Albumin Level 3.6 g/dL (3.5-5.0); Anion Gap 13 (12-20); Blood Urea Nitrogen 35 mg/dL (9-16); Calcium 9.3 mg/dL (8.4-10.2); Carbon Dioxide 30 mmol/L (22-29); Chloride 112 mmol/L (96-108); Creatinine Clr Calc Pharmacy 40.0; Estimated Glomerular Filt Rate 30; Magnesium 2.5 mg/dL (1.6-2.6); Potassium 4.1 mmol/L (3.3-5.1); Sodium 151 mmol/L (135-145)
[2025-09-11 08:40] LABS: Procalcitonin 0.15 ng/mL
[2025-09-11 09:13] LABS: ABG HCO3 33 mmol/L (22-26); ABG O2 % Saturation 93.0 %
[2025-09-11] MEDS: 0.9 % Sodium Chloride Flush 3 ML SYRINGE IVFLUSH (09:41)
[2025-09-11] MEDS: Nystatin Oral Susp 500,000 UNIT/5 ML ORAL.SUSP 200000 UNIT BUCCAL ×2 (09:42→16:44)
[2025-09-11] MEDS: Chlorhexidine Gluc Oral Rinse 15 ML MOUTHWASH BUCCAL (09:42)
--- NOTE | 2025-09-11 10:03 | P.EN_ITS ---
Event Note Date of Service: 09/11/25 Event Note: DIGITAL ASSISTANT called this am around 7:30 - upon arriving patient was tachycardia, tachypneic; not responding to verbal stimuli ABG to assess for CO2 retention, repeat labs to assess renal function and sodium levels as previously were high. Ammonia level to rule out cause of obtundation. Rule out sepsis given tachycardia and tachypnea. POC stable, BP stable tube feeds placed on hold ABG stable, no CO2 retention. renal function stable, trop similar to previous. ammonia wnl. Procalcitonin, lactic acid within normal limits Sodium improving Probable ongoing aspiration per ICU, previous discussion with family, patient should be transitioned to [facility] called family, they are on their way to the hopsital and want to see him before making any decisions. Time Spent With Patient Time: Total time managing care of this patient today ____ minutes.
[2025-09-11 11:20] LABS: Glucose, Whole Blood 152 mg/dL (60-115)
--- NOTE | 2025-09-11 12:35 | P.PNIM_ITS ---
Subjective Subjective Date of Service: 09/11/25 Interval History: seen and examined this morning FOOD CHECKER called, not responsive to verbal stimuli, tachycardia, tachypneic unable to obtain ROS Physical Exam 2 Vital Signs: Vital Signs: Last Vital Signs Temp 99.2 F 09/11/25 11:12 Pulse 115 H 09/11/25 11:12 Resp 19 09/11/25 11:12 BP 114/59 L 09/11/25 11:12 Pulse Ox 94 09/11/25 11:12 O2 Del Method Oxymask 09/11/25 11:12 O2 Flow Rate 5 09/11/25 11:12 FiO2 30 09/08/25 18:00 Oxygen Flow Rate 6 09/11/25 07:57 BMI result Body Mass Index 30.8 Const: General: in distress and lethargic Orientation/consciousness: l ethargic Resp: Other: rhochi Effort & Inspection: respiratory distress and uses accessory muscles Cardio: Rate: tachycardic GI: Inspection: No distended Palpation (GI): Soft to palpation Objective Data Active Medications Albuterol/Ipratropium (Albuterol/Iprat 2.5/0.5mg 3 Ml Ampul.Neb) 3 ml INHALE RQ6H WHILE AWAKE [facility] Last Admin: 09/11/25 07:46 Dose: 3 ml Documented By: BHARATHI Chlorhexidine Gluconate (Chlorhexidine Gluc Oral Rinse 15 Ml Mouthwash) 15 ml BUCCAL TID [facility] Last Admin: 09/11/25 09:42 Dose: 15 ml Documented By: SYLVESTER Clozapine (Clozapine 100 Mg Tablet) 400 mg PO BEDTIME [facility] Last Admin: 09/10/25 21:47 Dose: 400 mg Documented By: NINA Dextrose (Dextrose 50 % 25 Gm/50 Ml Syringe) 25 gm IVPUSH Q15M PRN; Protocol PRN Reason: per Hypoglycemia Standing Ord. Glucose (Glucose Gel 15 Gm Gel..Gram.) 15 gm PO Q15M PRN; Protocol PRN Reason: per Hypoglycemia Standing Ord. Heparin Sodium (Porcine) (Heparin Sodium,Porcine 5,000 Unit/Ml Vial) 5,000 unit SUBCUT Q8H [facility] Last Admin: 09/11/25 06:37 Dose: 5,000 unit Documented By: NINA Dextrose (D5w) 1,000 mls @ 100 mls/hr IVCONT .Q10H [facility] Last Admin: 09/11/25 04:49 Dose: 100 mls/hr Documented By: NINA Insulin Human Lispro (Insulin Lispro 100 Unit/Ml 3 Ml Vial) 0 unit SUBCUT Q6H [facility]; Protocol Last Admin: 09/11/25 06:37 Dose: 2 unit Documented By: NINA [place] Carbonate ([place] Carbonate 300 Mg Capsule) 300 mg PO BID [facility] Last Admin: 09/11/25 10:21 Dose: Not Given Documented By: SYLVESTER Non-Admin Reason: Physician Held Med Methylprednisolone Sodium Succinate (Methylprednisolone Sod Succ 40 Mg/Ml Vial) 40 mg IVPUSH Q12H [facility] Last Admin: 09/11/25 11:20 Dose: 40 mg Documented By: SYLVESETR Metoprolol Tartrate (Metoprolol Tartrate 50 Mg Tablet) 50 mg PO BID [facility]; Protocol Last Admin: 09/11/25 09:42 Dose: 50 mg Documented By: SYLVESTER Nystatin (Nystatin Oral Susp 500,000 Unit/5 Ml Oral.Susp) 200,000 unit BUCCAL TID [facility]; Protocol Last Admin: 09/11/25 09:42 Dose: 200,000 unit Documented By: SYLVESTER Sodium Chloride (0.9 % Sodium Chloride Flush 3 Ml Syringe) 3 ml IVFLUSH QSHIFT [facility] Last Admin: 09/11/25 09:41 Dose: 3 ml Documented By: SYLVESTER Valproic Acid (Valproic Acid 250 Mg Capsule) 250 mg PO BID [facility] Last Admin: 09/11/25 10:22 Dose: Not Given Documented By: SYLVESTER Non-Admin Reason: Physician Held Med Labs 09/11/25 07:50 09/11/25 07:51 Labs: Laboratory Results - last 24 hr 09/10/25 09/11/25 09/11/25 17:40 00:23 06:18 MCV MCH MCHC RDW Plt Count MPV Immature Gran % (Auto) Neut % (Auto) Lymph % (Auto) [place] % (Auto) Eos % (Auto) Baso % (Auto) Lymph # (Auto) [place] # (Auto) Eos # (Auto) Baso # (Auto) Abs Immat Gran (auto) Absolute Neuts (auto) Absolute Nucleated RBC Nucleated RBC % (auto) Hold Purple Top O2 Saturation ABG pH at Pt Temp ABG pCO2 at Pt Temp ABG pO2 at Pt Temp ABG HCO3 ABG Base Excess (Actual) Anion Gap Estim Creat Clear Calc Estimated GFR POC Glucose 145 H 187 H 164 H Random Glucose Lactic Acid Calcium Phosphorus Magnesium Total Bilirubin AST ALT Alkaline Phosphatase Ammonia Troponin I High Sens Total Protein Albumin Procalcitonin 09/11/25 09/11/25 09/11/25 07:16 07:40 07:42 MCV MCH MCHC RDW Plt Count MPV Immature Gran % (Auto) Neut % (Auto) Lymph % (Auto) [place] % (Auto) Eos % (Auto) Baso % (Auto) Lymph # (Auto) [place] # (Auto) Eos # (Auto) Baso # (Auto) Abs Immat Gran (auto) Absolute Neuts (auto) Absolute Nucleated RBC Nucleated RBC % (auto) Hold Purple Top SEE NOTE O2 Saturation ABG pH at Pt Temp ABG pCO2 at Pt Temp ABG pO2 at Pt Temp ABG HCO3 ABG Base Excess (Actual) Anion Gap 13 Estim Creat Clear Calc 40.0 Estimated GFR 30 POC Glucose 149 H Random Glucose 158 H Lactic Acid Calcium 9.3 Phosphorus 4.1 Magnesium 2.5 Total Bilirubin AST ALT Alkaline Phosphatase Ammonia Troponin I High Sens Total Protein Albumin 3.6 Procalcitonin 09/11/25 09/11/25 09/11/25 07:44 07:50 07:51 MCV 101.7 H MCH 30.7 MCHC 30.2 L RDW 15.7 Plt Count 394 MPV 10.2 Immature Gran % (Auto) 2.2 H Neut % (Auto) 73.3 H Lymph % (Auto) 15.9 L [place] % (Auto) 8.1 Eos % (Auto) 0.2 Baso % (Auto) 0.3 Lymph # (Auto) 1.8 [place] # (Auto) 0.9 Eos # (Auto) 0.0 Baso # (Auto) 0.0 Abs Immat Gran (auto) 0.25 H Absolute Neuts (auto) 8.5 H Absolute Nucleated RBC 0.000 Nucleated RBC % (auto) 0.0 Hold Purple Top O2 Saturation 87.0 ABG pH at Pt Temp 7.46 H ABG pCO2 at Pt Temp 46 H ABG pO2 at Pt Temp 60 L ABG HCO3 33 H ABG Base Excess (Actual) 8.5 Anion Gap 12 Estim Creat Clear Calc 39.1 Estimated GFR 30 POC Glucose Random Glucose 167 H Lactic Acid 0.8 Calcium 9.5 Phosphorus Magnesium Total Bilirubin 0.3 AST 24 ALT 21 Alkaline Phosphatase 73 Ammonia 49 Troponin I High Sens 34.7 Total Protein 7.7 Albumin 3.7 Procalcitonin 0.15 09/11/25 09/11/25 09:09 11:15 MCV MCH MCHC RDW Plt Count MPV Immature Gran % (Auto) Neut % (Auto) Lymph % (Auto) [place] % (Auto) Eos % (Auto) Baso % (Auto) Lymph # (Auto) [place] # (Auto) Eos # (Auto) Baso # (Auto) Abs Immat Gran (auto) Absolute Neuts (auto) Absolute Nucleated RBC Nucleated RBC % (auto) Hold Purple Top O2 Saturation 93.0 ABG pH at Pt Temp 7.47 H ABG pCO2 at Pt Temp 45 ABG pO2 at Pt Temp 71 L ABG HCO3 33 H ABG Base Excess (Actual) 9.1 Anion Gap Estim Creat Clear Calc Estimated GFR POC Glucose 152 H Random Glucose Lactic Acid Calcium Phosphorus Magnesium Total Bilirubin AST ALT Alkaline Phosphatase Ammonia Troponin I High Sens Total Protein Albumin Procalcitonin Assessment and Plan (1) Cardiomyopathy: Status: Acute (2) VALERIE (acute kidney injury): Status: Acute (3) Hypernatremia: Status: Acute (4) Encephalopathy: Status: Acute Plan This is a 70-year-old gentleman with underlying schizoaffective disorder, COPD, sleep apnea, diabetes mellitus, dysphagia, CAD, seizure disorder, cardiomyopathy admitted on 08/21/2025 with lethargy and hypoxia likely secondary to pulmonary aspiration with hospital course significant for progressive hypoxia requiring intubation and ventilatory support on 08/23/2025, extubated 08/26/2025, requiring intubation again for pulmonary aspiration on 08/28/2025. Remains at constant aspiration risk. Extubated on 09/08/2025, code status changed to DNR/DNI. Downgraded to medical floor 09/10 with plan for possible comfort care if patient deteriorates. Rapid reponse called at start of shift 09/11 for decreased responsiveness, tachycardia, tachypnea, worsening oxygen requirements. Family called, they are on their way to the hospital and we will decide regarding comfort care. Patient treated with beta-evelin, IV steroids and tube feeds paused . ongoing encephalopathy multifactorial due to renal dysfunction, recurrent intubation, recurrent aspiration, hypoxic respiratory failure Underlying epilepsy in schizophrenia - continue valproic acid, lithium, and clozapine Acute hypoxic respiratory failure Secondary to recurrent pulmonary aspiration with underlying COPD and pulmonary fibrosis Requiring ventilatory support x2 this admission Remains constant aspiration risk. Per healthcare proxy no plan for re- intubation. Per healthcare proxy no plan for trach With increasing oxygen requirements Continue DuoNebs started on IV solu-medrol VALERIE/hypernatremia IV fluid Continue to monitor renal function Sodium levels somewhat improved Dysphagia/Pulmonary aspiration Previously getting tube feeds. On hold for now due to continuous aspiration and worsening respiratory status DVT prophylaxis-heparin code status - DNR/DNI Long discussion with HCP - sister Ros and her daughter Elly at the bedside - consideration for comfort care, they are currently undecided and need more time for deliberation Quality Stroke Does the patient have a stroke diagnosis?: No VTE Prior VTE?: No VTE Risk Level:: Medical - moderate - high VTE Device Contraindication: N/A - Device Ordered VTE Drug Contraindication: N/A - Med Ordered
--- NOTE | 2025-09-11 15:51 | PM.EVENT ---
Event Note Date of Service: 09/11/25 Event Note: Follow up discussion with HCP, the patient's sister and niece, Ros and Elly - they have elected to transition to COMFORT CARE. They understand this means all medications other than those used for comfort will be stopped (Will continue psychiatric meds for now to prevent agitation as per previous notes there was some difficulty controlling agitation during ICU stay) Will start prn morphine, ativan and scopolomine. Stop IVF, tube feeds and breathing treatments. As per family request, oxygen will slowly be weaned rather then removed all together. Time Spent With Patient Time: Total time managing care of this patient today ____ minutes.
[2025-09-12] MEDS: 0.9 % Sodium Chloride Flush 3 ML SYRINGE IVFLUSH ×4 (02:02→19:51)
[2025-09-12 08:50] LABS: ABG Refer to POC result
[2025-09-12 11:00] VITALS: TEMP 38.3
--- NOTE | 2025-09-12 11:05 | MHC.CLN ---
F/U PT TRANSFERRED TO MEDICAL FLOOR PT STATUS CHANGED TO [facility] FLOOR [facility] 09/11 PER TUBE FEEDS ON HOLD SINCE 09/10-WILL CHANGE TO NPO R/T [facility]OR [facility] FOLLOWING WITH TEAM AND WILL PROVIDE SUPPORT NEEDED
--- NOTE | 2025-09-12 12:14 | P.PNIM_ITS ---
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 Physical Exam 2 Exam: Exam: Appearing with some discomfort, tachypnea Vital Signs: Vital Signs: Last Vital Signs Temp 99.2 F 09/11/25 11:12 Pulse 132 H 09/11/25 16:00 Resp 24 H 09/11/25 16:00 BP 114/59 L 09/11/25 11:12 Pulse Ox 94 09/11/25 11:12 O2 Del Method Oxymask 09/11/25 11:12 O2 Flow Rate 5 09/11/25 11:12 FiO2 30 09/08/25 18:00 Oxygen Flow Rate 6 09/11/25 07:57 BMI result Body Mass Index 30.8 Objective Data Active Medications Acetaminophen (Acetaminophen 325 Mg Tablet) 650 mg G-TUBE Q4H PRN PRN Reason: Fever >/= 100, Pain, mild 1-3 Artificial Tears (Artificial Tears 15 Ml Drops) 2 drop EYE-BOTH Q4H PRN PRN Reason: Dry Eyes Clozapine (Clozapine 100 Mg Tablet) 400 mg PO BEDTIME [facility] Last Admin: 09/12/25 01:53 Dose: Not Given Documented By: MICHELLE Non-Admin Reason: npo Diazepam (Diazepam 10 Mg/2 Ml Cartridge) 10 mg IVPUSH Q6H PRN PRN Reason: anxiety/restlessness Acetaminophen (Ofirmev) 1,000 mg in 100 mls @ 400 mls/hr IV ONCE ONE Stop: 09/12/25 12:27 [place] Carbonate ([place] Carbonate 300 Mg Capsule) 300 mg PO BID [facility] Last Admin: 09/12/25 01:53 Dose: Not Given Documented By: MICHELLE Non-Admin Reason: npo Lorazepam (Lorazepam 1 Mg Tablet) 1 mg PO Q4H PRN PRN Reason: Myoclonic twitching/anxiety Morphine Sulfate (Morphine Sulfate 4 Mg/Ml Cartridge) 2 mg IVPUSH Q1H PRN PRN Reason: comfort measures Last Admin: 09/12/25 09:52 Dose: 2 mg Documented By: VINITA Ondansetron HCl (Ondansetron Hcl 4 Mg/2 Ml Vial) 4 mg IVPUSH Q8H PRN PRN Reason: Nausea and Vomiting Prochlorperazine (Prochlorperazine 25 Mg Supp.Rect) 25 mg [place] Q8H PRN PRN Reason: Nausea and Vomiting Scopolamine (Scopolamine 1.5 Mg Patch.Td.3) 1.5 mg TRANSDERMA Q72H [facility] Last Admin: 09/11/25 16:40 Dose: 1.5 mg Documented By: SYLVESTER Sodium Chloride (0.9 % Sodium Chloride Flush 3 Ml Syringe) 3 ml IVFLUSH QSHIFT [facility] Last Admin: 09/12/25 02:02 Dose: 3 ml Documented By: MICHELLE Valproic Acid (Valproic Acid 250 Mg Capsule) 250 mg PO BID [facility] Last Admin: 09/12/25 01:53 Dose: Not Given Documented By: MICHELLE Non-Admin Reason: npo Labs 09/11/25 07:50 09/11/25 07:51 Assessment and Plan (1) Chronic pulmonary aspiration: Status: Acute (2) Cardiomyopathy: Status: Acute (3) VALERIE (acute kidney injury): Status: Acute (4) Hypernatremia: Status: Acute (5) Encephalopathy: Status: Acute Plan 70-year-old gentleman with underlying schizoaffective disorder, COPD, sleep apnea, diabetes mellitus, dysphagia, CAD, seizure disorder, cardiomyopathy admitted on 08/21/2025 with lethargy and hypoxia likely secondary to pulmonary aspiration with hospital course significant for progressive hypoxia requiring intubation and ventilatory support on 08/23/2025, extubated 08/26/2025, requiring intubation again for pulmonary aspiration on 08/28/2025. Remains at constant aspiration risk. Extubated on 09/08/2025, code status changed to DNR/DNI. Downgraded to medical floor 09/10 with plan for possible comfort care if patient deteriorates. Rapid reponse called at start of shift 09/11 for decreased responsiveness, tachycardia, tachypnea, worsening oxygen requirements. Family called, they are on their way to the hospital and we will decide regarding comfort care. Patient treated with beta-evelin, IV steroids and tube feeds paused . 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 Per healthcare proxy no plan for trach s/p Continue DuoNebs s/p IV solu-medrol VALERIE/hypernatremia treated with IV fluid Dysphagia/Pulmonary aspiration Previously on tube feeds. 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
[2025-09-12] MEDS: diazePAM 10 MG/2 ML CARTRIDGE IVPUSH ×2 (12:32→19:51)
--- NOTE | 2025-09-12 12:33 | PC.NURSE ---
RR 34, medicated with Norphine, temp 101.0 IV tylenol IV x 1 , valium IV for restlessness given
[2025-09-12 12:55] VITALS: TEMP 37.2
--- NOTE | 2025-09-12 14:26 | PC.NURSE ---
increased work of breathing , crying , medicated with morphine for comfort
--- NOTE | 2025-09-12 15:31 | MHC.CM.PN ---
Addendum entered by Avelina Newman 09/13/25 08:10: correction: pt. is now [employer]IONER status. Original Note: Pt. is not [employer]ISSIONER status. No plan to return to [facility] today, CM to follow.
[2025-09-13] VITALS (17 sets, daily range): RESP 0–38; TEMP 36.6–40.5
[2025-09-13] MEDS: diazePAM 10 MG/2 ML CARTRIDGE IVPUSH ×2 (03:28→19:52)
[2025-09-13] MEDS: 0.9 % Sodium Chloride Flush 3 ML SYRINGE IVFLUSH ×2 (09:13→19:52)
--- NOTE | 2025-09-13 09:39 | P.PNIM_ITS ---
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 but otherwise appears comfortable Physical Exam 2 Exam: Exam: Appearing in no acute distress Vital Signs: Vital Signs: Last Vital Signs Temp 99.0 F 09/12/25 12:55 Pulse 132 H 09/11/25 16:00 Resp 16 09/13/25 07:41 BP 114/59 L 09/11/25 11:12 Pulse Ox 94 09/11/25 11:12 O2 Del Method Oxymask 09/11/25 11:12 O2 Flow Rate 5 09/11/25 11:12 FiO2 30 09/08/25 18:00 Oxygen Flow Rate 6 09/11/25 07:57 BMI result Body Mass Index 30.8 Objective Data Active Medications Acetaminophen (Acetaminophen 325 Mg Tablet) 650 mg G-TUBE Q4H PRN PRN Reason: Fever >/= 100, Pain, mild 1-3 Artificial Tears (Artificial Tears 15 Ml Drops) 2 drop EYE-BOTH Q4H PRN PRN Reason: Dry Eyes Clozapine (Clozapine 100 Mg Tablet) 400 mg PO BEDTIME [facility] Last Admin: 09/12/25 19:42 Dose: Not Given Documented By: ROSA ELENA Non-Admin Reason: NPO Diazepam (Diazepam 10 Mg/2 Ml Cartridge) 10 mg IVPUSH Q6H PRN PRN Reason: anxiety/restlessness Last Admin: 09/13/25 03:28 Dose: 10 mg Documented By: ROSA ELENA Hydromorphone HCl (Hydromorphone Hcl 0.5 Mg/0.5 Ml Syringe) 0.5 mg IVPUSH Q3H PRN; Protocol PRN Reason: Breakthrough Pain Last Admin: 09/12/25 23:16 Dose: 0.5 mg Documented By: ROSA ELENA [place] Carbonate ([place] Carbonate 300 Mg Capsule) 300 mg PO BID [facility] Last Admin: 09/13/25 07:43 Dose: Not Given Documented By: ROB Non-Admin Reason: NPO Lorazepam (Lorazepam 1 Mg Tablet) 1 mg PO Q4H PRN PRN Reason: Myoclonic twitching/anxiety Morphine Sulfate (Morphine Sulfate 4 Mg/Ml Cartridge) 2 mg IVPUSH Q1H PRN PRN Reason: comfort measures Last Admin: 09/13/25 09:13 Dose: 2 mg Documented By: ROB Ondansetron HCl (Ondansetron Hcl 4 Mg/2 Ml Vial) 4 mg IVPUSH Q8H PRN PRN Reason: Nausea and Vomiting Prochlorperazine (Prochlorperazine 25 Mg Supp.Rect) 25 mg [place] Q8H PRN PRN Reason: Nausea and Vomiting Scopolamine (Scopolamine 1.5 Mg Patch.Td.3) 1.5 mg TRANSDERMA Q72H [facility] Last Admin: 09/11/25 16:40 Dose: 1.5 mg Documented By: SYLVESTER Sodium Chloride (0.9 % Sodium Chloride Flush 3 Ml Syringe) 3 ml IVFLUSH QSHIFT [facility] Last Admin: 09/13/25 09:13 Dose: 3 ml Documented By: ROB Valproic Acid (Valproic Acid 250 Mg Capsule) 250 mg PO BID [facility] Last Admin: 09/13/25 07:43 Dose: Not Given Documented By: ROB Non-Admin Reason: NPO Labs 09/11/25 07:50 09/11/25 07:51 Assessment and Plan (1) Chronic pulmonary aspiration: Status: Acute (2) Cardiomyopathy: Status: Acute (3) VALERIE (acute kidney injury): Status: Acute (4) Hypernatremia: Status: Acute (5) Encephalopathy: Status: Acute Plan 70-year-old gentleman with underlying schizoaffective disorder, COPD, sleep apnea, diabetes mellitus, dysphagia, CAD, seizure disorder, cardiomyopathy admitted on 08/21/2025 with lethargy and hypoxia likely secondary to pulmonary aspiration with hospital course significant for progressive hypoxia requiring intubation and ventilatory support on 08/23/2025, extubated 08/26/2025, requiring intubation again for pulmonary aspiration on 08/28/2025. Remains at constant aspiration risk. Extubated on 09/08/2025, code status changed to DNR/DNI. Downgraded to medical floor 09/10 with plan for possible comfort care if patient deteriorates. Rapid reponse called at start of shift 09/11 for decreased responsiveness, tachycardia, tachypnea, worsening oxygen requirements. Family called, they are on their way to the hospital and we will decide regarding comfort care. Patient treated with beta-evelin, IV steroids and tube feeds paused . 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 Per healthcare proxy no plan for trach s/p Continue DuoNebs s/p IV solu-medrol VALERIE/hypernatremia treated with IV fluid Dysphagia/Pulmonary aspiration Previously on tube feeds. 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
[2025-09-13] MEDS: Morphine Sulfate/NS 100 MG/100 ML PLAST..BAG IVCONT (14:05)
--- NOTE | 2025-09-13 14:47 | MHC.SLORD ---
Speech Language Pathology Order Status: Patient has been made GALVANIZER ZINC. No further speech/language service indicated, TIMBER TRIMMER will complete order.
--- NOTE | 2025-09-13 21:15 | P.DN_ITS ---
Discharge Sum: Prov Provider Primary care physician: Elvis Bedoya DO Consults: 08/22/25 09:22 Consult to Psychiatry Routine Consulting Provider: [facility] Psych Covering Reason for consultation: medication related stupor Has provider been notified: No Discharge Sum: Diag Contributing Factors (1) Chronic pulmonary aspiration: (2) Cardiomyopathy: (3) VALERIE (acute kidney injury): (4) Hypernatremia: (5) Encephalopathy: Discharge Sum: Summary Date and Time Date of admission: 08/21/25 22:44 Date of : 09/13/25 Time of : 20:47 Summary Details: 70-year-old gentleman with underlying schizoaffective disorder, COPD, sleep apnea, diabetes mellitus, dysphagia, CAD, seizure disorder, cardiomyopathy admitted on 08/21/2025 with lethargy and hypoxia likely secondary to pulmonary aspiration with hospital course significant for progressive hypoxia requiring intubation and ventilatory support on 08/23/2025, extubated 08/26/2025, requiring intubation again for pulmonary aspiration on 08/28/2025. Remains at constant aspiration risk. Extubated on 09/08/2025, code status changed to DNR/DNI. Downgraded to medical floor 09/10 with plan for possible comfort care if patient deteriorates. Rapid reponse called at start of shift 09/11 for decreased responsiveness, tachycardia, tachypnea, worsening oxygen requirements. Family called, they are on their way to the hospital and we will decide regarding comfort care. Patient treated with beta-evelin, IV steroids and tube feeds paused . CUT OFF MAN IV morphine, valium, oral lorazepam IV tylenol for fever scopalamine patch continue valproic acid, lithium, and clozapine if able to take po no lab draws or unnecessary vital signs Previous treated issues : Ongoing encephalopathy multifactorial due to renal dysfunction, recurrent intubation, recurrent aspiration, hypoxic respiratory failure Underlying epilepsy in schizophrenia Acute hypoxic respiratory failure Secondary to recurrent pulmonary aspiration with underlying COPD and pulmonary fibrosis Required ventilatory support x2 this admission Per healthcare proxy no plan for re-intubation. Per healthcare proxy no plan for trach s/p Continue DuoNebs s/p IV solu-medrol VALERIE/hypernatremia treated with IV fluid Dysphagia/Pulmonary aspiration Previously on tube feeds. code status CUT OFF MAN note: Around 840 p.m. RN mentioned that patient appeared to have passed. I went to check on the patient. Patient is not responding. No respirations. Pupils are fixed and dilated. No reflexes. Patient pronounced at 20:47. Patient's family at bedside. Additional Data Attending physician: Jina Aguliar NP
--- NOTE | 2025-10-10 19:23 | P.CDIM_ITS ---
PROVIDER RESPONSE TEXT: To clarify, the appropriate diagnosis supported by the clinical indicators: Sepsis is/was present and is a clinical diagnosis QUERY TEXT: PHYSICIAN'S DOCUMENTATION REQUEST Date of Query: 10/05/2025 11:34 AM EST Patient Name: Jourdan Johnson Admit Date: 08/22/2025 Dear Marty Bellamy MD, A review of the medical record indicates additional documentation may be needed. Please review below and update the documentation accordingly. Documentation on the H&P dated 08/21/25 included the diagnosis of sepsis. Subsequent progress notes cite septic shock The patient's infectious clinical indicators include: WBC 13.9 temperature 103 pulse 133 respiratory rate 40 BP low/Levophed treated for aspiration pneumonia The note on 09/13/25 does not mention Sepsis Recognized standard criteria for this condition and other infectious definitions includes: Sepsis Systemic manifestations of infection, with 2 or more SIRS criteria which include: Fever > 100.4?F or hypothermia < 96.8?F Leukocytosis - WBC > 12,000 or leukopenia, WBC < 4,000, or > 10% bands Tachycardia- > 90 beats/minute Tachypnea- RR > 20 breaths/minute or PaCO2 < 32mmHg Source: [employer] Manual 2013 Documentation should include the known or suspected organism, and the underlying infection, such as UTI or pneumonia Severe Sepsis Sepsis with associated acute organ dysfunction, such as renal or respiratory failure Documentation should indicate the association between the sepsis and the organ dysfunction Septic Shock Severe sepsis with associated with circulatory failure, evidenced by hypotension and hypoperfusion Based on the above information and the recognized standard for sepsis, could you please clarify if this diagnoses is still accurate and reflective of the patient's condition to ensure quality of the medical record. Sepsis is/was present and is a clinical diagnosis After study, Sepsis has been ruled out Other (explain) Clinically unable to determine (explain) Thank you, Yuko Crouch RN Use of terms such as suspected, likely, concern for, or probable (associated with a specific diagnosis that is being evaluated, monitored, or treated as if it exists) are acceptable and can be coded in the inpatient setting, when documented at the time of discharge. Please use your independent medical judgment in providing your response. THIS QUERY IS PART OF THE PERMANENT MEDICAL RECORD
== END 2025-09-13 20:47 | disposition expired | DRG 870 ==
LOC: HO.ED 21:58 → HO.EDOVER 22:50 → HO.ICU 23:05 → HO.IMC 09-10 13:12
PROVIDERS: Hospitalist; Internal Medicine Critical Care Medicine; Internal Medicine Pulmonary Disease; Nurse Practitioner Family; Physician Assistant Medical; Psychiatry & Neurology Psychiatry; Admitting Provider Registered Nurse Community Health; Emergency Provider Emergency Medicine Emergency Medical Services; PCP Hospitalist; Visit Provider Nurse Practitioner Acute Care
DX: A41.9 Sepsis, unspecified organism (principal); G92.8 Other toxic encephalopathy; J69.0 Pneumonitis due to inhalation of food and vomit; R65.21 Severe sepsis with septic shock; J96.01 Acute respiratory failure with hypoxia; E87.0 Hyperosmolality and hypernatremia; N17.9 Acute kidney failure, unspecified; I42.9 Cardiomyopathy, unspecified; I25.10 Atherosclerotic heart disease of native coronary artery without angina pectoris; Z66 Do not resuscitate; Z51.5 Encounter for palliative care; G47.33 Obstructive sleep apnea (adult) (pediatric); F25.9 Schizoaffective disorder, unspecified; E11.9 Type 2 diabetes mellitus without complications; J44.9 Chronic obstructive pulmonary disease, unspecified; J84.10 Pulmonary fibrosis, unspecified; D64.9 Anemia, unspecified; T50.905A Adverse effect of unspecified drugs, medicaments and biological substances, initial encounter; E83.39 Other disorders of phosphorus metabolism; G40.909 Epilepsy, unspecified, not intractable, without status epilepticus; R13.10 Dysphagia, unspecified; Z20.822 Contact with and (suspected) exposure to COVID-19; Z79.51 Long term (current) use of inhaled steroids; Z79.84 Long term (current) use of oral hypoglycemic drugs; Z79.899 Other long term (current) drug therapy
CPT/HCPCS: 36415; 36600; 70450; 70551; 71045; 71275; 80048; 80053; 80076; 80159; 80164; 80178; 80202; 81001; 82040; 82140; 82272; 82803; 82947; 83605; 83735; 83880; 84100; 84145; 84439; 84443; 84484; 85014; 85018; 85025; 85048; 86850; 86900; 86901; 87040; 87070; 87205; 87449; 87502; 87635; 92526; 92610; 93005; 94002; 94003; 94640; 94660; 94799; 99285; J0131; J0295; J0330; J0613; J0616; J1163; J1171; J1596; J1630; J1644; J1650; J1720; J1938; J2250; J2270; J2470; J2543; J2704; J2919; J3010; J3360; J3373; J3374; J3480; J7120; P9047; Q9967

== ENCOUNTER → 2025-08-21 19:19 | Outpatient (BNV) | payer MEDICARE, MEDICAID, SELFPAY | PROVIDERS: Emergency Provider Emergency Medicine Emergency Medical Services; PCP Hospitalist; Visit Provider Radiology Diagnostic Radiology | DX: R91.8 Other nonspecific abnormal finding of lung field (principal); R41.82 Altered mental status, unspecified | CPT/HCPCS: 70450; 71045; 71275 ==

== ENCOUNTER → 2025-08-21 19:41 | Outpatient (BNV) | payer MEDICARE, MEDICAID, SELFPAY | PROVIDERS: Admitting Provider Registered Nurse Community Health; Emergency Provider Emergency Medicine Emergency Medical Services; PCP Hospitalist; Visit Provider Internal Medicine Cardiovascular Disease | DX: I45.10 Unspecified right bundle-branch block (principal); R00.0 Tachycardia, unspecified | CPT/HCPCS: 93010 ==

== ENCOUNTER 2025-08-21 22:44 | Outpatient (BNV) | payer MEDICARE, MEDICAID, SELFPAY | END 2025-08-22 09:52 | PROVIDERS: Admitting Provider Registered Nurse Community Health; Emergency Provider Emergency Medicine Emergency Medical Services; PCP Hospitalist; Visit Provider Radiology Diagnostic Radiology | DX: J84.89 Other specified interstitial pulmonary diseases (principal) | CPT/HCPCS: 71045 ==

== ENCOUNTER 2025-08-21 22:44 | Outpatient (BNV) | payer MEDICARE, MEDICAID, SELFPAY | END 2025-08-24 17:19 | PROVIDERS: Admitting Provider Registered Nurse Community Health; Emergency Provider Emergency Medicine Emergency Medical Services; PCP Hospitalist; Visit Provider Radiology Diagnostic Radiology | DX: G93.49 Other encephalopathy (principal) | CPT/HCPCS: 70551 ==

== ENCOUNTER 2025-08-21 22:44 | Outpatient (BNV) | payer MEDICARE, MEDICAID, SELFPAY | END 2025-08-23 16:51 | PROVIDERS: Admitting Provider Registered Nurse Community Health; Emergency Provider Emergency Medicine Emergency Medical Services; PCP Hospitalist; Visit Provider Radiology Diagnostic Radiology | DX: J18.8 Other pneumonia, unspecified organism (principal) | CPT/HCPCS: 71045 ==

== ENCOUNTER 2025-08-21 22:44 | Outpatient (BNV) | payer MEDICARE, MEDICAID, SELFPAY | END 2025-09-11 09:10 | PROVIDERS: Admitting Provider Registered Nurse Community Health; Emergency Provider Emergency Medicine Emergency Medical Services; PCP Hospitalist; Visit Provider Internal Medicine Cardiovascular Disease | DX: R00.0 Tachycardia, unspecified (principal) | CPT/HCPCS: 93010 ==

== ENCOUNTER 2025-08-21 22:44 | Outpatient (BNV) | payer MEDICARE, MEDICAID, SELFPAY | END 2025-09-11 07:41 | PROVIDERS: Admitting Provider Registered Nurse Community Health; Emergency Provider Emergency Medicine Emergency Medical Services; PCP Hospitalist; Visit Provider Specialist | DX: R09.02 Hypoxemia (principal) | CPT/HCPCS: 71045 ==

== ENCOUNTER 2025-08-21 22:44 | Outpatient (BNV) | payer MEDICARE, MEDICAID, SELFPAY | END 2025-08-29 | PROVIDERS: Admitting Provider Registered Nurse Community Health; Emergency Provider Emergency Medicine Emergency Medical Services; PCP Hospitalist; Visit Provider Radiology Diagnostic Radiology | DX: Z46.82 Encounter for fitting and adjustment of non-vascular catheter (principal) | CPT/HCPCS: 71045 ==

== ENCOUNTER → 2025-08-21 22:44 | Outpatient (BNV) | payer MEDICARE, MEDICAID, SELFPAY | PROVIDERS: Admitting Provider Registered Nurse Community Health; Emergency Provider Emergency Medicine Emergency Medical Services; PCP Hospitalist; Visit Provider Physician Assistant Medical | DX: T17.908A Unspecified foreign body in respiratory tract, part unspecified causing other injury, initial encounter (principal); I42.9 Cardiomyopathy, unspecified; N17.9 Acute kidney failure, unspecified; E87.0 Hyperosmolality and hypernatremia; G93.40 Encephalopathy, unspecified | CPT/HCPCS: 99232; 99233; 99239; 99499 ==

== ENCOUNTER → 2025-08-21 22:44 | Outpatient (BNV) | payer MEDICARE, MEDICAID, SELFPAY | PROVIDERS: Admitting Provider Registered Nurse Community Health; Emergency Provider Emergency Medicine Emergency Medical Services; PCP Hospitalist; Visit Provider Psychiatry & Neurology Psychiatry | DX: F25.9 Schizoaffective disorder, unspecified (principal); J69.0 Pneumonitis due to inhalation of food and vomit | CPT/HCPCS: 99222 ==

== ENCOUNTER → 2025-08-21 22:44 | Outpatient (BNV) | payer MEDICARE, MEDICAID, SELFPAY | PROVIDERS: Admitting Provider Registered Nurse Community Health; Emergency Provider Emergency Medicine Emergency Medical Services; PCP Hospitalist; Visit Provider Registered Nurse Community Health | DX: I95.9 Hypotension, unspecified (principal); N17.9 Acute kidney failure, unspecified; A41.9 Sepsis, unspecified organism; R65.21 Severe sepsis with septic shock; G93.40 Encephalopathy, unspecified; J69.0 Pneumonitis due to inhalation of food and vomit | CPT/HCPCS: 31500; 99291 ==

== ENCOUNTER → 2025-08-21 22:44 | Outpatient (BNV) | payer MEDICARE, MEDICAID, SELFPAY | PROVIDERS: Admitting Provider Registered Nurse Community Health; Emergency Provider Emergency Medicine Emergency Medical Services; PCP Hospitalist; Visit Provider Internal Medicine Pulmonary Disease | DX: I42.9 Cardiomyopathy, unspecified (principal); Z99.11 Dependence on respirator [ventilator] status; F25.9 Schizoaffective disorder, unspecified; N17.9 Acute kidney failure, unspecified; G93.40 Encephalopathy, unspecified; J43.2 Centrilobular emphysema; J43.9 Emphysema, unspecified; J84.10 Pulmonary fibrosis, unspecified; J69.0 Pneumonitis due to inhalation of food and vomit; G47.33 Obstructive sleep apnea (adult) (pediatric) | CPT/HCPCS: 99291 ==

== ENCOUNTER → 2025-08-21 22:44 | Outpatient (BNV) | payer MEDICARE, MEDICAID, SELFPAY | PROVIDERS: Admitting Provider Registered Nurse Community Health; Emergency Provider Emergency Medicine Emergency Medical Services; PCP Hospitalist; Visit Provider Physician Assistant Surgical | DX: Z99.11 Dependence on respirator [ventilator] status (principal) | CPT/HCPCS: 99222; 99499 ==